=== PATIENT | female | born 1940 | race Caucasian/White ===

== ENCOUNTER 2018-02-14 14:26 | Inpatient (IN) | payer MEDICARE, SELFPAY ==
[2018-02-14] VITALS (26 sets, daily range): BP systolic 89–193; BP diastolic 41–96; PULSE 67–129; RESP 12–48; TEMP 35.4–36.8; O2SAT 40–100; BMI 37.0; BMI 35.7
[2018-02-14] MEDS: Etomidate 20 MG/10 ML Vial IV (14:36)
[2018-02-14] MEDS: Succinylcholine Chloride 200 MG/10 ML Vial 100 MG IV (14:37)
--- NOTE | 2018-02-14 14:41 | RAD_ITS ---
STUDY: X-RAY CHEST REASON FOR EXAM: Female, 77 years old. Endotracheal tube placement. Orogastric tube placement. Respiratory distress. TECHNIQUE: Single AP portable view of the chest. COMPARISON: Comparison is made with prior study dated July 06, 2014. FINDINGS: An endotracheal tube is in situ. The tip is at 2.5 cm proximal to the shawn. The tip of the orogastric tube is seen below the left hemidiaphragm. EKG electrodes are seen. Increased interstitial markings in the right lung with areas of confluence. This may represent asymmetrical CHF versus pneumonic infiltration. There is blunting of the left costophrenic angle and increased markings at the left lung base. There is mild cardiac enlargement. There is calcification of the mitral valve annulus. Normal mediastinum and debby. Normal visualized pulmonary arteries. There is atherosclerotic calcification of the aortic arch with tortuosity. There are diffuse degenerative changes of the visualized thoracic spine. Normal visualized ribs, clavicles, and shoulders. There is no demonstrated abnormality of the visualized soft tissue structures of the upper abdomen. RAD/Chest 1 View (Portable) IMPRESSION: The tip of the endotracheal tube is at 2.5 cm proximal to the shawn. Increased initial markings in the right lung as described. This may represent either mild CHF versus pneumonic infiltrate. Blunting of the left costophrenic angle with increased markings in the left lower lobe. Electronically Signed: Sage Jaramillo MD at 15:13 EDT Tel [phone], Service support ,
--- NOTE | 2018-02-14 14:41 | EKG12_ITS ---
Test Reason : FR Blood Pressure : / mmHG Vent. Rate : 120 BPM Atrial Rate : 120 BPM P-R Int : 146 ms QRS Dur : 132 ms QT Int : 332 ms P-R-T Axes : 046 -34 -07 degrees QTc Int : 469 ms Sinus tachycardia Left axis deviation Right bundle branch block Abnormal ECG Confirmed by YUE YAÑEZ, JANICE ([id number]), photo editor BIRGIT EUBANKS ([id number]) on 02/16/2018 11:44:16 AM Referred By: STEPHANIE Confirmed By:JANICE TURNER MD
[2018-02-14 15:03] LABS: Absolute Lymphocyte Count 3.12 X10^3/ul (0.83-4.51); Absolute Neutrophil Count 7.4 X10^3/uL (2.0-7.7); Basophil# 0.04 X10^3/uL; Basophil% 0.3 % (0-1); Eosinophil# 0.21 X10^3/uL; Eosinophils% 1.8 % (0-5); Hematocrit 28.7 % (37-47); Hemoglobin 8.7 g/dl (12.0-15.0); Lymphocyte # 3.12 X10^3/ul (4.0); Lymphocyte % 27.1 % (19-41); Mean Corp Hgb Conc 30.3 g/gl (32-36); Mean Corpuscular Hgb 27.7 pg (27.0-32.0); Mean Corpuscular Volume 91.4 fL (81-99); Mean Platelet Vol. 9.3 fl (6.2-12.0); Monocyte# 0.72 X10^3/uL; Monocyte% 6.3 % (0-10); Neutrophil % 64.2 % (47-70); Platelet Count 353 K/mm3 (150-450); RBC Distribution Width CV 15.1 % (11.6-14.6); RBC Distribution Width SD 50.5 fl (35.1-43.9); Red Blood Count 3.14 M/mm3 (4.2-5.4); White Blood Count 11.5 K/mm3 (4.4-11.0)
[2018-02-14 15:04] LABS: POSITIVE COUNT NO; POSITIVE DIFFERENTIAL NO; POSITIVE MORPHOLOGY NO
[2018-02-14] MEDS: Albuterol 2.5 MG/3 ML VIAL.NEB. INHALATION (15:04)
[2018-02-14] MEDS: Ipratropium/Albuterol Sulfate 3 ML AMPUL.NEB INHALATION ×2 (15:04→19:03)
[2018-02-14] MEDS: Propofol 10MG/Ml 1,000 MG/100 ML Bottle 2.934 MG CONT INF ×2 (15:05→19:44)
[2018-02-14 15:10] LABS: Bedside Glucose 276 mg/dL (70-110)
[2018-02-14 15:15] LABS: Anion Gap 4 (5-15); BUN 23 mg/dL (7-18); BUN/Creat Ratio 20.9 RATIO (10-20); Calcium,Total 8.6 mg/dL (8.5-10.1); Chloride 99 mmol/L (98-107); EST Glomerular Filtration Rate 51 mL/min (>60); Est Glom Filt Rate - Afr Amer 62 mL/min (>60); Estimated Creatinine Clearance 36.98 ml/min; Glucose 246 mg/dL (74-106); Potassium 4.9 mmol/L (3.5-5.1); Sodium Level 132 mmol/L (136-145)
[2018-02-14 15:30] LABS: Allen Test POS; Base Excess -1 mmol/L (-2 to +2); Bicarbonate 26.3 mmol/L (22-26); Blood Gas Specimen Type ART; FI02 50; Mode A-C; O2 Delivery Device Vent; PEEP 5; PO2 147 mmHG (75-100); RR 12; SITE R Radial; SO2 99 % (95-99); Time Given 1520; Total Carbon Dioxide 28 mmol/L; Vt 450; pCO2 60.3 mmHg (35-45); pH 7.25 (7.35-7.45)
--- NOTE | 2018-02-14 15:32 | ED.VISSUMM ---
- ER Visit Summary Date of Service: 02/14/18 Chief Complaint: Shortness of breath History of Present Illness: The patient is a 77 F who is short of breath today. Patient usually sits on her front porch in waves of the cars ago by. Today she flagged down a passerby to have them call 911. She was very short of breath. Upon EMS arrival the patient was 50% on room air. They placed her on a nonrebreather oxygen. She has a history of asthma and chronic leg edema per documentation. Unknown if she is a smoker. She was confused and would not answer questions upon arrival. Physical Examination: Signs reviewed. Patient 100% on nonrebreather. Respiratory rate of 24. HEENT exam unremarkable. Heart is tachycardic and regular rhythm. Lungs have rhonchorous breath sounds bilaterally. Abdomen soft nontender. Extremities reveal 2+ symmetric edema bilaterally in the legs. The patient is confused in trying to take off medical equipment. She does not answer any questions. Test Results: EKG was normal sinus rhythm with rate of [address] and T-wave changes. Chest x-ray reveals a right-sided infiltrate which could also be evidence of CHF. White blood cell count 11.5 hemoglobin 8.7 sodium 132 creatinine 1.1 troponin normal. BNP 278. Lactate 1.6. ABG is 7.248/60/147/26 Emergency Department Course and Treatment: Upon arrival, the patient was combative and would not keep medical equipment on. At this point I elected to intubate her because she was desaturating when she did not keep the oxygen on. I used etomidate and succinylcholine. She was intubated with a 7-5 endotracheal tube using a MAC 4 blade. Patient was started on a propofol drip within a Versed drip was added because she was still combative on the ventilator even on high propofol drip. The patient's chest x-ray reveals infiltrate with maybe a little bit of CHF. I gave her Lasix to help with this. Her lactate is normal. I will start the patient on azithromycin and Rocephin for community-acquired pneumonia. Patient was discussed with hospitalist and Dr. Ruby for admission Treatment Plan: [] Disposition: Admit to ICU Impression: Acute respiratory failure, community acquired pneumonia, sepsis This note was generated with Xspandation software. It may contain incorrect words, spelling, and punctuation that were not noted in review of the chart prior to signing ED Disposition - Plan for ED Patient: Chief Complaint: Shortness of Breath Referrals: Yumi Diana MD [Primary Care Provider] -
[2018-02-14 16:02] LABS: BNP,B-Type NATRIURETIC PEPTIDE 278.8 pg/mL (0-100)
[2018-02-14 16:03] LABS: Lactic Acid 1.6 mmol/L (0.4-2.0)
[2018-02-14] MEDS: Furosemide 40 MG/4 ML Vial IV (16:10)
--- NOTE | 2018-02-14 16:14 | ECHOD_ITS ---
Reason For Study: CHF Procedure This was a 2D Doppler, Color Flow transthoracic echocardiogram. Technically difficult study, patient on a vent. Exam performed portable in ICU/CCU. Left Ventricle Moderate concentric left ventricular hypertrophy. The estimated ejection fraction is 65 %. Stage 2 diastolic dysfunction. Septal motion consistent with IVCD. No regional wall motion abnormalities noted. Right Ventricle Normal size and thickness. Normal systolic function. Atria Normal left atrium. Normal right atrium. Normal atrial septum. Mitral Valve Mild diffuse mitral valve thickening. Severe mitral annular calcification extending into the posterior leaflet. Tricuspid Valve Normal tricuspid valve. Trivial tricuspid valve insufficiency. Right ventricular systolic pressure estimated to be 43 mmHg. Aortic Valve Trisinus/trileaflet aortic valve. Moderate focal aortic valve thickening. Moderate diffuse aortic valve calcification. Severe restriction of the aortic valve. Severe aortic stenosis. Peak aortic valve gradient 97 mmHg. Mean aortic valve gradient 49 mmHg. Calculated aortic valve area (continuity equation) is 0.65 cm2. Pulmonic Valve The pulmonic valve is not well visualized. Great Vessels Normal aortic root. Mild atherosclerosis of the aortic arch. Normal inferior vena cava. Inferior vena cava collapse with sniff. Pericardium/Pleural No pericardial effusion. MMode/2D Measurements & Calculations LVIDd: 3.8 cm IVSd: 1.6 cm LVOT diam: 2.0 cm LVIDs: 2.6 cm LVPWd: 0.97 cm LVOT area: 3.3 cm2 FS: 31.5 % Ao root diam: 3.3 cm LAV(MOD-bp): 56.8 ml LA A4 area: 17.8 cm2 ACS: 0.77 cm LAV(MOD-bp) Indexed: 28.7 ml/m2 LA dimension: 4.1 cm LAV(MOD-sp2): 64.6 ml LAV(MOD-sp4): 48.9 ml RA A4 area: 17.1 cm2 Time Measurements MV dec time: 0.24 sec Doppler Measurements & Calculations MV E max everett: 154.6 cm/sec Lat Peak E' Everett: 9.9 cm/sec Med Peak E' Everett: 7.0 cm/sec MV A max everett: 120.8 cm/sec E/E' lat: 15.6 E/E' med: 22.2 MV E/A: 1.3 MV V2 max: 152.2 cm/sec MV P1/2t max everett: 151.2 cm/sec Ao V2 max: 483.8 cm/sec MV max P.3 mmHg MV P1/2t: 90.1 msec Ao max P.7 mmHg MV V2 mean: 80.5 cm/sec MV dec slope: 491.7 cm/sec2 Ao V2 mean: 330.1 cm/sec MV mean P.1 mmHg MVA(P1/2t): 2.4 cm2 Ao mean P.5 mmHg MV V2 VTI: 39.1 cm Ao V2 VTI: 106.0 cm MVA(VTI): 1.9 cm2 RAGINI(I,D): 0.71 cm2 RAGINI(V,D): 0.65 cm2 LV V1 max: 96.6 cm/sec SV(LVOT): 75.4 ml PA V2 max: 109.8 cm/sec LV V1 max P.7 mmHg LV V1 mean P.0 mmHg LV V1 mean: 66.6 cm/sec LV V1 VTI: 23.1 cm TR max everett: 307.0 cm/sec TR max P.7 mmHg Interpretation Summary The estimated ejection fraction is 65 %. Stage 2 diastolic dysfunction. Right ventricular systolic pressure estimated to be 43 mmHg. Severe restriction of the aortic valve. Severe aortic stenosis. Peak aortic valve gradient 97 mmHg. Mean aortic valve gradient 49 mmHg. Calculated aortic valve area (continuity equation) is 0.65 cm2. Compared to ech report dated 04/27/2016, LV function has remained the same, but aortic stenosis has gone from moderate to severe. Ordering Physician: Ninfa Mcnamara Performed By: Pedro Luis Kang RCS
--- NOTE | 2018-02-14 16:16 | NURSING ---
ICU 1 RESP FAILURE LUCÍA
--- NOTE | 2018-02-14 16:40 | PCM.HP.STD ---
Problem List (1) Respiratory failure Status: Acute (2) Respiratory failure requiring intubation Status: Acute History of Present Illness Date of Admission: 02/14/18 Chief Complaint: shortness of breath The patient is a 77 year old F was admitted via the ED on 02/14/2018 after she complained of shortness of breath. History was taken from patient's nephew who lives with her. According to nephew, patient went outside to sit on her porch was usually with that because that go by. Started feeling short of breath. The next thing he knew a gentleman wanting to tell him that patient had flushed them down as they were passing and told them she was very short of breath and to call 911. Upon arrival of EMS, per ED notes patient was 50% saturating on room air and she was placed on nonrebreather mask. She has a history of asthma and chronic lower extremity edema and his smoking status is unknown. Patient was confused and would not answer questions upon arrival. She is saturating at 100% on nonrebreather mask but was not tolerating it and was confused and kept trying to take off the mask. She kept and desaturating I would not give the oxygen mask on and so decision was made to intubate her in the ED. She was started on propofol drip and a Versed drip because she was still very combative whilst on the ventilator. Patient says she says she had not had any complaint of any shortness of breath, chest pain, palpitations, fever or chills, abdominal pain, diarrhea or vomiting. He only knows of having regular podiatry evaluations and says she has chronic lower extremity swelling and redness which she is followed up by podiatry. In the ED, temperature was 98 Fahrenheit, blood pressure was 108/70 with the time of arrival, respiratory rate was 24 pulse rate is 88. CBC showed leukocytosis of 11.5 and hemoglobin of 8.7 and chemistry showed sodium of 132, creatinine of 1.1 and lactic acid of 1.6 as well as glucose of 246. BNP was 278. Chest x-ray which was done after intubation showed tip of the endotracheal tube at 2.5 cm proximal to the shawn. There is also increased interstitial markings in the right lung versus areas of confluence which may represent asymmetrical seizure versus pneumonic infiltration and blunting of left costophrenic angle and increased markings of the left lung base. There is also mild cardiac enlargement. ABG on arrival showed pH of 7.25 with PCO2 of 60.3 and PO2 of 147. This was done after patient was intubated. CT angiogram was not done. Patient has been admitted to be managed for hypercapnic and hypoxic respiratory failure. [] Past Medical History Past Medical History (Chronic Problems): Chronic Problems History of ischemic stroke without residual deficits (Chronic) Obesity (Chronic) Asthma (Chronic) Dyslipidemia (Chronic) Peripheral arterial occlusive disease (Chronic) Arterial atherosclerosis (Chronic) Diabetes mellitus (Chronic) Left carotid bruit (Chronic) Erythema of lower extremity (Chronic) Edema of left lower extremity (Chronic) Swelling of left lower extremity (Chronic) Scalp laceration (Chronic) Multiple falls (Chronic) HTN (hypertension) (Chronic) Allergies banana [Banana] Allergy (Verified 02/14/18 14:41) Swelling metformin [From Glucophage] Adverse Reaction (Verified 02/14/18 14:41) Swelling of legs Home Medications: Ambulatory Orders Medication Instructions Recorded Acetaminophen [Tylenol] 1,000 mg PO Q6H PRN PRN 07/06/14 Aspirin [Aspirin, Baby] 81 mg PO DAILY@0800 07/06/14 Atorvastatin Calcium [Lipitor] 80 mg PO QHS 07/06/14 Ferrous Gluconate 325 mg PO DAILY@0800 07/06/14 Lisinopril [Zestril] 40 mg PO DAILY 07/06/14 Loperamide [Imodium] 2 mg PO Q4H PRN PRN 07/06/14 Metoprolol(XL)Succ [Toprol Xl 25 mg PO DAILY #30 tablet 07/08/14 (Beta Ryder)] Acetaminophen [Tylenol Tablet] 650 mg PO Q6H PRN PRN #30 tablet 04/29/16 Amlodipine [Norvasc] 2.5 mg PO DAILY #30 tablet 04/29/16 Insulin Glargine [Lantus SoloStar 24 units SC ACHS #4 cartridge 04/29/16 Pen] Insulin Glulisine [Apidra Solostar] 8 unit SQ ACHS #4 cartridge 04/29/16 levoFLOXacin tablet [Levaquin 500 mg PO DAILY #5 tablet 04/29/16 tablet] Surgical History: - - The patient has undergone left total knee replacement in 2005. Left carpal tunnel release was performed in 2005. The patient has had a distal left toe amputation. Lives: With Family - lives with nephew Smoking Status: Unknown if ever smoked Alcohol: None - *Family History Maternal History Items: No pertinent history Paternal History Items: No pertinent history - The patient's father at age of 85 with a history of heart disease. The patient's mother at age of 90 with a history of FIRE ENGINE PUMP OPERATOR cancer. Review of Systems Constitutional: Reports: Anorexia, Chills. Denies: Fever, Weight Change HEENT: Denies: Head Aches, Sinus Congestion, Sinus Drainage Cardiovascular: Denies: Chest Pressure, Chest Tightness, Heaviness, Orthopnea, Palpitations, Paroxysmal Noc. Dyspnea Respiratory: Reports: Shortness of Breath, Shortness of breath at rest. Denies: Cough Gastrointestinal: Denies: Abdominal Pain, Diarrhea, Nausea, Vomiting Unable to obtain accurate/complete ROS d/t: brief ROS taken from nephew. Unable to do comprehensive ROS as pt intubated VTE Information - Inpt Only VTE Present on Admission: No - having CTPE to determine VTE Mechan Device Prophylaxis: SCD's VTE Pharm Prophylaxis ordered?: Yes VTE Suspected: Suspected PE - having CT angiogram to rule it out Patient Problems: Active and Suspected Problems Respiratory failure (Acute) Respiratory failure requiring intubation (Acute) Objective: patient intubated, sedated with propofol and versed. - Physical Exam HEENT: Atraumatic, PERRLA, EOMI, Normocephalic Oral: Moist Mucosa Neck: Supple, No JVD, Negative Carotid Bruits Lungs: - - decreased breath sounds with coarse crackles in mid and lower lung messer. Cardiovascular: Regular rate, Regular Rhythm, Normal S1, Normal S2, - - harsh, grade 3-4 systolic murmur in pulmonic valvular area; grade 2-3 systolic murmur in aortic region Abdomen: Bowel Sounds Present, Soft, Non Tender, Non-Distended Extremities: - - bilateral LE redness and mild edema. not warm to touch; minimal differential warmth Skin: - - erythema and mild scaling of LEs. Left second toe amputation. No evidence of infection in webbed spaces Lymphatic: No Cervical, Supraclavicular, or Inguinal Adenopathy Neurological: - - patient intubated, sedated. On propofol and Versed. RASS score ~ -3 Psych/Mental Status: - - intubated and sedated Vital Signs Temp Pulse Resp BP Pulse Ox 98.0 F 88 24 H 108/76 100 02/14/18 14:28 02/14/18 16:23 02/14/18 16:23 02/14/18 16:23 02/14/18 16:23 Oxygen Delivery Method Mechanical Ventilator Diagnostic Data Chest X-Ray 02/14/18 14:41 IMPRESSION: The tip of the endotracheal tube is at 2.5 cm proximal to the shawn. Increased initial markings in the right lung as described. This may represent either mild CHF versus pneumonic infiltrate. Blunting of the left costophrenic angle with increased markings in the left lower lobe. Electronically Signed: Sage Jaramillo MD at 15:13 EDT Tel [phone], Service support , Laboratory Tests 02/14/18 02/14/18 02/14/18 14:45 14:45 14:45 WBC 11.5 H RBC 3.14 L Hgb 8.7 L Hct 28.7 L MCV 91.4 MCH 27.7 MCHC 30.3 L RDW 15.1 H RDW Differential 50.5 H Plt Count 353 MPV 9.3 Immature Gran % (Auto) 0.300 Neut % (Auto) 64.2 Lymph % (Auto) 27.1 [place] % (Auto) 6.3 Eos % (Auto) 1.8 Baso % (Auto) 0.3 Absolute Neuts (auto) 7.4 Absolute Lymphs (auto) 3.12 Total Counted Not Reportable Specimen Type Sample Site pH Bicarbonate Actual POC Total CO2 Base Excess O2 Saturation O2 % ABG pCO2 ABG pO2 John Test Respiration Rate O2 Delivery Device Vent Mode Tidal Volume POC PEEP Blood Gas Notified Whom Blood Gas Notified Time Sodium 132 L Potassium 4.9 Chloride 99 Carbon Dioxide 29.0 Anion Gap 4 L BUN 23 H Creatinine 1.10 H Estim Creat Clear Calc 36.98 Est GFR (MDRD) Af Amer 62 Est GFR (MDRD) Non-Af 51 L BUN/Creatinine Ratio 20.9 H Glucose 246 H Lactic Acid Calcium 8.6 Troponin I < 0.015 B-Natriuretic Peptide 278.8 H POC Glucose 02/14/18 02/14/18 02/14/18 14:45 15:04 15:28 WBC RBC Hgb Hct MCV MCH MCHC RDW RDW Differential Plt Count MPV Immature Gran % (Auto) Neut % (Auto) Lymph % (Auto) [place] % (Auto) Eos % (Auto) Baso % (Auto) Absolute Neuts (auto) Absolute Lymphs (auto) Total Counted Specimen Type ART Sample Site R Radial pH 7.25 L Bicarbonate Actual 26.3 H POC Total CO2 28 Base Excess -1 O2 Saturation 99 O2 % 50 ABG pCO2 60.3 H ABG pO2 147 H John Test POS Respiration Rate 12 O2 Delivery Device Vent Vent Mode A-C Tidal Volume 450 POC PEEP 5 Blood Gas Notified Whom ED Blood Gas Notified Time 1520 Sodium Potassium Chloride Carbon Dioxide Anion Gap BUN Creatinine Estim Creat Clear Calc Est GFR (MDRD) Af Amer Est GFR (MDRD) Non-Af BUN/Creatinine Ratio Glucose Lactic Acid 1.6 Calcium Troponin I B-Natriuretic Peptide POC Glucose 276 H Assessment/Plan All Active Problems Respiratory failure (Acute) Respiratory failure requiring intubation (Acute) Ulcer of left lower leg (Resolved) Cellulitis of left leg without foot (Resolved) Acute electrocardiogram changes (Acute) 77 y/o female admitted with a after she was found short of breath and passersby called the EMS 1. Hypoxic, hypercapnic respiratory failure due to CHF exacerbation and pneumonia Was found to be saturating at 50% with complaint of acute onset shortness of breath. Was not tolerating oxygen by nonrebreather mask and had to be intubated in the ED. Blood gases after intubation the ED showed pH of 7.25, PCO2 of 60.3 and PO2 of 147. Ventilator in the ED showed assist-control mode with tidal volume of 450, PEEP of 5 respiratory rate of 12. CXR: This interstitial markings in right lung with areas of confluence representing possible asymmetrical CHF versus pneumonic infiltration as well as blunting of the left costophrenic angle and increased markings of left lung base. Also mild cardiac enlargement. 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 Chronic lower extremity edema has mild LE edema with redness; this is chronic according to her nephew, and she follows Dr Jose Antonio ALLISON wraps bilaterally I dont think she has cellulitis, considering her chronic basis. 3. Hyponatremia Has a history of hyponatremia with sodium being as low as 131 in 2016. May be due to had been fully make hypotonic hyponatremia in light of elevated BNP. Will hold off on diuresis now though as blood pressure iranging in the 90s systolic at time of review will monitor 4. Probable CHF exacerbation doesnt have a history of CHF; BNP ~ 278; however, BP running low. will get urgent 2D echo 5. Diabetes mellitus on lantus 24IU and lispro 8IU 3 times daily. Will hold these and start insulin sliding scale. Accu-Cheks q6. 6. Pulmonary and aortic stenosis has grade 3-4 and 2-3 systolic murmurs respectively in the aforementioned areas will get 2D echo to assess fully 7. Hypertension on metoprolol and amlodipine. Also lisinopril. Will hold these due to hypotension. 8. DVT prophylaxis: lovenox 9. GI prophylaxis: pantoprazole Code status: full code This note was generated with [employer] dictation software. It may contain incorrect words, spelling, and punctuation that were not noted in checking the note before signing. Code Visit Inpatient E&M: 37259 Init Hosp L3 Procedures: 04171 Critial Care 1st Hr
--- NOTE | 2018-02-14 16:48 | HP.PCM_ITS ---
Problem List (1) Respiratory failure Status: Acute (2) Respiratory failure requiring intubation Status: Acute History of Present Illness Date of Admission: 02/14/18 Chief Complaint: shortness of breath The patient is a 77 year old F was admitted via the ED on 02/14/2018 after she complained of shortness of breath. History was taken from patient's nephew who lives with her. According to nephew, patient went outside to sit on her porch was usually with that because that go by. Started feeling short of breath. The next thing he knew a gentleman wanting to tell him that patient had flushed them down as they were passing and told them she was very short of breath and to call 911. Upon arrival of EMS, per ED notes patient was 50% saturating on room air and she was placed on nonrebreather mask. She has a history of asthma and chronic lower extremity edema and his smoking status is unknown. Patient was confused and would not answer questions upon arrival. She is saturating at 100% on nonrebreather mask but was not tolerating it and was confused and kept trying to take off the mask. She kept and desaturating I would not give the oxygen mask on and so decision was made to intubate her in the ED. She was started on propofol drip and a Versed drip because she was still very combative whilst on the ventilator. Patient says she says she had not had any complaint of any shortness of breath, chest pain, palpitations, fever or chills, abdominal pain, diarrhea or vomiting. He only knows of having regular podiatry evaluations and says she has chronic lower extremity swelling and redness which she is followed up by podiatry. In the ED, temperature was 98 Fahrenheit, blood pressure was 108/70 with the time of arrival, respiratory rate was 24 pulse rate is 88. CBC showed leukocytosis of 11.5 and hemoglobin of 8.7 and chemistry showed sodium of 132, creatinine of 1.1 and lactic acid of 1.6 as well as glucose of 246. BNP was 278. Chest x-ray which was done after intubation showed tip of the endotracheal tube at 2.5 cm proximal to the shawn. There is also increased interstitial markings in the right lung versus areas of confluence which may represent asymmetrical seizure versus pneumonic infiltration and blunting of left costophrenic angle and increased markings of the left lung base. There is also mild cardiac enlargement. ABG on arrival showed pH of 7.25 with PCO2 of 60.3 and PO2 of 147. This was done after patient was intubated. CT angiogram was not done. Patient has been admitted to be managed for hypercapnic and hypoxic respiratory failure. [] Past Medical History Past Medical History (Chronic Problems): Chronic Problems History of ischemic stroke without residual deficits (Chronic) Obesity (Chronic) Asthma (Chronic) Dyslipidemia (Chronic) Peripheral arterial occlusive disease (Chronic) Arterial atherosclerosis (Chronic) Diabetes mellitus (Chronic) Left carotid bruit (Chronic) Erythema of lower extremity (Chronic) Edema of left lower extremity (Chronic) Swelling of left lower extremity (Chronic) Scalp laceration (Chronic) Multiple falls (Chronic) HTN (hypertension) (Chronic) Allergies banana [Banana] Allergy (Verified 02/14/18 14:41) Swelling metformin [From Glucophage] Adverse Reaction (Verified 02/14/18 14:41) Swelling of legs Home Medications: Ambulatory Orders Medication Instructions Recorded Acetaminophen [Tylenol] 1,000 mg PO Q6H PRN PRN 07/06/14 Aspirin [Aspirin, Baby] 81 mg PO DAILY@0800 07/06/14 Atorvastatin Calcium [Lipitor] 80 mg PO QHS 07/06/14 Ferrous Gluconate 325 mg PO DAILY@0800 07/06/14 Lisinopril [Zestril] 40 mg PO DAILY 07/06/14 Loperamide [Imodium] 2 mg PO Q4H PRN PRN 07/06/14 Metoprolol(XL)Succ [Toprol Xl 25 mg PO DAILY #30 tablet 07/08/14 (Beta Ryder)] Acetaminophen [Tylenol Tablet] 650 mg PO Q6H PRN PRN #30 tablet 04/29/16 Amlodipine [Norvasc] 2.5 mg PO DAILY #30 tablet 04/29/16 Insulin Glargine [Lantus SoloStar 24 units SC ACHS #4 cartridge 04/29/16 Pen] Insulin Glulisine [Apidra Solostar] 8 unit SQ ACHS #4 cartridge 04/29/16 levoFLOXacin tablet [Levaquin 500 mg PO DAILY #5 tablet 04/29/16 tablet] Surgical History: - - The patient has undergone left total knee replacement in 2005. Left carpal tunnel release was performed in 2005. The patient has had a distal left toe amputation. Lives: With Family - lives with nephew Smoking Status: Unknown if ever smoked Alcohol: None - *Family History Maternal History Items: No pertinent history Paternal History Items: No pertinent history - The patient's father at age of 85 with a history of heart disease. The patient's mother at age of 90 with a history of [employer] cancer. Review of Systems Constitutional: Reports: Anorexia, Chills. Denies: Fever, Weight Change HEENT: Denies: Head Aches, Sinus Congestion, Sinus Drainage Cardiovascular: Denies: Chest Pressure, Chest Tightness, Heaviness, Orthopnea, Palpitations, Paroxysmal Noc. Dyspnea Respiratory: Reports: Shortness of Breath, Shortness of breath at rest. Denies : Cough Gastrointestinal: Denies: Abdominal Pain, Diarrhea, Nausea, Vomiting Unable to obtain accurate/complete ROS d/t: brief ROS taken from nephew. Unable to do comprehensive ROS as pt intubated VTE Information - Inpt Only VTE Present on Admission: No - having CTPE to determine VTE Mechan Device Prophylaxis: SCD's VTE Pharm Prophylaxis ordered?: Yes VTE Suspected: Suspected PE - having CT angiogram to rule it out Patient Problems: Active and Suspected Problems Respiratory failure (Acute) Respiratory failure requiring intubation (Acute) Objective: patient intubated, sedated with propofol and versed. - Physical Exam HEENT: Atraumatic, PERRLA, EOMI, Normocephalic Oral: Moist Mucosa Neck: Supple, No JVD, Negative Carotid Bruits Lungs: - - decreased breath sounds with coarse crackles in mid and lower lung messer. Cardiovascular: Regular rate, Regular Rhythm, Normal S1, Normal S2, - - harsh, grade 3-4 systolic murmur in pulmonic valvular area; grade 2-3 systolic murmur in aortic region Abdomen: Bowel Sounds Present, Soft, Non Tender, Non-Distended Extremities: - - bilateral LE redness and mild edema. not warm to touch; minimal differential warmth Skin: - - erythema and mild scaling of LEs. Left second toe amputation. No evidence of infection in webbed spaces Lymphatic: No Cervical, Supraclavicular, or Inguinal Adenopathy Neurological: - - patient intubated, sedated. On propofol and Versed. RASS score ~ -3 Psych/Mental Status: - - intubated and sedated Vital Signs Temp Pulse Resp BP Pulse Ox 98.0 F 88 24 H 108/76 100 02/14/18 14:28 02/14/18 16:23 02/14/18 16:23 02/14/18 16:23 02/14/18 16:23 Oxygen Delivery Method Mechanical Ventilator Diagnostic Data Chest X-Ray 02/14/18 14:41 IMPRESSION: The tip of the endotracheal tube is at 2.5 cm proximal to the shawn. Increased initial markings in the right lung as described. This may represent either mild CHF versus pneumonic infiltrate. Blunting of the left costophrenic angle with increased markings in the left lower lobe. Electronically Signed: Sage Jaramillo MD at 15:13 EDT Tel [phone], Service support , Laboratory Tests 02/14/18 02/14/18 02/14/18 14:45 14:45 14:45 WBC 11.5 H RBC 3.14 L Hgb 8.7 L Hct 28.7 L MCV 91.4 MCH 27.7 MCHC 30.3 L RDW 15.1 H RDW Differential 50.5 H Plt Count 353 MPV 9.3 Immature Gran % (Auto) 0.300 Neut % (Auto) 64.2 Lymph % (Auto) 27.1 [place] % (Auto) 6.3 Eos % (Auto) 1.8 Baso % (Auto) 0.3 Absolute Neuts (auto) 7.4 Absolute Lymphs (auto) 3.12 Total Counted Not Reportable Specimen Type Sample Site pH Bicarbonate Actual POC Total CO2 Base Excess O2 Saturation O2 % ABG pCO2 ABG pO2 John Test Respiration Rate O2 Delivery Device Vent Mode Tidal Volume POC PEEP Blood Gas Notified Whom Blood Gas Notified Time Sodium 132 L Potassium 4.9 Chloride 99 Carbon Dioxide 29.0 Anion Gap 4 L BUN 23 H Creatinine 1.10 H Estim Creat Clear Calc 36.98 Est GFR (MDRD) Af Amer 62 Est GFR (MDRD) Non-Af 51 L BUN/Creatinine Ratio 20.9 H Glucose 246 H Lactic Acid Calcium 8.6 Troponin I < 0.015 B-Natriuretic Peptide 278.8 H POC Glucose 02/14/18 02/14/18 02/14/18 14:45 15:04 15:28 WBC RBC Hgb Hct MCV MCH MCHC RDW RDW Differential Plt Count MPV Immature Gran % (Auto) Neut % (Auto) Lymph % (Auto) [place] % (Auto) Eos % (Auto) Baso % (Auto) Absolute Neuts (auto) Absolute Lymphs (auto) Total Counted Specimen Type ART Sample Site R Radial pH 7.25 L Bicarbonate Actual 26.3 H POC Total CO2 28 Base Excess -1 O2 Saturation 99 O2 % 50 ABG pCO2 60.3 H ABG pO2 147 H John Test POS Respiration Rate 12 O2 Delivery Device Vent Vent Mode A-C Tidal Volume 450 POC PEEP 5 Blood Gas Notified Whom ED MD Blood Gas Notified Time 1520 Sodium Potassium Chloride Carbon Dioxide Anion Gap BUN Creatinine Estim Creat Clear Calc Est GFR (MDRD) Af Amer Est GFR (MDRD) Non-Af BUN/Creatinine Ratio Glucose Lactic Acid 1.6 Calcium Troponin I B-Natriuretic Peptide POC Glucose 276 H Assessment/Plan All Active Problems Respiratory failure (Acute) Respiratory failure requiring intubation (Acute) Ulcer of left lower leg (Resolved) Cellulitis of left leg without foot (Resolved) Acute electrocardiogram changes (Acute) 77 y/o female admitted with a after she was found short of breath and passersby called the EMS 1. Hypoxic, hypercapnic respiratory failure due to CHF exacerbation and pneumonia * Was found to be saturating at 50% with complaint of acute onset shortness of breath. * Was not tolerating oxygen by nonrebreather mask and had to be intubated in the ED. * Blood gases after intubation the ED showed pH of 7.25, PCO2 of 60.3 and PO2 of 147. * Ventilator in the ED showed assist-control mode with tidal volume of 450, PEEP of 5 respiratory rate of 12. * CXR: This interstitial markings in right lung with areas of confluence representing possible asymmetrical CHF versus pneumonic infiltration as well as blunting of the left costophrenic angle and increased markings of left lung base. Also mild cardiac enlargement. * received a dose of IV ceftriaxone and IV azithromycin in the ED * CBC showed leucocytosis of 11.5; BNP was ~280 * will continue iV ceftriaxone and azithromycin * will get urgent 2D echocardiogram * blood cultures x 2 * admit to ICU * dye house hand consult * will get CT angiogram to rule out PE * will start pressors to maintain MAP>92% * 2. Chronic lower extremity edema * has mild LE edema with redness; this is chronic according to her nephew, and she follows Dr Brady * KEEGAN wraps bilaterally * I dont think she has cellulitis, considering her chronic basis. * 3. Hyponatremia * Has a history of hyponatremia with sodium being as low as 131 in 2016. * May be due to had been fully make hypotonic hyponatremia in light of elevated BNP. * Will hold off on diuresis now though as blood pressure iranging in the 90s systolic at time of review * will monitor * 4. Probable CHF exacerbation * doesnt have a history of CHF; * BNP ~ 278; however, BP running low. * will get urgent 2D echo * 5. Diabetes mellitus * on lantus 24IU and lispro 8IU 3 times daily. Will hold these and start insulin sliding scale. Accu-Cheks q6. * 6. Pulmonary and aortic stenosis * has grade 3-4 and 2-3 systolic murmurs respectively in the aforementioned areas * will get 2D echo to assess fully * 7. Hypertension * on metoprolol and amlodipine. Also lisinopril. Will hold these due to hypotension. * 8. DVT prophylaxis: lovenox 9. GI prophylaxis: pantoprazole Code status: full code This note was generated with [employer] dictation software. It may contain incorrect words, spelling, and punctuation that were not noted in checking the note before signing. Code Visit Inpatient E&M: 00409 Init Hosp L3 Procedures: 70300 Critial Care 1st Hr
[2018-02-14] MEDS: Ceftriaxone 1 GM/50 ML BAG IV ×2 (16:59→23:46)
--- NOTE | 2018-02-14 17:05 | RAD_ITS ---
STUDY: X-RAY CHEST REASON FOR EXAM: Female, 77 years old. Central line placement TECHNIQUE: Single AP portable view of the chest. COMPARISON: Prior study of earlier this date 2:52 PM FINDINGS: cafeteria monitor leads are present. An endotracheal tube is present with the tip 2.3 cm proximal to the shawn. There is a right-sided central venous line with tip in the region of the distal SVC. A nasogastric tube is present with the tip overlying the mid abdomen. The lungs are clear and expanded. There is no demonstrated pleural abnormality. Normal size heart. Normal mediastinum and debby. Normal visualized pulmonary arteries. There are calcified plaques of the aortic arch. Normal visualized thoracic spine. Normal visualized ribs, clavicles, and shoulders. There is no demonstrated abnormality of the visualized soft tissue structures of the upper abdomen. RAD/CXR for Line Placement IMPRESSION: Right-sided central venous line present with tip in the region of the distal SVC. Endotracheal and nasogastric tubes present appearing in adequate position. Calcified plaques of the aortic arch. No acute cardiopulmonary disease process is seen. Electronically Signed: Onel Lester MD at 17:38 EDT , Service support ,
--- NOTE | 2018-02-14 17:11 | CT_ITS ---
STUDY: CTA CHEST REASON FOR EXAM: Female, 77 years old. Hypoxia, respiratory distress RADIATION DOSAGE (If Supplied By Facility): CTDIvol = ( 37.42 ) mGy, DLP = ( 871.26 ) mGycm TECHNIQUE: The examination was performed with the intravenous administration of 100 ml of Isovue 370 contrast material. Post-processing of the angiographic images was performed, with multiplanar reformation and 3D reconstruction. Individualized dose optimization techniques were used for this CT. COMPARISON: None. FINDINGS: The study is technically limited. Normal enhancement of the main pulmonary artery and right and left pulmonary arteries. Normal enhancement of the bilateral peripheral pulmonary arteries. There is no demonstrated pulmonary embolism. There are calcified plaques of the thoracic aorta. There is no evidence of thoracic aortic aneurysm or dissection. The heart size is within normal limits. There is no pericardial effusion. Coronary arterial calcifications are present. Normal mediastinum. Normal hilar regions. An endotracheal tube is present with the tip 7 mm proximal to the shawn. A nasogastric tube is seen with the tip in the stomach. There is a mosaic attenuation pattern of the lungs predominantly involving the upper lobes and right lower lobe. There is atelectasis with air bronchograms of the left and right upper and lower lobes. There are bronchiectatic changes of the lower lobes. There are small bilateral pleural effusions right side larger than left. Normal chest wall structures. There are diffuse degenerative changes of the visualized thoracolumbar spine. Normal visualized upper abdomen. CT/CTA Chest W/WO Contrast IMPRESSION: 1. There is no evidence of pulmonary embolism. 2. There is a mosaic attenuation pattern of the lungs predominantly involving the upper lobes and right lower lobe. 3. There is atelectasis with air bronchograms of the left and right upper and lower lobes. 4. There are bronchiectatic changes of the lower lobes also. 5. There are small bilateral pleural effusions right side larger than left. 6. An endotracheal tube is present with the tip 7 mm proximal to the shawn. Retraction of several centimeters of such is recommended for optimal placement. 7. There are diffuse degenerative changes of the visualized thoracolumbar spine. Electronically Signed: Onel Lester MD at 18:09 EDT , Service support ,
[2018-02-14] MEDS: Insulin Lispro 100 UNIT/ML INSULN.PEN SQ (18:40)
[2018-02-14 18:46] LABS: Bedside Glucose 154 mg/dL (70-110)
[2018-02-14 20:55] LABS: M R Staph aureus DNA By PCR Negative (Negative); Probe Check PASS; Specimen Processing Control PASS
[2018-02-14] MEDS: Chlorhexidine 15 ML PO (22:00)
[2018-02-15] VITALS (45 sets, daily range): BP systolic 63–153; BP diastolic 30–107; PULSE 62–111; RESP 12–28; TEMP 36.9–37.7; O2SAT 90–100
[2018-02-15 00:46] LABS: Bedside Glucose 114 mg/dL (70-110)
[2018-02-15] MEDS: Ipratropium/Albuterol Sulfate 3 ML AMPUL.NEB INHALATION ×4 (01:04→18:53)
[2018-02-15] MEDS: Propofol 10MG/Ml 1,000 MG/100 ML Bottle 2.934 MG CONT INF (02:50)
[2018-02-15 05:20] LABS: Hematocrit 21.9 % (37-47); Hemoglobin 6.9 g/dl (12.0-15.0); Mean Corp Hgb Conc 31.5 g/gl (32-36); Mean Corpuscular Hgb 28.3 pg (27.0-32.0); Mean Corpuscular Volume 89.8 fL (81-99); Mean Platelet Vol. 8.6 fl (6.2-12.0); Platelet Count 257 K/mm3 (150-450); RBC Distribution Width CV 14.4 % (11.6-14.6); RBC Distribution Width SD 45.5 fl (35.1-43.9); Red Blood Count 2.44 M/mm3 (4.2-5.4); White Blood Count 8.4 K/mm3 (4.4-11.0)
[2018-02-15] MEDS: 0.9% NaCl Peripheral Flush Adult/Peds IV ×2 (05:23→07:12)
[2018-02-15 05:24] LABS: Scan Indicated on CBC? Y/N NO
[2018-02-15 05:43] LABS: Anion Gap 8 (5-15); BUN 24 mg/dL (7-18); Chloride 100 mmol/L (98-107); Creatinine, Serum 1.09 mg/dL (0.55-1.02); EST Glomerular Filtration Rate 52 mL/min (>60); Est Glom Filt Rate - Afr Amer 63 mL/min (>60); Estimated Creatinine Clearance 37.32 ml/min; Glucose 97 mg/dL (74-106); Potassium 4.2 mmol/L (3.5-5.1); Sodium Level 138 mmol/L (136-145)
--- NOTE | 2018-02-15 06:48 | RAD_ITS ---
STUDY: X-RAY CHEST REASON FOR EXAM: Female, 77 years old. Shortness of breath. TECHNIQUE: Single AP portable view of the chest. COMPARISON: Comparison is made with prior examination dated February 14, 2018. FINDINGS: An endotracheal tube is in situ. The tip is at 2 cm Roxanol to the shawn. An oral gastric tube is seen with the tip in the body of the stomach. EKG electrodes are seen. Mild degree of increased markings at the lung bases as well as in both upper lobes slightly worse on the right side. This is suggestive of vascular congestion and mild CHF with bibasilar atelectasis. This has progressed as compared to prior study. Blunting of the left costophrenic angle. There is mild cardiac enlargement. Normal mediastinum and debby. Normal visualized pulmonary arteries. There is atherosclerotic calcification of the aortic arch with tortuosity. There are diffuse degenerative changes of the visualized thoracic spine. Normal visualized ribs, clavicles, and shoulders. There is no demonstrated abnormality of the visualized soft tissue structures of the upper abdomen. RAD/Chest 1 View (Portable) IMPRESSION: Findings suggestive of a mild degree of CHF with bibasilar atelectasis. There has been progression as compared to prior study. Electronically Signed: Sage Jaramillo MD at 11:26 EDT Tel [phone], Service support ,
--- NOTE | 2018-02-15 07:07 | CON.PCM_ITS ---
Reason for Consult Date of Consultation: 02/15/18 Reason for Consultation: Acute respiratory failure History of Present Illness: The patient is a 77-year-old female, with a history as outlined below, who presented to the emergency department on February 14 with acute onset shortness of breath. History pertinent to the patient's hospitalization was obtained primarily via chart review, as the patient is currently intubated and there are no family members available at the bedside. Per report, the patient was sitting on her front porch when she developed rather acute onset shortness of breath. She flagged down a passing motorist, who called 911. The patient's nephew resides with her. The patient was reportedly confused and hypoxic upon EMS arrival. On presentation to the emergency department, the patient was noted to be afebrile, tachycardic, tachypneic and in fulminant respiratory distress. Laboratory evaluation revealed a mildly elevated white blood cell count to 12, 000. The patient was anemic with a hemoglobin of 8.7. Arterial blood gas revealed a pH of 7.25 with a corresponding PCO2 of 60 and PO2 of 147. Chemistry profile revealed a sodium of 132 with a creatinine of 1.10, which is increased from her baseline from April 2016. Serum lactate was within normal limits. BNP was elevated to 278. On arrival to the ED, the patient was combative and was therefore subsequently intubated. A CTA chest was then obtained which revealed no evidence for pulmonary embolism. There was evidence of small bilateral pleural effusions along with mosaic attenuation with potential airspace disease in the right upper lobe with associated air bronchograms and evidence of bronchiectasis in the lower lobes. The patient was started on antibiotics and subsequently transferred to the medical intensive care unit for ongoing management. Past Medical History Past Medical History (Chronic Problems): Chronic Problems History of ischemic stroke without residual deficits (Chronic) Obesity (Chronic) Asthma (Chronic) Dyslipidemia (Chronic) Peripheral arterial occlusive disease (Chronic) Arterial atherosclerosis (Chronic) Diabetes mellitus (Chronic) Left carotid bruit (Chronic) Erythema of lower extremity (Chronic) Edema of left lower extremity (Chronic) Swelling of left lower extremity (Chronic) Scalp laceration (Chronic) Multiple falls (Chronic) HTN (hypertension) (Chronic) Allergies banana [Banana] Allergy (Verified 02/14/18 14:41) Swelling metformin [From Glucophage] Adverse Reaction (Verified 02/14/18 14:41) Swelling of legs Home Medications: Ambulatory Orders Medication Instructions Recorded Aspirin [Aspirin, Baby] 81 mg PO DAILY@0800 07/06/14 Atorvastatin Calcium [Lipitor] 40 mg PO QHS 07/06/14 Ferrous Gluconate 325 mg PO BID 07/06/14 Lisinopril [Zestril] 10 mg PO DAILY 07/06/14 Acetaminophen [Tylenol Tablet] 650 mg PO Q6H PRN PRN #30 tablet 04/29/16 Amlodipine [Norvasc] 2.5 mg PO DAILY 02/15/18 Cholecalciferol (Vitamin D3) 5,000 unit PO DAILY 02/15/18 [Vitamin D3] Insulin Aspart [Novolog Flexpen 5 units SC TIDCM 02/15/18 ([facility])] Insulin Degludec [Tresiba 22 unit SQ DAILY 02/15/18 Flextouch U-100] Metoprolol(XL)Succ [Toprol Xl 25 mg PO DAILY 02/15/18 (Beta Ryder)] Oxybutynin [Ditropan] 5 mg PO DAILY 02/15/18 Triamcinolone 0.1% Cream [Kenalog] 1 applic TOPICAL BID 02/15/18 Surgical History: - - The patient has undergone left total knee replacement in 2005. Left carpal tunnel release was performed in 2005. The patient has had a distal left toe amputation. Lives: With Family - lives with nephew Smoking Status: Unknown if ever smoked Alcohol: None - *Family History Maternal History Items: No pertinent history Paternal History Items: No pertinent history - The patient's father at age of 85 with a history of heart disease. The patient's mother at age of 90 with a history of [employer] MACHINE OPERATOR cancer. Review of Systems Unable to obtain accurate/complete ROS d/t: As the patient is currently intubated and mechanically ventilated. Patient Problems: Active and Suspected Problems Respiratory failure (Acute) Respiratory failure requiring intubation (Acute) Objective: The patient's most recent lab work, culture data and imaging studies have all been personally reviewed. Strep and urine Legionella antigens were both negative. Blood cultures are pending. Sputum culture was collected and is currently pending. - Physical Exam General: - - Intubated and mechanically ventilated. Appears anxious and agitated on CPAP currently. HEENT: Atraumatic, PERRLA, Normocephalic Oral: No Gingival or Mucosal Lesions/ Ulcerations, - - Endotracheal and OG tubes remain in place. Neck: Supple, No Nodes, Trachea Midline Lungs: - - Clear across anterior lung messer with diminished air movement in the posterior lung bases. No appreciable wheezes, rales or rhonchi. Cardiovascular: Normal S1, Normal S2, Murmur, No rub noted, No Gallop, Tachycardic Abdomen: Bowel Sounds Present, Soft, Non Tender, Non-Distended Extremities: No clubbing, No cyanosis, No edema Skin: No breakdown Musculoskeletal: No Tenderness to Palpation of Joints or Extremities Lymphatic: No Cervical, Supraclavicular, or Inguinal Adenopathy Neurological: - - No focal deficits. Moves all extremities spontaneously. Currently agitated and restless in bed. Psych/Mental Status: Agitated, Restless Vital Signs Temp Pulse Resp BP Pulse Ox 98.9 F 83 14 119/68 100 02/15/18 06:00 02/15/18 06:00 02/15/18 06:00 02/15/18 06:00 02/15/18 06:00 Oxygen Delivery Method Room Air Weight: 205 lb 14.588 oz Body Mass Index (BMI) 35.7 Intake and Output for Last 24 Hours 02/13/18 02/14/18 02/15/18 23:59 23:59 23:59 Intake Total 556 / 556 206 / 206 Output Total 5 / 2075 350 / 350 Balance -1519 / -1519 -144 / -144 Microbiology Past 72 Hours 02/14/18 18:15 Streptococcus pneumoniae Antigen (M - Final Urine Catheter - [facility] 02/14/18 18:15 Legionella Antigen - Final Urine Catheter - [facility] Laboratory Tests Past 24 Hrs 02/14/18 02/15/18 02/15/18 17:50 05:15 05:15 WBC 8.4 RBC 2.44 L Hgb 6.9 L Hct 21.9 L MCV 89.8 MCH 28.3 MCHC 31.5 L RDW 14.4 RDW Differential 45.5 H Plt Count 257 MPV 8.6 Sodium 138 Potassium 4.2 Chloride 100 Carbon Dioxide 30.0 Anion Gap 8 BUN 24 H Creatinine 1.09 H Estim Creat Clear Calc 37.32 Est GFR (MDRD) Af Amer 63 Est GFR (MDRD) Non-Af 52 L BUN/Creatinine Ratio 22.0 H Glucose 97 Calcium 8.0 L MRSA (PCR) Negative POC Glucose 02/14/18 02/14/18 23:40 18:39 POC Glucose 114 H 154 H Clinical Impression(s) from Imaging Studies Chest X-Ray 02/14/18 14:41 IMPRESSION: The tip of the endotracheal tube is at 2.5 cm proximal to the shawn. Increased initial markings in the right lung as described. This may represent either mild CHF versus pneumonic infiltrate. Blunting of the left costophrenic angle with increased markings in the left lower lobe. Electronically Signed: Sage Jaramillo MD at 15:13 EDT Tel [phone], Service support , Chest X-Ray 02/14/18 17:05 IMPRESSION: Right-sided central venous line present with tip in the region of the distal SVC. Endotracheal and nasogastric tubes present appearing in adequate position. Calcified plaques of the aortic arch. No acute cardiopulmonary disease process is seen. Electronically Signed: Onel Lester MD at 17:38 EDT , Service support , Chest CTA 02/14/18 17:11 IMPRESSION: 1. There is no evidence of pulmonary embolism. 2. There is a mosaic attenuation pattern of the lungs predominantly involving the upper lobes and right lower lobe. 3. There is atelectasis with air bronchograms of the left and right upper and lower lobes. 4. There are bronchiectatic changes of the lower lobes also. 5. There are small bilateral pleural effusions right side larger than left. 6. An endotracheal tube is present with the tip 7 mm proximal to the shawn. Retraction of several centimeters of such is recommended for optimal placement. 7. There are diffuse degenerative changes of the visualized thoracolumbar spine. Electronically Signed: Onel Lester MD at 18:09 EDT , Service support , Assessment/Plan Active and Suspected Problems Respiratory failure (Acute) Respiratory failure requiring intubation (Acute) RECOMMENDATIONS: 1. Place patient back on assist control and restart sedation. Will reattempt weaning later this morning. 2. Obtain repeat arterial blood gas and plain film chest x-ray. 3. Obtain sputum for culture, prior to consideration for extubation. 4. Wean sedation to maintain a RASS of -1 to 1. 5. Await echocardiogram. 6. Continue bronchodilators and antibiotics, pending infectious workup. 7. Continue Lovenox for DVT prophylaxis. Start Pepcid for GI prophylaxis. 8. If the patient remains intubated, plan to start tube feeds. IMPRESSIONS: 1. Acute hypoxemic and hypercarbic respiratory failure Unclear etiology for the patient's rather acute decompensation. While an infectious process is certainly a possibility, it seems unlikely that this would have led to her acutely decompensating in the manner in which that she did. Regardless, the patient will be continued on antibiotics, pending infectious workup. Plan to obtain sputum and sent for culture. We will also continue scheduled bronchodilators, given that the patient's medical history is questionable. The CTA revealed no evidence for pulmonary embolism. The patient 's troponin was within normal limits. Agree with obtaining an echocardiogram at this time. Given that the patient is currently agitated she will be placed back on assist control mode of mechanical ventilation. Later this morning, if stable, she will be trialed once again on CPAP. Continue Lovenox for DVT prophylaxis. Start Pepcid for GI prophylaxis. If the patient remains intubated , tube feeds can be started. 2. Sepsis secondary to community acquired pneumonia As noted above, will continue current supportive measures with mechanical ventilatory support and antibiotics, pending infectious workup. The patient remains hemodynamically stable. There is no indication for additional volume expansion at this time. 3. Acute versus chronic kidney disease The patient appears to have acute kidney injury when compared to her last creatinine in our system from April 2016. However, this may also represent progressive renal insufficiency. At the current time, however, her urine output remains appropriate. We will continue to monitor accordingly. No indication for renal replacement therapy at this time. 4. Anemia The patient appears to have borderline microcytic blood indices. Her last hemoglobin in our system in April 2016 was 9.4 g/dL. On arrival to the hospital, she was noted to be 8.7 and has trended down to 7.8 g/dL this morning. We will plan to check iron studies along with stool for occult blood. A type and screen will also be sent. Continue to monitor blood counts daily. Transfusion will be indicated if the hemoglobin drops below 7 g/dL. 5. Hypertension/hyperlipidemia/diabetes mellitus Complicates care, management, recovery and prognosis. Holding home antihypertensives at this time. Continue sliding scale insulin coverage. The patient will require physical therapy evaluation. UPDATE: During later morning hours, the patient was able to be placed back on CPAP and a repeat spontaneous breathing trial was completed. Sedation was completely interrupted. The patient remained calm and was appropriately interactive throughout her entire breathing trial. Only scant secretions were noted. Therefore, the decision was made to proceed with extubation. Once extubated, supplemental oxygen can be weaned to maintain saturations at or above 90%. A bedside swallow evaluation can also be completed. TIME: 48 minutes of critical care time, independent of procedures, was spent addressing the patient's acute hypoxemic and hypercarbic respiratory failure, sepsis secondary to community-acquired pneumonia, acute versus chronic kidney disease, anemia, review of all data and collaboration with the care team. (0700- 0800) Code Visit 9xxxx: 59922 Critical care first hour
[2018-02-15] MEDS: CHLORHEXIDINE GLUC 2% CLOTH 1 EACH TOWELETTE TOPICAL (07:11)
[2018-02-15 07:17] LABS: Hematocrit 24.8 % (37-47); Hemoglobin 7.8 g/dl (12.0-15.0)
[2018-02-15 08:21] LABS: Ferritin 45 ng/mL (8-252); Iron 21 ug/dL (50-170); Iron Binding Capacity,Total 217 ug/dL (250-450); PERCENT IRON SATURATION 9.7 % (15.0-55.0)
[2018-02-15 09:01] LABS: Allen Test POS; Base Excess 3 mmol/L (-2 to +2); Bicarbonate 26.8 mmol/L (22-26); Blood Gas Specimen Type ART; FI02 30; Mode CPAP PS; O2 Delivery Device Vent; PEEP 5; PO2 81 mmHG (75-100); PS 5; SITE R Radial; SO2 96 % (95-99); Time Given 855; Total Carbon Dioxide 28 mmol/L; pCO2 39.2 mmHg (35-45); pH 7.44 (7.35-7.45)
[2018-02-15] MEDS: Chlorhexidine 15 ML PO (09:20)
[2018-02-15] MEDS: Enoxaparin 40 MG/0.4 ML Syringe SC (09:21)
[2018-02-15] MEDS: Nystatin Powder 15gm Bottle 1 APPLIC TOPICAL (09:22)
[2018-02-15] MEDS: Ceftriaxone 1 GM/50 ML BAG IV ×2 (09:23→21:04)
--- NOTE | 2018-02-15 09:31 | PCM.PN.HOSP ---
Patient Problems: Active and Suspected Problems Respiratory failure (Acute) Respiratory failure requiring intubation (Acute) Subjective: Patient seen and examined. She was admitted with a complaint of acute onset shortness of breath. She had to be intubated in the ED because she was not tolerating oxygen by nonrebreather mask. She is being managed for acute heart hypoxic and hypercapnic respiratory failure due to community acquired pneumonia and possible heart failure. Patient seen and examined. She remains intubated though she is more conscious now, and appears restless. No active issues per her nurse overnight. Review of systems otherwise negative. Labs and vitals from overnight reviewed. Patient is able to nod and say she does not feel like she has any chest pain or abdominal pain and has had any diarrhea vomiting. However she does motion to her throat indicating that she has sore throat likely because of the endotracheal tube. Vitals/I&O's: Vital Signs Temp Pulse Resp BP Pulse Ox 99.4 F H 98 20 H 99/69 100 02/15/18 07:00 02/15/18 07:14 02/15/18 07:00 02/15/18 07:00 02/15/18 07:00 Oxygen Delivery Method Mechanical Ventilator Weight: 205 lb 14.588 oz Body Mass Index (BMI) 35.7 Intake and Output for Last 24 Hours 02/13/18 02/14/18 02/15/18 23:59 23:59 23:59 Intake Total 556 / 556 236 / 236 Output Total 5 / 207 350 / 350 Balance -1519 / -1519 -114 / -114 General: Alert, Oriented x3, Cooperative, No apparent distress HEENT: Atraumatic, PERRLA, EOMI, Normocephalic Oral: Moist Mucosa Neck: Supple, No JVD, Negative Carotid Bruits Lungs: - - has coarse crackles in mid and lower lung messer bilaterally. Has some wheezing in lungs bilaterally. Cardiovascular: Regular rate, Regular Rhythm, Normal S1, Normal S2, No murmurs Abdomen: Bowel Sounds Present, Soft, Non Tender, Non-Distended, No Hepato-splenomegaly, Passing Flatus, Gravid Extremities: No clubbing, No cyanosis, No edema, Capillary Refill Less than 3 Seconds Skin: No rashes, No breakdown Musculoskeletal: No Tenderness to Palpation of Joints or Extremities Lymphatic: No Cervical, Supraclavicular, or Inguinal Adenopathy Neurological: Cranial nerves II-XII grossly intact, Motor Exam 5/5 strength throughout, - - RASS score is 1-2 Psych/Mental Status: Anxious Microbiology Past 72 Hours 02/14/18 18:15 Urine Catheter - [facility] Streptococcus pneumoniae Antigen (M - Final 02/14/18 18:15 Urine Catheter - [facility] Legionella Antigen - Final Laboratory Results 02/14/18 17:50: MRSA (PCR) Negative 02/14/18 18:39: POC Glucose 154 H 02/14/18 23:40: POC Glucose 114 H 02/15/18 05:15: WBC 8.4, RBC 2.44 L, Hgb 6.9 L, Hct 21.9 L, MCV 89.8, MCH 28.3, MCHC 31.5 L, RDW 14.4, RDW Differential 45.5 H, Plt Count 257, MPV 8.6 02/15/18 05:15: Sodium 138, Potassium 4.2, Chloride 100, Carbon Dioxide 30.0, Anion Gap 8, BUN 24 H, Creatinine 1.09 H, Estim Creat Clear Calc 37.32, Est GFR (MDRD) Af Amer 63, Est GFR (MDRD) Non-Af 52 L, BUN/Creatinine Ratio 22.0 H, Glucose 97, Calcium 8.0 L 02/15/18 05:15: Iron 21 L, TIBC 217 L, Iron Saturation 9.7 L, Ferritin 45 02/15/18 07:05: Hgb 7.8 L, Hct 24.8 L 02/15/18 07:05: Blood Type O POSITIVE, Antibody Screen NEGATIVE 02/15/18 08:56: Specimen Type ART, Sample Site R Radial, pH 7.44, Bicarbonate Actual 26.8 H, POC Total CO2 28, Base Excess 3 H, O2 Saturation 96, O2 % 30, ABG pCO2 39.2, ABG pO2 81, John Test POS, O2 Delivery Device Vent, Vent Mode CPAP PS, POC PEEP 5, POC Pressure Suppt 5, Blood Gas Notified Whom ICU MD, Blood Gas Notified Time 855 Current Medications Albuterol/Ipratropium (Duoneb) 3 ml INHALATION Q6HWA.RT KORY Last Admin: 02/15/18 06:28 Dose: 3 ml Chlorhexidine Gluconate () 15 ml PO BID [facility] Last Admin: 02/15/18 09:20 Dose: 15 ml Chlorhexidine Gluconate () 1 each TOPICAL DAILY [facility] Last Admin: 02/15/18 07:11 Dose: 1 each Dextrose (D50w Syringe) 0 gm IV X1 PRN; Protocol PRN Reason: Hypoglycemia Enoxaparin Sodium (Lovenox) 40 mg SC DAILY@1000 [facility] Last Admin: 02/15/18 09:21 Dose: 40 mg Glucagon () 1 mg IM .X1 PRN PRN Reason: Hypoglycemia Propofol (Diprivan) 1,000 mg in 100 mls @ 2.934 mls/hr CONT INF .Q12H KORY; 5 MCG/KG/MIN PRN Reason: Protocol Last Admin: 02/15/18 02:50 Dose: 2.934 mls/hr Azithromycin 500 mg/ Dextrose 255 mls @ 250 mls/hr IV Q24 [facility] Ceftriaxone Sodium (Rocephin) 1 gm in 50 mls @ 100 mls/hr IV Q12 [facility] Last Admin: 02/15/18 09:23 Dose: 100 mls/hr Fentanyl () 100 mls @ 5 mls/hr IV .Q20H [facility] Last Admin: 02/14/18 23:45 Dose: 5 mls/hr Insulin Human Lispro (Humalog Kwikpen ([facility])) 0 unit SQ Q6 [facility] PRN Reason: Protocol Last Admin: 02/15/18 05:49 Dose: Not Given Magnesium Hydroxide (Milk Of Magnesia) 30 ml PO DAILY PRN PRN PRN Reason: Constipation Nystatin (Mycostatin Powder) 1 applic TOPICAL BID [facility] PRN Reason: Protocol Last Admin: 02/15/18 09:22 Dose: 1 applicatio Sodium Chloride () 5 - 30 ml IV UD PRN PRN Reason: SALINE FLUSH Last Admin: 02/15/18 07:12 Dose: 10 ml Medical Necessity - Tobacco Use Smoking Status: Unknown if ever smoked Assessment/Plan All Active Problems Respiratory failure (Acute) Respiratory failure requiring intubation (Acute) Ulcer of left lower leg (Resolved) Cellulitis of left leg without foot (Resolved) Acute electrocardiogram changes (Acute) 77 y/o female admitted with a after she was found short of breath and passersby called the EMS 1. Hypoxic, hypercapnic respiratory failure due to CHF exacerbation and pneumonia Remains intubated. Patient is much more alert and RASS score is around 1-2. has a mild fever this morning, with temp of 99.4F vent settings: A/C FiO2-30%, PEEP-5, TV [address] angiogram was negative for PE on IV ceftriaxone and azithromycin blood cultures pending; echo pending didnt require pressors overnight. has maintained a good BP consulting nurse on board per consulting nurse, to try spontaneous weaning trial and attempt extubation later today. 2. Community acquired Pneumonia White cell count is resolved. Blood cultures pending. on Ceftriaxone and azithromycin. 3. Chronic lower extremity edema resolving. LE resolving. KEEGAN wraps bilaterally. Will monitor 3. Hyponatremia resolving. Na is up to 138 today will monitor 4. Probable CHF exacerbation doesnt have a history of CHF; echo pending. Patient not diuresed o.a of being hypotensive on admission. will monitor 5. Anemia: Hb was 8.7 on admission, baseline is ~ 9-10. Hb was 6.9 this morning, on repeat was 7.8. Will continue monitoring. will get iron panel 6. Diabetes mellitus on lantus 24IU and lispro 8IU 3 times daily. these are on hold. on ISS. Accu-Cheks q6. 7. Probable Pulmonary and aortic stenosis has grade 3-4 and 2-3 systolic murmurs respectively in the aforementioned areas will get 2D echo to assess fully 8. Hypertension on metoprolol and amlodipine. Also lisinopril. These were held due to hypotension. BP 99/69 this morning. Will continue holding, and monitoring. 9. DVT prophylaxis: lovenox 10. GI prophylaxis: pantoprazole Code status: full code This note was generated with [employer] dictation software. It may contain incorrect words, spelling, and punctuation that were not noted in checking the note before signing. Code Visit Inpatient E&M: 32029 Subs Hosp L3
--- NOTE | 2018-02-15 09:40 | PN_ITS ---
Patient Problems: Active and Suspected Problems Respiratory failure (Acute) Respiratory failure requiring intubation (Acute) Subjective: Patient seen and examined. She was admitted with a complaint of acute onset shortness of breath. She had to be intubated in the ED because she was not tolerating oxygen by nonrebreather mask. She is being managed for acute heart hypoxic and hypercapnic respiratory failure due to community acquired pneumonia and possible heart failure. Patient seen and examined. She remains intubated though she is more conscious now, and appears restless. No active issues per her nurse overnight. Review of systems otherwise negative. Labs and vitals from overnight reviewed. Patient is able to nod and say she does not feel like she has any chest pain or abdominal pain and has had any diarrhea vomiting. However she does motion to her throat indicating that she has sore throat likely because of the endotracheal tube. Vitals/I&O's: Vital Signs Temp Pulse Resp BP Pulse Ox 99.4 F H 98 20 H 99/69 100 02/15/18 07:00 02/15/18 07:14 02/15/18 07:00 02/15/18 07:00 02/15/18 07:00 Oxygen Delivery Method Mechanical Ventilator Weight: 205 lb 14.588 oz Body Mass Index (BMI) 35.7 Intake and Output for Last 24 Hours 02/13/18 02/14/18 02/15/18 23:59 23:59 23:59 Intake Total 556 / 556 236 / 236 Output Total 5 / 207 350 / 350 Balance -1519 / -1519 -114 / -114 General: Alert, Oriented x3, Cooperative, No apparent distress HEENT: Atraumatic, PERRLA, EOMI, Normocephalic Oral: Moist Mucosa Neck: Supple, No JVD, Negative Carotid Bruits Lungs: - - has coarse crackles in mid and lower lung messer bilaterally. Has some wheezing in lungs bilaterally. Cardiovascular: Regular rate, Regular Rhythm, Normal S1, Normal S2, No murmurs Abdomen: Bowel Sounds Present, Soft, Non Tender, Non-Distended, No Hepato- splenomegaly, Passing Flatus, Gravid Extremities: No clubbing, No cyanosis, No edema, Capillary Refill Less than 3 Seconds Skin: No rashes, No breakdown Musculoskeletal: No Tenderness to Palpation of Joints or Extremities Lymphatic: No Cervical, Supraclavicular, or Inguinal Adenopathy Neurological: Cranial nerves II-XII grossly intact, Motor Exam 5/5 strength throughout, - - RASS score is 1-2 Psych/Mental Status: Anxious Microbiology Past 72 Hours 02/14/18 18:15 Urine Catheter - Campbell Streptococcus pneumoniae Antigen (M - Final 02/14/18 18:15 Urine Catheter - Campbell Legionella Antigen - Final Laboratory Results 02/14/18 17:50: MRSA (PCR) Negative 02/14/18 18:39: POC Glucose 154 H 02/14/18 23:40: POC Glucose 114 H 02/15/18 05:15: WBC 8.4, RBC 2.44 L, Hgb 6.9 L, Hct 21.9 L, MCV 89.8, MCH 28.3, MCHC 31.5 L, RDW 14.4, RDW Differential 45.5 H, Plt Count 257, MPV 8.6 02/15/18 05:15: Sodium 138, Potassium 4.2, Chloride 100, Carbon Dioxide 30.0, Anion Gap 8, BUN 24 H, Creatinine 1.09 H, Estim Creat Clear Calc 37.32, Est GFR (MDRD) Af Amer 63, Est GFR (MDRD) Non-Af 52 L, BUN/Creatinine Ratio 22.0 H, Glucose 97, Calcium 8.0 L 02/15/18 05:15: Iron 21 L, TIBC 217 L, Iron Saturation 9.7 L, Ferritin 45 02/15/18 07:05: Hgb 7.8 L, Hct 24.8 L 02/15/18 07:05: Blood Type O POSITIVE, Antibody Screen NEGATIVE 02/15/18 08:56: Specimen Type ART, Sample Site R Radial, pH 7.44, Bicarbonate Actual 26.8 H, POC Total CO2 28, Base Excess 3 H, O2 Saturation 96, O2 % 30, ABG pCO2 39.2, ABG pO2 81, John Test POS, O2 Delivery Device Vent, Vent Mode CPAP PS, POC PEEP 5, POC Pressure Suppt 5, Blood Gas Notified Whom ICU MD, Blood Gas Notified Time 855 Current Medications Albuterol/Ipratropium (Duoneb) 3 ml INHALATION Q6HWA.RT KORY Last Admin: 02/15/18 06:28 Dose: 3 ml Chlorhexidine Gluconate () 15 ml PO BID KORY Last Admin: 02/15/18 09:20 Dose: 15 ml Chlorhexidine Gluconate () 1 each TOPICAL DAILY KORY Last Admin: 02/15/18 07:11 Dose: 1 each Dextrose (D50w Syringe) 0 gm IV X1 PRN; Protocol PRN Reason: Hypoglycemia Enoxaparin Sodium (Lovenox) 40 mg SC DAILY@1000 KORY Last Admin: 02/15/18 09:21 Dose: 40 mg Glucagon () 1 mg IM .X1 PRN PRN Reason: Hypoglycemia Propofol (Diprivan) 1,000 mg in 100 mls @ 2.934 mls/hr CONT INF .Q12H KORY; 5 MCG/KG/MIN PRN Reason: Protocol Last Admin: 02/15/18 02:50 Dose: 2.934 mls/hr Azithromycin 500 mg/ Dextrose 255 mls @ 250 mls/hr IV Q24 KORY Ceftriaxone Sodium (Rocephin) 1 gm in 50 mls @ 100 mls/hr IV Q12 KORY Last Admin: 02/15/18 09:23 Dose: 100 mls/hr Fentanyl () 100 mls @ 5 mls/hr IV .Q20H [facility] Last Admin: 02/14/18 23:45 Dose: 5 mls/hr Insulin Human Lispro (Humalog Kwikpen (Bkc)) 0 unit SQ Q6 KORY PRN Reason: Protocol Last Admin: 02/15/18 05:49 Dose: Not Given Magnesium Hydroxide (Milk Of Magnesia) 30 ml PO DAILY PRN PRN PRN Reason: Constipation Nystatin (Mycostatin Powder) 1 applic TOPICAL BID KORY PRN Reason: Protocol Last Admin: 02/15/18 09:22 Dose: 1 applicatio Sodium Chloride () 5 - 30 ml IV UD PRN PRN Reason: SALINE FLUSH Last Admin: 02/15/18 07:12 Dose: 10 ml Medical Necessity - Tobacco Use Smoking Status: Unknown if ever smoked Assessment/Plan All Active Problems Respiratory failure (Acute) Respiratory failure requiring intubation (Acute) Ulcer of left lower leg (Resolved) Cellulitis of left leg without foot (Resolved) Acute electrocardiogram changes (Acute) 77 y/o female admitted with a after she was found short of breath and passersby called the EMS 1. Hypoxic, hypercapnic respiratory failure due to CHF exacerbation and pneumonia * Remains intubated. Patient is much more alert and RASS score is around 1-2. * has a mild fever this morning, with temp of 99.4F * vent settings: A/C FiO2-30%, PEEP-5, TV 450 * leucocytosis has resolved. * CT angiogram was negative for PE * on IV ceftriaxone and azithromycin * blood cultures pending; echo pending * didnt require pressors overnight. has maintained a good BP * director electronics on board * per director electronics, to try spontaneous weaning trial and attempt extubation later today. * 2. Community acquired Pneumonia * White cell count is resolved. Blood cultures pending. * on Ceftriaxone and azithromycin. * 3. Chronic lower extremity edema * resolving. LE resolving. * KEEGAN wraps bilaterally. Will monitor * * 3. Hyponatremia * resolving. Na is up to 138 today * will monitor * * 4. Probable CHF exacerbation * doesnt have a history of CHF; * echo pending. Patient not diuresed o.a of being hypotensive on admission. * will monitor * 5. Anemia: * Hb was 8.7 on admission, baseline is ~ 9-10. * Hb was 6.9 this morning, on repeat was 7.8. Will continue monitoring. * will get iron panel * 6. Diabetes mellitus * on lantus 24IU and lispro 8IU 3 times daily. these are on hold. on ISS. Accu -Cheks q6. * 7. Probable Pulmonary and aortic stenosis * has grade 3-4 and 2-3 systolic murmurs respectively in the aforementioned areas * will get 2D echo to assess fully * 8. Hypertension * on metoprolol and amlodipine. Also lisinopril. These were held due to hypotension. BP 99/69 this morning. Will continue holding, and monitoring. * 9. DVT prophylaxis: lovenox 10. GI prophylaxis: pantoprazole Code status: full code This note was generated with [employer] software. It may contain incorrect words, spelling, and punctuation that were not noted in checking the note before signing. Code Visit Inpatient E&M: 88925 [facility] Hosp L3
[2018-02-15] MEDS: Insulin Lispro 100 UNIT/ML INSULN.PEN SQ ×2 (11:14→16:38)
[2018-02-15 12:11] LABS: Bedside Glucose 157 mg/dL (70-110)
--- NOTE | 2018-02-15 14:32 | CASEMGMT ---
Face to Face with patient for initial transition planning/care coordination assessment. AMILCAR CAGE introduced self and role at [facility], pt voices understanding and consents to assessment at this time. Pt is lying in bed in no distress at this time. Pt is A/O x4 at this time and answers all questions appropriately at this time. Care providers, pharmacy, and demographics verified. PCP: Adalgisa Specialists: Jose Antonio-podiatry, Kenny surgeon Preferred Pharmacy: [facility] Insurance: AeR Prescription Benefit: AeMCR Living Will/HPOA: Yes, but not on file. LNOK: Ed Conley, nephew Living Arrangements: [place] with her nephew who farms it and states no concerns home at this time. Pt states lives on main level of home with 1 step into home. Transportation: Pt states nephew drives her where she needs to go and states no transportation concerns at this time. DME/HHC: Pt states currently has a walker, cane, grab bars in shower and raised toilet seat and states no need for any further DME at this time. PT states is retired. Pt states does not smoke or drink etoh. Pt states that her sister recently about 3 weeks ago from Parkinsons. Consult to Kalin f/u with pt regarding recent loss, voices understanding. Pt voices no concerns with going home at time of discharge. CM to follow for any further discharge planning/needs. Pt voices no further concerns/needs at this time. Advised pt to ask for CM if any further discharge planning/needs arise, voices understanding. Plan: [place] AML[place] C[place]
[2018-02-15 16:46] LABS: Bedside Glucose 178 mg/dL (70-110)
[2018-02-15] MEDS: Acetaminophen 325 MG Tablet 650 MG PO (19:40)
[2018-02-15] MEDS: Atorvastatin Calcium 40 MG Tablet PO (21:01)
[2018-02-15 21:10] LABS: Bedside Glucose 148 mg/dL (70-110)
[2018-02-16] VITALS (23 sets, daily range): BP systolic 99–146; BP diastolic 42–62; PULSE 70–106; RESP 16–25; TEMP 36.6–37.6; O2SAT 92–100
[2018-02-16] MEDS: Acetaminophen 325 MG Tablet 650 MG PO (05:17)
[2018-02-16] MEDS: 0.9% NaCl Peripheral Flush Adult/Peds IV ×4 (05:17→21:01)
[2018-02-16 05:26] LABS: Absolute Lymphocyte Count 2.24 X10^3/ul (0.83-4.51); Absolute Neutrophil Count 3.5 X10^3/uL (2.0-7.7); Basophil# 0.05 X10^3/uL; Basophil% 0.8 % (0-1); Eosinophil# 0.32 X10^3/uL; Eosinophils% 4.8 % (0-5); Hematocrit 22.8 % (37-47); Hemoglobin 7.1 g/dl (12.0-15.0); Lymphocyte # 2.24 X10^3/ul (4.0); Lymphocyte % 33.6 % (19-41); Mean Corp Hgb Conc 31.1 g/gl (32-36); Mean Corpuscular Hgb 28.1 pg (27.0-32.0); Mean Corpuscular Volume 90.1 fL (81-99); Monocyte# 0.59 X10^3/uL; Monocyte% 8.9 % (0-10); Neutrophil # 3.45 X10^3/uL (2.7-7.7); Neutrophil % 51.7 % (47-70); Platelet Count 262 K/mm3 (150-450); RBC Distribution Width CV 14.9 % (11.6-14.6); RBC Distribution Width SD 47.9 fl (35.1-43.9); Red Blood Count 2.53 M/mm3 (4.2-5.4); White Blood Count 6.7 K/mm3 (4.4-11.0)
[2018-02-16 05:30] LABS: POSITIVE COUNT NO; POSITIVE DIFFERENTIAL NO; POSITIVE MORPHOLOGY NO
[2018-02-16] MEDS: Ipratropium/Albuterol Sulfate 3 ML AMPUL.NEB INHALATION ×3 (06:47→18:40)
--- NOTE | 2018-02-16 07:07 | PCM.PN.INT ---
Subjective: The patient was seen and examined at the bedside this morning. Events from the last 24 hours have been reviewed. The patient is currently afebrile, hemodynamically stable and maintaining appropriate oxygen saturations on room air. The patient has done quite well from a respiratory perspective following extubation yesterday. The patient's hemoglobin is down to 7.1 g/dL this morning. She has yet to have a bowel movement. She reports feeling well from a breathing perspective. Objective: The patient's most recent lab work, culture data and imaging studies have all been personally reviewed. Strep and urine Legionella antigens were both negative. Blood cultures have shown no growth to date. Sputum cultures currently pending. Surface echocardiogram revealed moderate concentric LVH with an ejection fraction of 65% and evidence of stage II diastolic dysfunction. Right ventricular systolic pressure was estimated to be 43 mmHg. There was also evidence of severe aortic stenosis, which appears to have progressed since April 2016. General: Alert, Oriented x3, Cooperative, No apparent distress HEENT: Atraumatic, PERRLA, Normocephalic Oral: No Gingival or Mucosal Lesions/ Ulcerations Neck: Supple, No Nodes, Trachea Midline Lungs: - - Grossly clear anteriorly without wheezes, rales or rhonchi. Cardiovascular: Regular rate, Regular Rhythm, Normal S1, Normal S2, No rub noted, No Gallop, - - Harsh systolic murmur present Abdomen: Bowel Sounds Present, Soft, Non Tender, Non-Distended Extremities: No clubbing, No cyanosis, - - Trace nonpitting lower extremity edema with erythematous distal lower extremities Skin: No breakdown Musculoskeletal: No Tenderness to Palpation of Joints or Extremities, No Muscle Wasting Lymphatic: No Cervical, Supraclavicular, or Inguinal Adenopathy Neurological: Neuro grossly intact Psych/Mental Status: Alert and oriented to time, place, person, mood and affect Vital Signs Temp Pulse Resp BP Pulse Ox 98.3 F 88 20 H 139/46 H 94 02/16/18 06:00 02/16/18 06:45 02/16/18 06:45 02/16/18 06:00 02/16/18 06:45 Oxygen Flow Rate (L/min) 1 Oxygen Delivery Method Room Air Weight: 207 lb 10.807 oz Body Mass Index (BMI) 35.7 Intake and Output for Last 24 Hours 02/14/18 02/15/18 02/16/18 23:59 23:59 23:59 Intake Total 556 / 556 1097.3 / 1097.3 Output Total 2074 / 2074 1050 / 1050 225 / 225 Balance -1519 / -1519 47.3 / 47.3 -23 / -23 Labs (Last 48 Hours) 02/14/18 02/14/18 02/14/18 17:50 18:39 23:40 WBC RBC Hgb Hct MCV MCH MCHC RDW RDW Differential Plt Count MPV Immature Gran % (Auto) Neut % (Auto) Lymph % (Auto) [place] % (Auto) Eos % (Auto) Baso % (Auto) Absolute Neuts (auto) Absolute Lymphs (auto) Total Counted Specimen Type Sample Site pH Bicarbonate Actual POC Total CO2 Base Excess O2 Saturation O2 % ABG pCO2 ABG pO2 John Test O2 Delivery Device Vent Mode POC PEEP POC Pressure Suppt Blood Gas Notified Whom Blood Gas Notified Time Sodium Potassium Chloride Carbon Dioxide Anion Gap BUN Creatinine Estim Creat Clear Calc Est GFR (MDRD) Af Amer Est GFR (MDRD) Non-Af BUN/Creatinine Ratio Glucose Calcium Iron TIBC Iron Saturation Ferritin MRSA (PCR) Negative POC Glucose 154 H 114 H Blood Type Antibody Screen 02/15/18 02/15/18 02/15/18 05:15 05:15 05:15 WBC 8.4 RBC 2.44 L Hgb 6.9 L Hct 21.9 L MCV 89.8 MCH 28.3 MCHC 31.5 L RDW 14.4 RDW Differential 45.5 H Plt Count 257 MPV 8.6 Immature Gran % (Auto) Neut % (Auto) Lymph % (Auto) [place] % (Auto) Eos % (Auto) Baso % (Auto) Absolute Neuts (auto) Absolute Lymphs (auto) Total Counted Specimen Type Sample Site pH Bicarbonate Actual POC Total CO2 Base Excess O2 Saturation O2 % ABG pCO2 ABG pO2 John Test O2 Delivery Device Vent Mode POC PEEP POC Pressure Suppt Blood Gas Notified Whom Blood Gas Notified Time Sodium 138 Potassium 4.2 Chloride 100 Carbon Dioxide 30.0 Anion Gap 8 BUN 24 H Creatinine 1.09 H Estim Creat Clear Calc 37.32 Est GFR (MDRD) Af Amer 63 Est GFR (MDRD) Non-Af 52 L BUN/Creatinine Ratio 22.0 H Glucose 97 Calcium 8.0 L Iron 21 L TIBC 217 L Iron Saturation 9.7 L Ferritin 45 MRSA (PCR) POC Glucose Blood Type Antibody Screen 02/15/18 02/15/18 02/15/18 07:05 07:05 08:56 WBC RBC Hgb 7.8 L Hct 24.8 L MCV MCH MCHC RDW RDW Differential Plt Count MPV Immature Gran % (Auto) Neut % (Auto) Lymph % (Auto) [place] % (Auto) Eos % (Auto) Baso % (Auto) Absolute Neuts (auto) Absolute Lymphs (auto) Total Counted Specimen Type ART Sample Site R Radial pH 7.44 Bicarbonate Actual 26.8 H POC Total CO2 28 Base Excess 3 H O2 Saturation 96 O2 % 30 ABG pCO2 39.2 ABG pO2 81 John Test POS O2 Delivery Device Vent Vent Mode CPAP PS POC PEEP 5 POC Pressure Suppt 5 Blood Gas Notified Whom ICU MD Blood Gas Notified Time 855 Sodium Potassium Chloride Carbon Dioxide Anion Gap BUN Creatinine Estim Creat Clear Calc Est GFR (MDRD) Af Amer Est GFR (MDRD) Non-Af BUN/Creatinine Ratio Glucose Calcium Iron TIBC Iron Saturation Ferritin MRSA (PCR) POC Glucose Blood Type O POSITIVE Antibody Screen NEGATIVE 02/15/18 02/15/18 02/15/18 11:13 16:36 20:51 WBC RBC Hgb Hct MCV MCH MCHC RDW RDW Differential Plt Count MPV Immature Gran % (Auto) Neut % (Auto) Lymph % (Auto) [place] % (Auto) Eos % (Auto) Baso % (Auto) Absolute Neuts (auto) Absolute Lymphs (auto) Total Counted Specimen Type Sample Site pH Bicarbonate Actual POC Total CO2 Base Excess O2 Saturation O2 % ABG pCO2 ABG pO2 John Test O2 Delivery Device Vent Mode POC PEEP POC Pressure Suppt Blood Gas Notified Whom Blood Gas Notified Time Sodium Potassium Chloride Carbon Dioxide Anion Gap BUN Creatinine Estim Creat Clear Calc Est GFR (MDRD) Af Amer Est GFR (MDRD) Non-Af BUN/Creatinine Ratio Glucose Calcium Iron TIBC Iron Saturation Ferritin MRSA (PCR) POC Glucose 157 H 178 H 148 H Blood Type Antibody Screen 02/16/18 05:15 WBC 6.7 RBC 2.53 L Hgb 7.1 L Hct 22.8 L MCV 90.1 MCH 28.1 MCHC 31.1 L RDW 14.9 H RDW Differential 47.9 H Plt Count 262 MPV 9.0 Immature Gran % (Auto) 0.200 Neut % (Auto) 51.7 Lymph % (Auto) 33.6 [place] % (Auto) 8.9 Eos % (Auto) 4.8 Baso % (Auto) 0.8 Absolute Neuts (auto) 3.5 Absolute Lymphs (auto) 2.24 Total Counted Not Reportable Specimen Type Sample Site pH Bicarbonate Actual POC Total CO2 Base Excess O2 Saturation O2 % ABG pCO2 ABG pO2 John Test O2 Delivery Device Vent Mode POC PEEP POC Pressure Suppt Blood Gas Notified Whom Blood Gas Notified Time Sodium Potassium Chloride Carbon Dioxide Anion Gap BUN Creatinine Estim Creat Clear Calc Est GFR (MDRD) Af Amer Est GFR (MDRD) Non-Af BUN/Creatinine Ratio Glucose Calcium Iron TIBC Iron Saturation Ferritin MRSA (PCR) POC Glucose Blood Type Antibody Screen Microbiology 02/15/18 07:30 Sputum, Tracheal Aspirate Gram Stain - Final 02/14/18 18:15 Urine Catheter - Campbell Streptococcus pneumoniae Antigen (M - Final 02/14/18 18:15 Urine Catheter - Campbell Legionella Antigen - Final Clinical Impression(s) from Imaging Studies Chest X-Ray 02/14/18 14:41 IMPRESSION: The tip of the endotracheal tube is at 2.5 cm proximal to the shawn. Increased initial markings in the right lung as described. This may represent either mild CHF versus pneumonic infiltrate. Blunting of the left costophrenic angle with increased markings in the left lower lobe. Electronically Signed: Sage Jaramillo MD at 15:13 EDT Tel [phone], Service support , Chest X-Ray 02/14/18 17:05 IMPRESSION: Right-sided central venous line present with tip in the region of the distal SVC. Endotracheal and nasogastric tubes present appearing in adequate position. Calcified plaques of the aortic arch. No acute cardiopulmonary disease process is seen. Electronically Signed: Onel Lester MD at 17:38 EDT , Service support , Chest CTA 02/14/18 17:11 IMPRESSION: 1. There is no evidence of pulmonary embolism. 2. There is a mosaic attenuation pattern of the lungs predominantly involving the upper lobes and right lower lobe. 3. There is atelectasis with air bronchograms of the left and right upper and lower lobes. 4. There are bronchiectatic changes of the lower lobes also. 5. There are small bilateral pleural effusions right side larger than left. 6. An endotracheal tube is present with the tip 7 mm proximal to the shawn. Retraction of several centimeters of such is recommended for optimal placement. 7. There are diffuse degenerative changes of the visualized thoracolumbar spine. Electronically Signed: Onel Lester MD at 18:09 EDT , Service support , Chest X-Ray 02/15/18 06:48 IMPRESSION: Findings suggestive of a mild degree of CHF with bibasilar atelectasis. There has been progression as compared to prior study. Electronically Signed: Sage Jaramillo MD at 11:26 EDT Tel [phone], Service support , Medical Necessity - Tobacco Use Smoking Status: Unknown if ever smoked Assessment/Plan All Active Problems Respiratory failure (Acute) Respiratory failure requiring intubation (Acute) Ulcer of left lower leg (Resolved) Cellulitis of left leg without foot (Resolved) Acute electrocardiogram changes (Acute) RECOMMENDATIONS: 1. Transfuse 1 unit of packed red blood cells and check H&H posttransfusion. 2. Transition from IV antibiotics to p.o. Levaquin to complete a 7 day treatment course. 3. The patient will likely require GI/surgery follow-up given progressive anemia. 4. Recommend repeating echocardiogram once the patient is no longer anemic to reassess degree of valvular stenosis. 5. Continue to encourage incentive spirometer use and mobilize patient as tolerated. IMPRESSIONS: 1. Acute hypoxemic and hypercarbic respiratory failure Unclear etiology for the patient's rather acute decompensation. While an infectious process is certainly a possibility, it seems unlikely that this would have led to her acutely decompensating in the manner in which that she did. Regardless, the patient will be continued on antibiotics to complete a 7 day treatment course. The patient denies a history of asthma or COPD. The CTA revealed no evidence for pulmonary embolism. The patient's troponin was within normal limits. The echocardiogram did reveal evidence of heart failure with preserved ejection fraction along with severe aortic stenosis, the latter of which had progressed since 2016. However, the patient has anemia, which can cause the valvular gradient to be falsely increased. It is possible that her anemia may have precipitated increased demand on her heart, which she may not have tolerated due to underlying aortic valve stenosis. Regardless, the patient's anemia will first need to be addressed, after which time, a repeat surface echocardiogram can be completed. Continue Lovenox for DVT prophylaxis. Encourage incentive spirometer use and mobilize patient as tolerated. 2. Sepsis 2/2 Community acquired pneumonia As noted above, antibiotics will be continued to complete a 7 day treatment course, even in the absence of positive culture data. 3. Heart failure with preserved ejection fraction/severe aortic stenosis The patient's echocardiogram did reveal evidence of stage II diastolic dysfunction and severe aortic stenosis, which had progressed since 2016. Recommend careful attention to volume status given underlying diastolic dysfunction and valvular heart disease. It is possible that the patient's current degree of stenosis noted on echocardiogram may be falsely elevated due to the degree of her anemia. Therefore, recommend addressing the patient's underlying anemia and and repeating an echocardiogram at some point in the future. 4. Acute versus chronic kidney disease The patient appears to have acute kidney injury when compared to her last creatinine in our system from April 2016. However, this may also represent progressive renal insufficiency. At the current time, however, her urine output remains appropriate. We will continue to monitor accordingly. No indication for renal replacement therapy at this time. 5. Anemia The patient appears to have borderline microcytic blood indices. Her last hemoglobin in our system in April 2016 was 9.4 g/dL. On arrival to the hospital, she was noted to be 8.7 and has trended down to 7.1 g/dL this morning. Therefore, we will plan to transfuse her 1 unit of packed red blood cells. Check H&H posttransfusion. The patient's iron level was low. She may require evaluation by GI/general surgery, given history of progressive anemia. Will check stool for occult blood, once the patient has a bowel movement. 6. Hypertension/hyperlipidemia/diabetes mellitus Complicates care, management, recovery and prognosis. Holding home antihypertensives at this time. Continue sliding scale insulin coverage. Continue work with physical therapy. This note was generated with [employer] software. It may contain incorrect words, spelling, and punctuation that were not noted in checking the note before signing. Code Visit Inpatient E&M: 60387 [facility] Hosp L3
--- NOTE | 2018-02-16 07:11 | PN_ITS ---
Subjective: The patient was seen and examined at the bedside this morning. Events from the last 24 hours have been reviewed. The patient is currently afebrile, hemodynamically stable and maintaining appropriate oxygen saturations on room air. The patient has done quite well from a respiratory perspective following extubation yesterday. The patient's hemoglobin is down to 7.1 g/dL this morning. She has yet to have a bowel movement. She reports feeling well from a breathing perspective. Objective: The patient's most recent lab work, culture data and imaging studies have all been personally reviewed. Strep and urine Legionella antigens were both negative. Blood cultures have shown no growth to date. Sputum cultures currently pending. Surface echocardiogram revealed moderate concentric LVH with an ejection fraction of 65% and evidence of stage II diastolic dysfunction. Right ventricular systolic pressure was estimated to be 43 mmHg. There was also evidence of severe aortic stenosis, which appears to have progressed since April 2016. General: Alert, Oriented x3, Cooperative, No apparent distress HEENT: Atraumatic, PERRLA, Normocephalic Oral: No Gingival or Mucosal Lesions/ Ulcerations Neck: Supple, No Nodes, Trachea Midline Lungs: - - Grossly clear anteriorly without wheezes, rales or rhonchi. Cardiovascular: Regular rate, Regular Rhythm, Normal S1, Normal S2, No rub noted , No Gallop, - - Harsh systolic murmur present Abdomen: Bowel Sounds Present, Soft, Non Tender, Non-Distended Extremities: No clubbing, No cyanosis, - - Trace nonpitting lower extremity edema with erythematous distal lower extremities Skin: No breakdown Musculoskeletal: No Tenderness to Palpation of Joints or Extremities, No Muscle Wasting Lymphatic: No Cervical, Supraclavicular, or Inguinal Adenopathy Neurological: Neuro grossly intact Psych/Mental Status: Alert and oriented to time, place, person, mood and affect Vital Signs Temp Pulse Resp BP Pulse Ox 98.3 F 88 20 H 139/46 H 94 02/16/18 06:00 02/16/18 06:45 02/16/18 06:45 02/16/18 06:00 02/16/18 06:45 Oxygen Flow Rate (L/min) 1 Oxygen Delivery Method Room Air Weight: 207 lb 10.807 oz Body Mass Index (BMI) 35.7 Intake and Output for Last 24 Hours 02/14/18 02/15/18 02/16/18 23:59 23:59 23:59 Intake Total 556 / 556 1097.3 / 1097.3 Output Total 2074 / 2074 1050 / 1050 225 / 225 Balance -1519 / -1519 47.3 / 47.3 -23 / -23 Labs (Last 48 Hours) 02/14/18 02/14/18 02/14/18 17:50 18:39 23:40 WBC RBC Hgb Hct MCV MCH MCHC RDW RDW Differential Plt Count MPV Immature Gran % (Auto) Neut % (Auto) Lymph % (Auto) [place] % (Auto) Eos % (Auto) Baso % (Auto) Absolute Neuts (auto) Absolute Lymphs (auto) Total Counted Specimen Type Sample Site pH Bicarbonate Actual POC Total CO2 Base Excess O2 Saturation O2 % ABG pCO2 ABG pO2 John Test O2 Delivery Device Vent Mode POC PEEP POC Pressure Suppt Blood Gas Notified Whom Blood Gas Notified Time Sodium Potassium Chloride Carbon Dioxide Anion Gap BUN Creatinine Estim Creat Clear Calc Est GFR (MDRD) Af Amer Est GFR (MDRD) Non-Af BUN/Creatinine Ratio Glucose Calcium Iron TIBC Iron Saturation Ferritin MRSA (PCR) Negative POC Glucose 154 H 114 H Blood Type Antibody Screen 02/15/18 02/15/18 02/15/18 05:15 05:15 05:15 WBC 8.4 RBC 2.44 L Hgb 6.9 L Hct 21.9 L MCV 89.8 MCH 28.3 MCHC 31.5 L RDW 14.4 RDW Differential 45.5 H Plt Count 257 MPV 8.6 Immature Gran % (Auto) Neut % (Auto) Lymph % (Auto) [place] % (Auto) Eos % (Auto) Baso % (Auto) Absolute Neuts (auto) Absolute Lymphs (auto) Total Counted Specimen Type Sample Site pH Bicarbonate Actual POC Total CO2 Base Excess O2 Saturation O2 % ABG pCO2 ABG pO2 John Test O2 Delivery Device Vent Mode POC PEEP POC Pressure Suppt Blood Gas Notified Whom Blood Gas Notified Time Sodium 138 Potassium 4.2 Chloride 100 Carbon Dioxide 30.0 Anion Gap 8 BUN 24 H Creatinine 1.09 H Estim Creat Clear Calc 37.32 Est GFR (MDRD) Af Amer 63 Est GFR (MDRD) Non-Af 52 L BUN/Creatinine Ratio 22.0 H Glucose 97 Calcium 8.0 L Iron 21 L TIBC 217 L Iron Saturation 9.7 L Ferritin 45 MRSA (PCR) POC Glucose Blood Type Antibody Screen 02/15/18 02/15/18 02/15/18 07:05 07:05 08:56 WBC RBC Hgb 7.8 L Hct 24.8 L MCV MCH MCHC RDW RDW Differential Plt Count MPV Immature Gran % (Auto) Neut % (Auto) Lymph % (Auto) [place] % (Auto) Eos % (Auto) Baso % (Auto) Absolute Neuts (auto) Absolute Lymphs (auto) Total Counted Specimen Type ART Sample Site R Radial pH 7.44 Bicarbonate Actual 26.8 H POC Total CO2 28 Base Excess 3 H O2 Saturation 96 O2 % 30 ABG pCO2 39.2 ABG pO2 81 John Test POS O2 Delivery Device Vent Vent Mode CPAP PS POC PEEP 5 POC Pressure Suppt 5 Blood Gas Notified Whom ICU MD Blood Gas Notified Time 855 Sodium Potassium Chloride Carbon Dioxide Anion Gap BUN Creatinine Estim Creat Clear Calc Est GFR (MDRD) Af Amer Est GFR (MDRD) Non-Af BUN/Creatinine Ratio Glucose Calcium Iron TIBC Iron Saturation Ferritin MRSA (PCR) POC Glucose Blood Type O POSITIVE Antibody Screen NEGATIVE 02/15/18 02/15/18 02/15/18 11:13 16:36 20:51 WBC RBC Hgb Hct MCV MCH MCHC RDW RDW Differential Plt Count MPV Immature Gran % (Auto) Neut % (Auto) Lymph % (Auto) [place] % (Auto) Eos % (Auto) Baso % (Auto) Absolute Neuts (auto) Absolute Lymphs (auto) Total Counted Specimen Type Sample Site pH Bicarbonate Actual POC Total CO2 Base Excess O2 Saturation O2 % ABG pCO2 ABG pO2 John Test O2 Delivery Device Vent Mode POC PEEP POC Pressure Suppt Blood Gas Notified Whom Blood Gas Notified Time Sodium Potassium Chloride Carbon Dioxide Anion Gap BUN Creatinine Estim Creat Clear Calc Est GFR (MDRD) Af Amer Est GFR (MDRD) Non-Af BUN/Creatinine Ratio Glucose Calcium Iron TIBC Iron Saturation Ferritin MRSA (PCR) POC Glucose 157 H 178 H 148 H Blood Type Antibody Screen 02/16/18 05:15 WBC 6.7 RBC 2.53 L Hgb 7.1 L Hct 22.8 L MCV 90.1 MCH 28.1 MCHC 31.1 L RDW 14.9 H RDW Differential 47.9 H Plt Count 262 MPV 9.0 Immature Gran % (Auto) 0.200 Neut % (Auto) 51.7 Lymph % (Auto) 33.6 [place] % (Auto) 8.9 Eos % (Auto) 4.8 Baso % (Auto) 0.8 Absolute Neuts (auto) 3.5 Absolute Lymphs (auto) 2.24 Total Counted Not Reportable Specimen Type Sample Site pH Bicarbonate Actual POC Total CO2 Base Excess O2 Saturation O2 % ABG pCO2 ABG pO2 John Test O2 Delivery Device Vent Mode POC PEEP POC Pressure Suppt Blood Gas Notified Whom Blood Gas Notified Time Sodium Potassium Chloride Carbon Dioxide Anion Gap BUN Creatinine Estim Creat Clear Calc Est GFR (MDRD) Af Amer Est GFR (MDRD) Non-Af BUN/Creatinine Ratio Glucose Calcium Iron TIBC Iron Saturation Ferritin MRSA (PCR) POC Glucose Blood Type Antibody Screen Microbiology 02/15/18 07:30 Sputum, Tracheal Aspirate Gram Stain - Final 02/14/18 18:15 Urine Catheter - Campbell Streptococcus pneumoniae Antigen (M - Final 02/14/18 18:15 Urine Catheter - Campbell Legionella Antigen - Final Clinical Impression(s) from Imaging Studies Chest X-Ray 02/14/18 14:41 IMPRESSION: The tip of the endotracheal tube is at 2.5 cm proximal to the shawn. Increased initial markings in the right lung as described. This may represent either mild CHF versus pneumonic infiltrate. Blunting of the left costophrenic angle with increased markings in the left lower lobe. Electronically Signed: Sage Jaramillo MD at 15:13 EDT Tel [phone], Service support , Chest X-Ray 02/14/18 17:05 IMPRESSION: Right-sided central venous line present with tip in the region of the distal SVC. Endotracheal and nasogastric tubes present appearing in adequate position. Calcified plaques of the aortic arch. No acute cardiopulmonary disease process is seen. Electronically Signed: Onel Lester MD at 17:38 EDT , Service support , Chest CTA 02/14/18 17:11 IMPRESSION: 1. There is no evidence of pulmonary embolism. 2. There is a mosaic attenuation pattern of the lungs predominantly involving the upper lobes and right lower lobe. 3. There is atelectasis with air bronchograms of the left and right upper and lower lobes. 4. There are bronchiectatic changes of the lower lobes also. 5. There are small bilateral pleural effusions right side larger than left. 6. An endotracheal tube is present with the tip 7 mm proximal to the shawn. Retraction of several centimeters of such is recommended for optimal placement. 7. There are diffuse degenerative changes of the visualized thoracolumbar spine. Electronically Signed: Onel Lester MD at 18:09 EDT , Service support , Chest X-Ray 02/15/18 06:48 IMPRESSION: Findings suggestive of a mild degree of CHF with bibasilar atelectasis. There has been progression as compared to prior study. Electronically Signed: Sage Jaramillo MD at 11:26 EDT Tel [phone], Service support , Medical Necessity - Tobacco Use Smoking Status: Unknown if ever smoked Assessment/Plan All Active Problems Respiratory failure (Acute) Respiratory failure requiring intubation (Acute) Ulcer of left lower leg (Resolved) Cellulitis of left leg without foot (Resolved) Acute electrocardiogram changes (Acute) RECOMMENDATIONS: 1. Transfuse 1 unit of packed red blood cells and check H&H posttransfusion. 2. Transition from IV antibiotics to p.o. Levaquin to complete a 7 day treatment course. 3. The patient will likely require GI/surgery follow-up given progressive anemia. 4. Recommend repeating echocardiogram once the patient is no longer anemic to reassess degree of valvular stenosis. 5. Continue to encourage incentive spirometer use and mobilize patient as tolerated. IMPRESSIONS: 1. Acute hypoxemic and hypercarbic respiratory failure Unclear etiology for the patient's rather acute decompensation. While an infectious process is certainly a possibility, it seems unlikely that this would have led to her acutely decompensating in the manner in which that she did. Regardless, the patient will be continued on antibiotics to complete a 7 day treatment course. The patient denies a history of asthma or COPD. The CTA revealed no evidence for pulmonary embolism. The patient's troponin was within normal limits. The echocardiogram did reveal evidence of heart failure with preserved ejection fraction along with severe aortic stenosis, the latter of which had progressed since 2016. However, the patient has anemia, which can cause the valvular gradient to be falsely increased. It is possible that her anemia may have precipitated increased demand on her heart, which she may not have tolerated due to underlying aortic valve stenosis. Regardless, the patient 's anemia will first need to be addressed, after which time, a repeat surface echocardiogram can be completed. Continue Lovenox for DVT prophylaxis. Encourage incentive spirometer use and mobilize patient as tolerated. 2. Sepsis 2/2 Community acquired pneumonia As noted above, antibiotics will be continued to complete a 7 day treatment course, even in the absence of positive culture data. 3. Heart failure with preserved ejection fraction/severe aortic stenosis The patient's echocardiogram did reveal evidence of stage II diastolic dysfunction and severe aortic stenosis, which had progressed since 2016. Recommend careful attention to volume status given underlying diastolic dysfunction and valvular heart disease. It is possible that the patient's current degree of stenosis noted on echocardiogram may be falsely elevated due to the degree of her anemia. Therefore, recommend addressing the patient's underlying anemia and and repeating an echocardiogram at some point in the future. 4. Acute versus chronic kidney disease The patient appears to have acute kidney injury when compared to her last creatinine in our system from April 2016. However, this may also represent progressive renal insufficiency. At the current time, however, her urine output remains appropriate. We will continue to monitor accordingly. No indication for renal replacement therapy at this time. 5. Anemia The patient appears to have borderline microcytic blood indices. Her last hemoglobin in our system in April 2016 was 9.4 g/dL. On arrival to the hospital, she was noted to be 8.7 and has trended down to 7.1 g/dL this morning. Therefore, we will plan to transfuse her 1 unit of packed red blood cells. Check H&H posttransfusion. The patient's iron level was low. She may require evaluation by GI/general surgery, given history of progressive anemia. Will check stool for occult blood, once the patient has a bowel movement. 6. Hypertension/hyperlipidemia/diabetes mellitus Complicates care, management, recovery and prognosis. Holding home antihypertensives at this time. Continue sliding scale insulin coverage. Continue work with physical therapy. This note was generated with Jammitation software. It may contain incorrect words, spelling, and punctuation that were not noted in checking the note before signing. Code Visit Inpatient E&M: 20731 Subs Hosp L3
[2018-02-16 08:46] LABS: Bedside Glucose 120 mg/dL (70-110)
--- NOTE | 2018-02-16 09:20 | PCM.PN.HOSP ---
Patient Problems: Active and Suspected Problems Respiratory failure (Acute) Respiratory failure requiring intubation (Acute) Subjective: Patient seen and examined. She was admitted with a complaint of acute onset shortness of breath and was managed for acute hypoxic and hypercapnic respiratory failure. She was intubated and admitted in the ICU. Patient was successfully extubated on 03/06/2018. Patient seen and examined. She was sitting up in bed and had no complaints. She could only recollect that she started feeling short of breath with a healthy with this at outside shortness of breath became more acute. She never had such shortness of breath before in the past and denied any assisted chest pain or lower extremity swelling. Shortness of breath is much better and she is saturating well on room air. She denies any fever chills, any cough or chest pain, any abdominal pain, any diarrhea vomiting. Hemoglobin has dropped today to 7.1 and she is being transfused 1 unit of blood. Labs and vitals reviewed. Iron panel done on 03/06/2018 shows severe iron deficiency anemia. Vitals/I&O's: Vital Signs Temp Pulse Resp BP Pulse Ox 98.8 F 97 23 H 118/51 L 96 02/16/18 08:49 02/16/18 08:49 02/16/18 08:49 02/16/18 08:49 02/16/18 08:49 Oxygen Flow Rate (L/min) 1 Oxygen Delivery Method Room Air Weight: 207 lb 10.807 oz Body Mass Index (BMI) 35.7 Intake and Output for Last 24 Hours 02/14/18 02/15/18 02/16/18 23:59 23:59 23:59 Intake Total 556 / 556 1097.3 / 1097.3 / Output Total 2074 / 2074 1050 / 1050 225 / 225 Balance -1519 / -1519 47.3 / 47.3 -23 / -23 General: Alert, Oriented x3, Cooperative, No apparent distress HEENT: Atraumatic, PERRLA, EOMI, Normocephalic Oral: Moist Mucosa Neck: Supple, No JVD, Negative Carotid Bruits Lungs: Clear to auscultation, Normal air movement, No rhonchi, No wheeze Cardiovascular: Regular rate, Regular Rhythm, Normal S1, Normal S2, - - harsh grade 3 systolic ejection murmur in aortic and pulmonary areas Abdomen: Bowel Sounds Present, Soft, Non Tender, Non-Distended, No Hepato-splenomegaly Extremities: No clubbing, No cyanosis, No edema, Capillary Refill Less than 3 Seconds Skin: No rashes, No breakdown Musculoskeletal: No Tenderness to Palpation of Joints or Extremities Lymphatic: No Cervical, Supraclavicular, or Inguinal Adenopathy Neurological: Cranial nerves II-XII grossly intact Psych/Mental Status: Normal Affect, Appropriate, Alert and oriented to time, place, person, mood and affect Microbiology Past 72 Hours 02/15/18 07:30 Sputum, Tracheal Aspirate Gram Stain - Final 02/14/18 18:15 Urine Catheter - Campbell Streptococcus pneumoniae Antigen (M - Final 02/14/18 18:15 Urine Catheter - Campbell Legionella Antigen - Final Laboratory Results 02/15/18 07:05: Crossmatch See Detail 02/15/18 11:13: POC Glucose 157 H 02/15/18 16:36: POC Glucose 178 H 02/15/18 20:51: POC Glucose 148 H 02/16/18 05:15: WBC 6.7, RBC 2.53 L, Hgb 7.1 L, Hct 22.8 L, MCV 90.1, MCH 28.1, MCHC 31.1 L, RDW 14.9 H, RDW Differential 47.9 H, Plt Count 262, MPV 9.0, Immature Gran % (Auto) 0.200, Neut % (Auto) 51.7, Lymph % (Auto) 33.6, [place] % (Auto) 8.9, Eos % (Auto) 4.8, Baso % (Auto) 0.8, Absolute Neuts (auto) 3.5, Absolute Lymphs (auto) 2.24, Total Counted Not Reportable 02/16/18 08:38: POC Glucose 120 H Diagnostic Data Chest CTA 02/14/18 17:11 IMPRESSION: 1. There is no evidence of pulmonary embolism. 2. There is a mosaic attenuation pattern of the lungs predominantly involving the upper lobes and right lower lobe. 3. There is atelectasis with air bronchograms of the left and right upper and lower lobes. 4. There are bronchiectatic changes of the lower lobes also. 5. There are small bilateral pleural effusions right side larger than left. 6. An endotracheal tube is present with the tip 7 mm proximal to the shawn. Retraction of several centimeters of such is recommended for optimal placement. 7. There are diffuse degenerative changes of the visualized thoracolumbar spine. Electronically Signed: Onel Lester MD at 18:09 EDT , Service support , Chest X-Ray 02/15/18 06:48 IMPRESSION: Findings suggestive of a mild degree of CHF with bibasilar atelectasis. There has been progression as compared to prior study. Electronically Signed: Sage Jaramillo MD at 11:26 EDT Tel [phone], Service support , Current Medications Acetaminophen (Tylenol) 650 mg PO Q6H PRN PRN PRN Reason: PAIN Last Admin: 02/16/18 05:17 Dose: 650 mg Albuterol/Ipratropium (Duoneb) 3 ml INHALATION Q6HWA.RT [facility] Last Admin: 02/16/18 06:47 Dose: 3 ml Atorvastatin Calcium (Lipitor) 40 mg PO QHS [facility] Last Admin: 02/15/18 21:01 Dose: 40 mg Betamethasone Valerate (Valisone 0.1% Cream) 1 applic TOPICAL BID KORY PRN Reason: Protocol Last Admin: 02/15/18 21:02 Dose: Not Given Chlorhexidine Gluconate () 1 each TOPICAL DAILY [facility] Last Admin: 02/15/18 07:11 Dose: 1 each Dextrose (D50w Syringe) 0 gm IV X1 PRN; Protocol PRN Reason: Hypoglycemia Enoxaparin Sodium (Lovenox) 40 mg SC DAILY@1000 [facility] Last Admin: 02/15/18 09:21 Dose: 40 mg Glucagon () 1 mg IM .X1 PRN PRN Reason: Hypoglycemia Insulin Human Lispro (Humalog Kwikpen (Bkc)) 0 unit SQ ACHS [facility] PRN Reason: Protocol Last Admin: 02/16/18 08:39 Dose: Not Given Levofloxacin (Levaquin Tablet) 750 mg PO Q48 [facility] Magnesium Hydroxide (Milk Of Magnesia) 30 ml PO DAILY PRN PRN PRN Reason: Constipation Nystatin (Mycostatin Powder) 1 applic TOPICAL BID KORY PRN Reason: Protocol Last Admin: 02/15/18 21:03 Dose: Not Given Sodium Chloride () 5 - 30 ml IV UD PRN PRN Reason: SALINE FLUSH Last Admin: 02/16/18 08:31 Dose: 30 ml Medical Necessity - Tobacco Use Smoking Status: Unknown if ever smoked Assessment/Plan All Active Problems Respiratory failure (Acute) Respiratory failure requiring intubation (Acute) Ulcer of left lower leg (Resolved) Cellulitis of left leg without foot (Resolved) Acute electrocardiogram changes (Acute) 77 y/o female admitted with a after she was found short of breath and passersby called the EMS 1. Hypoxic, hypercapnic respiratory failure due to CHF exacerbation and aortic stenosis. Successfully extubated on 02/15/2018. Saturating well on room air. Had no complaints this morning. 2D echo done showed moderate concentric left ventricular hypertrophy with estimated EF of 65% in stage II diastolic dysfunction. No regional wall abnormalities noted. Severe aortic stenosis with peak aortic valve gradient of 97 mmHg and mean aortic valve gradient of 49 mmHg calculated aortic valve area 0.65 cm?. RVSP is 43mmHg. Aortic stenosis has progressed from moderate to severe will consult cardiology in light of symptomatic aortic stenosis 2. Severe aortic stenosis echo as documented above will consult cardiology 3. Community acquired pneumonia wbc is 6.7 on IV ceftriaxone and azithromycin blood cultures still pending. urine for strep and Legionella antigens were negative 4. Iron deficiency anemia Hemoglobin is 7.1 today; normocytic, hypochromic anemia. Will transfuse 1 unit of blood. And panel showed iron of 21, TIBC of 217 and iron saturation of 9.7 with low ferritin of 45. Low TIBC does not really fit in with iron deficiency anemia but the rest of the parameters point more towards iron deficiency anemia. says she had a colonoscopy some years ago, and it was normal She has lost about 20 pounds over the past few months and says is intentional she was trying to lose weight based on healthy diet. She has no family history of present no history of any type of cold 30 x 30 dark stools. stool occult blood ordered; will follow. 'General surgery consulted. 5. Chronic lower extremity edema resolving. LE resolving. KEEGAN wraps bilaterally. Will monitor 6. Hyponatremia resolved resolving. Na is up to 138 today will monitor 7. Diabetes mellitus on lantus 24IU and lispro 8IU 3 times daily. Will resume. Accuchecks achs; ISS. will get 2D echo to assess fully 8. Hypertension on metoprolol, amlodipine and Lisinopril. Blood pressure has been running in the 110s systolic. will continue monitoring blood pressure. 9. DVT prophylaxis: will hold lovenox o/a of anemia; will give SCDs 10. GI prophylaxis: pantoprazole Code status: full code This note was generated with DataSiftation software. It may contain incorrect words, spelling, and punctuation that were not noted in checking the note before signing. Code Visit Inpatient E&M: 16548 Subs Hosp L3
--- NOTE | 2018-02-16 09:25 | CASEMGMT ---
SW met w/pt in room in regard to discharge plan. Pt lives with her nephew, and states her nephew can assist her. Pt reports is normally independent at home, walks with a cane, had railings installed outside to go up the steps. Pt explains they live in an old farmhouse, pt states she has lived there 74 years. Pt states will be able to get around fine at home, pt also declined home health referral. Pt also lost her sister recently, SW spoke w/pt about this. Pt explained her sister was 18 months older than her, and they were very close. She states her sister had Parkinson's. Pt also explained she lost her brother in April. SW offered supportive listening to pt. SW asked pt about bereavement counseling, pt declined any referrals in regard to this. At this time, no further needs anticipated. Should something change and pt is not able to go home, SW will speak w/pt again regarding shelter placement. Otherwise, plan is for pt to return home w/her nephew at discharge. TITA Bashir, DIRECTOR OF [employer]OL[employer]
--- NOTE | 2018-02-16 09:26 | PN_ITS ---
Patient Problems: Active and Suspected Problems Respiratory failure (Acute) Respiratory failure requiring intubation (Acute) Subjective: Patient seen and examined. She was admitted with a complaint of acute onset shortness of breath and was managed for acute hypoxic and hypercapnic respiratory failure. She was intubated and admitted in the ICU. Patient was successfully extubated on 03/06/2018. Patient seen and examined. She was sitting up in bed and had no complaints. She could only recollect that she started feeling short of breath with a healthy with this at outside shortness of breath became more acute. She never had such shortness of breath before in the past and denied any assisted chest pain or lower extremity swelling. Shortness of breath is much better and she is saturating well on room air. She denies any fever chills, any cough or chest pain, any abdominal pain, any diarrhea vomiting. Hemoglobin has dropped today to 7.1 and she is being transfused 1 unit of blood. Labs and vitals reviewed. Iron panel done on 03/06/2018 shows severe iron deficiency anemia. Vitals/I&O's: Vital Signs Temp Pulse Resp BP Pulse Ox 98.8 F 97 23 H 118/51 L 96 02/16/18 08:49 02/16/18 08:49 02/16/18 08:49 02/16/18 08:49 02/16/18 08:49 Oxygen Flow Rate (L/min) 1 Oxygen Delivery Method Room Air Weight: 207 lb 10.807 oz Body Mass Index (BMI) 35.7 Intake and Output for Last 24 Hours 02/14/18 02/15/18 02/16/18 23:59 23:59 23:59 Intake Total 556 / 556 1097.3 / 1097.3 / Output Total 2074 / 2074 1050 / 1050 225 / 225 Balance -1519 / -1519 47.3 / 47.3 -23 / -23 General: Alert, Oriented x3, Cooperative, No apparent distress HEENT: Atraumatic, PERRLA, EOMI, Normocephalic Oral: Moist Mucosa Neck: Supple, No JVD, Negative Carotid Bruits Lungs: Clear to auscultation, Normal air movement, No rhonchi, No wheeze Cardiovascular: Regular rate, Regular Rhythm, Normal S1, Normal S2, - - harsh grade 3 systolic ejection murmur in aortic and pulmonary areas Abdomen: Bowel Sounds Present, Soft, Non Tender, Non-Distended, No Hepato- splenomegaly Extremities: No clubbing, No cyanosis, No edema, Capillary Refill Less than 3 Seconds Skin: No rashes, No breakdown Musculoskeletal: No Tenderness to Palpation of Joints or Extremities Lymphatic: No Cervical, Supraclavicular, or Inguinal Adenopathy Neurological: Cranial nerves II-XII grossly intact Psych/Mental Status: Normal Affect, Appropriate, Alert and oriented to time, place, person, mood and affect Microbiology Past 72 Hours 02/15/18 07:30 Sputum, Tracheal Aspirate Gram Stain - Final 02/14/18 18:15 Urine Catheter - [facility] Streptococcus pneumoniae Antigen (M - Final 02/14/18 18:15 Urine Catheter - [facility] Legionella Antigen - Final Laboratory Results 02/15/18 07:05: Crossmatch See Detail 02/15/18 11:13: POC Glucose 157 H 02/15/18 16:36: POC Glucose 178 H 02/15/18 20:51: POC Glucose 148 H 02/16/18 05:15: WBC 6.7, RBC 2.53 L, Hgb 7.1 L, Hct 22.8 L, MCV 90.1, MCH 28.1, MCHC 31.1 L, RDW 14.9 H, RDW Differential 47.9 H, Plt Count 262, MPV 9.0, Immature Gran % (Auto) 0.200, Neut % (Auto) 51.7, Lymph % (Auto) 33.6, [place] % ( Auto) 8.9, Eos % (Auto) 4.8, Baso % (Auto) 0.8, Absolute Neuts (auto) 3.5, Absolute Lymphs (auto) 2.24, Total Counted Not Reportable 02/16/18 08:38: POC Glucose 120 H Diagnostic Data Chest CTA 02/14/18 17:11 IMPRESSION: 1. There is no evidence of pulmonary embolism. 2. There is a mosaic attenuation pattern of the lungs predominantly involving the upper lobes and right lower lobe. 3. There is atelectasis with air bronchograms of the left and right upper and lower lobes. 4. There are bronchiectatic changes of the lower lobes also. 5. There are small bilateral pleural effusions right side larger than left. 6. An endotracheal tube is present with the tip 7 mm proximal to the shawn. Retraction of several centimeters of such is recommended for optimal placement. 7. There are diffuse degenerative changes of the visualized thoracolumbar spine. Electronically Signed: Onel Lester MD at 18:09 EDT , Service support , Chest X-Ray 02/15/18 06:48 IMPRESSION: Findings suggestive of a mild degree of CHF with bibasilar atelectasis. There has been progression as compared to prior study. Electronically Signed: Sage Jaramillo MD at 11:26 EDT Tel [phone], Service support , Current Medications Acetaminophen (Tylenol) 650 mg PO Q6H PRN PRN PRN Reason: PAIN Last Admin: 02/16/18 05:17 Dose: 650 mg Albuterol/Ipratropium (Duoneb) 3 ml INHALATION Q6HWA.RT [facility] Last Admin: 02/16/18 06:47 Dose: 3 ml Atorvastatin Calcium (Lipitor) 40 mg PO QHS [facility] Last Admin: 02/15/18 21:01 Dose: 40 mg Betamethasone Valerate (Valisone 0.1% Cream) 1 applic TOPICAL BID KORY PRN Reason: Protocol Last Admin: 02/15/18 21:02 Dose: Not Given Chlorhexidine Gluconate () 1 each TOPICAL DAILY [facility] Last Admin: 02/15/18 07:11 Dose: 1 each Dextrose (D50w Syringe) 0 gm IV X1 PRN; Protocol PRN Reason: Hypoglycemia Enoxaparin Sodium (Lovenox) 40 mg SC DAILY@1000 [facility] Last Admin: 02/15/18 09:21 Dose: 40 mg Glucagon () 1 mg IM .X1 PRN PRN Reason: Hypoglycemia Insulin Human Lispro (Humalog Kwikpen (Bkc)) 0 unit SQ ACHS [facility] PRN Reason: Protocol Last Admin: 02/16/18 08:39 Dose: Not Given Levofloxacin (Levaquin Tablet) 750 mg PO Q48 [facility] Magnesium Hydroxide (Milk Of Magnesia) 30 ml PO DAILY PRN PRN PRN Reason: Constipation Nystatin (Mycostatin Powder) 1 applic TOPICAL BID KORY PRN Reason: Protocol Last Admin: 02/15/18 21:03 Dose: Not Given Sodium Chloride () 5 - 30 ml IV UD PRN PRN Reason: SALINE FLUSH Last Admin: 02/16/18 08:31 Dose: 30 ml Medical Necessity - Tobacco Use Smoking Status: Unknown if ever smoked Assessment/Plan All Active Problems Respiratory failure (Acute) Respiratory failure requiring intubation (Acute) Ulcer of left lower leg (Resolved) Cellulitis of left leg without foot (Resolved) Acute electrocardiogram changes (Acute) 77 y/o female admitted with a after she was found short of breath and passersby called the EMS 1. Hypoxic, hypercapnic respiratory failure due to CHF exacerbation and aortic stenosis. * Successfully extubated on 02/15/2018. * Saturating well on room air. Had no complaints this morning. * 2D echo done showed moderate concentric left ventricular hypertrophy with estimated EF of 65% in stage II diastolic dysfunction. No regional wall abnormalities noted. Severe aortic stenosis with peak aortic valve gradient of 97 mmHg and mean aortic valve gradient of 49 mmHg calculated aortic valve area 0.65 cm?. RVSP is 43mmHg. Aortic stenosis has progressed from moderate to severe * will consult cardiology in light of symptomatic aortic stenosis * 2. Severe aortic stenosis * echo as documented above * will consult cardiology * 3. Community acquired pneumonia * wbc is 6.7 * on IV ceftriaxone and azithromycin * blood cultures still pending. * urine for strep and Legionella antigens were negative * 4. Iron deficiency anemia * Hemoglobin is 7.1 today; normocytic, hypochromic anemia. Will transfuse 1 unit of blood. * And panel showed iron of 21, TIBC of 217 and iron saturation of 9.7 with low ferritin of 45. Low TIBC does not really fit in with iron deficiency anemia but the rest of the parameters point more towards iron deficiency anemia. * says she had a colonoscopy some years ago, and it was normal * She has lost about 20 pounds over the past few months and says is intentional she was trying to lose weight based on healthy diet. She has no family history of present no history of any type of cold 30 x 30 dark stools. * stool occult blood ordered; will follow. * 'General surgery consulted. * 5. Chronic lower extremity edema * resolving. LE resolving. * KEEGAN wraps bilaterally. Will monitor * * 6. Hyponatremia * resolved * resolving. Na is up to 138 today * will monitor * * 7. Diabetes mellitus * on lantus 24IU and lispro 8IU 3 times daily. Will resume. Accuchecks achs; ISS. * * will get 2D echo to assess fully * 8. Hypertension * on metoprolol, amlodipine and Lisinopril. Blood pressure has been running in the 110s systolic. * will continue monitoring blood pressure. * 9. DVT prophylaxis: will hold lovenox o/a of anemia; will give SCDs 10. GI prophylaxis: pantoprazole Code status: full code This note was generated with [employer] dictation software. It may contain incorrect words, spelling, and punctuation that were not noted in checking the note before signing. Code Visit Inpatient E&M: 01357 Subs Hosp L3
[2018-02-16] MEDS: levoFLOXacin 750 MG Tablet PO (10:09)
[2018-02-16] MEDS: CHLORHEXIDINE GLUC 2% CLOTH 1 EACH TOWELETTE TOPICAL (10:09)
[2018-02-16] MEDS: Nystatin Powder 15gm Bottle 1 APPLIC TOPICAL ×2 (10:09→21:01)
--- NOTE | 2018-02-16 11:28 | CON.PCM_ITS ---
Reason for Consult Date of Consultation: 02/16/18 Reason for Consultation: anemia History of Present Illness: The patient is a 77 year old F presented to the ER due to shortness of breath. Patient was intubated yesterday and extubated today. Patient had a CTA of the chest done which showed no pulmonary embolism. Patient also had an echo done which showed severe aortic stenosis from her previous diagnosis of moderate stenosis. Patient's hemoglobin was 8.3 when she came in and this morning was 7.1. She is currently getting 1 unit of packed red blood cells. Patient denies any history of blood per rectum or dark tarry stools. She states her stools have been dark brown but no black or red. She also denies any hematemesis, or history of reflux abdominal pain or gastritis. Patient states she has had a colonoscopy about 5 years ago which was normal per the patient. Currently patient denies any shortness of breath or chest pain or abdominal pain. Past Medical History Past Medical History (Chronic Problems): Chronic Problems History of ischemic stroke without residual deficits (Chronic) Obesity (Chronic) Asthma (Chronic) Dyslipidemia (Chronic) Peripheral arterial occlusive disease (Chronic) Arterial atherosclerosis (Chronic) Diabetes mellitus (Chronic) Left carotid bruit (Chronic) Erythema of lower extremity (Chronic) Edema of left lower extremity (Chronic) Swelling of left lower extremity (Chronic) Scalp laceration (Chronic) Multiple falls (Chronic) HTN (hypertension) (Chronic) Allergies banana [Banana] Allergy (Verified 02/14/18 14:41) Swelling metformin [From Glucophage] Adverse Reaction (Verified 02/14/18 14:41) Swelling of legs Home Medications: Ambulatory Orders Medication Instructions Recorded Aspirin [Aspirin, Baby] 81 mg PO DAILY@0800 07/06/14 Atorvastatin Calcium [Lipitor] 40 mg PO QHS 07/06/14 Ferrous Gluconate 325 mg PO BID 07/06/14 Lisinopril [Zestril] 10 mg PO DAILY 07/06/14 Acetaminophen [Tylenol Tablet] 650 mg PO Q6H PRN PRN #30 tablet 04/29/16 Amlodipine [Norvasc] 2.5 mg PO DAILY 02/15/18 Cholecalciferol (Vitamin D3) 5,000 unit PO DAILY 02/15/18 [Vitamin D3] Insulin Aspart [Novolog Flexpen 5 units SC TIDCM 02/15/18 ([facility])] Insulin Degludec [Tresiba 22 unit SQ DAILY 02/15/18 Flextouch U-100] Metoprolol(XL)Succ [Toprol Xl 25 mg PO DAILY 02/15/18 (Beta Ryder)] Oxybutynin [Ditropan] 5 mg PO DAILY 02/15/18 Triamcinolone 0.1% Cream [Kenalog] 1 applic TOPICAL BID 02/15/18 Surgical History: - - The patient has undergone left total knee replacement in 2005. Left carpal tunnel release was performed in 2005. The patient has had a distal left toe amputation. Lives: With Family - lives with nephew Smoking Status: Unknown if ever smoked Alcohol: None - *Family History Maternal History Items: No pertinent history Paternal History Items: No pertinent history - The patient's father at age of 85 with a history of heart disease. The patient's mother at age of 90 with a history of INSULATION INSPECTOR cancer. Review of Systems Constitutional: Denies: Chills Eyes: Denies: Blurred vision HEENT: Denies: Difficulty Swallowing Cardiovascular: Denies: Chest Pain Respiratory: Reports: Cough. Denies: Shortness of Breath Gastrointestinal: Denies: Abdominal Pain, Nausea Genitourinary: Denies: Dysuria Musculoskeletal: Reports: Joint Pain - Left knee occasionally Skin: Denies: Rash Neurological: Denies: Confusion Psychiatric: Reports: Depression - Due to her sister's about a month ago. Denies: Anxiety Hematologic/ Lymphatic: Reports: Easy Bruising. Denies: Easy Bleeding Patient Problems: Active and Suspected Problems Respiratory failure (Acute) Respiratory failure requiring intubation (Acute) - Physical Exam General: Alert, Oriented x3, Cooperative, No apparent distress HEENT: Atraumatic Lungs: Normal air movement Cardiovascular: Regular rate Abdomen: Soft, Non Tender, Non-Distended, Passing Flatus Extremities: No clubbing, No cyanosis, No edema Musculoskeletal: No Tenderness to Palpation of Joints or Extremities Neurological: Cranial nerves II-XII grossly intact Psych/Mental Status: Normal Affect Vital Signs Temp Pulse Resp BP Pulse Ox 99.2 F H 88 19 H 137/59 H 94 02/16/18 10:49 02/16/18 11:01 02/16/18 10:49 02/16/18 10:49 02/16/18 10:49 Oxygen Flow Rate (L/min) 1 Oxygen Delivery Method Room Air Weight: 207 lb 10.807 oz Body Mass Index (BMI) 35.7 Intake and Output for Last 24 Hours 02/14/18 02/15/18 02/16/18 23:59 23:59 23:59 Intake Total 556 / 556 1097.3 / 1097.3 / Output Total 5 / 207 1050 / 1050 225 / 225 Balance -1519 / -1519 47.3 / 47.3 -23 / -23 Microbiology Past 72 Hours 02/15/18 07:30 Gram Stain - Final Sputum, Tracheal Aspirate Respiratory Culture - Preliminary Culture exhibits no growth. 02/14/18 18:15 Streptococcus pneumoniae Antigen (M - Final Urine Catheter - [facility] 02/14/18 18:15 Legionella Antigen - Final Urine Catheter - [facility] Laboratory Tests Past 24 Hrs 02/15/18 02/16/18 07:05 05:15 WBC 6.7 RBC 2.53 L Hgb 7.1 L Hct 22.8 L MCV 90.1 MCH 28.1 MCHC 31.1 L RDW 14.9 H RDW Differential 47.9 H Plt Count 262 MPV 9.0 Immature Gran % (Auto) 0.200 Neut % (Auto) 51.7 Lymph % (Auto) 33.6 [place] % (Auto) 8.9 Eos % (Auto) 4.8 Baso % (Auto) 0.8 Absolute Neuts (auto) 3.5 Absolute Lymphs (auto) 2.24 Total Counted Not Reportable Crossmatch See Detail POC Glucose 02/16/18 02/15/18 02/15/18 08:38 20:51 16:36 POC Glucose 120 H 148 H 178 H 02/15/18 11:13 POC Glucose 157 H Assessment/Plan All Active Problems Respiratory failure (Acute) Respiratory failure requiring intubation (Acute) Ulcer of left lower leg (Resolved) Cellulitis of left leg without foot (Resolved) Acute electrocardiogram changes (Acute) 77 y/o F with anemia (8.3->7.1), possible pneumonia-acute resp failure, severe aortic stenosis 1. Patient denies any acute history of gross blood loss per rectum. She also states she has had a colonoscopy about 5 years ago which was negative. Will try to obtain the report. Patient is currently being transfused 1 unit of packed red blood cells. Would not plan to do a bowel prep until patient's medically optimized per a cardiac standpoint due to her severe aortic stenosis. Will await fecal occult blood test. Will discuss with ICU and cardiology. Vicky Hendricks M.D. Pager: [phone] [facility] [address] [place] [address], [facility], [address] [place] [address] Office: [phone] Code Visit Inpatient E&M: 65052 Init Hosp L1
[2018-02-16] MEDS: Insulin Lispro 100 UNIT/ML INSULN.PEN SC ×2 (11:42→17:16)
[2018-02-16] MEDS: Insulin Lispro 100 UNIT/ML INSULN.PEN SQ (11:43)
[2018-02-16] MEDS: Tolterodine Tartrate 2 MG CAP.SA PO (11:44)
[2018-02-16 12:36] LABS: Bedside Glucose 191 mg/dL (70-110)
--- NOTE | 2018-02-16 13:31 | CON.PCM_ITS ---
Problem List (1) Aortic stenosis Status: Acute (2) Severe anemia Status: Acute (3) History of ischemic stroke without residual deficits Status: Chronic (4) Dyslipidemia Status: Chronic (5) Arterial atherosclerosis Status: Chronic (6) HTN (hypertension) Status: Chronic Qualifiers: Hypertension type: essential hypertension Reason for Consult Date of Consultation: 02/16/18 Reason for Consultation: Aortic stenosis, severe anemia, hypertension, CVA, peripheral vascular disease, diabetes History of Present Illness: The patient is a 77 year old F with diabetes, hypertension, hypercholesterolemia , previous CVA approximately 4 years ago, peripheral vascular disease with left- sided bruit, no known cardiac or coronary disease. Patient had an echocardiogram in 2016 which demonstrated moderate aortic stenosis in the face of normal LV function however the patient was unaware of this. She has never been told she had any valvular issues. While the patient was at home sitting in a chair she suddenly became significantly short of breath, which worsened. She summoned help outside her home and the squad was called. Patient apparently was somewhat combative and was emergently intubated and placed on a ventilator. A CT scan of her chest was performed which was negative for pulmonary embolism. Patient was found to have severe anemia, and received at least 1 unit of PRBCs. She was subsequently extubated. A repeat echocardiogram was performed yesterday which demonstrated normal LV function with what appeared to be severe aortic stenosis with respect to 2016. This is most likely a change in her peak and mean gradients due to her severe anemia with a hemoglobin of 7.1. On further history the patient denies any exertional chest pain, angina, but has noted decreasing exercise capacity over the last several months to year. She complained of mild lower extremity edema as well. She has had no presyncope , syncope, chest pain or angina. She denies any GI bleeding, hematochezia. [] Past Medical History Allergies/Adverse Reactions: Allergies banana [Banana] Allergy (Verified 02/14/18 14:41) Swelling metformin [From Glucophage] Adverse Reaction (Verified 02/14/18 14:41) Swelling of legs Home Medications: Ambulatory Orders Medication Instructions Recorded Aspirin [Aspirin, Baby] 81 mg PO DAILY@0800 07/06/14 Atorvastatin Calcium [Lipitor] 40 mg PO QHS 07/06/14 Ferrous Gluconate 325 mg PO BID 07/06/14 Lisinopril [Zestril] 10 mg PO DAILY 07/06/14 Acetaminophen [Tylenol Tablet] 650 mg PO Q6H PRN PRN #30 tablet 04/29/16 Amlodipine [Norvasc] 2.5 mg PO DAILY 02/15/18 Cholecalciferol (Vitamin D3) 5,000 unit PO DAILY 02/15/18 [Vitamin D3] Insulin Aspart [Novolog Flexpen 5 units SC TIDCM 02/15/18 ([facility])] Insulin Degludec [Tresiba 22 unit SQ DAILY 02/15/18 Flextouch U-100] Metoprolol(XL)Succ [Toprol Xl 25 mg PO DAILY 02/15/18 (Beta Ryder)] Oxybutynin [Ditropan] 5 mg PO DAILY 02/15/18 Triamcinolone 0.1% Cream [Kenalog] 1 applic TOPICAL BID 02/15/18 Past Medical History (Chronic Problems): Chronic Problems History of ischemic stroke without residual deficits (Chronic) Obesity (Chronic) Asthma (Chronic) Dyslipidemia (Chronic) Peripheral arterial occlusive disease (Chronic) Arterial atherosclerosis (Chronic) Diabetes mellitus (Chronic) Left carotid bruit (Chronic) Erythema of lower extremity (Chronic) Edema of left lower extremity (Chronic) Swelling of left lower extremity (Chronic) Scalp laceration (Chronic) Multiple falls (Chronic) HTN (hypertension) (Chronic) Surgical History: - - The patient has undergone left total knee replacement in 2005. Left carpal tunnel release was performed in 2005. The patient has had a distal left toe amputation. - *Family History Maternal History Items: No pertinent history Paternal History Items: No pertinent history - The patient's father at age of 85 with a history of heart disease. The patient's mother at age of 90 with a history of JAVASCRIPT DEVELOPER cancer. Lives: With Family - lives with nephew Smoking Status: Unknown if ever smoked Alcohol: None Subjectve: Patient laying in bed, no acute distress. Objective: Vital Signs Temp Pulse Resp BP Pulse Ox 99.6 F H 90 20 H 146/54 H 100 02/16/18 11:50 02/16/18 13:10 02/16/18 13:10 02/16/18 11:50 02/16/18 13:10 Oxygen Flow Rate (L/min) 1 Oxygen Delivery Method Nasal Cannula Weight: 207 lb 10.807 oz Body Mass Index (BMI) 35.7 Intake and Output for Last 24 Hours 02/14/18 02/15/18 02/16/18 23:59 23:59 23:59 Intake Total 556 / 556 1097.3 / 1097.3 952 / 952 Output Total 5 / 207 1050 / 1050 550 / 550 Balance -1519 / -1519 47.3 / 47.3 402 / 402 General: Awake, Alert, Oriented x 3 HEENT: PERRL, EOMI, Sclera Non Icteric Neck: Supple, Good ROM, No Lymph Node Enlargement Lungs: Clear to auscultation Cardiovascular: Regular Rhythm, Normal S1, Normal S2, No Rubs, No Gallops Murmur Murmur: Grade 3/6, Crescendo-Decrescendo Vascular: R Carotid Artery Bruits, Radiation of Murmur to Carotid Arteries Abdomen: Bowel Sounds Present, Soft, Non Tender, No HSM, No Organomegaly Extremities: No Cyanosis, No Clubbing, No edema Neurological: No Focal Motor or Sensory Deficit 02/16/18 05:15: WBC 6.7, RBC 2.53 L, Hgb 7.1 L, Hct 22.8 L, MCV 90.1, MCH 28.1, MCHC 31.1 L, RDW 14.9 H, RDW Differential 47.9 H, Plt Count 262, MPV 9.0, Immature Gran % (Auto) 0.200, Neut % (Auto) 51.7, Lymph % (Auto) 33.6, [place] % ( Auto) 8.9, Eos % (Auto) 4.8, Baso % (Auto) 0.8, Absolute Neuts (auto) 3.5, Total Counted Not Reportable Rhythm: EKG: Normal sinus rhythm with right bundle branch block, no acute changes. ECHO: Normal LV function with severe aortic stenosis with peak/mean gradient of 97 and 49 mmHg, RVSP of 43 mmHg. Stress Test: Cardiac Cath: PCI: CT Surgery: Holter monitor: EPS: PPM: CXR: Chest CT Scan: Assessment/Plan 1. Aortic stenosis: Patient has at least moderate aortic stenosis diagnosed in 2016, at which time her hemoglobin may have been higher. Now that her hemoglobin is quite low, this has an effect on the aortic valve gradient making it artificially higher. The only way to know for sure would be to do a transesophageal echocardiogram and assess from a planimetry standpoint her aortic valve area. Patient has had signs and symptoms of gradually deteriorating exercise capacity over the last several months to year. It is doubtful that her aortic valve deteriorated so much in the past 2 years but it is possible. I would recommend repeating her echocardiogram once her hemoglobin increases to around 10, and would recommend keeping her hemoglobin at least above 8.0. She may require additional PRBCs. The patient is at mild to moderate risk for EGD, and would recommend that this take place in the hospital in case she has any respiratory deterioration as a result of her aortic stenosis. If the patient wishes to pursue aortic valve replacement, she will require a left and right heart catheterization once her hemoglobin has stabilized. Would recommend avoiding aspirin, Plavix, or anticoagulation therapy until her anemia has been evaluated. In addition would recommend aggressive use of afterload reducing agents such as KEEGAN inhibitors, nitrates, and heavy diuretics that may predispose her to poor cerebral perfusion and syncopal events. 2. Thank you very much for the opportunity to precipitate the cardiac care of your patient. Consultation time between 1 and 1:30 PM. Code Visit Inpatient E&M: 22103 Init Hosp L2
[2018-02-16 13:58] LABS: Hematocrit 27.9 % (37-47); Hemoglobin 8.8 g/dl (12.0-15.0)
[2018-02-16] MEDS: Ferrous Gluconate 325 MG Tablet 324 MG PO (17:15)
[2018-02-16 19:01] LABS: Bedside Glucose 109 mg/dL (70-110)
[2018-02-16] MEDS: Atorvastatin Calcium 40 MG Tablet PO (21:01)
[2018-02-16 21:16] LABS: Bedside Glucose 114 mg/dL (70-110)
[2018-02-17] VITALS (12 sets, daily range): BP systolic 137–153; BP diastolic 54–66; PULSE 78–106; RESP 16–22; TEMP 36.4–37.3; O2SAT 96–98
[2018-02-17] MEDS: Acetaminophen 325 MG Tablet 650 MG PO (02:21)
[2018-02-17 04:10] LABS: Absolute Lymphocyte Count 1.63 X10^3/ul (0.83-4.51); Absolute Neutrophil Count 6.4 X10^3/uL (2.0-7.7); Basophil# 0.04 X10^3/uL; Basophil% 0.4 % (0-1); Eosinophil# 0.23 X10^3/uL; Eosinophils% 2.5 % (0-5); Hematocrit 25.2 % (37-47); Hemoglobin 8.1 g/dl (12.0-15.0); Lymphocyte # 1.63 X10^3/ul (4.0); Mean Corp Hgb Conc 32.1 g/gl (32-36); Mean Corpuscular Hgb 28.7 pg (27.0-32.0); Mean Corpuscular Volume 89.4 fL (81-99); Mean Platelet Vol. 8.7 fl (6.2-12.0); Monocyte% 7.7 % (0-10); Neutrophil # 6.44 X10^3/uL (2.7-7.7); Neutrophil % 71.1 % (47-70); POSITIVE COUNT NO; POSITIVE DIFFERENTIAL NO; POSITIVE MORPHOLOGY NO; Platelet Count 265 K/mm3 (150-450); RBC Distribution Width CV 14.6 % (11.6-14.6); RBC Distribution Width SD 46.5 fl (35.1-43.9); Red Blood Count 2.82 M/mm3 (4.2-5.4); White Blood Count 9.1 K/mm3 (4.4-11.0)
[2018-02-17 04:21] LABS: Anion Gap 8 (5-15); BUN 26 mg/dL (7-18); BUN/Creat Ratio 24.8 RATIO (10-20); Calcium,Total 8.4 mg/dL (8.5-10.1); Chloride 99 mmol/L (98-107); Creatinine, Serum 1.05 mg/dL (0.55-1.02); EST Glomerular Filtration Rate 54 mL/min (>60); Est Glom Filt Rate - Afr Amer 65 mL/min (>60); Estimated Creatinine Clearance 38.75 ml/min; Glucose 107 mg/dL (74-106); Potassium 4.5 mmol/L (3.5-5.1); Sodium Level 135 mmol/L (136-145)
[2018-02-17] MEDS: Ipratropium/Albuterol Sulfate 3 ML AMPUL.NEB INHALATION ×2 (06:40→17:43)
[2018-02-17 06:51] LABS: Bedside Glucose 106 mg/dL (70-110)
--- NOTE | 2018-02-17 06:52 | PN_ITS ---
Subjective: The patient was seen and examined at the bedside this morning. Events from the last 24 hours have been reviewed. The patient is currently afebrile, hemodynamically stable and maintaining appropriate oxygen saturations on room air. The patient reports no breathing related difficulties or cough. The patient received 1 unit of packed red blood cells yesterday for hemoglobin of 7.1 g/dL. Posttransfusion hemoglobin was 8.8 g/dL. This morning, the patient' s hemoglobin has trended down to 8.1 g/dL. Objective: The patient's most recent lab work, culture data and imaging studies have all been personally reviewed. Strep and urine Legionella antigens were both negative. Blood cultures have shown no growth to date. Sputum cultures currently pending. Surface echocardiogram revealed moderate concentric LVH with an ejection fraction of 65% and evidence of stage II diastolic dysfunction. Right ventricular systolic pressure was estimated to be 43 mmHg. There was also evidence of severe aortic stenosis, which appears to have progressed since April 2016. General: Alert, Oriented x3, Cooperative, No apparent distress HEENT: Atraumatic, PERRLA, Normocephalic Oral: No Gingival or Mucosal Lesions/ Ulcerations Neck: Supple, No Nodes, Trachea Midline Lungs: Normal air movement, No rhonchi, No wheeze, No rales Cardiovascular: Regular rate, Regular Rhythm, Normal S1, Normal S2, Murmur - Systolic, No rub noted, No Gallop Abdomen: Bowel Sounds Present, Soft, Non Tender, Non-Distended Extremities: No clubbing, No cyanosis, Edema - Trace Skin: No breakdown Musculoskeletal: No Tenderness to Palpation of Joints or Extremities Lymphatic: No Cervical, Supraclavicular, or Inguinal Adenopathy Neurological: Neuro grossly intact Psych/Mental Status: Alert and oriented to time, place, person, mood and affect Vital Signs Temp Pulse Resp BP Pulse Ox 99.1 F 83 22 H 138/58 H 97 02/17/18 02:00 02/17/18 03:18 02/17/18 02:00 02/17/18 02:00 02/17/18 02:00 Oxygen Flow Rate (L/min) 1 Oxygen Delivery Method Room Air Weight: 201 lb 11.567 oz Body Mass Index (BMI) 35.7 Intake and Output for Last 24 Hours 02/15/18 02/16/18 02/17/18 23:59 23:59 23:59 Intake Total 1097.3 / 1097.3 952 / 952 280 / 280 Output Total 1050 / 1050 950 / 950 700 / 700 Balance 47.3 / 47.3 2 / 2 -420 / -420 Labs (Last 48 Hours) 02/15/18 02/15/18 02/15/18 05:15 07:05 07:05 WBC RBC Hgb 7.8 L Hct 24.8 L MCV MCH MCHC RDW RDW Differential Plt Count MPV Immature Gran % (Auto) Neut % (Auto) Lymph % (Auto) [place] % (Auto) Eos % (Auto) Baso % (Auto) Absolute Neuts (auto) Absolute Lymphs (auto) Total Counted Specimen Type Sample Site pH Bicarbonate Actual POC Total CO2 Base Excess O2 Saturation O2 % ABG pCO2 ABG pO2 John Test O2 Delivery Device Vent Mode POC PEEP POC Pressure Suppt Blood Gas Notified Whom Blood Gas Notified Time Sodium Potassium Chloride Carbon Dioxide Anion Gap BUN Creatinine Estim Creat Clear Calc Est GFR (MDRD) Af Amer Est GFR (MDRD) Non-Af BUN/Creatinine Ratio Glucose Calcium Iron 21 L TIBC 217 L Iron Saturation 9.7 L Ferritin 45 POC Glucose Blood Type O POSITIVE Antibody Screen NEGATIVE Crossmatch 02/15/18 02/15/18 02/15/18 07:05 08:56 11:13 WBC RBC Hgb Hct MCV MCH MCHC RDW RDW Differential Plt Count MPV Immature Gran % (Auto) Neut % (Auto) Lymph % (Auto) [place] % (Auto) Eos % (Auto) Baso % (Auto) Absolute Neuts (auto) Absolute Lymphs (auto) Total Counted Specimen Type ART Sample Site R Radial pH 7.44 Bicarbonate Actual 26.8 H POC Total CO2 28 Base Excess 3 H O2 Saturation 96 O2 % 30 ABG pCO2 39.2 ABG pO2 81 John Test POS O2 Delivery Device Vent Vent Mode CPAP PS POC PEEP 5 POC Pressure Suppt 5 Blood Gas Notified Whom ICU MD Blood Gas Notified Time 855 Sodium Potassium Chloride Carbon Dioxide Anion Gap BUN Creatinine Estim Creat Clear Calc Est GFR (MDRD) Af Amer Est GFR (MDRD) Non-Af BUN/Creatinine Ratio Glucose Calcium Iron TIBC Iron Saturation Ferritin POC Glucose 157 H Blood Type Antibody Screen Crossmatch See Detail 08/01/18 08/01/18 08/02/18 16:36 20:51 05:15 WBC 6.7 RBC 2.53 L Hgb 7.1 L Hct 22.8 L MCV 90.1 MCH 28.1 MCHC 31.1 L RDW 14.9 H RDW Differential 47.9 H Plt Count 262 MPV 9.0 Immature Gran % (Auto) 0.200 Neut % (Auto) 51.7 Lymph % (Auto) 33.6 [place] % (Auto) 8.9 Eos % (Auto) 4.8 Baso % (Auto) 0.8 Absolute Neuts (auto) 3.5 Absolute Lymphs (auto) 2.24 Total Counted Not Reportable Specimen Type Sample Site pH Bicarbonate Actual POC Total CO2 Base Excess O2 Saturation O2 % ABG pCO2 ABG pO2 John Test O2 Delivery Device Vent Mode POC PEEP POC Pressure Suppt Blood Gas Notified Whom Blood Gas Notified Time Sodium Potassium Chloride Carbon Dioxide Anion Gap BUN Creatinine Estim Creat Clear Calc Est GFR (MDRD) Af Amer Est GFR (MDRD) Non-Af BUN/Creatinine Ratio Glucose Calcium Iron TIBC Iron Saturation Ferritin POC Glucose 178 H 148 H Blood Type Antibody Screen Crossmatch 02/16/18 02/16/18 02/16/18 08:38 11:40 13:50 WBC RBC Hgb 8.8 L Hct 27.9 L MCV MCH MCHC RDW RDW Differential Plt Count MPV Immature Gran % (Auto) Neut % (Auto) Lymph % (Auto) [place] % (Auto) Eos % (Auto) Baso % (Auto) Absolute Neuts (auto) Absolute Lymphs (auto) Total Counted Specimen Type Sample Site pH Bicarbonate Actual POC Total CO2 Base Excess O2 Saturation O2 % ABG pCO2 ABG pO2 John Test O2 Delivery Device Vent Mode POC PEEP POC Pressure Suppt Blood Gas Notified Whom Blood Gas Notified Time Sodium Potassium Chloride Carbon Dioxide Anion Gap BUN Creatinine Estim Creat Clear Calc Est GFR (MDRD) Af Amer Est GFR (MDRD) Non-Af BUN/Creatinine Ratio Glucose Calcium Iron TIBC Iron Saturation Ferritin POC Glucose 120 H 191 H Blood Type Antibody Screen Crossmatch 02/16/18 02/16/18 02/17/18 17:11 20:58 04:00 WBC 9.1 RBC 2.82 L Hgb 8.1 L Hct 25.2 L MCV 89.4 MCH 28.7 MCHC 32.1 RDW 14.6 RDW Differential 46.5 H Plt Count 265 MPV 8.7 Immature Gran % (Auto) 0.300 Neut % (Auto) 71.1 H Lymph % (Auto) 18.0 L [place] % (Auto) 7.7 Eos % (Auto) 2.5 Baso % (Auto) 0.4 Absolute Neuts (auto) 6.4 Absolute Lymphs (auto) 1.63 Total Counted Not Reportable Specimen Type Sample Site pH Bicarbonate Actual POC Total CO2 Base Excess O2 Saturation O2 % ABG pCO2 ABG pO2 John Test O2 Delivery Device Vent Mode POC PEEP POC Pressure Suppt Blood Gas Notified Whom Blood Gas Notified Time Sodium Potassium Chloride Carbon Dioxide Anion Gap BUN Creatinine Estim Creat Clear Calc Est GFR (MDRD) Af Amer Est GFR (MDRD) Non-Af BUN/Creatinine Ratio Glucose Calcium Iron TIBC Iron Saturation Ferritin POC Glucose 109 114 H Blood Type Antibody Screen Crossmatch 02/17/18 02/17/18 04:00 06:45 WBC RBC Hgb Hct MCV MCH MCHC RDW RDW Differential Plt Count MPV Immature Gran % (Auto) Neut % (Auto) Lymph % (Auto) [place] % (Auto) Eos % (Auto) Baso % (Auto) Absolute Neuts (auto) Absolute Lymphs (auto) Total Counted Specimen Type Sample Site pH Bicarbonate Actual POC Total CO2 Base Excess O2 Saturation O2 % ABG pCO2 ABG pO2 John Test O2 Delivery Device Vent Mode POC PEEP POC Pressure Suppt Blood Gas Notified Whom Blood Gas Notified Time Sodium 135 L Potassium 4.5 Chloride 99 Carbon Dioxide 28.0 Anion Gap 8 BUN 26 H Creatinine 1.05 H Estim Creat Clear Calc 38.75 Est GFR (MDRD) Af Amer 65 Est GFR (MDRD) Non-Af 54 L BUN/Creatinine Ratio 24.8 H Glucose 107 H Calcium 8.4 L Iron TIBC Iron Saturation Ferritin POC Glucose 106 Blood Type Antibody Screen Crossmatch Microbiology 02/15/18 07:30 Sputum, Tracheal Aspirate Gram Stain - Final 02/15/18 07:30 Sputum, Tracheal Aspirate Respiratory Culture - Preliminary Culture exhibits no growth. Clinical Impression(s) from Imaging Studies Chest X-Ray 02/14/18 14:41 IMPRESSION: The tip of the endotracheal tube is at 2.5 cm proximal to the shawn. Increased initial markings in the right lung as described. This may represent either mild CHF versus pneumonic infiltrate. Blunting of the left costophrenic angle with increased markings in the left lower lobe. Electronically Signed: Sage Jaramillo MD at 15:13 EDT Tel [phone], Service support , Chest X-Ray 02/14/18 17:05 IMPRESSION: Right-sided central venous line present with tip in the region of the distal SVC. Endotracheal and nasogastric tubes present appearing in adequate position. Calcified plaques of the aortic arch. No acute cardiopulmonary disease process is seen. Electronically Signed: Onel Lester MD at 17:38 EDT , Service support , Chest CTA 02/14/18 17:11 IMPRESSION: 1. There is no evidence of pulmonary embolism. 2. There is a mosaic attenuation pattern of the lungs predominantly involving the upper lobes and right lower lobe. 3. There is atelectasis with air bronchograms of the left and right upper and lower lobes. 4. There are bronchiectatic changes of the lower lobes also. 5. There are small bilateral pleural effusions right side larger than left. 6. An endotracheal tube is present with the tip 7 mm proximal to the shawn. Retraction of several centimeters of such is recommended for optimal placement. 7. There are diffuse degenerative changes of the visualized thoracolumbar spine. Electronically Signed: Onel Lester MD at 18:09 EDT , Service support , Chest X-Ray 02/15/18 06:48 IMPRESSION: Findings suggestive of a mild degree of CHF with bibasilar atelectasis. There has been progression as compared to prior study. Electronically Signed: Sage Jaramillo MD at 11:26 EDT Tel [phone], Service support , Medical Necessity - Tobacco Use Smoking Status: Unknown if ever smoked Assessment/Plan All Active Problems Respiratory failure (Acute) Respiratory failure requiring intubation (Acute) Aortic stenosis (Acute) Severe anemia (Acute) Ulcer of left lower leg (Resolved) Cellulitis of left leg without foot (Resolved) Acute electrocardiogram changes (Acute) RECOMMENDATIONS: 1. Continue Levaquin to complete a 7 day treatment course. 2. Start IV Protonix once daily. 3. Patient to remain n.p.o. until decision is made regarding endoscopy. 4. Recheck H&H at noon today. Goal to maintain a hemoglobin at or above 8 g/ dL. 5. Discontinue basal insulin and start Accu-Cheks every 6 hours and sliding scale coverage, given n.p.o. status. 6. Continue to encourage incentive spirometer use and mobilize patient as tolerated. IMPRESSIONS: 1. Acute hypoxemic and hypercarbic respiratory failure Resolved. Unclear etiology for the patient's rather acute decompensation. While an infectious process is certainly a possibility, it seems unlikely that this would have led to her acutely decompensating in the manner in which that she did. Regardless, the patient will be continued on antibiotics to complete a 7 day treatment course. The patient denies a history of asthma or COPD. The CTA revealed no evidence for pulmonary embolism. The patient's troponin was within normal limits. The echocardiogram did reveal evidence of heart failure with preserved ejection fraction along with severe aortic stenosis, the latter of which had progressed since 2016. However, the patient has anemia, which can cause the valvular gradient to be falsely increased. It is possible that her anemia may have precipitated increased demand on her heart, which she may not have tolerated due to underlying aortic valve stenosis. Regardless, the patient 's anemia will first need to be addressed, after which time, a repeat surface echocardiogram can be completed. Continue Lovenox for DVT prophylaxis. Encourage incentive spirometer use and mobilize patient as tolerated. 2. Sepsis 2/2 Community acquired pneumonia As noted above, antibiotics will be continued to complete a 7 day treatment course, even in the absence of positive culture data. 3. Heart failure with preserved ejection fraction/severe aortic stenosis The patient's echocardiogram did reveal evidence of stage II diastolic dysfunction and severe aortic stenosis, which had progressed since 2016. Recommend careful attention to volume status given underlying diastolic dysfunction and valvular heart disease. It is possible that the patient's current degree of stenosis noted on echocardiogram may be falsely elevated due to the degree of her anemia. Therefore, recommend addressing the patient's underlying anemia and and repeating an echocardiogram at some point in the future. 4. Acute versus chronic kidney disease The patient appears to have acute kidney injury when compared to her last creatinine in our system from April 2016. However, this may also represent progressive renal insufficiency. At the current time, however, her urine output remains appropriate. We will continue to monitor accordingly. No indication for renal replacement therapy at this time. 5. Anemia The patient appears to have borderline microcytic blood indices. Her last hemoglobin in our system in April 2016 was 9.4 g/dL. On arrival to the hospital, she was noted to be 8.7 g/dL. The patient did require eventual transfusion of packed red blood cells. We will continue to monitor blood counts accordingly and transfuse to maintain a hemoglobin level at or above 8 g/ dL. Surgery is following for potential separation to completing endoscopy while inpatient. Patient will also be started on a PPI once daily. 6. Hypertension/hyperlipidemia/diabetes mellitus Complicates care, management, recovery and prognosis. Given that the patient is currently n.p.o., will continue Accu-Cheks every 6 hours along with sliding scale insulin coverage. This note was generated with [employer] dictation software. It may contain incorrect words, spelling, and punctuation that were not noted in checking the note before signing. Code Visit Inpatient E&M: 10895 Subs Hosp L3
[2018-02-17] MEDS: Tolterodine Tartrate 2 MG CAP.SA PO (08:02)
[2018-02-17] MEDS: Ferrous Gluconate 325 MG Tablet 324 MG PO ×2 (08:03→16:25)
[2018-02-17] MEDS: Aspirin 81 MG TAB.CHEW PO (08:03)
[2018-02-17] MEDS: Nystatin Powder 15gm Bottle 1 APPLIC TOPICAL (08:04)
--- NOTE | 2018-02-17 08:34 | PCM.PN.SRG ---
Patient Problems: Active and Suspected Problems Respiratory failure (Acute) Respiratory failure requiring intubation (Acute) Aortic stenosis (Acute) Severe anemia (Acute) Subjective: pt denies SOB, CP, got 1 unit PRBC and Hb is 8.1 from 7.1 - Physical Exam General: Alert, Cooperative, No apparent distress Lungs: Normal air movement Cardiovascular: Regular rate Abdomen: Soft, Non Tender - no PS, Non-Distended Vital Signs Temp Pulse Resp BP Pulse Ox 98.6 F 88 22 H 153/66 H 98 02/17/18 08:00 02/17/18 08:00 02/17/18 08:00 02/17/18 08:00 02/17/18 08:00 Oxygen Flow Rate (L/min) 1 Oxygen Delivery Method Room Air Weight: 201 lb 11.567 oz Body Mass Index (BMI) 35.7 Intake and Output for Last 24 Hours 02/15/18 02/16/18 02/17/18 23:59 23:59 23:59 Intake Total 1097.3 / 1097.3 952 / 952 280 / 280 Output Total 1050 / 1050 950 / 950 700 / 700 Balance 47.3 / 47.3 2 / 2 -420 / -420 Microbiology Past 72 Hours 02/14/18 16:27 Blood Culture - Preliminary Blood Culture (Wb) - Right Hand No growth in 48 hours. 02/14/18 16:20 Blood Culture - Preliminary Blood Culture (Wb) - Left Hand No growth in 48 hours. 02/15/18 07:30 Gram Stain - Final Sputum, Tracheal Aspirate Respiratory Culture - Preliminary Culture exhibits no growth. 02/14/18 18:15 Streptococcus pneumoniae Antigen (M - Final Urine Catheter - [facility] 02/14/18 18:15 Legionella Antigen - Final Urine Catheter - [facility] Laboratory Tests Past 24 Hrs 02/15/18 02/16/18 02/17/18 07:05 13:50 04:00 WBC 9.1 RBC 2.82 L Hgb 8.8 L 8.1 L Hct 27.9 L 25.2 L MCV 89.4 MCH 28.7 MCHC 32.1 RDW 14.6 RDW Differential 46.5 H Plt Count 265 MPV 8.7 Immature Gran % (Auto) 0.300 Neut % (Auto) 71.1 H Lymph % (Auto) 18.0 L [place] % (Auto) 7.7 Eos % (Auto) 2.5 Baso % (Auto) 0.4 Absolute Neuts (auto) 6.4 Absolute Lymphs (auto) 1.63 Total Counted Not Reportable Sodium Potassium Chloride Carbon Dioxide Anion Gap BUN Creatinine Estim Creat Clear Calc Est GFR (MDRD) Af Amer Est GFR (MDRD) Non-Af BUN/Creatinine Ratio Glucose Calcium Crossmatch See Detail 02/17/18 04:00 WBC RBC Hgb Hct MCV MCH MCHC RDW RDW Differential Plt Count MPV Immature Gran % (Auto) Neut % (Auto) Lymph % (Auto) [place] % (Auto) Eos % (Auto) Baso % (Auto) Absolute Neuts (auto) Absolute Lymphs (auto) Total Counted Sodium 135 L Potassium 4.5 Chloride 99 Carbon Dioxide 28.0 Anion Gap 8 BUN 26 H Creatinine 1.05 H Estim Creat Clear Calc 38.75 Est GFR (MDRD) Af Amer 65 Est GFR (MDRD) Non-Af 54 L BUN/Creatinine Ratio 24.8 H Glucose 107 H Calcium 8.4 L Crossmatch POC Glucose 02/17/18 02/16/18 02/16/18 06:45 20:58 17:11 POC Glucose 106 114 H 109 02/16/18 02/16/18 11:40 08:38 POC Glucose 191 H 120 H Medical Necessity - Tobacco Use Smoking Status: Unknown if ever smoked Assessment/Plan All Active Problems Respiratory failure (Acute) Respiratory failure requiring intubation (Acute) Aortic stenosis (Acute) Severe anemia (Acute) Ulcer of left lower leg (Resolved) Cellulitis of left leg without foot (Resolved) Acute electrocardiogram changes (Acute) 77 y/o F with anemia (8.3->7.1), possible pneumonia-acute resp failure, mod-severe aortic stenosis (may be more severe on echo b/c of anemia) 1. Discussed with cardiology they would prefer 2 units packed red blood cells given her hemoglobin was 7.1 currently is 8.1 after 1 unit of packed red blood cells. We will plan to do the prep on Tuesday and plan for a EGD and colonoscopy on Tuesday about 11:30. I have discussed the above with the patient. Okay for low fiber diet today and tomorrow with only clears on Tuesday. I have offered the patient EGD and colonoscopy for evaluation of anemia as patient has never had a colonoscopy in the past only a fecal occult blood test. I have explained the risks/benefits of the procedure and described the procedure. I have discussed the risks with the patient, including but not limited to: infection, bleeding, perforation of the GI tract requiring emergency surgery, inability to complete the procedure, injury to any internal organs, complications of anesthesia, etc. - the patient understands and agrees to proceed. I have answered all the patient's questions to the patient's satisfaction and the patient has no further questions. [facility] 2. Dr. Louise will be covering for me over the weekend call with any questions. Vicky Hendricks M.D. Pager: [phone] [facility] [address] [place] [address], [address] [place] [address] Office: [phone]
--- NOTE | 2018-02-17 08:37 | PN.SURG_ITS ---
Patient Problems: Active and Suspected Problems Respiratory failure (Acute) Respiratory failure requiring intubation (Acute) Aortic stenosis (Acute) Severe anemia (Acute) Subjective: pt denies SOB, CP, got 1 unit PRBC and Hb is 8.1 from 7.1 - Physical Exam General: Alert, Cooperative, No apparent distress Lungs: Normal air movement Cardiovascular: Regular rate Abdomen: Soft, Non Tender - no PS, Non-Distended Vital Signs Temp Pulse Resp BP Pulse Ox 98.6 F 88 22 H 153/66 H 98 02/17/18 08:00 02/17/18 08:00 02/17/18 08:00 02/17/18 08:00 02/17/18 08:00 Oxygen Flow Rate (L/min) 1 Oxygen Delivery Method Room Air Weight: 201 lb 11.567 oz Body Mass Index (BMI) 35.7 Intake and Output for Last 24 Hours 02/15/18 02/16/18 02/17/18 23:59 23:59 23:59 Intake Total 1097.3 / 1097.3 952 / 952 280 / 280 Output Total 1050 / 1050 950 / 950 700 / 700 Balance 47.3 / 47.3 2 / 2 -420 / -420 Microbiology Past 72 Hours 02/14/18 16:27 Blood Culture - Preliminary Blood Culture (Wb) - Right Hand No growth in 48 hours. 02/14/18 16:20 Blood Culture - Preliminary Blood Culture (Wb) - Left Hand No growth in 48 hours. 02/15/18 07:30 Gram Stain - Final Sputum, Tracheal Aspirate Respiratory Culture - Preliminary Culture exhibits no growth. 02/14/18 18:15 Streptococcus pneumoniae Antigen (M - Final Urine Catheter - [facility] 02/14/18 18:15 Legionella Antigen - Final Urine Catheter - [facility] Laboratory Tests Past 24 Hrs 02/15/18 02/16/18 02/17/18 07:05 13:50 04:00 WBC 9.1 RBC 2.82 L Hgb 8.8 L 8.1 L Hct 27.9 L 25.2 L MCV 89.4 MCH 28.7 MCHC 32.1 RDW 14.6 RDW Differential 46.5 H Plt Count 265 MPV 8.7 Immature Gran % (Auto) 0.300 Neut % (Auto) 71.1 H Lymph % (Auto) 18.0 L [place] % (Auto) 7.7 Eos % (Auto) 2.5 Baso % (Auto) 0.4 Absolute Neuts (auto) 6.4 Absolute Lymphs (auto) 1.63 Total Counted Not Reportable Sodium Potassium Chloride Carbon Dioxide Anion Gap BUN Creatinine Estim Creat Clear Calc Est GFR (MDRD) Af Amer Est GFR (MDRD) Non-Af BUN/Creatinine Ratio Glucose Calcium Crossmatch See Detail 02/17/18 04:00 WBC RBC Hgb Hct MCV MCH MCHC RDW RDW Differential Plt Count MPV Immature Gran % (Auto) Neut % (Auto) Lymph % (Auto) [place] % (Auto) Eos % (Auto) Baso % (Auto) Absolute Neuts (auto) Absolute Lymphs (auto) Total Counted Sodium 135 L Potassium 4.5 Chloride 99 Carbon Dioxide 28.0 Anion Gap 8 BUN 26 H Creatinine 1.05 H Estim Creat Clear Calc 38.75 Est GFR (MDRD) Af Amer 65 Est GFR (MDRD) Non-Af 54 L BUN/Creatinine Ratio 24.8 H Glucose 107 H Calcium 8.4 L Crossmatch POC Glucose 02/17/18 02/16/18 02/16/18 06:45 20:58 17:11 POC Glucose 106 114 H 109 02/16/18 02/16/18 11:40 08:38 POC Glucose 191 H 120 H Medical Necessity - Tobacco Use Smoking Status: Unknown if ever smoked Assessment/Plan All Active Problems Respiratory failure (Acute) Respiratory failure requiring intubation (Acute) Aortic stenosis (Acute) Severe anemia (Acute) Ulcer of left lower leg (Resolved) Cellulitis of left leg without foot (Resolved) Acute electrocardiogram changes (Acute) 77 y/o F with anemia (8.3->7.1), possible pneumonia-acute resp failure, mod- severe aortic stenosis (may be more severe on echo b/c of anemia) 1. Discussed with cardiology they would prefer 2 units packed red blood cells given her hemoglobin was 7.1 currently is 8.1 after 1 unit of packed red blood cells. We will plan to do the prep on Tuesday and plan for a EGD and colonoscopy on Tuesday about 11:30. I have discussed the above with the patient. Okay for low fiber diet today and tomorrow with only clears on Tuesday. I have offered the patient EGD and colonoscopy for evaluation of anemia as patient has never had a colonoscopy in the past only a fecal occult blood test. I have explained the risks/benefits of the procedure and described the procedure. I have discussed the risks with the patient, including but not limited to: infection, bleeding, perforation of the GI tract requiring emergency surgery, inability to complete the procedure, injury to any internal organs, complications of anesthesia, etc. - the patient understands and agrees to proceed. I have answered all the patient's questions to the patient's satisfaction and the patient has no further questions. [facility]. 2. Dr. Louise will be covering for me over the weekend call with any questions. Vicky Hendricks M.D. Pager: [phone] [facility] [address] [place] [address], [address] [place] [address] Office: [phone]
--- NOTE | 2018-02-17 09:14 | CASEMGMT ---
SW spoke w/pt in room in regard to discharge plan. Pt states she is having surgery on Tuesday, SW confirmed w/physician pt is having an EGD and colonoscopy. SW asked pt again about going home vs going to a facility for rehab. Pt states she still thinks she can manage at home, states her nephew can assist her to the restroom if needed. Pt states it is a short walk to the bathroom and she has a walker at home. SARITA explained we will continue to follow in the event the discharge plan changes. TITA Bashir, [employer]MAN
[2018-02-17] MEDS: Insulin Lispro 100 UNIT/ML INSULN.PEN SC ×2 (11:07)
[2018-02-17 11:15] LABS: Bedside Glucose 170 mg/dL (70-110)
[2018-02-17 13:08] LABS: Hematocrit 28.6 % (37-47); Hemoglobin 9.1 g/dl (12.0-15.0)
--- NOTE | 2018-02-17 14:42 | PCM.PN.HOSP ---
Patient Problems: Active and Suspected Problems Respiratory failure (Acute) Respiratory failure requiring intubation (Acute) Aortic stenosis (Acute) Severe anemia (Acute) Subjective: Patient seen and examined this morning. She had no complaints and felt well. She denied any fever chills, any cough or chest pain, shortness of breath, any abdominal pain, any diarrhea vomiting. Patient remains anemic and status post transfusion of 1 unit of blood. General surgery consulted. Discussed with Dr. thompson on this morning. Patient mentioned that she had a colonoscopy a few years ago and was normal. However review of the thumb did not show any records of colonoscopy or EGD. It turns out that patient had had a fecal occult blood test a few years ago which was negative and she confused this with colonoscopy. Plan is for EGD and colonoscopy on Tuesday. Vitals/I&O's: Vital Signs Temp Pulse Resp BP Pulse Ox 97.6 F L 98 18 146/54 H 97 02/17/18 09:53 02/17/18 11:17 02/17/18 09:53 02/17/18 09:53 02/17/18 09:53 Oxygen Flow Rate (L/min) 1 Oxygen Delivery Method Room Air Weight: 201 lb 11.567 oz Body Mass Index (BMI) 35.7 Intake and Output for Last 24 Hours 02/15/18 02/16/18 02/17/18 23:59 23:59 23:59 Intake Total 1097.3 / 1097.3 952 / 952 480 / 480 Output Total 1050 / 1050 950 / 950 700 / 700 Balance 47.3 / 47.3 2 / 2 -220 / -220 General: Alert, Oriented x3, Cooperative, No apparent distress HEENT: Atraumatic, PERRLA, EOMI, Normocephalic Oral: Moist Mucosa Neck: Supple, No JVD, Negative Carotid Bruits Lungs: Clear to auscultation, Normal air movement, No rhonchi, No wheeze Cardiovascular: Regular rate, Regular Rhythm, Normal S1, Normal S2, No murmurs Abdomen: Bowel Sounds Present, Soft, Non Tender, Non-Distended, No Hepato-splenomegaly Extremities: No clubbing, No cyanosis, No edema, Capillary Refill Less than 3 Seconds Skin: No rashes, No breakdown Musculoskeletal: No Tenderness to Palpation of Joints or Extremities Lymphatic: No Cervical, Supraclavicular, or Inguinal Adenopathy Neurological: Cranial nerves II-XII grossly intact, Motor Exam 5/5 strength throughout Psych/Mental Status: Normal Affect, Appropriate, Alert and oriented to time, place, person, mood and affect Microbiology Past 72 Hours 02/15/18 07:30 Sputum, Tracheal Aspirate Gram Stain - Final 02/15/18 07:30 Sputum, Tracheal Aspirate Respiratory Culture - Final Culture exhibits no growth. 02/14/18 16:27 Blood Culture (Wb) - Right Hand Blood Culture - Preliminary No growth in 48 hours. 02/14/18 16:20 Blood Culture (Wb) - Left Hand Blood Culture - Preliminary No growth in 48 hours. 02/14/18 18:15 Urine Catheter - Campbell Streptococcus pneumoniae Antigen (M - Final 02/14/18 18:15 Urine Catheter - Campbell Legionella Antigen - Final Laboratory Results 02/16/18 17:11: POC Glucose 109 02/16/18 20:58: POC Glucose 114 H 02/17/18 04:00: WBC 9.1, RBC 2.82 L, Hgb 8.1 L, Hct 25.2 L, MCV 89.4, MCH 28.7, MCHC 32.1, RDW 14.6, RDW Differential 46.5 H, Plt Count 265, MPV 8.7, Immature Gran % (Auto) 0.300, Neut % (Auto) 71.1 H, Lymph % (Auto) 18.0 L, [place] % (Auto) 7.7, Eos % (Auto) 2.5, Baso % (Auto) 0.4, Absolute Neuts (auto) 6.4, Absolute Lymphs (auto) 1.63, Total Counted Not Reportable 02/17/18 04:00: Sodium 135 L, Potassium 4.5, Chloride 99, Carbon Dioxide 28.0, Anion Gap 8, BUN 26 H, Creatinine 1.05 H, Estim Creat Clear Calc 38.75, Est GFR (MDRD) Af Amer 65, Est GFR (MDRD) Non-Af 54 L, BUN/Creatinine Ratio 24.8 H, Glucose 107 H, Calcium 8.4 L 02/17/18 06:45: POC Glucose 106 02/17/18 11:03: POC Glucose 170 H 02/17/18 12:50: Hgb 9.1 L, Hct 28.6 L Diagnostic Data Chest CTA 02/14/18 17:11 IMPRESSION: 1. There is no evidence of pulmonary embolism. 2. There is a mosaic attenuation pattern of the lungs predominantly involving the upper lobes and right lower lobe. 3. There is atelectasis with air bronchograms of the left and right upper and lower lobes. 4. There are bronchiectatic changes of the lower lobes also. 5. There are small bilateral pleural effusions right side larger than left. 6. An endotracheal tube is present with the tip 7 mm proximal to the shawn. Retraction of several centimeters of such is recommended for optimal placement. 7. There are diffuse degenerative changes of the visualized thoracolumbar spine. Electronically Signed: Onel Lester MD at 18:09 EDT , Service support , Chest X-Ray 02/15/18 06:48 IMPRESSION: Findings suggestive of a mild degree of CHF with bibasilar atelectasis. There has been progression as compared to prior study. Electronically Signed: Sage Jaramillo MD at 11:26 EDT Tel [phone], Service support , Current Medications Acetaminophen (Tylenol) 650 mg PO Q6H PRN PRN PRN Reason: PAIN Last Admin: 02/17/18 02:21 Dose: 650 mg Albuterol/Ipratropium (Duoneb) 3 ml INHALATION Q6HWA.RT [facility] Last Admin: 02/17/18 13:08 Dose: Not Given Aspirin (Aspirin, Baby) 81 mg PO DAILY@0800 [facility] Last Admin: 02/17/18 08:03 Dose: 81 mg Atorvastatin Calcium (Lipitor) 40 mg PO QHS [facility] Last Admin: 02/16/18 21:01 Dose: 40 mg Betamethasone Valerate (Valisone 0.1% Cream) 1 applic TOPICAL BID [facility] PRN Reason: Protocol Last Admin: 02/17/18 08:04 Dose: 1 applicatio Chlorhexidine Gluconate () 1 each TOPICAL DAILY [facility] Last Admin: 02/17/18 09:56 Dose: Not Given Cholecalciferol (Vitamin D) 5,000 unit PO DAILY [facility] Last Admin: 02/17/18 08:13 Dose: 5,000 unit Dextrose (D50w Syringe) 0 gm IV X1 PRN; Protocol PRN Reason: Hypoglycemia Ferrous Gluconate (Ferrous Gluconate) 324 mg PO BIDCM [facility] Last Admin: 02/17/18 08:03 Dose: 324 mg Glucagon () 1 mg IM .X1 PRN PRN Reason: Hypoglycemia Pantoprazole Sodium 40 mg/ (Sodium Chloride) 110 mls @ 330 mls/hr IV DAILY [facility] Last Admin: 02/17/18 08:02 Dose: 330 mls/hr Insulin Glargine (Lantus (Bkc)) 22 units SC DAILY [facility] Last Admin: 02/17/18 11:06 Dose: 22 units Insulin Human Lispro (Humalog Kwikpen (Bk)) 0 unit SC ACHS [facility] PRN Reason: Protocol Last Admin: 02/17/18 11:07 Dose: 1 unit Insulin Human Lispro (Humalog Kwikpen (Bkc)) 5 unit SC TIDAC [facility] Last Admin: 02/17/18 11:07 Dose: 5 units Levofloxacin (Levaquin Tablet) 750 mg PO Q48 [facility] Magnesium Hydroxide (Milk Of Magnesia) 30 ml PO DAILY PRN PRN PRN Reason: Constipation Nystatin (Mycostatin Powder) 1 applic TOPICAL BID [facility] PRN Reason: Protocol Last Admin: 02/17/18 08:04 Dose: 1 applicatio Sodium Chloride () 5 - 30 ml IV UD PRN PRN Reason: SALINE FLUSH Last Admin: 02/16/18 21:01 Dose: 20 ml Sodium Chloride/Electrolytes (Nulytely) 4,000 ml PO X1 ONE Stop: 02/19/18 11:01 Tolterodine Tartrate (Detrol La) 2 mg PO DAILY [facility] Last Admin: 02/17/18 08:02 Dose: 2 mg Medical Necessity - Tobacco Use Smoking Status: Unknown if ever smoked Assessment/Plan All Active Problems Respiratory failure (Acute) Respiratory failure requiring intubation (Acute) Aortic stenosis (Acute) Severe anemia (Acute) Ulcer of left lower leg (Resolved) Cellulitis of left leg without foot (Resolved) Acute electrocardiogram changes (Acute) 77 y/o female admitted with a after she was found short of breath and passersby called the EMS 1. Hypoxic, hypercapnic respiratory failure due to CHF exacerbation and aortic stenosis. Successfully extubated on 02/15/2018. Saturating well on room air. Had no complaints this morning. 2D echo done showed moderate concentric left ventricular hypertrophy with estimated EF of 65% in stage II diastolic dysfunction. No regional wall abnormalities noted. Severe aortic stenosis with peak aortic valve gradient of 97 mmHg and mean aortic valve gradient of 49 mmHg calculated aortic valve area 0.65 cm?. RVSP is 43mmHg. Aortic stenosis has progressed from moderate to severe 2. Severe aortic stenosis echo as documented above Cardiology on board. Recommend against aggressive use of afterload reducing agent such as KEEGAN inhibitors, nitrates and diuretics. Per cardiology, severe anemia may have an effect on the aortic valve gradient making it artificially high. Therefore recommend to repeat echocardiogram once hemoglobin is increased to around 10 and to keep hemoglobin above 8. 3. Community acquired pneumonia wbc is 6.7 was on IV ceftriaxone and azithromycin; transition to p.o. levofloxacin every 48. blood cultures- no growth after 48 hours urine for strep and Legionella antigens were negative 4. Iron deficiency anemia Hemoglobin is 8.1; s/p transfusion of one unit of PRBC. WIll give another unit of blood today general surgery on board; for for EGD and colonoscopy next Tuesday 'General surgery consulted. 5. Chronic lower extremity edema resolving. LE resolving. KEEGAN wraps bilaterally. Will monitor 6. Hyponatremia Na down to 135. Will monitor 7. Diabetes mellitus on lantus 24IU and lispro 8IU 3 times daily. Accuchecks achs; ISS. 8. Hypertension on metoprolol, amlodipine and Lisinopril. Blood pressure has been running in the 110s systolic. will continue monitoring blood pressure. 9. DVT prophylaxis: will hold lovenox o/a of anemia; will give SCDs 10. GI prophylaxis: pantoprazole Code status: full code This note was generated with Vanks[employer]ation software. It may contain incorrect words, spelling, and punctuation that were not noted in checking the note before signing. Code Visit Inpatient E&M: 83879 Subs Hosp L3
--- NOTE | 2018-02-17 14:50 | PN_ITS ---
Patient Problems: Active and Suspected Problems Respiratory failure (Acute) Respiratory failure requiring intubation (Acute) Aortic stenosis (Acute) Severe anemia (Acute) Subjective: Patient seen and examined this morning. She had no complaints and felt well. She denied any fever chills, any cough or chest pain, shortness of breath, any abdominal pain, any diarrhea vomiting. Patient remains anemic and status post transfusion of 1 unit of blood. General surgery consulted. Discussed with Dr. thompson on this morning. Patient mentioned that she had a colonoscopy a few years ago and was normal. However review of the thumb did not show any records of colonoscopy or EGD. It turns out that patient had had a fecal occult blood test a few years ago which was negative and she confused this with colonoscopy. Plan is for EGD and colonoscopy on Tuesday. Vitals/I&O's: Vital Signs Temp Pulse Resp BP Pulse Ox 97.6 F L 98 18 146/54 H 97 02/17/18 09:53 02/17/18 11:17 02/17/18 09:53 02/17/18 09:53 02/17/18 09:53 Oxygen Flow Rate (L/min) 1 Oxygen Delivery Method Room Air Weight: 201 lb 11.567 oz Body Mass Index (BMI) 35.7 Intake and Output for Last 24 Hours 02/15/18 02/16/18 02/17/18 23:59 23:59 23:59 Intake Total 1097.3 / 1097.3 952 / 952 480 / 480 Output Total 1050 / 1050 950 / 950 700 / 700 Balance 47.3 / 47.3 2 / 2 -220 / -220 General: Alert, Oriented x3, Cooperative, No apparent distress HEENT: Atraumatic, PERRLA, EOMI, Normocephalic Oral: Moist Mucosa Neck: Supple, No JVD, Negative Carotid Bruits Lungs: Clear to auscultation, Normal air movement, No rhonchi, No wheeze Cardiovascular: Regular rate, Regular Rhythm, Normal S1, Normal S2, No murmurs Abdomen: Bowel Sounds Present, Soft, Non Tender, Non-Distended, No Hepato- splenomegaly Extremities: No clubbing, No cyanosis, No edema, Capillary Refill Less than 3 Seconds Skin: No rashes, No breakdown Musculoskeletal: No Tenderness to Palpation of Joints or Extremities Lymphatic: No Cervical, Supraclavicular, or Inguinal Adenopathy Neurological: Cranial nerves II-XII grossly intact, Motor Exam 5/5 strength throughout Psych/Mental Status: Normal Affect, Appropriate, Alert and oriented to time, place, person, mood and affect Microbiology Past 72 Hours 02/15/18 07:30 Sputum, Tracheal Aspirate Gram Stain - Final 02/15/18 07:30 Sputum, Tracheal Aspirate Respiratory Culture - Final Culture exhibits no growth. 02/14/18 16:27 Blood Culture (Wb) - Right Hand Blood Culture - Preliminary No growth in 48 hours. 02/14/18 16:20 Blood Culture (Wb) - Left Hand Blood Culture - Preliminary No growth in 48 hours. 02/14/18 18:15 Urine Catheter - Campbell Streptococcus pneumoniae Antigen (M - Final 02/14/18 18:15 Urine Catheter - Campbell Legionella Antigen - Final Laboratory Results 02/16/18 17:11: POC Glucose 109 02/16/18 20:58: POC Glucose 114 H 02/17/18 04:00: WBC 9.1, RBC 2.82 L, Hgb 8.1 L, Hct 25.2 L, MCV 89.4, MCH 28.7, MCHC 32.1, RDW 14.6, RDW Differential 46.5 H, Plt Count 265, MPV 8.7, Immature Gran % (Auto) 0.300, Neut % (Auto) 71.1 H, Lymph % (Auto) 18.0 L, [place] % (Auto) 7.7, Eos % (Auto) 2.5, Baso % (Auto) 0.4, Absolute Neuts (auto) 6.4, Absolute Lymphs (auto) 1.63, Total Counted Not Reportable 02/17/18 04:00: Sodium 135 L, Potassium 4.5, Chloride 99, Carbon Dioxide 28.0, Anion Gap 8, BUN 26 H, Creatinine 1.05 H, Estim Creat Clear Calc 38.75, Est GFR (MDRD) Af Amer 65, Est GFR (MDRD) Non-Af 54 L, BUN/Creatinine Ratio 24.8 H, Glucose 107 H, Calcium 8.4 L 02/17/18 06:45: POC Glucose 106 02/17/18 11:03: POC Glucose 170 H 02/17/18 12:50: Hgb 9.1 L, Hct 28.6 L Diagnostic Data Chest CTA 02/14/18 17:11 IMPRESSION: 1. There is no evidence of pulmonary embolism. 2. There is a mosaic attenuation pattern of the lungs predominantly involving the upper lobes and right lower lobe. 3. There is atelectasis with air bronchograms of the left and right upper and lower lobes. 4. There are bronchiectatic changes of the lower lobes also. 5. There are small bilateral pleural effusions right side larger than left. 6. An endotracheal tube is present with the tip 7 mm proximal to the shawn. Retraction of several centimeters of such is recommended for optimal placement. 7. There are diffuse degenerative changes of the visualized thoracolumbar spine. Electronically Signed: Onel Lester MD at 18:09 EDT , Service support , Chest X-Ray 02/15/18 06:48 IMPRESSION: Findings suggestive of a mild degree of CHF with bibasilar atelectasis. There has been progression as compared to prior study. Electronically Signed: Sage Jaramillo MD at 11:26 EDT Tel [phone], Service support , Current Medications Acetaminophen (Tylenol) 650 mg PO Q6H PRN PRN PRN Reason: PAIN Last Admin: 02/17/18 02:21 Dose: 650 mg Albuterol/Ipratropium (Duoneb) 3 ml INHALATION Q6HWA.RT [facility] Last Admin: 02/17/18 13:08 Dose: Not Given Aspirin (Aspirin, Baby) 81 mg PO DAILY@0800 [facility] Last Admin: 02/17/18 08:03 Dose: 81 mg Atorvastatin Calcium (Lipitor) 40 mg PO QHS [facility] Last Admin: 02/16/18 21:01 Dose: 40 mg Betamethasone Valerate (Valisone 0.1% Cream) 1 applic TOPICAL BID [facility] PRN Reason: Protocol Last Admin: 02/17/18 08:04 Dose: 1 applicatio Chlorhexidine Gluconate () 1 each TOPICAL DAILY [facility] Last Admin: 02/17/18 09:56 Dose: Not Given Cholecalciferol (Vitamin D) 5,000 unit PO DAILY [facility] Last Admin: 02/17/18 08:13 Dose: 5,000 unit Dextrose (D50w Syringe) 0 gm IV X1 PRN; Protocol PRN Reason: Hypoglycemia Ferrous Gluconate (Ferrous Gluconate) 324 mg PO BIDCM [facility] Last Admin: 02/17/18 08:03 Dose: 324 mg Glucagon () 1 mg IM .X1 PRN PRN Reason: Hypoglycemia Pantoprazole Sodium 40 mg/ (Sodium Chloride) 110 mls @ 330 mls/hr IV DAILY [facility] Last Admin: 02/17/18 08:02 Dose: 330 mls/hr Insulin Glargine (Lantus (Bkc)) 22 units SC DAILY [facility] Last Admin: 02/17/18 11:06 Dose: 22 units Insulin Human Lispro (Humalog Kwikpen (Bk)) 0 unit SC ACHS [facility] PRN Reason: Protocol Last Admin: 02/17/18 11:07 Dose: 1 unit Insulin Human Lispro (Humalog Kwikpen (Bkc)) 5 unit SC TIDAC [facility] Last Admin: 02/17/18 11:07 Dose: 5 units Levofloxacin (Levaquin Tablet) 750 mg PO Q48 [facility] Magnesium Hydroxide (Milk Of Magnesia) 30 ml PO DAILY PRN PRN PRN Reason: Constipation Nystatin (Mycostatin Powder) 1 applic TOPICAL BID [facility] PRN Reason: Protocol Last Admin: 02/17/18 08:04 Dose: 1 applicatio Sodium Chloride () 5 - 30 ml IV UD PRN PRN Reason: SALINE FLUSH Last Admin: 02/16/18 21:01 Dose: 20 ml Sodium Chloride/Electrolytes (Nulytely) 4,000 ml PO X1 ONE Stop: 02/19/18 11:01 Tolterodine Tartrate (Detrol La) 2 mg PO DAILY [facility] Last Admin: 02/17/18 08:02 Dose: 2 mg Medical Necessity - Tobacco Use Smoking Status: Unknown if ever smoked Assessment/Plan All Active Problems Respiratory failure (Acute) Respiratory failure requiring intubation (Acute) Aortic stenosis (Acute) Severe anemia (Acute) Ulcer of left lower leg (Resolved) Cellulitis of left leg without foot (Resolved) Acute electrocardiogram changes (Acute) 77 y/o female admitted with a after she was found short of breath and passersby called the EMS 1. Hypoxic, hypercapnic respiratory failure due to CHF exacerbation and aortic stenosis. * Successfully extubated on 02/15/2018. * Saturating well on room air. Had no complaints this morning. * 2D echo done showed moderate concentric left ventricular hypertrophy with estimated EF of 65% in stage II diastolic dysfunction. No regional wall abnormalities noted. Severe aortic stenosis with peak aortic valve gradient of 97 mmHg and mean aortic valve gradient of 49 mmHg calculated aortic valve area 0.65 cm?. RVSP is 43mmHg. Aortic stenosis has progressed from moderate to severe * * 2. Severe aortic stenosis * echo as documented above * Cardiology on board. Recommend against aggressive use of afterload reducing agent such as KEEGAN inhibitors, nitrates and diuretics. Per cardiology, severe anemia may have an effect on the aortic valve gradient making it artificially high. Therefore recommend to repeat echocardiogram once hemoglobin is increased to around 10 and to keep hemoglobin above 8. * 3. Community acquired pneumonia * wbc is 6.7 * was on IV ceftriaxone and azithromycin; transition to p.o. levofloxacin every 48. * blood cultures- no growth after 48 hours * urine for strep and Legionella antigens were negative * 4. Iron deficiency anemia * Hemoglobin is 8.1; s/p transfusion of one unit of PRBC. WIll give another unit of blood today * general surgery on board; for for EGD and colonoscopy next Tuesday * 'General surgery consulted. * 5. Chronic lower extremity edema * resolving. LE resolving. * KEEGAN wraps bilaterally. Will monitor * * 6. Hyponatremia * Na down to 135. Will monitor * * 7. Diabetes mellitus * on lantus 24IU and lispro 8IU 3 times daily. Accuchecks achs; ISS. * * 8. Hypertension * on metoprolol, amlodipine and Lisinopril. Blood pressure has been running in the 110s systolic. * will continue monitoring blood pressure. * 9. DVT prophylaxis: will hold lovenox o/a of anemia; will give SCDs 10. GI prophylaxis: pantoprazole Code status: full code This note was generated with Bar Passation software. It may contain incorrect words, spelling, and punctuation that were not noted in checking the note before signing. Code Visit Inpatient E&M: 11972 Subs Hosp L3
[2018-02-17 16:16] LABS: Bedside Glucose 72 mg/dL (70-110)
[2018-02-17 20:36] LABS: Bedside Glucose 106 mg/dL (70-110)
[2018-02-17] MEDS: Atorvastatin Calcium 40 MG Tablet PO (21:55)
[2018-02-17 22:01] LABS: Bedside Glucose 122 mg/dL (70-110)
[2018-02-18] VITALS (13 sets, daily range): BP systolic 119–169; BP diastolic 42–76; PULSE 76–108; RESP 16–20; TEMP 36.9–37.1; O2SAT 95–99
[2018-02-18] MEDS: Ipratropium/Albuterol Sulfate 3 ML AMPUL.NEB INHALATION ×3 (06:40→18:49)
[2018-02-18 07:06] LABS: Bedside Glucose 87 mg/dL (70-110)
--- NOTE | 2018-02-18 07:06 | PCM.PROGNOTE ---
Patient Problems: Active and Suspected Problems Respiratory failure (Acute) Respiratory failure requiring intubation (Acute) Aortic stenosis (Acute) Severe anemia (Acute) Subjective: The patient was seen and examined at the bedside this morning. Events from the last 24 hours have been reviewed. The patient is currently afebrile, hemodynamically stable and maintaining appropriate oxygen saturations on room air. Blood counts have remained stable. Fecal occult blood test completed yesterday was negative. The patient feels well otherwise. Objective: The patient's most recent lab work, culture data and imaging studies have all been personally reviewed. Strep and urine Legionella antigens were both negative. Blood cultures have shown no growth to date. Sputum cultures currently pending. Surface echocardiogram revealed moderate concentric LVH with an ejection fraction of 65% and evidence of stage II diastolic dysfunction. Right ventricular systolic pressure was estimated to be 43 mmHg. There was also evidence of severe aortic stenosis, which appears to have progressed since April 2016. - Physical Exam General: Alert, Oriented x3, Cooperative, No apparent distress HEENT: Atraumatic, PERRLA, Normocephalic Oral: No Gingival or Mucosal Lesions/ Ulcerations Neck: Supple, No Nodes, Trachea Midline Lungs: Normal air movement, No rhonchi, No wheeze, No rales Cardiovascular: Regular rate, Regular Rhythm, Normal S1, Normal S2, Murmur, No rub noted, No Gallop Abdomen: Bowel Sounds Present, Soft, Non Tender, Non-Distended Extremities: No clubbing, No cyanosis, No edema Skin: - - No significant change from previous. Musculoskeletal: No Tenderness to Palpation of Joints or Extremities, No Muscle Wasting Lymphatic: No Cervical, Supraclavicular, or Inguinal Adenopathy Neurological: Cranial nerves II-XII grossly intact, Neuro grossly intact Psych/Mental Status: Alert and oriented to time, place, person, mood and affect Vital Signs Temp Pulse Resp BP Pulse Ox 98.4 F 82 18 169/76 H 98 02/18/18 03:40 02/18/18 06:42 02/18/18 06:42 02/18/18 03:40 02/18/18 06:42 Oxygen Flow Rate (L/min) 1 Oxygen Delivery Method Room Air Weight: 204 lb 5.896 oz Body Mass Index (BMI) 35.7 Intake and Output for Last 24 Hours 02/16/18 02/17/18 02/18/18 23:59 23:59 23:59 Intake Total 952 / 952 1280 / 1280 Output Total 950 / 950 700 / 700 Balance 2 / 2 580 / 580 Microbiology Past 72 Hours 02/17/18 17:59 Stool Occult Blood (JOSE) - Final Stool 02/15/18 07:30 Gram Stain - Final Sputum, Tracheal Aspirate Respiratory Culture - Final Culture exhibits no growth. 02/14/18 16:27 Blood Culture - Preliminary Blood Culture (Wb) - Right Hand No growth in 48 hours. 02/14/18 16:20 Blood Culture - Preliminary Blood Culture (Wb) - Left Hand No growth in 48 hours. Laboratory Tests Past 24 Hrs 02/17/18 12:50 Hgb 9.1 L Hct 28.6 L POC Glucose 02/18/18 02/17/18 02/17/18 06:49 21:54 16:07 POC Glucose 87 122 H 72 02/17/18 02/17/18 11:03 07:50 POC Glucose 170 H 106 Clinical Impression(s) from Imaging Studies Chest X-Ray 02/14/18 14:41 IMPRESSION: The tip of the endotracheal tube is at 2.5 cm proximal to the shawn. Increased initial markings in the right lung as described. This may represent either mild CHF versus pneumonic infiltrate. Blunting of the left costophrenic angle with increased markings in the left lower lobe. Electronically Signed: Sage Jaramillo MD at 15:13 EDT Tel [phone], Service support , Chest X-Ray 02/14/18 17:05 IMPRESSION: Right-sided central venous line present with tip in the region of the distal SVC. Endotracheal and nasogastric tubes present appearing in adequate position. Calcified plaques of the aortic arch. No acute cardiopulmonary disease process is seen. Electronically Signed: Onel Lester MD at 17:38 EDT , Service support , Chest CTA 02/14/18 17:11 IMPRESSION: 1. There is no evidence of pulmonary embolism. 2. There is a mosaic attenuation pattern of the lungs predominantly involving the upper lobes and right lower lobe. 3. There is atelectasis with air bronchograms of the left and right upper and lower lobes. 4. There are bronchiectatic changes of the lower lobes also. 5. There are small bilateral pleural effusions right side larger than left. 6. An endotracheal tube is present with the tip 7 mm proximal to the shawn. Retraction of several centimeters of such is recommended for optimal placement. 7. There are diffuse degenerative changes of the visualized thoracolumbar spine. Electronically Signed: Onel Lester MD at 18:09 EDT , Service support , Chest X-Ray 02/15/18 06:48 IMPRESSION: Findings suggestive of a mild degree of CHF with bibasilar atelectasis. There has been progression as compared to prior study. Electronically Signed: Sage Jaramillo MD at 11:26 EDT Tel [phone], Service support , Medical Necessity - Tobacco Use Smoking Status: Unknown if ever smoked Assessment/Plan All Active Problems Respiratory failure (Acute) Respiratory failure requiring intubation (Acute) Aortic stenosis (Acute) Severe anemia (Acute) Ulcer of left lower leg (Resolved) Cellulitis of left leg without foot (Resolved) Acute electrocardiogram changes (Acute) RECOMMENDATIONS: 1. Continue Levaquin to complete a 7 day treatment course. 2. Continue daily Protonix. 3. Surgery is following with plans for GoLYTELY administration on Tuesday followed by endoscopy on Tuesday. 4. Check H&H daily. 5. Continue Lantus and sliding scale insulin coverage. 6. Continue to encourage incentive spirometer use and mobilize patient as tolerated. IMPRESSIONS: 1. Acute hypoxemic and hypercarbic respiratory failure Resolved. Unclear etiology for the patient's rather acute decompensation. While an infectious process is certainly a possibility, it seems unlikely that this would have led to her acutely decompensating in the manner in which that she did. Regardless, the patient will be continued on antibiotics to complete a 7 day treatment course. The patient denies a history of asthma or COPD. The CTA revealed no evidence for pulmonary embolism. The patient's troponin was within normal limits. The echocardiogram did reveal evidence of heart failure with preserved ejection fraction along with severe aortic stenosis, the latter of which had progressed since 2016. However, the patient has anemia, which can cause the valvular gradient to be falsely increased. It is possible that her anemia may have precipitated increased demand on her heart, which she may not have tolerated due to underlying aortic valve stenosis. Regardless, the patient's anemia will first need to be addressed, after which time, a repeat surface echocardiogram can be completed. Continue Lovenox for DVT prophylaxis. Encourage incentive spirometer use and mobilize patient as tolerated. 2. Sepsis 2/2 Community acquired pneumonia As noted above, antibiotics will be continued to complete a 7 day treatment course, even in the absence of positive culture data. 3. Heart failure with preserved ejection fraction/severe aortic stenosis The patient's echocardiogram did reveal evidence of stage II diastolic dysfunction and severe aortic stenosis, which had progressed since 2016. Recommend careful attention to volume status given underlying diastolic dysfunction and valvular heart disease. It is possible that the patient's current degree of stenosis noted on echocardiogram may be falsely elevated due to the degree of her anemia. Therefore, recommend addressing the patient's underlying anemia and and repeating an echocardiogram at some point in the future. 4. Acute versus chronic kidney disease The patient appears to have acute kidney injury when compared to her last creatinine in our system from April 2016. However, this may also represent progressive renal insufficiency. At the current time, however, her urine output remains appropriate. We will continue to monitor accordingly. No indication for renal replacement therapy at this time. 5. Anemia The patient appears to have borderline microcytic blood indices. Her last hemoglobin in our system in April 2016 was 9.4 g/dL. On arrival to the hospital, she was noted to be 8.7 g/dL. The patient did require eventual transfusion of packed red blood cells. We will continue to monitor blood counts accordingly and transfuse to maintain a hemoglobin level at or above 8 g/dL. Surgery is following with plans for GI prep on Tuesday followed by endoscopy on Tuesday. Recommend continuing to check H&H daily. 6. Hypertension/hyperlipidemia/diabetes mellitus Complicates care, management, recovery and prognosis. Continue Lantus along with sliding scale insulin coverage. This note was generated with [employer] software. It may contain incorrect words, spelling, and punctuation that were not noted in checking the note before signing. DISPOSITION: Given the lack of ongoing ICU/pulmonary needs, will sign off. Please call with any additional questions. Code Visit Inpatient E&M: 60617 Subs Hosp L2
--- NOTE | 2018-02-18 07:11 | PN_ITS ---
Patient Problems: Active and Suspected Problems Respiratory failure (Acute) Respiratory failure requiring intubation (Acute) Aortic stenosis (Acute) Severe anemia (Acute) Subjective: The patient was seen and examined at the bedside this morning. Events from the last 24 hours have been reviewed. The patient is currently afebrile, hemodynamically stable and maintaining appropriate oxygen saturations on room air. Blood counts have remained stable. Fecal occult blood test completed yesterday was negative. The patient feels well otherwise. Objective: The patient's most recent lab work, culture data and imaging studies have all been personally reviewed. Strep and urine Legionella antigens were both negative. Blood cultures have shown no growth to date. Sputum cultures currently pending. Surface echocardiogram revealed moderate concentric LVH with an ejection fraction of 65% and evidence of stage II diastolic dysfunction. Right ventricular systolic pressure was estimated to be 43 mmHg. There was also evidence of severe aortic stenosis, which appears to have progressed since April 2016. - Physical Exam General: Alert, Oriented x3, Cooperative, No apparent distress HEENT: Atraumatic, PERRLA, Normocephalic Oral: No Gingival or Mucosal Lesions/ Ulcerations Neck: Supple, No Nodes, Trachea Midline Lungs: Normal air movement, No rhonchi, No wheeze, No rales Cardiovascular: Regular rate, Regular Rhythm, Normal S1, Normal S2, Murmur, No rub noted, No Gallop Abdomen: Bowel Sounds Present, Soft, Non Tender, Non-Distended Extremities: No clubbing, No cyanosis, No edema Skin: - - No significant change from previous. Musculoskeletal: No Tenderness to Palpation of Joints or Extremities, No Muscle Wasting Lymphatic: No Cervical, Supraclavicular, or Inguinal Adenopathy Neurological: Cranial nerves II-XII grossly intact, Neuro grossly intact Psych/Mental Status: Alert and oriented to time, place, person, mood and affect Vital Signs Temp Pulse Resp BP Pulse Ox 98.4 F 82 18 169/76 H 98 02/18/18 03:40 02/18/18 06:42 02/18/18 06:42 02/18/18 03:40 02/18/18 06:42 Oxygen Flow Rate (L/min) 1 Oxygen Delivery Method Room Air Weight: 204 lb 5.896 oz Body Mass Index (BMI) 35.7 Intake and Output for Last 24 Hours 02/16/18 02/17/18 02/18/18 23:59 23:59 23:59 Intake Total 952 / 952 1280 / 1280 Output Total 950 / 950 700 / 700 Balance 2 / 2 580 / 580 Microbiology Past 72 Hours 02/17/18 17:59 Stool Occult Blood (JOSE) - Final Stool 02/15/18 07:30 Gram Stain - Final Sputum, Tracheal Aspirate Respiratory Culture - Final Culture exhibits no growth. 02/14/18 16:27 Blood Culture - Preliminary Blood Culture (Wb) - Right Hand No growth in 48 hours. 02/14/18 16:20 Blood Culture - Preliminary Blood Culture (Wb) - Left Hand No growth in 48 hours. Laboratory Tests Past 24 Hrs 02/17/18 12:50 Hgb 9.1 L Hct 28.6 L POC Glucose 02/18/18 02/17/18 02/17/18 06:49 21:54 16:07 POC Glucose 87 122 H 72 02/17/18 02/17/18 11:03 07:50 POC Glucose 170 H 106 Clinical Impression(s) from Imaging Studies Chest X-Ray 02/14/18 14:41 IMPRESSION: The tip of the endotracheal tube is at 2.5 cm proximal to the shawn. Increased initial markings in the right lung as described. This may represent either mild CHF versus pneumonic infiltrate. Blunting of the left costophrenic angle with increased markings in the left lower lobe. Electronically Signed: Sage Jaramillo MD at 15:13 EDT Tel [phone], Service support , Chest X-Ray 02/14/18 17:05 IMPRESSION: Right-sided central venous line present with tip in the region of the distal SVC. Endotracheal and nasogastric tubes present appearing in adequate position. Calcified plaques of the aortic arch. No acute cardiopulmonary disease process is seen. Electronically Signed: Onel Lester MD at 17:38 EDT , Service support , Chest CTA 02/14/18 17:11 IMPRESSION: 1. There is no evidence of pulmonary embolism. 2. There is a mosaic attenuation pattern of the lungs predominantly involving the upper lobes and right lower lobe. 3. There is atelectasis with air bronchograms of the left and right upper and lower lobes. 4. There are bronchiectatic changes of the lower lobes also. 5. There are small bilateral pleural effusions right side larger than left. 6. An endotracheal tube is present with the tip 7 mm proximal to the shawn. Retraction of several centimeters of such is recommended for optimal placement. 7. There are diffuse degenerative changes of the visualized thoracolumbar spine. Electronically Signed: Onel Lester MD at 18:09 EDT , Service support , Chest X-Ray 02/15/18 06:48 IMPRESSION: Findings suggestive of a mild degree of CHF with bibasilar atelectasis. There has been progression as compared to prior study. Electronically Signed: Sage Jaramillo MD at 11:26 EDT Tel [phone], Service support , Medical Necessity - Tobacco Use Smoking Status: Unknown if ever smoked Assessment/Plan All Active Problems Respiratory failure (Acute) Respiratory failure requiring intubation (Acute) Aortic stenosis (Acute) Severe anemia (Acute) Ulcer of left lower leg (Resolved) Cellulitis of left leg without foot (Resolved) Acute electrocardiogram changes (Acute) RECOMMENDATIONS: 1. Continue Levaquin to complete a 7 day treatment course. 2. Continue daily Protonix. 3. Surgery is following with plans for GoLYTELY administration on Tuesday followed by endoscopy on Tuesday. 4. Check H&H daily. 5. Continue Lantus and sliding scale insulin coverage. 6. Continue to encourage incentive spirometer use and mobilize patient as tolerated. IMPRESSIONS: 1. Acute hypoxemic and hypercarbic respiratory failure Resolved. Unclear etiology for the patient's rather acute decompensation. While an infectious process is certainly a possibility, it seems unlikely that this would have led to her acutely decompensating in the manner in which that she did. Regardless, the patient will be continued on antibiotics to complete a 7 day treatment course. The patient denies a history of asthma or COPD. The CTA revealed no evidence for pulmonary embolism. The patient's troponin was within normal limits. The echocardiogram did reveal evidence of heart failure with preserved ejection fraction along with severe aortic stenosis, the latter of which had progressed since 2016. However, the patient has anemia, which can cause the valvular gradient to be falsely increased. It is possible that her anemia may have precipitated increased demand on her heart, which she may not have tolerated due to underlying aortic valve stenosis. Regardless, the patient 's anemia will first need to be addressed, after which time, a repeat surface echocardiogram can be completed. Continue Lovenox for DVT prophylaxis. Encourage incentive spirometer use and mobilize patient as tolerated. 2. Sepsis 2/2 Community acquired pneumonia As noted above, antibiotics will be continued to complete a 7 day treatment course, even in the absence of positive culture data. 3. Heart failure with preserved ejection fraction/severe aortic stenosis The patient's echocardiogram did reveal evidence of stage II diastolic dysfunction and severe aortic stenosis, which had progressed since 2016. Recommend careful attention to volume status given underlying diastolic dysfunction and valvular heart disease. It is possible that the patient's current degree of stenosis noted on echocardiogram may be falsely elevated due to the degree of her anemia. Therefore, recommend addressing the patient's underlying anemia and and repeating an echocardiogram at some point in the future. 4. Acute versus chronic kidney disease The patient appears to have acute kidney injury when compared to her last creatinine in our system from April 2016. However, this may also represent progressive renal insufficiency. At the current time, however, her urine output remains appropriate. We will continue to monitor accordingly. No indication for renal replacement therapy at this time. 5. Anemia The patient appears to have borderline microcytic blood indices. Her last hemoglobin in our system in April 2016 was 9.4 g/dL. On arrival to the hospital, she was noted to be 8.7 g/dL. The patient did require eventual transfusion of packed red blood cells. We will continue to monitor blood counts accordingly and transfuse to maintain a hemoglobin level at or above 8 g/ dL. Surgery is following with plans for GI prep on Tuesday followed by endoscopy on Tuesday. Recommend continuing to check H&H daily. 6. Hypertension/hyperlipidemia/diabetes mellitus Complicates care, management, recovery and prognosis. Continue Lantus along with sliding scale insulin coverage. This note was generated with [employer] software. It may contain incorrect words, spelling, and punctuation that were not noted in checking the note before signing. DISPOSITION: Given the lack of ongoing ICU/pulmonary needs, will sign off. Please call with any additional questions. Code Visit Inpatient E&M: 53563 Subs Hosp L2
[2018-02-18] MEDS: Ferrous Gluconate 325 MG Tablet 324 MG PO ×2 (08:13→17:19)
[2018-02-18 08:17] LABS: Hematocrit 28.9 % (37-47); Hemoglobin 9.1 g/dl (12.0-15.0); Mean Corp Hgb Conc 31.5 g/gl (32-36); Mean Corpuscular Hgb 28.4 pg (27.0-32.0); Mean Corpuscular Volume 90.3 fL (81-99); Mean Platelet Vol. 9.2 fl (6.2-12.0); Platelet Count 311 K/mm3 (150-450); RBC Distribution Width CV 14.9 % (11.6-14.6); RBC Distribution Width SD 47.7 fl (35.1-43.9); Scan Indicated on CBC? Y/N NO; White Blood Count 8.8 K/mm3 (4.4-11.0)
[2018-02-18] MEDS: Tolterodine Tartrate 2 MG CAP.SA PO (08:59)
[2018-02-18] MEDS: levoFLOXacin 750 MG Tablet PO (09:00)
[2018-02-18] MEDS: Nystatin Powder 15gm Bottle 1 APPLIC TOPICAL ×2 (09:00→22:00)
--- NOTE | 2018-02-18 09:52 | PCM.PN.HOSP ---
Patient Problems: Active and Suspected Problems Respiratory failure (Acute) Respiratory failure requiring intubation (Acute) Aortic stenosis (Acute) Severe anemia (Acute) Subjective: Patient seen and examined. She was sitting up comfortably in her chair had no active complaints. She denied any fever or chills, and cough or chest pain with shortness of breath, any abdominal pain, any diarrhea vomiting. Patient is very anxious about the EGD or colonoscopy she is due to have an one day and had to be reassured about safety of procedure. She wanted know she could go home afterwards. Patient counseled that depending on findings of EGD and colonoscopy. If she needed further workup because there was something revealed in the EGD and colonoscopy, then she might need to stay. Review of systems otherwise negative. Vitals/I&O's: Vital Signs Temp Pulse Resp BP Pulse Ox 98.7 F 93 20 H 128/50 H 99 02/18/18 09:06 02/18/18 09:06 02/18/18 09:06 02/18/18 09:06 02/18/18 09:06 Oxygen Flow Rate (L/min) 1 Oxygen Delivery Method Room Air Weight: 204 lb 5.896 oz Body Mass Index (BMI) 35.7 Intake and Output for Last 24 Hours 02/16/18 02/17/18 02/18/18 23:59 23:59 23:59 Intake Total 952 / 952 1280 / 1280 Output Total 950 / 950 700 / 700 Balance 2 / 580 / 580 General: Alert, Oriented x3, Cooperative, No apparent distress HEENT: Atraumatic, PERRLA, EOMI, Normocephalic Oral: Moist Mucosa Neck: Supple, No JVD, Negative Carotid Bruits Lungs: Clear to auscultation, Normal air movement, No rhonchi, No wheeze, No rales Cardiovascular: Regular rate, Regular Rhythm, Normal S1, Normal S2, - - grade 3-4 ejection systolic aortic and pulmonary valve murmurs Abdomen: Bowel Sounds Present, Soft, Non Tender, Non-Distended, No Hepato-splenomegaly Extremities: No clubbing, No cyanosis, No edema, Capillary Refill Less than 3 Seconds Skin: No rashes, No breakdown Musculoskeletal: No Tenderness to Palpation of Joints or Extremities Lymphatic: No Cervical, Supraclavicular, or Inguinal Adenopathy Neurological: Cranial nerves II-XII grossly intact, Motor Exam 5/5 strength throughout Psych/Mental Status: Anxious, Alert and oriented to time, place, person, mood and affect Microbiology Past 72 Hours 02/17/18 17:59 Stool Stool Occult Blood (JOSE) - Final 02/15/18 07:30 Sputum, Tracheal Aspirate Gram Stain - Final 02/15/18 07:30 Sputum, Tracheal Aspirate Respiratory Culture - Final Culture exhibits no growth. 02/14/18 16:27 Blood Culture (Wb) - Right Hand Blood Culture - Preliminary No growth in 48 hours. 02/14/18 16:20 Blood Culture (Wb) - Left Hand Blood Culture - Preliminary No growth in 48 hours. Laboratory Results 02/17/18 07:50: POC Glucose 106 02/17/18 11:03: POC Glucose 170 H 02/17/18 12:50: Hgb 9.1 L, Hct 28.6 L 02/17/18 16:07: POC Glucose 72 02/17/18 21:54: POC Glucose 122 H 02/18/18 06:49: POC Glucose 87 02/18/18 07:44: WBC 8.8, RBC 3.20 L, Hgb 9.1 L, Hct 28.9 L, MCV 90.3, MCH 28.4, MCHC 31.5 L, RDW 14.9 H, RDW Differential 47.7 H, Plt Count 311, MPV 9.2 Microbiology 02/17/18 17:59 Stool Occult Blood (JOSE) - Final Stool 02/15/18 07:30 Gram Stain - Final Sputum, Tracheal Aspirate Respiratory Culture - Final Culture exhibits no growth. 02/14/18 16:27 Blood Culture - Preliminary Blood Culture (Wb) - Right Hand No growth in 48 hours. 02/14/18 16:20 Blood Culture - Preliminary Blood Culture (Wb) - Left Hand No growth in 48 hours. Laboratory Tests 02/18/18 02/18/18 02/17/18 Range/Units 07:44 06:49 21:54 WBC 8.8 (4.4-11.0) K/mm3 RBC 3.20 L (4.2-5.4) M/mm3 Hgb 9.1 L (12.0-15.0) g/dl Hct 28.9 L (37-47) % MCV 90.3 (81-99) fL MCH 28.4 (27.0-32.0) pg MCHC 31.5 L (32-36) g/gl RDW 14.9 H (11.6-14.6) % RDW Differential 47.7 H (35.1-43.9) fl Plt Count 311 (150-450) K/mm3 MPV 9.2 (6.2-12.0) fl POC Glucose 87 122 H (70-110) mg/dL 02/17/18 02/17/18 02/17/18 Range/Units 16:07 12:50 11:03 WBC (4.4-11.0) K/mm3 RBC (4.2-5.4) M/mm3 Hgb 9.1 L (12.0-15.0) g/dl Hct 28.6 L (37-47) % MCV (81-99) fL MCH (27.0-32.0) pg MCHC (32-36) g/gl RDW (11.6-14.6) % RDW Differential (35.1-43.9) fl Plt Count (150-450) K/mm3 MPV (6.2-12.0) fl POC Glucose 72 170 H (70-110) mg/dL 02/17/18 Range/Units 07:50 WBC (4.4-11.0) K/mm3 RBC (4.2-5.4) M/mm3 Hgb (12.0-15.0) g/dl Hct (37-47) % MCV (81-99) fL MCH (27.0-32.0) pg MCHC (32-36) g/gl RDW (11.6-14.6) % RDW Differential (35.1-43.9) fl Plt Count (150-450) K/mm3 MPV (6.2-12.0) fl POC Glucose 106 (70-110) mg/dL Current Medications Acetaminophen (Tylenol) 650 mg PO Q6H PRN PRN PRN Reason: PAIN Last Admin: 02/17/18 02:21 Dose: 650 mg Albuterol/Ipratropium (Duoneb) 3 ml INHALATION Q6HWA.RT KORY Last Admin: 02/18/18 06:40 Dose: 3 ml Aspirin (Aspirin, Baby) 81 mg PO DAILY@0800 [facility] Last Admin: 02/17/18 08:03 Dose: 81 mg Atorvastatin Calcium (Lipitor) 40 mg PO QHS [facility] Last Admin: 02/17/18 21:55 Dose: 40 mg Betamethasone Valerate (Valisone 0.1% Cream) 1 applic TOPICAL BID [facility] PRN Reason: Protocol Last Admin: 02/18/18 09:01 Dose: 1 applicatio Cholecalciferol (Vitamin D) 5,000 unit PO DAILY [facility] Last Admin: 02/18/18 09:01 Dose: 5,000 unit Dextrose (D50w Syringe) 0 gm IV X1 PRN; Protocol PRN Reason: Hypoglycemia Ferrous Gluconate (Ferrous Gluconate) 324 mg PO BIDCM [facility] Last Admin: 02/18/18 08:13 Dose: 324 mg Glucagon () 1 mg IM .X1 PRN PRN Reason: Hypoglycemia Insulin Glargine (Lantus (Bkc)) 22 units SC DAILY [facility] Last Admin: 02/18/18 09:02 Dose: 22 units Insulin Human Lispro (Humalog Kwikpen (Bkc)) 0 unit SC ACHS [facility] PRN Reason: Protocol Last Admin: 02/18/18 08:12 Dose: Not Given Insulin Human Lispro (Humalog Kwikpen (Bkc)) 5 unit SC TIDAC [facility] Last Admin: 02/18/18 08:12 Dose: Not Given Levofloxacin (Levaquin Tablet) 750 mg PO Q48 [facility] Last Admin: 02/18/18 09:00 Dose: 750 mg Magnesium Hydroxide (Milk Of Magnesia) 30 ml PO DAILY PRN PRN PRN Reason: Constipation Nystatin (Mycostatin Powder) 1 applic TOPICAL BID [facility] PRN Reason: Protocol Last Admin: 02/18/18 09:00 Dose: 1 applicatio Pantoprazole Sodium (Protonix) 40 mg PO BID [facility] Sodium Chloride () 5 - 30 ml IV UD PRN PRN Reason: SALINE FLUSH Last Admin: 02/16/18 21:01 Dose: 20 ml Sodium Chloride/Electrolytes (Nulytely) 4,000 ml PO X1 ONE Stop: 02/19/18 11:01 Tolterodine Tartrate (Detrol La) 2 mg PO DAILY [facility] Last Admin: 02/18/18 08:59 Dose: 2 mg Medical Necessity - Tobacco Use Smoking Status: Unknown if ever smoked Assessment/Plan All Active Problems Respiratory failure (Acute) Respiratory failure requiring intubation (Acute) Aortic stenosis (Acute) Severe anemia (Acute) Ulcer of left lower leg (Resolved) Cellulitis of left leg without foot (Resolved) Acute electrocardiogram changes (Acute) 77 y/o female admitted with a after she was found short of breath and passersby called the EMS 1. Hypoxic, hypercapnic respiratory failure due to CHF exacerbation and aortic stenosis. Successfully extubated on 02/15/2018. Saturating well on room air. Had no complaints this morning. 2D echo done showed moderate concentric left ventricular hypertrophy with estimated EF of 65% in stage II diastolic dysfunction. No regional wall abnormalities noted. Severe aortic stenosis with peak aortic valve gradient of 97 mmHg and mean aortic valve gradient of 49 mmHg calculated aortic valve area 0.65 cm?. RVSP is 43mmHg. Aortic stenosis has progressed from moderate to severe cardiology on board. Saturating well on room air. 2. Severe aortic stenosis echo as documented above Cardiology on board. Recommend against aggressive use of afterload reducing agent such as KEEGAN inhibitors, nitrates and diuretics. Per cardiology, severe anemia may have an effect on the aortic valve gradient making it artificially high. Therefore recommend to repeat echocardiogram once hemoglobin is increased to around 10 and to keep hemoglobin above 8. 3. Community acquired pneumonia wbc has remained down. Now on PO levofloxacin q48 hrs. blood cultures- no growth after 48 hours urine for strep and Legionella antigens were negative 4. Iron deficiency anemia Hb today is 9.1, s/p 2 units of blood. for EGD and colonoscopy by Dr Hendricks on Tuesday. FOBT was negative. on oral iron supplementation 5. Chronic lower extremity edema resolving. LE resolving. KEEGAN wraps bilaterally. Will monitor 6. Hyponatremia Na down to 135. Will monitor 7. Diabetes mellitus on lantus 22IU and lispro 5IU 3 times daily. Accuchecks achs; ISS. 8. Hypertension on metoprolol, amlodipine and Lisinopril. Blood pressure has been running in the 110s systolic. will continue monitoring blood pressure. 9. DVT prophylaxis: will hold lovenox o/a of anemia; will give SCDs 10. GI prophylaxis: pantoprazole Code status: full code This note was generated with Taglocityation software. It may contain incorrect words, spelling, and punctuation that were not noted in checking the note before signing. Code Visit Inpatient E&M: 33742 Subs Hosp L3
--- NOTE | 2018-02-18 10:00 | PN_ITS ---
Patient Problems: Active and Suspected Problems Respiratory failure (Acute) Respiratory failure requiring intubation (Acute) Aortic stenosis (Acute) Severe anemia (Acute) Subjective: Patient seen and examined. She was sitting up comfortably in her chair had no active complaints. She denied any fever or chills, and cough or chest pain with shortness of breath, any abdominal pain, any diarrhea vomiting. Patient is very anxious about the EGD or colonoscopy she is due to have an one day and had to be reassured about safety of procedure. She wanted know she could go home afterwards. Patient counseled that depending on findings of EGD and colonoscopy. If she needed further workup because there was something revealed in the EGD and colonoscopy, then she might need to stay. Review of systems otherwise negative. Vitals/I&O's: Vital Signs Temp Pulse Resp BP Pulse Ox 98.7 F 93 20 H 128/50 H 99 02/18/18 09:06 02/18/18 09:06 02/18/18 09:06 02/18/18 09:06 02/18/18 09:06 Oxygen Flow Rate (L/min) 1 Oxygen Delivery Method Room Air Weight: 204 lb 5.896 oz Body Mass Index (BMI) 35.7 Intake and Output for Last 24 Hours 02/16/18 02/17/18 02/18/18 23:59 23:59 23:59 Intake Total 952 / 952 1280 / 1280 Output Total 950 / 950 700 / 700 Balance 2 / 580 / 580 General: Alert, Oriented x3, Cooperative, No apparent distress HEENT: Atraumatic, PERRLA, EOMI, Normocephalic Oral: Moist Mucosa Neck: Supple, No JVD, Negative Carotid Bruits Lungs: Clear to auscultation, Normal air movement, No rhonchi, No wheeze, No rales Cardiovascular: Regular rate, Regular Rhythm, Normal S1, Normal S2, - - grade 3- 4 ejection systolic aortic and pulmonary valve murmurs Abdomen: Bowel Sounds Present, Soft, Non Tender, Non-Distended, No Hepato- splenomegaly Extremities: No clubbing, No cyanosis, No edema, Capillary Refill Less than 3 Seconds Skin: No rashes, No breakdown Musculoskeletal: No Tenderness to Palpation of Joints or Extremities Lymphatic: No Cervical, Supraclavicular, or Inguinal Adenopathy Neurological: Cranial nerves II-XII grossly intact, Motor Exam 5/5 strength throughout Psych/Mental Status: Anxious, Alert and oriented to time, place, person, mood and affect Microbiology Past 72 Hours 02/17/18 17:59 Stool Stool Occult Blood (JOSE) - Final 02/15/18 07:30 Sputum, Tracheal Aspirate Gram Stain - Final 02/15/18 07:30 Sputum, Tracheal Aspirate Respiratory Culture - Final Culture exhibits no growth. 02/14/18 16:27 Blood Culture (Wb) - Right Hand Blood Culture - Preliminary No growth in 48 hours. 02/14/18 16:20 Blood Culture (Wb) - Left Hand Blood Culture - Preliminary No growth in 48 hours. Laboratory Results 02/17/18 07:50: POC Glucose 106 02/17/18 11:03: POC Glucose 170 H 02/17/18 12:50: Hgb 9.1 L, Hct 28.6 L 02/17/18 16:07: POC Glucose 72 02/17/18 21:54: POC Glucose 122 H 02/18/18 06:49: POC Glucose 87 02/18/18 07:44: WBC 8.8, RBC 3.20 L, Hgb 9.1 L, Hct 28.9 L, MCV 90.3, MCH 28.4, MCHC 31.5 L, RDW 14.9 H, RDW Differential 47.7 H, Plt Count 311, MPV 9.2 Microbiology 02/17/18 17:59 Stool Occult Blood (JOSE) - Final Stool 02/15/18 07:30 Gram Stain - Final Sputum, Tracheal Aspirate Respiratory Culture - Final Culture exhibits no growth. 02/14/18 16:27 Blood Culture - Preliminary Blood Culture (Wb) - Right Hand No growth in 48 hours. 02/14/18 16:20 Blood Culture - Preliminary Blood Culture (Wb) - Left Hand No growth in 48 hours. Laboratory Tests 3 02/18/18 02/18/18 02/17/18 Range/Units 07:44 06:49 21:54 WBC 8.8 (4.4-11.0) K/mm3 RBC 3.20 L (4.2-5.4) M/mm3 Hgb 9.1 L (12.0-15.0) g/dl Hct 28.9 L (37-47) % MCV 90.3 (81-99) fL MCH 28.4 (27.0-32.0) pg MCHC 31.5 L (32-36) g/gl RDW 14.9 H (11.6-14.6) % RDW Differential 47.7 H (35.1-43.9) fl Plt Count 311 (150-450) K/mm3 MPV 9.2 (6.2-12.0) fl POC Glucose 87 122 H (70-110) mg/dL 3 02/17/18 02/17/18 02/17/18 Range/Units 16:07 12:50 11:03 WBC (4.4-11.0) K/mm3 RBC (4.2-5.4) M/mm3 Hgb 9.1 L (12.0-15.0) g/dl Hct 28.6 L (37-47) % MCV (81-99) fL MCH (27.0-32.0) pg MCHC (32-36) g/gl RDW (11.6-14.6) % RDW Differential (35.1-43.9) fl Plt Count (150-450) K/mm3 MPV (6.2-12.0) fl POC Glucose 72 170 H (70-110) mg/dL 3 02/17/18 Range/Units 07:50 WBC (4.4-11.0) K/mm3 RBC (4.2-5.4) M/mm3 Hgb (12.0-15.0) g/dl Hct (37-47) % MCV (81-99) fL MCH (27.0-32.0) pg MCHC (32-36) g/gl RDW (11.6-14.6) % RDW Differential (35.1-43.9) fl Plt Count (150-450) K/mm3 MPV (6.2-12.0) fl POC Glucose 106 (70-110) mg/dL Current Medications Acetaminophen (Tylenol) 650 mg PO Q6H PRN PRN PRN Reason: PAIN Last Admin: 02/17/18 02:21 Dose: 650 mg Albuterol/Ipratropium (Duoneb) 3 ml INHALATION Q6HWA.RT [facility] Last Admin: 02/18/18 06:40 Dose: 3 ml Aspirin (Aspirin, Baby) 81 mg PO DAILY@0800 [facility] Last Admin: 02/17/18 08:03 Dose: 81 mg Atorvastatin Calcium (Lipitor) 40 mg PO QHS [facility] Last Admin: 02/17/18 21:55 Dose: 40 mg Betamethasone Valerate (Valisone 0.1% Cream) 1 applic TOPICAL BID [facility] PRN Reason: Protocol Last Admin: 02/18/18 09:01 Dose: 1 applicatio Cholecalciferol (Vitamin D) 5,000 unit PO DAILY [facility] Last Admin: 02/18/18 09:01 Dose: 5,000 unit Dextrose (D50w Syringe) 0 gm IV X1 PRN; Protocol PRN Reason: Hypoglycemia Ferrous Gluconate (Ferrous Gluconate) 324 mg PO BIDCM [facility] Last Admin: 02/18/18 08:13 Dose: 324 mg Glucagon () 1 mg IM .X1 PRN PRN Reason: Hypoglycemia Insulin Glargine (Lantus (Bkc)) 22 units SC DAILY [facility] Last Admin: 02/18/18 09:02 Dose: 22 units Insulin Human Lispro (Humalog Kwikpen (Bkc)) 0 unit SC ACHS [facility] PRN Reason: Protocol Last Admin: 02/18/18 08:12 Dose: Not Given Insulin Human Lispro (Humalog Kwikpen (Bkc)) 5 unit SC TIDAC [facility] Last Admin: 02/18/18 08:12 Dose: Not Given Levofloxacin (Levaquin Tablet) 750 mg PO Q48 [facility] Last Admin: 02/18/18 09:00 Dose: 750 mg Magnesium Hydroxide (Milk Of Magnesia) 30 ml PO DAILY PRN PRN PRN Reason: Constipation Nystatin (Mycostatin Powder) 1 applic TOPICAL BID [facility] PRN Reason: Protocol Last Admin: 02/18/18 09:00 Dose: 1 applicatio Pantoprazole Sodium (Protonix) 40 mg PO BID [facility] Sodium Chloride () 5 - 30 ml IV UD PRN PRN Reason: SALINE FLUSH Last Admin: 02/16/18 21:01 Dose: 20 ml Sodium Chloride/Electrolytes (Nulytely) 4,000 ml PO X1 ONE Stop: 02/19/18 11:01 Tolterodine Tartrate (Detrol La) 2 mg PO DAILY [facility] Last Admin: 02/18/18 08:59 Dose: 2 mg Medical Necessity - Tobacco Use Smoking Status: Unknown if ever smoked Assessment/Plan All Active Problems Respiratory failure (Acute) Respiratory failure requiring intubation (Acute) Aortic stenosis (Acute) Severe anemia (Acute) Ulcer of left lower leg (Resolved) Cellulitis of left leg without foot (Resolved) Acute electrocardiogram changes (Acute) 77 y/o female admitted with a after she was found short of breath and passersby called the EMS 1. Hypoxic, hypercapnic respiratory failure due to CHF exacerbation and aortic stenosis. * Successfully extubated on 02/15/2018. * Saturating well on room air. Had no complaints this morning. * 2D echo done showed moderate concentric left ventricular hypertrophy with estimated EF of 65% in stage II diastolic dysfunction. No regional wall abnormalities noted. Severe aortic stenosis with peak aortic valve gradient of 97 mmHg and mean aortic valve gradient of 49 mmHg calculated aortic valve area 0.65 cm?. RVSP is 43mmHg. Aortic stenosis has progressed from moderate to severe * cardiology on board. Saturating well on room air. * 2. Severe aortic stenosis * echo as documented above * Cardiology on board. Recommend against aggressive use of afterload reducing agent such as KEEGAN inhibitors, nitrates and diuretics. Per cardiology, severe anemia may have an effect on the aortic valve gradient making it artificially high. Therefore recommend to repeat echocardiogram once hemoglobin is increased to around 10 and to keep hemoglobin above 8. * 3. Community acquired pneumonia * wbc has remained down. Now on PO levofloxacin q48 hrs. * blood cultures- no growth after 48 hours * urine for strep and Legionella antigens were negative * 4. Iron deficiency anemia * Hb today is 9.1, s/p 2 units of blood. * for EGD and colonoscopy by Dr Hendricks on Tuesday. * FOBT was negative. * on oral iron supplementation * 5. Chronic lower extremity edema * resolving. LE resolving. * KEEGAN wraps bilaterally. Will monitor * * 6. Hyponatremia * Na down to 135. Will monitor * * 7. Diabetes mellitus * on lantus 22IU and lispro 5IU 3 times daily. Accuchecks achs; ISS. * * 8. Hypertension * on metoprolol, amlodipine and Lisinopril. Blood pressure has been running in the 110s systolic. * will continue monitoring blood pressure. * 9. DVT prophylaxis: will hold lovenox o/a of anemia; will give SCDs 10. GI prophylaxis: pantoprazole Code status: full code This note was generated with [email or web address] software. It may contain incorrect words, spelling, and punctuation that were not noted in checking the note before signing. Code Visit Inpatient E&M: 45557 Subs Hosp L3
[2018-02-18] MEDS: Pantoprazole Sodium 40 MG Tablet PO ×2 (11:05→21:59)
[2018-02-18] MEDS: Insulin Lispro 100 UNIT/ML INSULN.PEN SC ×2 (11:06→22:00)
[2018-02-18 11:16] LABS: Bedside Glucose 135 mg/dL (70-110)
[2018-02-18 16:16] LABS: Bedside Glucose 97 mg/dL (70-110)
[2018-02-18] MEDS: Atorvastatin Calcium 40 MG Tablet PO (21:59)
[2018-02-19] VITALS (14 sets, daily range): BP systolic 142–165; BP diastolic 48–65; PULSE 75–96; RESP 16–18; TEMP 36.6–37.1; O2SAT 97–99
[2018-02-19 00:21] LABS: Bedside Glucose 155 mg/dL (70-110)
[2018-02-19] MEDS: Ipratropium/Albuterol Sulfate 3 ML AMPUL.NEB INHALATION ×3 (07:05→19:37)
[2018-02-19] MEDS: Acetaminophen 325 MG Tablet 650 MG PO ×2 (07:09→22:07)
[2018-02-19 07:11] LABS: Bedside Glucose 70 mg/dL (70-110)
--- NOTE | 2018-02-19 07:28 | NURSING ---
This RN took pt blood sugar this AM for primary RN. Result was 70. Satinder Monaco RN notified of result.
[2018-02-19] MEDS: Tolterodine Tartrate 2 MG CAP.SA PO (08:06)
[2018-02-19] MEDS: Ferrous Gluconate 325 MG Tablet 324 MG PO ×2 (08:06→16:57)
[2018-02-19] MEDS: Pantoprazole Sodium 40 MG Tablet PO ×2 (08:07→21:44)
--- NOTE | 2018-02-19 09:54 | PCM.PN.HOSP ---
Patient Problems: Active and Suspected Problems Respiratory failure (Acute) Respiratory failure requiring intubation (Acute) Aortic stenosis (Acute) Severe anemia (Acute) Subjective: Patient seen and examined. She was sitting in bed eating breakfast and had no complaints. She denies any fever, any cough or chest pain, shortness of breath, any abdominal pain, any diarrhea vomiting. 12 point review of systems otherwise negative. She is still anxious about the procedure tomorrow and I reassured her that she will be given the best possible care during the procedure. Labs and vitals reviewed. Vitals/I&O's: Vital Signs Temp Pulse Resp BP Pulse Ox 98.2 F 89 18 142/65 H 98 02/19/18 07:45 02/19/18 07:45 02/19/18 07:45 02/19/18 07:45 02/19/18 07:45 Oxygen Flow Rate (L/min) 1 Oxygen Delivery Method Room Air Weight: 201 lb 11.567 oz Body Mass Index (BMI) 35.7 Intake and Output for Last 24 Hours 02/17/18 02/18/18 02/19/18 23:59 23:59 23:59 Intake Total 1280 / 1280 1280 / 1280 120 / 120 Output Total 700 / 700 475 / 475 Balance 580 / 580 805 / 805 120 / 120 General: Alert, Oriented x3, Cooperative, No apparent distress HEENT: Atraumatic, PERRLA, EOMI, Normocephalic Oral: Moist Mucosa Neck: Supple, No JVD, Negative Carotid Bruits, No Nodes Lungs: Clear to auscultation, Normal air movement, No rhonchi, No wheeze, No rales Cardiovascular: Regular rate, Regular Rhythm, Normal S1, Normal S2, No murmurs Abdomen: Bowel Sounds Present, Soft, Non Tender, Non-Distended, No Hepato-splenomegaly Extremities: No clubbing, No cyanosis, No edema, Capillary Refill Less than 3 Seconds Skin: No rashes, No breakdown Musculoskeletal: No Tenderness to Palpation of Joints or Extremities Lymphatic: No Cervical, Supraclavicular, or Inguinal Adenopathy Neurological: Cranial nerves II-XII grossly intact, Motor Exam 5/5 strength throughout Psych/Mental Status: Normal Affect, Appropriate, Alert and oriented to time, place, person, mood and affect Microbiology Past 72 Hours 02/17/18 17:59 Stool Stool Occult Blood (JOSE) - Final 02/15/18 07:30 Sputum, Tracheal Aspirate Gram Stain - Final 02/15/18 07:30 Sputum, Tracheal Aspirate Respiratory Culture - Final Culture exhibits no growth. 02/14/18 16:27 Blood Culture (Wb) - Right Hand Blood Culture - Preliminary No growth in 48 hours. 02/14/18 16:20 Blood Culture (Wb) - Left Hand Blood Culture - Preliminary No growth in 48 hours. Laboratory Results 02/18/18 11:03: POC Glucose 135 H 02/18/18 16:10: POC Glucose 97 02/18/18 21:58: POC Glucose 155 H 02/19/18 07:05: POC Glucose 70 Current Medications Acetaminophen (Tylenol) 650 mg PO Q6H PRN PRN PRN Reason: PAIN Last Admin: 02/19/18 07:09 Dose: 650 mg Albuterol/Ipratropium (Duoneb) 3 ml INHALATION Q6HWA.RT [facility] Last Admin: 02/19/18 07:05 Dose: 3 ml Aspirin (Aspirin, Baby) 81 mg PO DAILY@0800 [facility] Last Admin: 02/17/18 08:03 Dose: 81 mg Atorvastatin Calcium (Lipitor) 40 mg PO QHS [facility] Last Admin: 02/18/18 21:59 Dose: 40 mg Betamethasone Valerate (Valisone 0.1% Cream) 1 applic TOPICAL BID [facility] PRN Reason: Protocol Last Admin: 02/18/18 22:00 Dose: 1 applicatio Cholecalciferol (Vitamin D) 5,000 unit PO DAILY [facility] Last Admin: 02/19/18 08:07 Dose: 5,000 unit Dextrose (D50w Syringe) 0 gm IV X1 PRN; Protocol PRN Reason: Hypoglycemia Ferrous Gluconate (Ferrous Gluconate) 324 mg PO BIDCM [facility] Last Admin: 02/19/18 08:06 Dose: 324 mg Glucagon () 1 mg IM .X1 PRN PRN Reason: Hypoglycemia Insulin Glargine (Lantus (Bkc)) 22 units SC DAILY [facility] Last Admin: 02/18/18 09:02 Dose: 22 units Insulin Human Lispro (Humalog Kwikpen (Bkc)) 0 unit SC ACHS [facility] PRN Reason: Protocol Last Admin: 02/19/18 07:45 Dose: Not Given Insulin Human Lispro (Humalog Kwikpen (Bkc)) 5 unit SC TIDAC [facility] Last Admin: 02/19/18 07:45 Dose: Not Given Levofloxacin (Levaquin Tablet) 750 mg PO Q48 [facility] Last Admin: 02/18/18 09:00 Dose: 750 mg Magnesium Hydroxide (Milk Of Magnesia) 30 ml PO DAILY PRN PRN PRN Reason: Constipation Nystatin (Mycostatin Powder) 1 applic TOPICAL BID [facility] PRN Reason: Protocol Last Admin: 02/18/18 22:00 Dose: 1 applicatio Pantoprazole Sodium (Protonix) 40 mg PO BID [facility] Last Admin: 02/19/18 08:07 Dose: 40 mg Sodium Chloride () 5 - 30 ml IV UD PRN PRN Reason: SALINE FLUSH Last Admin: 02/16/18 21:01 Dose: 20 ml Sodium Chloride/Electrolytes (Nulytely) 4,000 ml PO X1 ONE Stop: 02/19/18 11:01 Tolterodine Tartrate (Detrol La) 2 mg PO DAILY [facility] Last Admin: 02/19/18 08:06 Dose: 2 mg Medical Necessity - Tobacco Use Smoking Status: Unknown if ever smoked Assessment/Plan All Active Problems Respiratory failure (Acute) Respiratory failure requiring intubation (Acute) Aortic stenosis (Acute) Severe anemia (Acute) Ulcer of left lower leg (Resolved) Cellulitis of left leg without foot (Resolved) Acute electrocardiogram changes (Acute) 77 y/o female admitted with a after she was found short of breath and passersby called the EMS 1. Iron deficiency anemia Hb today is 9.1, s/p 2 units of blood. for EGD and colonoscopy by Dr Hendricks on Tuesday. FOBT was negative. on oral iron supplementation For EGD and colonoscopy tomorrow morning. Keep n.p.o. past midnight. Bowel prep as per surgery. 2. Hypoxic, hypercapnic respiratory failure due to CHF exacerbation and aortic stenosis. resolved. Was intubated on admission and successfully extubated. Saturating well on room air. 2D echo done showed moderate concentric left ventricular hypertrophy with estimated EF of 65% in stage II diastolic dysfunction. No regional wall abnormalities noted. Severe aortic stenosis with peak aortic valve gradient of 97 mmHg and mean aortic valve gradient of 49 mmHg calculated aortic valve area 0.65 cm?. RVSP is 43mmHg. Aortic stenosis has progressed from moderate to severe cardiology on board. 3. Severe aortic stenosis echo as documented above Cardiology on board. Recommend against aggressive use of afterload reducing agent such as KEEGAN inhibitors, nitrates and diuretics. Per cardiology, severe anemia may have an effect on the aortic valve gradient making it artificially high. Therefore recommend to repeat echocardiogram once hemoglobin is increased to around 10 and to keep hemoglobin above 8. 4. Community acquired pneumonia Now on PO levofloxacin q48 hrs. blood cultures- no growth after 48 hours urine for strep and Legionella antigens were negative 5. Chronic lower extremity edema Resolved. 6. Hyponatremia resolving. Sodium level today is pending Will monitor. 7. Diabetes mellitus on lantus 22IU and lispro 5IU 3 times daily. Accuchecks achs; ISS. will hold lantus this evening o/a of NPO status for EGD and colonoscopy tomorrow. 8. Hypertension on metoprolol, amlodipine and Lisinopril. BP meds have been on hold due to hypotension on admission. BP now running in 130s-150s systolic. will resume metoprolol 25mg daily. Will continue holding amlodipine and lisinopril for now and resume as per BP control. will continue monitoring 9. DVT prophylaxis: will hold lovenox o/a of anemia; will give SCDs 10. GI prophylaxis: pantoprazole Code status: full code This note was generated with [employer] software. It may contain incorrect words, spelling, and punctuation that were not noted in checking the note before signing. Code Visit Inpatient E&M: 81841 Subs Hosp L2
--- NOTE | 2018-02-19 10:02 | PN_ITS ---
Patient Problems: Active and Suspected Problems Respiratory failure (Acute) Respiratory failure requiring intubation (Acute) Aortic stenosis (Acute) Severe anemia (Acute) Subjective: Patient seen and examined. She was sitting in bed eating breakfast and had no complaints. She denies any fever, any cough or chest pain, shortness of breath , any abdominal pain, any diarrhea vomiting. 12 point review of systems otherwise negative. She is still anxious about the procedure tomorrow and I reassured her that she will be given the best possible care during the procedure. Labs and vitals reviewed. Vitals/I&O's: Vital Signs Temp Pulse Resp BP Pulse Ox 98.2 F 89 18 142/65 H 98 02/19/18 07:45 02/19/18 07:45 02/19/18 07:45 02/19/18 07:45 02/19/18 07:45 Oxygen Flow Rate (L/min) 1 Oxygen Delivery Method Room Air Weight: 201 lb 11.567 oz Body Mass Index (BMI) 35.7 Intake and Output for Last 24 Hours 02/17/18 02/18/18 02/19/18 23:59 23:59 23:59 Intake Total 1280 / 1280 1280 / 1280 120 / 120 Output Total 700 / 700 475 / 475 Balance 580 / 580 805 / 805 120 / 120 General: Alert, Oriented x3, Cooperative, No apparent distress HEENT: Atraumatic, PERRLA, EOMI, Normocephalic Oral: Moist Mucosa Neck: Supple, No JVD, Negative Carotid Bruits, No Nodes Lungs: Clear to auscultation, Normal air movement, No rhonchi, No wheeze, No rales Cardiovascular: Regular rate, Regular Rhythm, Normal S1, Normal S2, No murmurs Abdomen: Bowel Sounds Present, Soft, Non Tender, Non-Distended, No Hepato- splenomegaly Extremities: No clubbing, No cyanosis, No edema, Capillary Refill Less than 3 Seconds Skin: No rashes, No breakdown Musculoskeletal: No Tenderness to Palpation of Joints or Extremities Lymphatic: No Cervical, Supraclavicular, or Inguinal Adenopathy Neurological: Cranial nerves II-XII grossly intact, Motor Exam 5/5 strength throughout Psych/Mental Status: Normal Affect, Appropriate, Alert and oriented to time, place, person, mood and affect Microbiology Past 72 Hours 02/17/18 17:59 Stool Stool Occult Blood (JOSE) - Final 02/15/18 07:30 Sputum, Tracheal Aspirate Gram Stain - Final 02/15/18 07:30 Sputum, Tracheal Aspirate Respiratory Culture - Final Culture exhibits no growth. 02/14/18 16:27 Blood Culture (Wb) - Right Hand Blood Culture - Preliminary No growth in 48 hours. 02/14/18 16:20 Blood Culture (Wb) - Left Hand Blood Culture - Preliminary No growth in 48 hours. Laboratory Results 02/18/18 11:03: POC Glucose 135 H 02/18/18 16:10: POC Glucose 97 02/18/18 21:58: POC Glucose 155 H 02/19/18 07:05: POC Glucose 70 Current Medications Acetaminophen (Tylenol) 650 mg PO Q6H PRN PRN PRN Reason: PAIN Last Admin: 02/19/18 07:09 Dose: 650 mg Albuterol/Ipratropium (Duoneb) 3 ml INHALATION Q6HWA.RT [facility] Last Admin: 02/19/18 07:05 Dose: 3 ml Aspirin (Aspirin, Baby) 81 mg PO DAILY@0800 [facility] Last Admin: 02/17/18 08:03 Dose: 81 mg Atorvastatin Calcium (Lipitor) 40 mg PO QHS [facility] Last Admin: 02/18/18 21:59 Dose: 40 mg Betamethasone Valerate (Valisone 0.1% Cream) 1 applic TOPICAL BID [facility] PRN Reason: Protocol Last Admin: 02/18/18 22:00 Dose: 1 applicatio Cholecalciferol (Vitamin D) 5,000 unit PO DAILY [facility] Last Admin: 02/19/18 08:07 Dose: 5,000 unit Dextrose (D50w Syringe) 0 gm IV X1 PRN; Protocol PRN Reason: Hypoglycemia Ferrous Gluconate (Ferrous Gluconate) 324 mg PO BIDCM [facility] Last Admin: 02/19/18 08:06 Dose: 324 mg Glucagon () 1 mg IM .X1 PRN PRN Reason: Hypoglycemia Insulin Glargine (Lantus (Bkc)) 22 units SC DAILY [facility] Last Admin: 02/18/18 09:02 Dose: 22 units Insulin Human Lispro (Humalog Kwikpen (Bkc)) 0 unit SC ACHS [facility] PRN Reason: Protocol Last Admin: 02/19/18 07:45 Dose: Not Given Insulin Human Lispro (Humalog Kwikpen (Bkc)) 5 unit SC TIDAC [facility] Last Admin: 02/19/18 07:45 Dose: Not Given Levofloxacin (Levaquin Tablet) 750 mg PO Q48 [facility] Last Admin: 02/18/18 09:00 Dose: 750 mg Magnesium Hydroxide (Milk Of Magnesia) 30 ml PO DAILY PRN PRN PRN Reason: Constipation Nystatin (Mycostatin Powder) 1 applic TOPICAL BID [facility] PRN Reason: Protocol Last Admin: 02/18/18 22:00 Dose: 1 applicatio Pantoprazole Sodium (Protonix) 40 mg PO BID [facility] Last Admin: 02/19/18 08:07 Dose: 40 mg Sodium Chloride () 5 - 30 ml IV UD PRN PRN Reason: SALINE FLUSH Last Admin: 02/16/18 21:01 Dose: 20 ml Sodium Chloride/Electrolytes (Nulytely) 4,000 ml PO X1 ONE Stop: 02/19/18 11:01 Tolterodine Tartrate (Detrol La) 2 mg PO DAILY [facility] Last Admin: 02/19/18 08:06 Dose: 2 mg Medical Necessity - Tobacco Use Smoking Status: Unknown if ever smoked Assessment/Plan All Active Problems Respiratory failure (Acute) Respiratory failure requiring intubation (Acute) Aortic stenosis (Acute) Severe anemia (Acute) Ulcer of left lower leg (Resolved) Cellulitis of left leg without foot (Resolved) Acute electrocardiogram changes (Acute) 77 y/o female admitted with a after she was found short of breath and passersby called the EMS 1. Iron deficiency anemia * Hb today is 9.1, s/p 2 units of blood. * for EGD and colonoscopy by Dr Hendricks on Tuesday. * FOBT was negative. * on oral iron supplementation * For EGD and colonoscopy tomorrow morning. Keep n.p.o. past midnight. Bowel prep as per surgery. * 2. Hypoxic, hypercapnic respiratory failure due to CHF exacerbation and aortic stenosis. * resolved. Was intubated on admission and successfully extubated. * Saturating well on room air. * 2D echo done showed moderate concentric left ventricular hypertrophy with estimated EF of 65% in stage II diastolic dysfunction. No regional wall abnormalities noted. Severe aortic stenosis with peak aortic valve gradient of 97 mmHg and mean aortic valve gradient of 49 mmHg calculated aortic valve area 0.65 cm?. RVSP is 43mmHg. Aortic stenosis has progressed from moderate to severe * cardiology on board. * 3. Severe aortic stenosis * echo as documented above * Cardiology on board. Recommend against aggressive use of afterload reducing agent such as KEEGAN inhibitors, nitrates and diuretics. Per cardiology, severe anemia may have an effect on the aortic valve gradient making it artificially high. Therefore recommend to repeat echocardiogram once hemoglobin is increased to around 10 and to keep hemoglobin above 8. * 4. Community acquired pneumonia * Now on PO levofloxacin q48 hrs. * blood cultures- no growth after 48 hours * urine for strep and Legionella antigens were negative * 5. Chronic lower extremity edema * Resolved. * 6. Hyponatremia * resolving. Sodium level today is pending * Will monitor. * 7. Diabetes mellitus * on lantus 22IU and lispro 5IU 3 times daily. Accuchecks achs; ISS. * will hold lantus this evening o/a of NPO status for EGD and colonoscopy tomorrow. * 8. Hypertension * on metoprolol, amlodipine and Lisinopril. BP meds have been on hold due to hypotension on admission. * BP now running in 130s-150s systolic. * will resume metoprolol 25mg daily. Will continue holding amlodipine and lisinopril for now and resume as per BP control. * will continue monitoring * 9. DVT prophylaxis: will hold lovenox o/a of anemia; will give SCDs 10. GI prophylaxis: pantoprazole Code status: full code This note was generated with [employer] software. It may contain incorrect words, spelling, and punctuation that were not noted in checking the note before signing. Code Visit Inpatient E&M: 11917 Subs Hosp L2
[2018-02-19 10:27] LABS: Absolute Lymphocyte Count 1.31 X10^3/ul (0.83-4.51); Absolute Neutrophil Count 4.9 X10^3/uL (2.0-7.7); Basophil# 0.03 X10^3/uL; Basophil% 0.4 % (0-1); Eosinophil# 0.21 X10^3/uL; Hematocrit 25.9 % (37-47); Hemoglobin 8.1 g/dl (12.0-15.0); Lymphocyte # 1.31 X10^3/ul (4.0); Lymphocyte % 18.8 % (19-41); Mean Corp Hgb Conc 31.3 g/gl (32-36); Mean Corpuscular Hgb 27.9 pg (27.0-32.0); Mean Corpuscular Volume 89.3 fL (81-99); Mean Platelet Vol. 8.1 fl (6.2-12.0); Monocyte# 0.48 X10^3/uL; Monocyte% 6.9 % (0-10); Neutrophil # 4.92 X10^3/uL (2.7-7.7); Neutrophil % 70.9 % (47-70); POSITIVE COUNT NO; POSITIVE DIFFERENTIAL NO; POSITIVE MORPHOLOGY NO; Platelet Count 275 K/mm3 (150-450); RBC Distribution Width CV 15.2 % (11.6-14.6); RBC Distribution Width SD 49.5 fl (35.1-43.9)
[2018-02-19 10:37] LABS: Anion Gap 9 (5-15); BUN 21 mg/dL (7-18); Calcium,Total 8.6 mg/dL (8.5-10.1); Chloride 99 mmol/L (98-107); Creatinine, Serum 0.91 mg/dL (0.55-1.02); EST Glomerular Filtration Rate 63 mL/min (>60); Est Glom Filt Rate - Afr Amer 77 mL/min (>60); Estimated Creatinine Clearance 44.71 ml/min; Glucose 96 mg/dL (74-106); Potassium 4.3 mmol/L (3.5-5.1); Sodium Level 136 mmol/L (136-145)
[2018-02-19] MEDS: Nystatin Powder 15gm Bottle 1 APPLIC TOPICAL ×2 (10:41→21:45)
[2018-02-19] MEDS: Electrolyte Solution/Peg's 4000 ML PO (10:42)
[2018-02-19] MEDS: Metoprolol(XL)Succ 25 MG Tablet PO (10:45)
[2018-02-19 11:00] LABS: Bedside Glucose 93 mg/dL (70-110)
[2018-02-19 17:16] LABS: Bedside Glucose 61 mg/dL (70-110)
[2018-02-19] MEDS: Dextrose 50%-Water 25 GM/50 ML DISP.SYRIN IV (18:00)
--- NOTE | 2018-02-19 18:00 | NURSING ---
Previous blood sugar 60. Asymptomatic. Patient is on clear liquid diet. Given jello and can of soda. Rechecked blood sugar with result of 58. Patient remains asymptomatic. 1/2 amp of [id number] per protocol. Will recheck blood sugar at 1830.
[2018-02-19] MEDS: 0.9% NaCl Peripheral Flush Adult/Peds IV ×2 (18:01→18:02)
[2018-02-19 18:40] LABS: Bedside Glucose 58 mg/dL (70-110)
[2018-02-19 18:40] LABS: Bedside Glucose 126 mg/dL (70-110)
[2018-02-19] MEDS: Atorvastatin Calcium 40 MG Tablet PO (21:44)
[2018-02-19 22:31] LABS: Bedside Glucose 71 mg/dL (70-110)
[2018-02-20] VITALS (19 sets, daily range): BP systolic 115–153; BP diastolic 56–93; PULSE 67–94; RESP 14–18; TEMP 36.4–37; O2SAT 94–100; BMI 34.6; BMI 34.7
--- NOTE | 2018-02-20 | IMM_PTH ---
PATIENT: JULITA KYLE LOC: [facility] U#:[id number] AGE/SX: 77/F ROOM: [facility] RE02/14/[address]: Dr. Ninfa Mcnamara MD : [id number] BED: 1 DIS: 02/20/2018 SPEC #: [id number] RECD: 02/20/18 15:38 STATUS: SOUT REQ #: [id number] MIGUEL: 02/20/18 00:[address]: Vicky Hendricks DEPT: IMMUNOHISTOCHEMISTRY RECD BY: Rachael Ocasio ENTERED: 02/20/18 15:39 SP TYPE: IMMUNO OTHR DR: MD Dr. Warren Martines MD Dr. Liza D Talampas, MD Dr. Nana Yaa Koram, MD Dr. Tamera Robotham, MD Tissues: A - Stomach, NOS C - Hepatic lobule Procedures: H Pylori (initial) MSH2 (add) MLH-1 (add) MSH6 (add) Anti-PMS2 (add) GAVIRIA-2 (initial) HER2 LINH (add) KI-67 (add) P53 (add) Comments: @ Ordering doctor for H.PYLORI edited from to @ by JB at 02/20/18 1547 @ Submitting doctor edited from to @ by JB at 02/20/18 1540 PHYSICIAN & INSTIT[facility] [address] [address] SPECIMEN INFORMATION: Tissue Source: A ? Antral biopsy, C ? Colonic mass at hepatic flexure biopsy Clinical Info: Anemia Specimen Number: [id number] A & C CPT code: 89837 x2, 24478 x7 METHODOLOGY: Deparaffinized sections of prefer/formalin-fixed tissue or PAP/DQ stained slides are incubated with monoclonal/polyclonal antibodies/oligonucleotide probes. Localization is made via biotin free immunoperoxidase method. Appropriate controls are performed and reacted as expected. Results on target cell population are indicated in the following table: RESULTS: ANTIBODY / CLONE RESULT Block A H Pylori (polyclonal) negative Block C COLON CANCER PROFILE (Prognostic Markers) Ki-67 (30-9) positive, moderate to high P53 (DO-7) negative MSH2 (25D12) positive MSH6 (44) positive MLH-1 (M1) positive PMS2 (DTU2545) positive GAVIRIA-2 (SP21) positive Her-2neu (CB11) negative, 1+ These tests were developed and their performance characteristics determined by [facility]. They may not have been cleared or approved by the U.S. Food and Drug Administration. The FDA has determined that such clearance or approval is not necessary. INTERPRETATION: A. Antral biopsy: Negative for Helicobacter pylori organisms. C. Colon at hepatic flexure, biopsy: Invasive adenocarcinoma. Result of Microsatellite Instability Study: Negative (no loss of mismatch protein; no microsatellite instability detected). AM:eryn 02/27/18
[2018-02-20] MEDS: 0.9% NaCl Peripheral Flush Adult/Peds IV (05:03)
[2018-02-20 05:19] LABS: Absolute Lymphocyte Count 1.62 X10^3/ul (0.83-4.51); Basophil# 0.03 X10^3/uL; Basophil% 0.5 % (0-1); Eosinophil# 0.36 X10^3/uL; Eosinophils% 5.6 % (0-5); Hematocrit 24.1 % (37-47); Hemoglobin 7.6 g/dl (12.0-15.0); Lymphocyte # 1.62 X10^3/ul (4.0); Lymphocyte % 25.4 % (19-41); Mean Corp Hgb Conc 31.5 g/gl (32-36); Mean Corpuscular Volume 88.9 fL (81-99); Mean Platelet Vol. 8.2 fl (6.2-12.0); Monocyte# 0.41 X10^3/uL; Monocyte% 6.4 % (0-10); Neutrophil # 3.96 X10^3/uL (2.7-7.7); Neutrophil % 61.9 % (47-70); Platelet Count 259 K/mm3 (150-450); RBC Distribution Width CV 15.1 % (11.6-14.6); Red Blood Count 2.71 M/mm3 (4.2-5.4); White Blood Count 6.4 K/mm3 (4.4-11.0)
[2018-02-20 05:25] LABS: International Normalized Ratio 1.2; Partial Thromboplast Time 30.9 Seconds (24.1-36.2); Prothrombin Time (Protime)PT. 14.8 SECONDS (11.7-14.9)
[2018-02-20 05:36] LABS: Anion Gap 7 (5-15); BUN 17 mg/dL (7-18); BUN/Creat Ratio 21.3 RATIO (10-20); Calcium,Total 8.5 mg/dL (8.5-10.1); Chloride 100 mmol/L (98-107); EST Glomerular Filtration Rate 74 mL/min (>60); Est Glom Filt Rate - Afr Amer 90 mL/min (>60); Estimated Creatinine Clearance 50.85 ml/min; Glucose 58 mg/dL (74-106); Potassium 4.2 mmol/L (3.5-5.1); Sodium Level 136 mmol/L (136-145)
[2018-02-20 05:37] LABS: POSITIVE COUNT NO; POSITIVE DIFFERENTIAL NO; POSITIVE MORPHOLOGY NO
[2018-02-20] MEDS: Dextrose 50%-Water 25 GM/50 ML DISP.SYRIN IV ×2 (05:50→13:51)
--- NOTE | 2018-02-20 05:55 | EKG12_ITS ---
Test Reason : AM EKG Blood Pressure : / mmHG Vent. Rate : 074 BPM Atrial Rate : 074 BPM P-R Int : 148 ms QRS Dur : 134 ms QT Int : 416 ms P-R-T Axes : 054 -20 -01 degrees QTc Int : 461 ms Normal sinus rhythm Right bundle branch block Abnormal ECG Confirmed by YUE YAÑEZ, JANICE ([id number]), news videotape editor BIRGIT EUBANKS ([id number]) on 02/22/2018 11:28:39 AM Referred By: DR CASTREJON Confirmed By:JANICE TURNER MD
[2018-02-20 05:56] LABS: Bedside Glucose 61 mg/dL (70-110)
[2018-02-20 07:06] LABS: Bedside Glucose 94 mg/dL (70-110)
[2018-02-20] MEDS: Ipratropium/Albuterol Sulfate 3 ML AMPUL.NEB INHALATION ×2 (07:11→17:07)
--- NOTE | 2018-02-20 08:12 | PCM.PN.SRG ---
Patient Problems: Active and Suspected Problems Respiratory failure (Acute) Respiratory failure requiring intubation (Acute) Aortic stenosis (Acute) Severe anemia (Acute) Subjective: Pt castro prep, mostly clear BM per nursing, hb 7.6 - Physical Exam General: Alert, Cooperative, No apparent distress Lungs: Normal air movement Abdomen: Soft, Non Tender - no PS, Non-Distended Vital Signs Temp Pulse Resp BP Pulse Ox 97.9 F 78 16 139/58 H 98 02/20/18 03:38 02/20/18 07:11 02/20/18 07:11 02/20/18 03:38 02/20/18 07:11 Oxygen Flow Rate (L/min) 1 Oxygen Delivery Method Room Air Weight: 201 lb 11.567 oz Body Mass Index (BMI) 34.6 Intake and Output for Last 24 Hours 02/18/18 02/19/18 02/20/18 23:59 23:59 23:59 Intake Total 1280 / 1280 3780 / 3780 0 / 0 Output Total 475 / 475 2100 / 2100 Balance 805 / 805 1680 / 1680 0 / 0 Microbiology Past 72 Hours 02/17/18 17:59 Stool Occult Blood (JOSE) - Final Stool 02/15/18 07:30 Gram Stain - Final Sputum, Tracheal Aspirate Respiratory Culture - Final Culture exhibits no growth. 02/14/18 16:27 Blood Culture - Preliminary Blood Culture (Wb) - Right Hand No growth in 48 hours. 02/14/18 16:20 Blood Culture - Preliminary Blood Culture (Wb) - Left Hand No growth in 48 hours. Laboratory Tests Past 24 Hrs 02/19/18 02/19/18 02/20/18 10:15 10:15 05:05 WBC 7.0 6.4 RBC 2.90 L 2.71 L Hgb 8.1 L 7.6 L Hct 25.9 L 24.1 L MCV 89.3 88.9 MCH 27.9 28.0 MCHC 31.3 L 31.5 L RDW 15.2 H 15.1 H RDW Differential 49.5 H 49.0 H Plt Count 275 259 MPV 8.1 8.2 Immature Gran % (Auto) 0.000 0.200 Neut % (Auto) 70.9 H 61.9 Lymph % (Auto) 18.8 L 25.4 Arthur % (Auto) 6.9 6.4 Eos % (Auto) 3.0 5.6 H Baso % (Auto) 0.4 0.5 Absolute Neuts (auto) 4.9 4.0 Absolute Lymphs (auto) 1.31 1.62 Total Counted Not Reportable Not Reportable PT INR APTT Sodium 136 Potassium 4.3 Chloride 99 Carbon Dioxide 28.0 Anion Gap 9 BUN 21 H Creatinine 0.91 Estim Creat Clear Calc 44.71 Est GFR (MDRD) Af Amer 77 Est GFR (MDRD) Non-Af 63 BUN/Creatinine Ratio 23.0 H Glucose 96 Hemoglobin A1c Calcium 8.6 02/20/18 02/20/18 02/20/18 05:05 05:05 05:05 WBC RBC Hgb Hct MCV MCH MCHC RDW RDW Differential Plt Count MPV Immature Gran % (Auto) Neut % (Auto) Lymph % (Auto) Arthur % (Auto) Eos % (Auto) Baso % (Auto) Absolute Neuts (auto) Absolute Lymphs (auto) Total Counted PT 14.8 INR 1.2 APTT 30.9 Sodium 136 Potassium 4.2 Chloride 100 Carbon Dioxide 29.0 Anion Gap 7 BUN 17 Creatinine 0.80 Estim Creat Clear Calc 50.85 Est GFR (MDRD) Af Amer 90 Est GFR (MDRD) Non-Af 74 BUN/Creatinine Ratio 21.3 H Glucose 58 L Hemoglobin A1c Pending Calcium 8.5 POC Glucose 02/20/18 02/20/18 02/19/18 06:27 05:47 21:47 POC Glucose 94 61 L 71 02/19/18 02/19/18 02/19/18 18:35 17:37 16:51 POC Glucose 126 H 58 L 61 L 02/19/18 10:49 POC Glucose 93 Medical Necessity - Tobacco Use Smoking Status: Unknown if ever smoked Assessment/Plan All Active Problems Respiratory failure (Acute) Respiratory failure requiring intubation (Acute) Aortic stenosis (Acute) Severe anemia (Acute) Ulcer of left lower leg (Resolved) Cellulitis of left leg without foot (Resolved) Acute electrocardiogram changes (Acute) 77 y/o F with anemia (hb 7.6 current- s/p 2 PRBC on 02/16 & 02/17-one each), FOBT negative, possible pneumonia-acute resp failure-resolved, severe aortic stenosis (may be more severe on echo b/c of anemia) 1. Discussed with cardiology with Hb at 7.6 recommend 1 PRBC before EGD/colonoscopy this AM, also d/w Dr. Mcnamara Also answered any questions the patient had about the procedure EGD and colonoscopy-Pt was mainly concerned with how long she would be in bed after and I explain she will be woke up right after procedure and would be allowed out of bed once she was more awake. will plan to give tap water enema as well this AM. Vicky Hendricks M.D. Pager: [phone] [facility] [address] [place] [address], Outpatient [place], [address] [place] [id number] Office: [phone] Code Visit Inpatient E&M: 45637 Subs Hosp L1
--- NOTE | 2018-02-20 08:17 | PN.SURG_ITS ---
Patient Problems: Active and Suspected Problems Respiratory failure (Acute) Respiratory failure requiring intubation (Acute) Aortic stenosis (Acute) Severe anemia (Acute) Subjective: Pt castro prep, mostly clear BM per nursing, hb 7.6 - Physical Exam General: Alert, Cooperative, No apparent distress Lungs: Normal air movement Abdomen: Soft, Non Tender - no PS, Non-Distended Vital Signs Temp Pulse Resp BP Pulse Ox 97.9 F 78 16 139/58 H 98 02/20/18 03:38 02/20/18 07:11 02/20/18 07:11 02/20/18 03:38 02/20/18 07:11 Oxygen Flow Rate (L/min) 1 Oxygen Delivery Method Room Air Weight: 201 lb 11.567 oz Body Mass Index (BMI) 34.6 Intake and Output for Last 24 Hours 02/18/18 02/19/18 02/20/18 23:59 23:59 23:59 Intake Total 1280 / 1280 3780 / 3780 0 / 0 Output Total 475 / 475 2100 / 2100 Balance 805 / 805 1680 / 1680 0 / 0 Microbiology Past 72 Hours 02/17/18 17:59 Stool Occult Blood (JOSE) - Final Stool 02/15/18 07:30 Gram Stain - Final Sputum, Tracheal Aspirate Respiratory Culture - Final Culture exhibits no growth. 02/14/18 16:27 Blood Culture - Preliminary Blood Culture (Wb) - Right Hand No growth in 48 hours. 02/14/18 16:20 Blood Culture - Preliminary Blood Culture (Wb) - Left Hand No growth in 48 hours. Laboratory Tests Past 24 Hrs 02/19/18 02/19/18 02/20/18 10:15 10:15 05:05 WBC 7.0 6.4 RBC 2.90 L 2.71 L Hgb 8.1 L 7.6 L Hct 25.9 L 24.1 L MCV 89.3 88.9 MCH 27.9 28.0 MCHC 31.3 L 31.5 L RDW 15.2 H 15.1 H RDW Differential 49.5 H 49.0 H Plt Count 275 259 MPV 8.1 8.2 Immature Gran % (Auto) 0.000 0.200 Neut % (Auto) 70.9 H 61.9 Lymph % (Auto) 18.8 L 25.4 [place] % (Auto) 6.9 6.4 Eos % (Auto) 3.0 5.6 H Baso % (Auto) 0.4 0.5 Absolute Neuts (auto) 4.9 4.0 Absolute Lymphs (auto) 1.31 1.62 Total Counted Not Reportable Not Reportable PT INR APTT Sodium 136 Potassium 4.3 Chloride 99 Carbon Dioxide 28.0 Anion Gap 9 BUN 21 H Creatinine 0.91 Estim Creat Clear Calc 44.71 Est GFR (MDRD) Af Amer 77 Est GFR (MDRD) Non-Af 63 BUN/Creatinine Ratio 23.0 H Glucose 96 Hemoglobin A1c Calcium 8.6 02/20/18 02/20/18 02/20/18 05:05 05:05 05:05 WBC RBC Hgb Hct MCV MCH MCHC RDW RDW Differential Plt Count MPV Immature Gran % (Auto) Neut % (Auto) Lymph % (Auto) [place] % (Auto) Eos % (Auto) Baso % (Auto) Absolute Neuts (auto) Absolute Lymphs (auto) Total Counted PT 14.8 INR 1.2 APTT 30.9 Sodium 136 Potassium 4.2 Chloride 100 Carbon Dioxide 29.0 Anion Gap 7 BUN 17 Creatinine 0.80 Estim Creat Clear Calc 50.85 Est GFR (MDRD) Af Amer 90 Est GFR (MDRD) Non-Af 74 BUN/Creatinine Ratio 21.3 H Glucose 58 L Hemoglobin A1c Pending Calcium 8.5 POC Glucose 02/20/18 02/20/18 02/19/18 06:27 05:47 21:47 POC Glucose 94 61 L 71 02/19/18 02/19/18 02/19/18 18:35 17:37 16:51 POC Glucose 126 H 58 L 61 L 02/19/18 10:49 POC Glucose 93 Medical Necessity - Tobacco Use Smoking Status: Unknown if ever smoked Assessment/Plan All Active Problems Respiratory failure (Acute) Respiratory failure requiring intubation (Acute) Aortic stenosis (Acute) Severe anemia (Acute) Ulcer of left lower leg (Resolved) Cellulitis of left leg without foot (Resolved) Acute electrocardiogram changes (Acute) 77 y/o F with anemia (hb 7.6 current- s/p 2 PRBC on 02/16 & 02/17-one each), FOBT negative, possible pneumonia-acute resp failure-resolved, severe aortic stenosis (may be more severe on echo b/c of anemia) 1. Discussed with cardiology with Hb at 7.6 recommend 1 PRBC before EGD/ colonoscopy this AM, also d/w Dr. Mcnamara Also answered any questions the patient had about the procedure EGD and colonoscopy-Pt was mainly concerned with how long she would be in bed after and I explain she will be woke up right after procedure and would be allowed out of bed once she was more awake. will plan to give tap water enema as well this AM. Vicky Hendricks M.D. Pager: [phone] [facility] [address] [place] [address], Outpatient [place], [address] [place] [id number] Office: [phone] Code Visit Inpatient E&M: 23220 Subs Hosp L1
--- NOTE | 2018-02-20 09:00 | NURSING ---
Patient given soap suds enema approximately 0800 today, had results of clear liquid with greenish brown flecks.
[2018-02-20 10:45] LABS: Hemoglobin A1c 6.6 % (4.2-6.3)
--- NOTE | 2018-02-20 11:01 | PCM.PN.HOSP ---
Patient Problems: Active and Suspected Problems Respiratory failure (Acute) Respiratory failure requiring intubation (Acute) Aortic stenosis (Acute) Severe anemia (Acute) Subjective: Patient seen and examined. She had no complaints and felt well. She denied any fever chills, cough or chest pain, shortness of breath, abdominal pain, any diarrhea vomiting. Review of systems otherwise negative. Hemoglobin dropped 7.6 today, per discussion with general surgery were discussed with cardiology, will give another unit of packed red blood cell prior to colonoscopy and EGD. Vitals/I&O's: Vital Signs Temp Pulse Resp BP Pulse Ox 98.6 F 79 16 140/56 H 100 02/20/18 10:19 02/20/18 10:19 02/20/18 10:19 02/20/18 10:19 02/20/18 10:19 Oxygen Flow Rate (L/min) 1 Oxygen Delivery Method Room Air Weight: 202 lb 6.15 oz Body Mass Index (BMI) 34.6 Intake and Output for Last 24 Hours 02/18/18 02/19/18 02/20/18 23:59 23:59 23:59 Intake Total 1280 / 1280 3780 / 3780 0 / 0 Output Total 475 / 475 2100 / 2100 Balance 805 / 805 1680 / 1680 0 / 0 General: Alert, Oriented x3, Cooperative, No apparent distress HEENT: Atraumatic, PERRLA, EOMI, Normocephalic Oral: Moist Mucosa Neck: Supple, No JVD, Negative Carotid Bruits Lungs: Clear to auscultation, Normal air movement, No rhonchi, No wheeze, No rales Cardiovascular: Regular rate, Regular Rhythm, Normal S1, Normal S2, No murmurs Abdomen: Bowel Sounds Present, Soft, Non Tender, Non-Distended, No Hepato-splenomegaly Extremities: No clubbing, No cyanosis, No edema, Capillary Refill Less than 3 Seconds Microbiology Past 72 Hours 02/14/18 16:27 Blood Culture (Wb) - Right Hand Blood Culture - Final No growth in 5 days. 02/14/18 16:20 Blood Culture (Wb) - Left Hand Blood Culture - Final No growth in 5 days. 02/17/18 17:59 Stool Stool Occult Blood (JOSE) - Final 02/15/18 07:30 Sputum, Tracheal Aspirate Gram Stain - Final 02/15/18 07:30 Sputum, Tracheal Aspirate Respiratory Culture - Final Culture exhibits no growth. Laboratory Results 02/15/18 07:05: Crossmatch See Detail 02/19/18 16:51: POC Glucose 61 L 02/19/18 17:37: POC Glucose 58 L 02/19/18 18:35: POC Glucose 126 H 02/19/18 21:47: POC Glucose 71 02/20/18 05:05: WBC 6.4, RBC 2.71 L, Hgb 7.6 L, Hct 24.1 L, MCV 88.9, MCH 28.0, MCHC 31.5 L, RDW 15.1 H, RDW Differential 49.0 H, Plt Count 259, MPV 8.2, Immature Gran % (Auto) 0.200, Neut % (Auto) 61.9, Lymph % (Auto) 25.4, [place] % (Auto) 6.4, Eos % (Auto) 5.6 H, Baso % (Auto) 0.5, Absolute Neuts (auto) 4.0, Absolute Lymphs (auto) 1.62, Total Counted Not Reportable 02/20/18 05:05: Sodium 136, Potassium 4.2, Chloride 100, Carbon Dioxide 29.0, Anion Gap 7, BUN 17, Creatinine 0.80, Estim Creat Clear Calc 50.85, Est GFR (MDRD) Af Amer 90, Est GFR (MDRD) Non-Af 74, BUN/Creatinine Ratio 21.3 H, Glucose 58 L, Calcium 8.5 02/20/18 05:05: PT 14.8, INR 1.2, APTT 30.9 02/20/18 05:05: Hemoglobin A1c 6.6 H 02/20/18 05:47: POC Glucose 61 L 02/20/18 06:27: POC Glucose 94 02/20/18 08:16: Blood Type O POSITIVE, Antibody Screen NEGATIVE, Crossmatch See Detail Current Medications Acetaminophen (Tylenol) 650 mg PO Q6H PRN PRN PRN Reason: PAIN Last Admin: 02/19/18 22:07 Dose: 650 mg Albuterol/Ipratropium (Duoneb) 3 ml INHALATION Q6HWA.RT KORY Last Admin: 02/20/18 07:11 Dose: 3 ml Aspirin (Aspirin, Baby) 81 mg PO DAILY@0800 [facility] Last Admin: 08/03/18 08:03 Dose: 81 mg Atorvastatin Calcium (Lipitor) 40 mg PO QHS [facility] Last Admin: 02/19/18 21:44 Dose: 40 mg Betamethasone Valerate (Valisone 0.1% Cream) 1 applic TOPICAL BID [facility] PRN Reason: Protocol Last Admin: 02/19/18 21:44 Dose: 1 applicatio Cholecalciferol (Vitamin D) 5,000 unit PO DAILY [facility] Last Admin: 02/19/18 08:07 Dose: 5,000 unit Dextrose (D50w Syringe) 0 gm IV X1 PRN; Protocol PRN Reason: Hypoglycemia Last Admin: 02/20/18 05:50 Dose: 12.5 gm Ferrous [facility] ([facility]) [facility] Last Admin: 02/19/18 16:57 Dose: 324 mg Glucagon () 1 mg IM .X1 PRN PRN Reason: Hypoglycemia Insulin Glargine (Lantus (Bkc)) 22 units SC DAILY [facility] Last Admin: 02/19/18 10:50 Dose: Not Given Insulin Human Lispro (Humalog Kwikpen (Bkc)) 0 unit SC ACHS [facility] PRN Reason: Protocol Last Admin: 02/20/18 07:26 Dose: Not Given Insulin Human Lispro (Humalog Kwikpen (Bkc)) 5 unit SC TIDAC [facility] Last Admin: 02/20/18 07:26 Dose: Not Given Levofloxacin (Levaquin Tablet) 750 mg PO Q48 [facility] Last Admin: 02/18/18 09:00 Dose: 750 mg Magnesium Hydroxide (Milk Of Magnesia) 30 ml PO DAILY PRN PRN PRN Reason: Constipation Metoprolol Succinate (Toprol Xl (Beta Ryder)) 25 mg PO DAILY [facility] Last Admin: 02/19/18 10:45 Dose: 25 mg Nystatin (Mycostatin Powder) 1 applic TOPICAL BID [facility] PRN Reason: Protocol Last Admin: 02/19/18 21:45 Dose: 1 applicatio Pantoprazole Sodium (Protonix) 40 mg PO BID [facility] Last Admin: 02/19/18 21:44 Dose: 40 mg Sodium Chloride () 5 - 30 ml IV UD PRN PRN Reason: SALINE FLUSH Last Admin: 02/20/18 05:03 Dose: 20 ml Tolterodine Tartrate (Detrol La) 2 mg PO DAILY [facility] Last Admin: 02/19/18 08:06 Dose: 2 mg Medical Necessity - Tobacco Use Smoking Status: Unknown if ever smoked Assessment/Plan All Active Problems Respiratory failure (Acute) Respiratory failure requiring intubation (Acute) Aortic stenosis (Acute) Severe anemia (Acute) Ulcer of left lower leg (Resolved) Cellulitis of left leg without foot (Resolved) Acute electrocardiogram changes (Acute) 77 y/o female admitted with a after she was found short of breath and passersby called the EMS 1. Iron deficiency anemia s/p 2 units of blood Hb is 7.6 today per discussion with general surgery who had discussed with cardiology, will give another unit of packed red blood cell prior to EGD and colonoscopy today. Iron supplementation. 2. Hypoxic, hypercapnic respiratory failure due to CHF exacerbation and aortic stenosis. resolved. Was intubated on admission and successfully extubated. Saturating well on room air. 2D echo done showed moderate concentric left ventricular hypertrophy with estimated EF of 65% in stage II diastolic dysfunction. No regional wall abnormalities noted. Severe aortic stenosis with peak aortic valve gradient of 97 mmHg and mean aortic valve gradient of 49 mmHg calculated aortic valve area 0.65 cm?. RVSP is 43mmHg. Aortic stenosis has progressed from moderate to severe cardiology on board. 3. Severe aortic stenosis echo as documented above Cardiology on board. Recommend against aggressive use of afterload reducing agent such as KEEGAN inhibitors, nitrates and diuretics. Per cardiology, severe anemia may have an effect on the aortic valve gradient making it artificially high. Therefore recommend to repeat echocardiogram once hemoglobin is increased to around 10 and to keep hemoglobin above 8. 4. Community acquired pneumonia Now on PO levofloxacin q48 hrs. blood cultures- no growth after 48 hours urine for strep and Legionella antigens were negative will dc levfloxacin after a total of 5 doses. 5. Hyponatremia resolved. Will monitor. 6. Diabetes mellitus on lantus 22IU and lispro 5IU 3 times daily. Accuchecks achs; ISS. had episodes of asymptomatic hypoglycemia yesterday lantus and lispro on hold o/a of being NPO for EGd and colonoscopy today ISS 7. Hypertension on metoprolol, amlodipine and Lisinopril. BP now running in 130s-150s systolic. metoprolol 25mg daily. Will continue holding amlodipine and lisinopril for now and resume as per BP control. will continue monitoring 8. DVT prophylaxis: will hold lovenox o/a of anemia; will give SCDs 9. GI prophylaxis: pantoprazole 3:53pm: EGD showed mild gastritis in antrum, which was biopsied; colonoscopy showed hard mass 1-2cm in hepatic flexure; multiple biopsies taken as mass was very hard. She is to have a CT abdomen and pelvis before discharge To be discharged after CT abdomen and pelvis; to follow up with PCP and general surgeon for results. To follow up with Dr Harmon-cardiology for follow up of Aortic stenosis Code status: full code This note was generated with [employer] dictation software. It may contain incorrect words, spelling, and punctuation that were not noted in checking the note before signing. Code Visit Inpatient E&M: 49765 Subs Hosp L2
--- NOTE | 2018-02-20 11:06 | PN_ITS ---
Patient Problems: Active and Suspected Problems Respiratory failure (Acute) Respiratory failure requiring intubation (Acute) Aortic stenosis (Acute) Severe anemia (Acute) Subjective: Patient seen and examined. She had no complaints and felt well. She denied any fever chills, cough or chest pain, shortness of breath, abdominal pain, any diarrhea vomiting. Review of systems otherwise negative. Hemoglobin dropped 7.6 today, per discussion with general surgery were discussed with cardiology, will give another unit of packed red blood cell prior to colonoscopy and EGD. Vitals/I&O's: Vital Signs Temp Pulse Resp BP Pulse Ox 98.6 F 79 16 140/56 H 100 02/20/18 10:19 02/20/18 10:19 02/20/18 10:19 02/20/18 10:19 02/20/18 10:19 Oxygen Flow Rate (L/min) 1 Oxygen Delivery Method Room Air Weight: 202 lb 6.15 oz Body Mass Index (BMI) 34.6 Intake and Output for Last 24 Hours 02/18/18 02/19/18 02/20/18 23:59 23:59 23:59 Intake Total 1280 / 1280 3780 / 3780 0 / 0 Output Total 475 / 475 2100 / 2100 Balance 805 / 805 1680 / 1680 0 / 0 General: Alert, Oriented x3, Cooperative, No apparent distress HEENT: Atraumatic, PERRLA, EOMI, Normocephalic Oral: Moist Mucosa Neck: Supple, No JVD, Negative Carotid Bruits Lungs: Clear to auscultation, Normal air movement, No rhonchi, No wheeze, No rales Cardiovascular: Regular rate, Regular Rhythm, Normal S1, Normal S2, No murmurs Abdomen: Bowel Sounds Present, Soft, Non Tender, Non-Distended, No Hepato- splenomegaly Extremities: No clubbing, No cyanosis, No edema, Capillary Refill Less than 3 Seconds Microbiology Past 72 Hours 02/14/18 16:27 Blood Culture (Wb) - Right Hand Blood Culture - Final No growth in 5 days. 02/14/18 16:20 Blood Culture (Wb) - Left Hand Blood Culture - Final No growth in 5 days. 02/17/18 17:59 Stool Stool Occult Blood (JOSE) - Final 02/15/18 07:30 Sputum, Tracheal Aspirate Gram Stain - Final 02/15/18 07:30 Sputum, Tracheal Aspirate Respiratory Culture - Final Culture exhibits no growth. Laboratory Results 02/15/18 07:05: Crossmatch See Detail 02/19/18 16:51: POC Glucose 61 L 02/19/18 17:37: POC Glucose 58 L 02/19/18 18:35: POC Glucose 126 H 02/19/18 21:47: POC Glucose 71 02/20/18 05:05: WBC 6.4, RBC 2.71 L, Hgb 7.6 L, Hct 24.1 L, MCV 88.9, MCH 28.0, MCHC 31.5 L, RDW 15.1 H, RDW Differential 49.0 H, Plt Count 259, MPV 8.2, Immature Gran % (Auto) 0.200, Neut % (Auto) 61.9, Lymph % (Auto) 25.4, [place] % ( Auto) 6.4, Eos % (Auto) 5.6 H, Baso % (Auto) 0.5, Absolute Neuts (auto) 4.0, Absolute Lymphs (auto) 1.62, Total Counted Not Reportable 02/20/18 05:05: Sodium 136, Potassium 4.2, Chloride 100, Carbon Dioxide 29.0, Anion Gap 7, BUN 17, Creatinine 0.80, Estim Creat Clear Calc 50.85, Est GFR ( MDRD) Af Amer 90, Est GFR (MDRD) Non-Af 74, BUN/Creatinine Ratio 21.3 H, Glucose 58 L, Calcium 8.5 02/20/18 05:05: PT 14.8, INR 1.2, APTT 30.9 02/20/18 05:05: Hemoglobin A1c 6.6 H 02/20/18 05:47: POC Glucose 61 L 02/20/18 06:27: POC Glucose 94 02/20/18 08:16: Blood Type O POSITIVE, Antibody Screen NEGATIVE, Crossmatch See Detail Current Medications Acetaminophen (Tylenol) 650 mg PO Q6H PRN PRN PRN Reason: PAIN Last Admin: 02/19/18 22:07 Dose: 650 mg Albuterol/Ipratropium (Duoneb) 3 ml INHALATION Q6HWA.RT KORY Last Admin: 02/20/18 07:11 Dose: 3 ml Aspirin (Aspirin, Baby) 81 mg PO DAILY@0800 [facility] Last Admin: 08/03/18 08:03 Dose: 81 mg Atorvastatin Calcium (Lipitor) 40 mg PO QHS [facility] Last Admin: 02/19/18 21:44 Dose: 40 mg Betamethasone Valerate (Valisone 0.1% Cream) 1 applic TOPICAL BID [facility] PRN Reason: Protocol Last Admin: 02/19/18 21:44 Dose: 1 applicatio Cholecalciferol (Vitamin D) 5,000 unit PO DAILY [facility] Last Admin: 02/19/18 08:07 Dose: 5,000 unit Dextrose (D50w Syringe) 0 gm IV X1 PRN; Protocol PRN Reason: Hypoglycemia Last Admin: 02/20/18 05:50 Dose: 12.5 gm Ferrous [facility]con[facility]) [facility] Last Admin: 02/19/18 16:57 Dose: 324 mg Glucagon () 1 mg IM .X1 PRN PRN Reason: Hypoglycemia Insulin Glargine (Lantus (Bkc)) 22 units SC DAILY [facility] Last Admin: 02/19/18 10:50 Dose: Not Given Insulin Human Lispro (Humalog Kwikpen (Bkc)) 0 unit SC ACHS [facility] PRN Reason: Protocol Last Admin: 02/20/18 07:26 Dose: Not Given Insulin Human Lispro (Humalog Kwikpen (Bkc)) 5 unit SC TIDAC [facility] Last Admin: 02/20/18 07:26 Dose: Not Given Levofloxacin (Levaquin Tablet) 750 mg PO Q48 [facility] Last Admin: 02/18/18 09:00 Dose: 750 mg Magnesium Hydroxide (Milk Of Magnesia) 30 ml PO DAILY PRN PRN PRN Reason: Constipation Metoprolol Succinate (Toprol Xl (Beta Ryder)) 25 mg PO DAILY [facility] Last Admin: 02/19/18 10:45 Dose: 25 mg Nystatin (Mycostatin Powder) 1 applic TOPICAL BID [facility] PRN Reason: Protocol Last Admin: 02/19/18 21:45 Dose: 1 applicatio Pantoprazole Sodium (Protonix) 40 mg PO BID [facility] Last Admin: 02/19/18 21:44 Dose: 40 mg Sodium Chloride () 5 - 30 ml IV UD PRN PRN Reason: SALINE FLUSH Last Admin: 02/20/18 05:03 Dose: 20 ml Tolterodine Tartrate (Detrol La) 2 mg PO DAILY [facility] Last Admin: 02/19/18 08:06 Dose: 2 mg Medical Necessity - Tobacco Use Smoking Status: Unknown if ever smoked Assessment/Plan All Active Problems Respiratory failure (Acute) Respiratory failure requiring intubation (Acute) Aortic stenosis (Acute) Severe anemia (Acute) Ulcer of left lower leg (Resolved) Cellulitis of left leg without foot (Resolved) Acute electrocardiogram changes (Acute) 77 y/o female admitted with a after she was found short of breath and passersby called the EMS 1. Iron deficiency anemia s/p 2 units of blood * Hb is 7.6 today * per discussion with general surgery who had discussed with cardiology, will give another unit of packed red blood cell prior to EGD and colonoscopy today. * Iron supplementation. * * 2. Hypoxic, hypercapnic respiratory failure due to CHF exacerbation and aortic stenosis. * resolved. Was intubated on admission and successfully extubated. * Saturating well on room air. * 2D echo done showed moderate concentric left ventricular hypertrophy with estimated EF of 65% in stage II diastolic dysfunction. No regional wall abnormalities noted. Severe aortic stenosis with peak aortic valve gradient of 97 mmHg and mean aortic valve gradient of 49 mmHg calculated aortic valve area 0.65 cm?. RVSP is 43mmHg. Aortic stenosis has progressed from moderate to severe * cardiology on board. * 3. Severe aortic stenosis * echo as documented above * Cardiology on board. Recommend against aggressive use of afterload reducing agent such as KEEGAN inhibitors, nitrates and diuretics. Per cardiology, severe anemia may have an effect on the aortic valve gradient making it artificially high. Therefore recommend to repeat echocardiogram once hemoglobin is increased to around 10 and to keep hemoglobin above 8. * 4. Community acquired pneumonia * Now on PO levofloxacin q48 hrs. * blood cultures- no growth after 48 hours * urine for strep and Legionella antigens were negative * will dc levfloxacin after a total of 5 doses. 5. Hyponatremia * resolved. * Will monitor. * 6. Diabetes mellitus * on lantus 22IU and lispro 5IU 3 times daily. Accuchecks achs; ISS. * had episodes of asymptomatic hypoglycemia yesterday * lantus and lispro on hold o/a of being NPO for EGd and colonoscopy today * ISS * * 7. Hypertension * on metoprolol, amlodipine and Lisinopril. * BP now running in 130s-150s systolic. * metoprolol 25mg daily. * Will continue holding amlodipine and lisinopril for now and resume as per BP control. * will continue monitoring * 8. DVT prophylaxis: will hold lovenox o/a of anemia; will give SCDs 9. GI prophylaxis: pantoprazole 3:53pm: EGD showed mild gastritis in antrum, which was biopsied; colonoscopy showed hard mass 1-2cm in hepatic flexure; multiple biopsies taken as mass was very hard. She is to have a CT abdomen and pelvis before discharge To be discharged after CT abdomen and pelvis; to follow up with PCP and general surgeon for results. To follow up with Dr Harmon-cardiology for follow up of Aortic stenosis Code status: full code This note was generated with [employer] dictation software. It may contain incorrect words, spelling, and punctuation that were not noted in checking the note before signing. Code Visit Inpatient E&M: 27160 Subs Hosp L2
--- NOTE | 2018-02-20 11:30 | EGD_PTH ---
PATIENT: JULITA KYLE LOC: [facility] U#:[id number] AGE/SX: 77/F ROOM: [facility] RE02/14/[address]: Dr. Nnifa Mcnamara MD : [id number] BED: 1 DIS: 02/20/2018 SPEC #: [id number] RECD: 02/20/18 14:20 STATUS: TONI RESonia #: [id number] MIGUEL: 02/20/18 11:[address]: Vicky Hendricks DEPT: SURGICAL PATHOLOGY RECD BY: Anita Rosas ENTERED: 02/20/18 14:43 SP TYPE: EGD BIOPSY OTHR DR: MD Dr. Warren Martines MD Dr. Liza D Talampas, MD Dr. Nana Yaa Koram, MD Dr. Tamera Robotham, MD Tissues: A - Gastric mucous membrane B - Cecum, NOS C - MISC TISSUE Procedures: Surgery Specimen Level IV Comments: @ Ordering doctor for SUIV edited from to @ by JONH at 02/20/18 1321 @ Submitting doctor edited from to @ by JONH at 02/20/18 1806 HEADER OPERATION: Colonoscopy, EGD ([facility]) PRE-OP DIAGNOSIS: Anemia TISSUE SUBMITTED: A. Antral biopsy for histo and H. Pylori, B. Cecal polyp biopsy, C. Colonic mass at hepatic flexure biopsy MICROSCOPIC DIAGNOSIS A. Gastric antrum, biopsy: Mild chronic gastritis. B. Cecal polyp, biopsy: Polypoid fragment of colonic mucosa with mild acute colitis. C. 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 AM:eryn 02/21/18 AM:eryn 03/10/18 COMMENT A. The results of immunohistochemistry for Helicobacter pylori will be reported separately ([id number]). B. Clinical correlation is suggested. C. The results from microsatellite instability will be reported separately ([id number]). Case has been reviewed in consultation with Dr. James who concurs with the above diagnosis. IDC:[id number] MICROSCOPIC DESCRIPTION Slides are reviewed. B. Microscopic sections show scattered cryptitis without crypt abscesses, ulcers or significant glandular distortion. GROSS DESCRIPTION A - Received in fixative is one container labeled with the patient's name and designated antral biopsy. The specimen consists of one irregular fragment of light martin soft tissue that measures 0.5 x 0.3 x 0.1 cm. The specimen is totally submitted in one cassette. B - Received in fixative is one container labeled with the patient's name and designated cecal polyp. The specimen consists of one irregular fragment of light martin soft tissue that measures 0.6 x 0.2 x 0.1 cm. The specimen is totally submitted in one cassette. C - Received in fixative is one container labeled with the patient's name and designated colonic mass at hepatic flexure biopsy. The specimen consists of multiple irregular fragments of light martin soft tissue that in aggregate measure 1 x 0.5 x 0.1 cm. The specimen is totally submitted in one cassette. / AM:eryn 02/20/18 TC:0 [facility]: [id number] [id number]
--- NOTE | 2018-02-20 11:30 | EGD_PTH ---
PATIENT: JULITA KYLE LOC: [facility] U#:[id number] AGE/SX: 77/F ROOM: [facility] RE02/14/[address]: Dr. Ninfa Mcnamara MD : 1940 BED: 1 DIS: 02/20/2018 SPEC #: [id number] RECD: 02/20/18 14:20 STATUS: TONI RESonia #: [id number] MIGUEL: 02/20/18 11:[address]: Vicky Hendricks DEPT: SURGICAL PATHOLOGY RECD BY: Anita Rosas ENTERED: 02/20/18 14:43 SP TYPE: EGD BIOPSY OTHR DR: MD Dr. Warren Martines MD Dr. Liza D Talampas, MD Dr. Nana Yaa Koram, MD Dr. Tamera Robotham, MD Tissues: A - Gastric mucous membrane B - Cecum, NOS C - MISC TISSUE Procedures: Surgery Specimen Level IV Comments: @ Ordering doctor for SUIV edited from to @ by JONH at 02/20/18 2505 @ Submitting doctor edited from to @ by JONH at 02/20/18 1731 HEADER OPERATION: Colonoscopy, EGD ([facility]) PRE-OP DIAGNOSIS: Anemia TISSUE SUBMITTED: A. Antral biopsy for histo and H. Pylori, B. Cecal polyp biopsy, C. Hepatic mass biopsy MICROSCOPIC DIAGNOSIS A. Gastric antrum, biopsy: Mild chronic gastritis. B. Cecal polyp, biopsy: Polypoid fragment of colonic mucosa with mild acute colitis. C. Hepatic mass, biopsy: Invasive adenocarcinoma. AM:eryn 02/21/18 COMMENT A. The results of immunohistochemistry for Helicobacter pylori will be reported separately ([id number]). B. Clinical correlation is suggested. C. The results from microsatellite instability will be reported separately ([id number]). Case has been reviewed in consultation with Dr. James who concurs with the above diagnosis. IDC:SJ MICROSCOPIC DESCRIPTION Slides are reviewed. B. Microscopic sections show scattered cryptitis without crypt abscesses, ulcers or significant glandular distortion. GROSS DESCRIPTION A - Received in fixative is one container labeled with the patient's name and designated antral biopsy. The specimen consists of one irregular fragment of light martin soft tissue that measures 0.5 x 0.3 x 0.1 cm. The specimen is totally submitted in one cassette. B - Received in fixative is one container labeled with the patient's name and designated cecal polyp. The specimen consists of one irregular fragment of light martin soft tissue that measures 0.6 x 0.2 x 0.1 cm. The specimen is totally submitted in one cassette. C - Received in fixative is one container labeled with the patient's name and designated hepatic mass biopsy. The specimen consists of multiple irregular fragments of light martin soft tissue that in aggregate measure 1 x 0.5 x 0.1 cm. The specimen is totally submitted in one cassette. / AM:eryn 02/20/18 TC:0 CPT: 19330 x3
--- NOTE | 2018-02-20 12:31 | PCM.OPRPT ---
Report of Operation Date of Procedure: 02/20/18 Pre-Operative Diagnosis: Anemia and severe aortic stenosis Post-Operative Diagnosis: Gastritis, hepatic flexure mass, cecal polyp Surgery/Procedure Performed:: EGD with biopsy, colonoscopy with biopsy, injection of Jillian ink at the hepatic flexure mass Type of Anesthesia:: MAC Anesthesiologist: Dago Moreno Specimen's removed: 1. Antral biopsy, 2. Cecal polyp, 3. Hepatic flexure mass Estimated Blood Loss (mL): Normal Description of Procedure: Procedure: EGD with biopsy After obtaining informed consent, the endoscope was passed under direct visualization. Throughout the procedure, patient's blood pressure, pulse, oxygen saturations were monitored continuously by anesthesia. The endoscope was introduced through the mouth and advanced to the 2nd part of the duodenum. The upper GI endoscopy was accomplished without difficulty. Patient tolerated procedure well. Findings: Small hiatal hernia was present. Erythematous mucosa found gastric antrum as well as a few brighter streaks of erythema in the body of the stomach no active bleeding or ulcers noted. Biopsies were taken with cold biopsy for histology of the antrum. Estimated blood loss was minimal. The duodenum was normal. Impression: 1. Small hiatal hernia 2. Gastritis. Biopsied. 3. Normal examined duodenum Recommendations: Await biopsy Start PPI and Carafate ?2 weeks Procedure: Colonoscopy with biopsy After reviewing the risks benefits, the patient was deemed in satisfactory condition to undergo procedure. After obtaining informed consent, the scope was passed under direct visualization. Throughout the procedure, the patient's blood pressure pulse and position saturations were monitored continuously anesthesia. The colonoscope was introduced through the anus and advanced to the cecum, identified by the appendiceal orifice, IC valve and transillumination. The colonoscopy was performed without difficulty. The patient tolerated procedure well. Quality of bowel prep was adequate. Findings: The perianal and digital rectal exam were normal. There is noted to be a small cecal polyp near the orifice of the appendix which was completely removed with cold forceps biopsies. At the hepatic flexure there was a 1-2 cm hard mass. There is no sign of any active bleeding from this mass. Multiple biopsies were attempted to be taken of this area; however the forceps did slide off due to the hard consistency which is why multiple biopsies were taken. This area was marked with Jillian ink in 2 locations with 0.2 at each. Otherwise the rest colon (entire examined portion) appeared normal. Retroflexed view of the distal rectum and anal verge was normal and showed no anal or rectal abnormalities Impression: 1. Hepatic flexure mass marked with Jillian ink multiple biopsies taken. 2. Cecal polyp. Removed completely 3. The distal rectal and anal verge were normal on retroflexed view. Recommendations: Await biopsies Check CT abdomen pelvis with p.o. and IV contrast prior to discharge. Unsure if this mass could possibly cancer or carcinoid due to the hard consistency, no active bleeding was seen during exam unsure why her hemoglobin keeps dropping. Discussed with Dr. Mcnamara. - Complications none
--- NOTE | 2018-02-20 13:11 | CT_ITS ---
STUDY: CT ABDOMEN AND PELVIS WITH CONTRAST REASON FOR EXAM: Female, 77 years old. Hepatic mass. Colon mass. Hypoxia. RADIATION DOSAGE (If Supplied By Facility): CTDIvol = ( 17.07 ) mGy, DLP = ( 1061.95 ) mGycm TECHNIQUE: Transaxial images were obtained from the dome of the diaphragm to the symphysis pubis with oral contrast. 100 ml of Isovue 300 contrast was administered. Sagittal and coronal images were reconstructed. Individualized dose optimization techniques were used for this CT. COMPARISON: CTA of the chest, February 14, 2018. FINDINGS: There are small residual pleural effusions with subsegmental atelectasis. The visualized portions of the heart are within normal limits. Normal liver. Normal gallbladder and extrahepatic biliary system. Normal spleen. Normal pancreas. Normal bilateral adrenal glands. Normal right kidney. Normal left kidney. Normal visualized stomach. 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 The duodenum is otherwise unremarkable. Normal small intestine. Normal colon. The appendix is visualized and appears normal. Minimal atherosclerotic changes of the abdominal aorta without aneurysm or dissection. Normal inferior vena cava. Normal retroperitoneum. Normal urinary bladder. Normal uterus. There is no adnexal mass. No pelvic lymphadenopathy. No free air or free fluid is seen within the peritoneal cavity. Normal abdominal wall. There are diffuse degenerative changes of the visualized lumbar spine. CT/Abdomen/Pelvis WITH Contrast IMPRESSION: 1. Small bilateral pleural effusions with atelectasis. 2. No evidence of intrahepatic or colonic mass. There is no evidence for acute intra-abdominal or pelvic abnormality. 3. Duodenal diverticulum. 4. Atherosclerotic changes of the abdominal aorta without aneurysm. 5. Degenerative changes of lumbar spine Electronically Signed: Sky Hodge DO at 16:29 EDT Tel [phone], Service support ,
[2018-02-20] MEDS: Nystatin Powder 15gm Bottle 1 APPLIC TOPICAL (13:31)
[2018-02-20] MEDS: Tolterodine Tartrate 2 MG CAP.SA PO (13:31)
[2018-02-20] MEDS: levoFLOXacin 750 MG Tablet PO (13:31)
[2018-02-20] MEDS: Pantoprazole Sodium 40 MG Tablet PO (13:31)
[2018-02-20] MEDS: Metoprolol(XL)Succ 25 MG Tablet PO (13:31)
--- NOTE | 2018-02-20 13:45 | NURSING ---
PO contrast for CT scan began at 1340.
[2018-02-20 14:00] LABS: Bedside Glucose 55 mg/dL (70-110)
[2018-02-20 14:00] LABS: Bedside Glucose 63 mg/dL (70-110)
[2018-02-20 14:16] LABS: Bedside Glucose 119 mg/dL (70-110)
--- NOTE | 2018-02-20 14:52 | CHAPLAIN ---
Type of Pastoral Visit _x__ Initial Visit ___ Follow-up Visit ___ On-call Visit ___ General Patient Visit ___ Spiritual Assessment ___ Family Conference ___ Bereavement ___ Rapid Response ___ Code Blue ___ Other (describe below) Pastoral Care Referral From _x__ Patient ___ Family ___ Nurse ___ Physician ___ Cloth Pattern Maker ___ Cobol Engineer _x__ Other (describe below) Sacrament/Intervention ___ Active listening ___ Anointing ___ Orthodoxy ___ Bereavement ___ Communion ___ Rose exploration ___ ___ Life review ___ Prayer ___ Reconciliation ___ Sacrament of Sick _x__ Supportive presence ___ Wedding ___ Other (describe below) Pastoral Comments patient welcomed this larry operator; hospital volunteer suggested visit to this pt; pt said that she was waiting to find out about her tests and that more were to be conducted; pt said that she was not able to talk long as she had been given meds
--- NOTE | 2018-02-20 15:14 | PCM.DC ---
- Discharge Diagnoses Current Active Problems: Current Active and Chronic Problems Respiratory failure (Acute) Respiratory failure requiring intubation (Acute) Aortic stenosis (Acute) Severe anemia (Acute) You will use the following diet at home:: Cardiac Your food should be the consistency of: Regular Your liquids should be the consistency of: Regular/Thin Discharge Activity: Return to Normal Activity Weight Bearing Status: Weight bearing as tolerated Call your doctor if you observe: Shortness of breath, Increased palpitations (irregular heartbeat) Allergies/Adverse Reactions: Allergies banana [Banana] Allergy (Verified 02/14/18 14:41) Swelling metformin [From Glucophage] Adverse Reaction (Verified 02/14/18 14:41) Swelling of legs Medications to take at Discharge Atorvastatin Calcium [Lipitor] 40 mg PO QHS 07/06/14 Ferrous Gluconate 325 mg PO BID 07/06/14 Lisinopril [Zestril] 10 mg PO DAILY 07/06/14 Acetaminophen [Tylenol Tablet] 650 mg PO Q6H PRN PRN #30 tablet 04/29/16 Amlodipine [Norvasc] 2.5 mg PO DAILY 02/15/18 Cholecalciferol (Vitamin D3) [Vitamin D3] 5,000 unit PO DAILY 02/15/18 Insulin Aspart [Novolog Flexpen] 5 units SC TIDCM 02/15/18 Metoprolol(XL)Succ [Toprol Xl (Beta Ryder)] 25 mg PO DAILY 02/15/18 Triamcinolone 0.1% Cream [Kenalog] 1 applic TOPICAL BID 02/15/18 Oxybutynin Chloride [Ditropan Xl] 5 mg PO DAILY 02/17/18 Insulin Degludec [Tresiba Flextouch U-100] 15 unit SQ DAILY #7 insuln.pen 02/20/18 The following prescriptions were given: Insulin Degludec [Tresiba Flextouch U-100] 15 unit SQ DAILY #7 insuln.pen Primary Care Physician: Yumi Diana MD [Primary Care Provider] - Please follow up with your Primary Care Physician in: one week Test Results: Test results from this visit will be discussed in further detail at your follow-up appointment, if applicable. Please Follow Up With: Warren Harmon MD When: 2-3 weeks Please Follow Up With: Vicky Hendricks MD When: 1-2 weeks Proposed Discharge Date: 02/20/18
--- NOTE | 2018-02-20 15:17 | CASEMGMT ---
Social Work Note SW met with pt to confirm discharge plans. SW introduced self and role at [facility]. Pt is alert and orientated x4. Pt confirms that she lives with her nephew and her nephew is able to assist when needed. Pt states that her nephew works at the [employer] but is able to help pt with ADLS when needed. Pt states that she has a short walk to the bathroom and 1 step out of backdoor which has been no problem for her. Pt states that she was previously independent with ADLS. DME include 2 canes, walker, and wheelchair. Pt states that previously she would complete the housework and hang up clothes to dry and then sit outside with her cats and then her nephew would carry the clothes into the home. Pt denied HHC at this time and denied Private Duty aides. Pt denied additional needs or concerns at this time. Per PT and OT they were unable to see pt today as pt has colonoscopy done today. Per PT notes yesterday pt was able to walk 160ft and OT states that pt was able to walk 75ft with stand by. Pt denied additional needs or concerns at this time. Plan: Pt wishes to discharge home with support from her nephew Alaina Cortes RINK RAT, EDUCATION COUNSELOR
--- NOTE | 2018-02-20 15:23 | DS.PCM_ITS ---
Discharge Date and Diagnosis - Problem List Patient Problems: Active and Suspected Problems Respiratory failure (Acute) Respiratory failure requiring intubation (Acute) Aortic stenosis (Acute) Severe anemia (Acute) Date of Admission: 02/14/18 Date of Discharge: 02/20/18 - Primary Discharge Diagnosis Active and Suspected Problems Respiratory failure (Acute) Respiratory failure requiring intubation (Acute) Aortic stenosis (Acute) Severe anemia (Acute) - Secondary Discharge Diagnosis Chronic Problems History of ischemic stroke without residual deficits (Chronic) Obesity (Chronic) Asthma (Chronic) Dyslipidemia (Chronic) Peripheral arterial occlusive disease (Chronic) Arterial atherosclerosis (Chronic) Diabetes mellitus (Chronic) Left carotid bruit (Chronic) Erythema of lower extremity (Chronic) Edema of left lower extremity (Chronic) Swelling of left lower extremity (Chronic) Scalp laceration (Chronic) Multiple falls (Chronic) HTN (hypertension) (Chronic) Hospital Course and Treatment Imaging Results: 02/20/18 13:11 CT Abd [Abdomen/Pelvis WITH Contrast] [CT] Urgent Diagnostic Data Chest CTA 02/14/18 17:11 IMPRESSION: 1. There is no evidence of pulmonary embolism. 2. There is a mosaic attenuation pattern of the lungs predominantly involving the upper lobes and right lower lobe. 3. There is atelectasis with air bronchograms of the left and right upper and lower lobes. 4. There are bronchiectatic changes of the lower lobes also. 5. There are small bilateral pleural effusions right side larger than left. 6. An endotracheal tube is present with the tip 7 mm proximal to the shawn. Retraction of several centimeters of such is recommended for optimal placement. 7. There are diffuse degenerative changes of the visualized thoracolumbar spine. Electronically Signed: Onle Lester MD at 18:09 EDT , Service support , Chest X-Ray 02/15/18 06:48 IMPRESSION: Findings suggestive of a mild degree of CHF with bibasilar atelectasis. There has been progression as compared to prior study. Electronically Signed: Sage Jaramillo MD at 11:26 EDT Tel [phone], Service support , Laboratory Tests 02/14/18 02/14/18 02/14/18 14:45 14:45 14:45 WBC 11.5 H RBC 3.14 L Hgb 8.7 L Hct 28.7 L MCV 91.4 MCH 27.7 MCHC 30.3 L RDW 15.1 H RDW Differential 50.5 H Plt Count 353 MPV 9.3 Immature Gran % (Auto) 0.300 Neut % (Auto) 64.2 Lymph % (Auto) 27.1 Stewart % (Auto) 6.3 Eos % (Auto) 1.8 Baso % (Auto) 0.3 Absolute Neuts (auto) 7.4 Absolute Lymphs (auto) 3.12 Total Counted Not Reportable PT INR APTT Specimen Type Sample Site pH Bicarbonate Actual POC Total CO2 Base Excess O2 Saturation O2 % ABG pCO2 ABG pO2 John Test Respiration Rate O2 Delivery Device Vent Mode Tidal Volume POC PEEP POC Pressure Suppt Blood Gas Notified Whom Blood Gas Notified Time Sodium 132 L Potassium 4.9 Chloride 99 Carbon Dioxide 29.0 Anion Gap 4 L BUN 23 H Creatinine 1.10 H Estim Creat Clear Calc 36.98 Est GFR (MDRD) Af Amer 62 Est GFR (MDRD) Non-Af 51 L BUN/Creatinine Ratio 20.9 H Glucose 246 H Hemoglobin A1c Lactic Acid Calcium 8.6 Iron TIBC Iron Saturation Ferritin Troponin I < 0.015 B-Natriuretic Peptide 278.8 H MRSA (PCR) POC Glucose Blood Type Antibody Screen Crossmatch 02/14/18 02/14/18 02/14/18 14:45 15:04 15:28 WBC RBC Hgb Hct MCV MCH MCHC RDW RDW Differential Plt Count MPV Immature Gran % (Auto) Neut % (Auto) Lymph % (Auto) Stewart % (Auto) Eos % (Auto) Baso % (Auto) Absolute Neuts (auto) Absolute Lymphs (auto) Total Counted PT INR APTT Specimen Type ART Sample Site R Radial pH 7.25 L Bicarbonate Actual 26.3 H POC Total CO2 28 Base Excess -1 O2 Saturation 99 O2 % 50 ABG pCO2 60.3 H ABG pO2 147 H John Test POS Respiration Rate 12 O2 Delivery Device Vent Vent Mode A-C Tidal Volume 450 POC PEEP 5 POC Pressure Suppt Blood Gas Notified Whom ED MD Blood Gas Notified Time 1520 Sodium Potassium Chloride Carbon Dioxide Anion Gap BUN Creatinine Estim Creat Clear Calc Est GFR (MDRD) Af Amer Est GFR (MDRD) Non-Af BUN/Creatinine Ratio Glucose Hemoglobin A1c Lactic Acid 1.6 Calcium Iron TIBC Iron Saturation Ferritin Troponin I B-Natriuretic Peptide MRSA (PCR) POC Glucose 276 H Blood Type Antibody Screen Crossmatch 02/14/18 02/14/18 02/14/18 17:50 18:39 23:40 WBC RBC Hgb Hct MCV MCH MCHC RDW RDW Differential Plt Count MPV Immature Gran % (Auto) Neut % (Auto) Lymph % (Auto) Stewart % (Auto) Eos % (Auto) Baso % (Auto) Absolute Neuts (auto) Absolute Lymphs (auto) Total Counted PT INR APTT Specimen Type Sample Site pH Bicarbonate Actual POC Total CO2 Base Excess O2 Saturation O2 % ABG pCO2 ABG pO2 John Test Respiration Rate O2 Delivery Device Vent Mode Tidal Volume POC PEEP POC Pressure Suppt Blood Gas Notified Whom Blood Gas Notified Time Sodium Potassium Chloride Carbon Dioxide Anion Gap BUN Creatinine Estim Creat Clear Calc Est GFR (MDRD) Af Amer Est GFR (MDRD) Non-Af BUN/Creatinine Ratio Glucose Hemoglobin A1c Lactic Acid Calcium Iron TIBC Iron Saturation Ferritin Troponin I B-Natriuretic Peptide MRSA (PCR) Negative POC Glucose 154 H 114 H Blood Type Antibody Screen Crossmatch 02/15/18 02/15/18 02/15/18 05:15 05:15 05:15 WBC 8.4 RBC 2.44 L Hgb 6.9 L Hct 21.9 L MCV 89.8 MCH 28.3 MCHC 31.5 L RDW 14.4 RDW Differential 45.5 H Plt Count 257 MPV 8.6 Immature Gran % (Auto) Neut % (Auto) Lymph % (Auto) Stewart % (Auto) Eos % (Auto) Baso % (Auto) Absolute Neuts (auto) Absolute Lymphs (auto) Total Counted PT INR APTT Specimen Type Sample Site pH Bicarbonate Actual POC Total CO2 Base Excess O2 Saturation O2 % ABG pCO2 ABG pO2 John Test Respiration Rate O2 Delivery Device Vent Mode Tidal Volume POC PEEP POC Pressure Suppt Blood Gas Notified Whom Blood Gas Notified Time Sodium 138 Potassium 4.2 Chloride 100 Carbon Dioxide 30.0 Anion Gap 8 BUN 24 H Creatinine 1.09 H Estim Creat Clear Calc 37.32 Est GFR (MDRD) Af Amer 63 Est GFR (MDRD) Non-Af 52 L BUN/Creatinine Ratio 22.0 H Glucose 97 Hemoglobin A1c Lactic Acid Calcium 8.0 L Iron 21 L TIBC 217 L Iron Saturation 9.7 L Ferritin 45 Troponin I B-Natriuretic Peptide MRSA (PCR) POC Glucose Blood Type Antibody Screen Crossmatch 02/15/18 02/15/18 02/15/18 07:05 07:05 07:05 WBC RBC Hgb 7.8 L Hct 24.8 L MCV MCH MCHC RDW RDW Differential Plt Count MPV Immature Gran % (Auto) Neut % (Auto) Lymph % (Auto) Stewart % (Auto) Eos % (Auto) Baso % (Auto) Absolute Neuts (auto) Absolute Lymphs (auto) Total Counted PT INR APTT Specimen Type Sample Site pH Bicarbonate Actual POC Total CO2 Base Excess O2 Saturation O2 % ABG pCO2 ABG pO2 John Test Respiration Rate O2 Delivery Device Vent Mode Tidal Volume POC PEEP POC Pressure Suppt Blood Gas Notified Whom Blood Gas Notified Time Sodium Potassium Chloride Carbon Dioxide Anion Gap BUN Creatinine Estim Creat Clear Calc Est GFR (MDRD) Af Amer Est GFR (MDRD) Non-Af BUN/Creatinine Ratio Glucose Hemoglobin A1c Lactic Acid Calcium Iron TIBC Iron Saturation Ferritin Troponin I B-Natriuretic Peptide MRSA (PCR) POC Glucose Blood Type O POSITIVE Antibody Screen NEGATIVE Crossmatch See Detail 02/15/18 02/15/18 02/15/18 08:56 11:13 16:36 WBC RBC Hgb Hct MCV MCH MCHC RDW RDW Differential Plt Count MPV Immature Gran % (Auto) Neut % (Auto) Lymph % (Auto) Stewart % (Auto) Eos % (Auto) Baso % (Auto) Absolute Neuts (auto) Absolute Lymphs (auto) Total Counted PT INR APTT Specimen Type ART Sample Site R Radial pH 7.44 Bicarbonate Actual 26.8 H POC Total CO2 28 Base Excess 3 H O2 Saturation 96 O2 % 30 ABG pCO2 39.2 ABG pO2 81 John Test POS Respiration Rate O2 Delivery Device Vent Vent Mode CPAP PS Tidal Volume POC PEEP 5 POC Pressure Suppt 5 Blood Gas Notified Whom ICU MD Blood Gas Notified Time 855 Sodium Potassium Chloride Carbon Dioxide Anion Gap BUN Creatinine Estim Creat Clear Calc Est GFR (MDRD) Af Amer Est GFR (MDRD) Non-Af BUN/Creatinine Ratio Glucose Hemoglobin A1c Lactic Acid Calcium Iron TIBC Iron Saturation Ferritin Troponin I B-Natriuretic Peptide MRSA (PCR) POC Glucose 157 H 178 H Blood Type Antibody Screen Crossmatch 02/15/18 02/16/18 02/16/18 20:51 05:15 08:38 WBC 6.7 RBC 2.53 L Hgb 7.1 L Hct 22.8 L MCV 90.1 MCH 28.1 MCHC 31.1 L RDW 14.9 H RDW Differential 47.9 H Plt Count 262 MPV 9.0 Immature Gran % (Auto) 0.200 Neut % (Auto) 51.7 Lymph % (Auto) 33.6 Stewart % (Auto) 8.9 Eos % (Auto) 4.8 Baso % (Auto) 0.8 Absolute Neuts (auto) 3.5 Absolute Lymphs (auto) 2.24 Total Counted Not Reportable PT INR APTT Specimen Type Sample Site pH Bicarbonate Actual POC Total CO2 Base Excess O2 Saturation O2 % ABG pCO2 ABG pO2 John Test Respiration Rate O2 Delivery Device Vent Mode Tidal Volume POC PEEP POC Pressure Suppt Blood Gas Notified Whom Blood Gas Notified Time Sodium Potassium Chloride Carbon Dioxide Anion Gap BUN Creatinine Estim Creat Clear Calc Est GFR (MDRD) Af Amer Est GFR (MDRD) Non-Af BUN/Creatinine Ratio Glucose Hemoglobin A1c Lactic Acid Calcium Iron TIBC Iron Saturation Ferritin Troponin I B-Natriuretic Peptide MRSA (PCR) POC Glucose 148 H 120 H Blood Type Antibody Screen Crossmatch 02/16/18 02/16/18 02/16/18 11:40 13:50 17:11 WBC RBC Hgb 8.8 L Hct 27.9 L MCV MCH MCHC RDW RDW Differential Plt Count MPV Immature Gran % (Auto) Neut % (Auto) Lymph % (Auto) Stewart % (Auto) Eos % (Auto) Baso % (Auto) Absolute Neuts (auto) Absolute Lymphs (auto) Total Counted PT INR APTT Specimen Type Sample Site pH Bicarbonate Actual POC Total CO2 Base Excess O2 Saturation O2 % ABG pCO2 ABG pO2 John Test Respiration Rate O2 Delivery Device Vent Mode Tidal Volume POC PEEP POC Pressure Suppt Blood Gas Notified Whom Blood Gas Notified Time Sodium Potassium Chloride Carbon Dioxide Anion Gap BUN Creatinine Estim Creat Clear Calc Est GFR (MDRD) Af Amer Est GFR (MDRD) Non-Af BUN/Creatinine Ratio Glucose Hemoglobin A1c Lactic Acid Calcium Iron TIBC Iron Saturation Ferritin Troponin I B-Natriuretic Peptide MRSA (PCR) POC Glucose 191 H 109 Blood Type Antibody Screen Crossmatch 02/16/18 02/17/18 02/17/18 20:58 04:00 04:00 WBC 9.1 RBC 2.82 L Hgb 8.1 L Hct 25.2 L MCV 89.4 MCH 28.7 MCHC 32.1 RDW 14.6 RDW Differential 46.5 H Plt Count 265 MPV 8.7 Immature Gran % (Auto) 0.300 Neut % (Auto) 71.1 H Lymph % (Auto) 18.0 L Stewart % (Auto) 7.7 Eos % (Auto) 2.5 Baso % (Auto) 0.4 Absolute Neuts (auto) 6.4 Absolute Lymphs (auto) 1.63 Total Counted Not Reportable PT INR APTT Specimen Type Sample Site pH Bicarbonate Actual POC Total CO2 Base Excess O2 Saturation O2 % ABG pCO2 ABG pO2 John Test Respiration Rate O2 Delivery Device Vent Mode Tidal Volume POC PEEP POC Pressure Suppt Blood Gas Notified Whom Blood Gas Notified Time Sodium 135 L Potassium 4.5 Chloride 99 Carbon Dioxide 28.0 Anion Gap 8 BUN 26 H Creatinine 1.05 H Estim Creat Clear Calc 38.75 Est GFR (MDRD) Af Amer 65 Est GFR (MDRD) Non-Af 54 L BUN/Creatinine Ratio 24.8 H Glucose 107 H Hemoglobin A1c Lactic Acid Calcium 8.4 L Iron TIBC Iron Saturation Ferritin Troponin I B-Natriuretic Peptide MRSA (PCR) POC Glucose 114 H Blood Type Antibody Screen Crossmatch 02/17/18 02/17/18 02/17/18 06:45 07:50 11:03 WBC RBC Hgb Hct MCV MCH MCHC RDW RDW Differential Plt Count MPV Immature Gran % (Auto) Neut % (Auto) Lymph % (Auto) Stewart % (Auto) Eos % (Auto) Baso % (Auto) Absolute Neuts (auto) Absolute Lymphs (auto) Total Counted PT INR APTT Specimen Type Sample Site pH Bicarbonate Actual POC Total CO2 Base Excess O2 Saturation O2 % ABG pCO2 ABG pO2 John Test Respiration Rate O2 Delivery Device Vent Mode Tidal Volume POC PEEP POC Pressure Suppt Blood Gas Notified Whom Blood Gas Notified Time Sodium Potassium Chloride Carbon Dioxide Anion Gap BUN Creatinine Estim Creat Clear Calc Est GFR (MDRD) Af Amer Est GFR (MDRD) Non-Af BUN/Creatinine Ratio Glucose Hemoglobin A1c Lactic Acid Calcium Iron TIBC Iron Saturation Ferritin Troponin I B-Natriuretic Peptide MRSA (PCR) POC Glucose 106 106 170 H Blood Type Antibody Screen Crossmatch 02/17/18 02/17/18 02/17/18 12:50 16:07 21:54 WBC RBC Hgb 9.1 L Hct 28.6 L MCV MCH MCHC RDW RDW Differential Plt Count MPV Immature Gran % (Auto) Neut % (Auto) Lymph % (Auto) Stewart % (Auto) Eos % (Auto) Baso % (Auto) Absolute Neuts (auto) Absolute Lymphs (auto) Total Counted PT INR APTT Specimen Type Sample Site pH Bicarbonate Actual POC Total CO2 Base Excess O2 Saturation O2 % ABG pCO2 ABG pO2 John Test Respiration Rate O2 Delivery Device Vent Mode Tidal Volume POC PEEP POC Pressure Suppt Blood Gas Notified Whom Blood Gas Notified Time Sodium Potassium Chloride Carbon Dioxide Anion Gap BUN Creatinine Estim Creat Clear Calc Est GFR (MDRD) Af Amer Est GFR (MDRD) Non-Af BUN/Creatinine Ratio Glucose Hemoglobin A1c Lactic Acid Calcium Iron TIBC Iron Saturation Ferritin Troponin I B-Natriuretic Peptide MRSA (PCR) POC Glucose 72 122 H Blood Type Antibody Screen Crossmatch 02/18/18 02/18/18 02/18/18 06:49 07:44 11:03 WBC 8.8 RBC 3.20 L Hgb 9.1 L Hct 28.9 L MCV 90.3 MCH 28.4 MCHC 31.5 L RDW 14.9 H RDW Differential 47.7 H Plt Count 311 MPV 9.2 Immature Gran % (Auto) Neut % (Auto) Lymph % (Auto) Stewart % (Auto) Eos % (Auto) Baso % (Auto) Absolute Neuts (auto) Absolute Lymphs (auto) Total Counted PT INR APTT Specimen Type Sample Site pH Bicarbonate Actual POC Total CO2 Base Excess O2 Saturation O2 % ABG pCO2 ABG pO2 John Test Respiration Rate O2 Delivery Device Vent Mode Tidal Volume POC PEEP POC Pressure Suppt Blood Gas Notified Whom Blood Gas Notified Time Sodium Potassium Chloride Carbon Dioxide Anion Gap BUN Creatinine Estim Creat Clear Calc Est GFR (MDRD) Af Amer Est GFR (MDRD) Non-Af BUN/Creatinine Ratio Glucose Hemoglobin A1c Lactic Acid Calcium Iron TIBC Iron Saturation Ferritin Troponin I B-Natriuretic Peptide MRSA (PCR) POC Glucose 87 135 H Blood Type Antibody Screen Crossmatch 02/18/18 02/18/18 02/19/18 16:10 21:58 07:05 WBC RBC Hgb Hct MCV MCH MCHC RDW RDW Differential Plt Count MPV Immature Gran % (Auto) Neut % (Auto) Lymph % (Auto) Stewart % (Auto) Eos % (Auto) Baso % (Auto) Absolute Neuts (auto) Absolute Lymphs (auto) Total Counted PT INR APTT Specimen Type Sample Site pH Bicarbonate Actual POC Total CO2 Base Excess O2 Saturation O2 % ABG pCO2 ABG pO2 John Test Respiration Rate O2 Delivery Device Vent Mode Tidal Volume POC PEEP POC Pressure Suppt Blood Gas Notified Whom Blood Gas Notified Time Sodium Potassium Chloride Carbon Dioxide Anion Gap BUN Creatinine Estim Creat Clear Calc Est GFR (MDRD) Af Amer Est GFR (MDRD) Non-Af BUN/Creatinine Ratio Glucose Hemoglobin A1c Lactic Acid Calcium Iron TIBC Iron Saturation Ferritin Troponin I B-Natriuretic Peptide MRSA (PCR) POC Glucose 97 155 H 70 Blood Type Antibody Screen Crossmatch 02/19/18 02/19/18 02/19/18 10:15 10:15 10:49 WBC 7.0 RBC 2.90 L Hgb 8.1 L Hct 25.9 L MCV 89.3 MCH 27.9 MCHC 31.3 L RDW 15.2 H RDW Differential 49.5 H Plt Count 275 MPV 8.1 Immature Gran % (Auto) 0.000 Neut % (Auto) 70.9 H Lymph % (Auto) 18.8 L Stewart % (Auto) 6.9 Eos % (Auto) 3.0 Baso % (Auto) 0.4 Absolute Neuts (auto) 4.9 Absolute Lymphs (auto) 1.31 Total Counted Not Reportable PT INR APTT Specimen Type Sample Site pH Bicarbonate Actual POC Total CO2 Base Excess O2 Saturation O2 % ABG pCO2 ABG pO2 John Test Respiration Rate O2 Delivery Device Vent Mode Tidal Volume POC PEEP POC Pressure Suppt Blood Gas Notified Whom Blood Gas Notified Time Sodium 136 Potassium 4.3 Chloride 99 Carbon Dioxide 28.0 Anion Gap 9 BUN 21 H Creatinine 0.91 Estim Creat Clear Calc 44.71 Est GFR (MDRD) Af Amer 77 Est GFR (MDRD) Non-Af 63 BUN/Creatinine Ratio 23.0 H Glucose 96 Hemoglobin A1c Lactic Acid Calcium 8.6 Iron TIBC Iron Saturation Ferritin Troponin I B-Natriuretic Peptide MRSA (PCR) POC Glucose 93 Blood Type Antibody Screen Crossmatch 02/19/18 02/19/18 02/19/18 16:51 17:37 18:35 WBC RBC Hgb Hct MCV MCH MCHC RDW RDW Differential Plt Count MPV Immature Gran % (Auto) Neut % (Auto) Lymph % (Auto) Stewart % (Auto) Eos % (Auto) Baso % (Auto) Absolute Neuts (auto) Absolute Lymphs (auto) Total Counted PT INR APTT Specimen Type Sample Site pH Bicarbonate Actual POC Total CO2 Base Excess O2 Saturation O2 % ABG pCO2 ABG pO2 John Test Respiration Rate O2 Delivery Device Vent Mode Tidal Volume POC PEEP POC Pressure Suppt Blood Gas Notified Whom Blood Gas Notified Time Sodium Potassium Chloride Carbon Dioxide Anion Gap BUN Creatinine Estim Creat Clear Calc Est GFR (MDRD) Af Amer Est GFR (MDRD) Non-Af BUN/Creatinine Ratio Glucose Hemoglobin A1c Lactic Acid Calcium Iron TIBC Iron Saturation Ferritin Troponin I B-Natriuretic Peptide MRSA (PCR) POC Glucose 61 L 58 L 126 H Blood Type Antibody Screen Crossmatch 02/19/18 02/20/18 02/20/18 21:47 05:05 05:05 WBC 6.4 RBC 2.71 L Hgb 7.6 L Hct 24.1 L MCV 88.9 MCH 28.0 MCHC 31.5 L RDW 15.1 H RDW Differential 49.0 H Plt Count 259 MPV 8.2 Immature Gran % (Auto) 0.200 Neut % (Auto) 61.9 Lymph % (Auto) 25.4 Stewart % (Auto) 6.4 Eos % (Auto) 5.6 H Baso % (Auto) 0.5 Absolute Neuts (auto) 4.0 Absolute Lymphs (auto) 1.62 Total Counted Not Reportable PT INR APTT Specimen Type Sample Site pH Bicarbonate Actual POC Total CO2 Base Excess O2 Saturation O2 % ABG pCO2 ABG pO2 John Test Respiration Rate O2 Delivery Device Vent Mode Tidal Volume POC PEEP POC Pressure Suppt Blood Gas Notified Whom Blood Gas Notified Time Sodium 136 Potassium 4.2 Chloride 100 Carbon Dioxide 29.0 Anion Gap 7 BUN 17 Creatinine 0.80 Estim Creat Clear Calc 50.85 Est GFR (MDRD) Af Amer 90 Est GFR (MDRD) Non-Af 74 BUN/Creatinine Ratio 21.3 H Glucose 58 L Hemoglobin A1c Lactic Acid Calcium 8.5 Iron TIBC Iron Saturation Ferritin Troponin I B-Natriuretic Peptide MRSA (PCR) POC Glucose 71 Blood Type Antibody Screen Crossmatch 02/20/18 02/20/18 02/20/18 05:05 05:05 05:47 WBC RBC Hgb Hct MCV MCH MCHC RDW RDW Differential Plt Count MPV Immature Gran % (Auto) Neut % (Auto) Lymph % (Auto) Stewart % (Auto) Eos % (Auto) Baso % (Auto) Absolute Neuts (auto) Absolute Lymphs (auto) Total Counted PT 14.8 INR 1.2 APTT 30.9 Specimen Type Sample Site pH Bicarbonate Actual POC Total CO2 Base Excess O2 Saturation O2 % ABG pCO2 ABG pO2 John Test Respiration Rate O2 Delivery Device Vent Mode Tidal Volume POC PEEP POC Pressure Suppt Blood Gas Notified Whom Blood Gas Notified Time Sodium Potassium Chloride Carbon Dioxide Anion Gap BUN Creatinine Estim Creat Clear Calc Est GFR (MDRD) Af Amer Est GFR (MDRD) Non-Af BUN/Creatinine Ratio Glucose Hemoglobin A1c 6.6 H Lactic Acid Calcium Iron TIBC Iron Saturation Ferritin Troponin I B-Natriuretic Peptide MRSA (PCR) POC Glucose 61 L Blood Type Antibody Screen Crossmatch 02/20/18 02/20/18 02/20/18 06:27 08:16 13:27 WBC RBC Hgb Hct MCV MCH MCHC RDW RDW Differential Plt Count MPV Immature Gran % (Auto) Neut % (Auto) Lymph % (Auto) Stewart % (Auto) Eos % (Auto) Baso % (Auto) Absolute Neuts (auto) Absolute Lymphs (auto) Total Counted PT INR APTT Specimen Type Sample Site pH Bicarbonate Actual POC Total CO2 Base Excess O2 Saturation O2 % ABG pCO2 ABG pO2 John Test Respiration Rate O2 Delivery Device Vent Mode Tidal Volume POC PEEP POC Pressure Suppt Blood Gas Notified Whom Blood Gas Notified Time Sodium Potassium Chloride Carbon Dioxide Anion Gap BUN Creatinine Estim Creat Clear Calc Est GFR (MDRD) Af Amer Est GFR (MDRD) Non-Af BUN/Creatinine Ratio Glucose Hemoglobin A1c Lactic Acid Calcium Iron TIBC Iron Saturation Ferritin Troponin I B-Natriuretic Peptide MRSA (PCR) POC Glucose 94 63 L Blood Type O POSITIVE Antibody Screen NEGATIVE Crossmatch See Detail 02/20/18 02/20/18 13:50 14:12 WBC RBC Hgb Hct MCV MCH MCHC RDW RDW Differential Plt Count MPV Immature Gran % (Auto) Neut % (Auto) Lymph % (Auto) Stewart % (Auto) Eos % (Auto) Baso % (Auto) Absolute Neuts (auto) Absolute Lymphs (auto) Total Counted PT INR APTT Specimen Type Sample Site pH Bicarbonate Actual POC Total CO2 Base Excess O2 Saturation O2 % ABG pCO2 ABG pO2 John Test Respiration Rate O2 Delivery Device Vent Mode Tidal Volume POC PEEP POC Pressure Suppt Blood Gas Notified Whom Blood Gas Notified Time Sodium Potassium Chloride Carbon Dioxide Anion Gap BUN Creatinine Estim Creat Clear Calc Est GFR (MDRD) Af Amer Est GFR (MDRD) Non-Af BUN/Creatinine Ratio Glucose Hemoglobin A1c Lactic Acid Calcium Iron TIBC Iron Saturation Ferritin Troponin I B-Natriuretic Peptide MRSA (PCR) POC Glucose 55 L 119 H Blood Type Antibody Screen Crossmatch Operations: None Procedures: Central line placement, Colonoscopy, EGD Summary of Care Provided: The patient is a 77 year old F with a history of aortic stenosis, previous ischemic stroke without residual deficits, diabetes mellitus, hypertension and dyslipidemia. She was admitted by the ED on 02/14/2018 with a complaint of shortness of breath. Patient was apparently sitting on her porch we do not cause a 1 by when she started experiencing acute onset shortness of breath and had to stop it passerby called the squad for her. She was brought to the ED where she was put on nonrebreather mask was initially saturating at 100% but could not tolerate it and kept pulling off the mask. She was intubated and managed for acute respiratory failure, at that time cause was unknown. BNP was 278, lactic acid of 1.6 and sodium of 132 and chest x-ray done after intubation showed increased interstitial markings in the right lung which could possibly represent pneumonic infiltration, was also increased markings of the left lung base and mild cardiac enlargement. She was acidotic with pH of 7.25 and PCO2 of 60.3 as well as PO2 of 147; this was done after patient was intubated. Patient was admitted and managed for hypercapnic and hypoxic respiratory failure , likely due to CHF exacerbation and pneumonia. CT of the chest done was negative for any PE. Started on IV ceftriaxone and azithromycin. 2D echo done showed moderate concentric left ventricular hypertrophy with estimated EF of 65 % in stage II diastolic dysfunction. She had severe aortic stenosis with peak aortic valve gradient of 97 mmHg and mean aortic valve gradient of 49 mmHg. Calculated aortic valve area was 0.65 cm? with RVSP of 43 mmHg. Cardiology was consulted. Patient was also noted to be severely anemic with worsening anemia. Hemoglobin fell to 7.1 and iron panel showed iron deficiency anemia. General surgery was consulted for colonoscopy and EGD. Patient was transfused a total of 3 units of blood. EGD shows small hiatal hernia with gastritis in the gastric antrum which was biopsied. Colonoscopy showed 1-2 cm hard mass in the hepatic flexure with no sign of active bleeding from this mass. Multiple biopsies were taken from this area though the forceps to slight ability to hard consistency. Also had a cecal polyp which was removed. Patient remained stable. CT abdomen with pelvis with p.o. and IV contrast were done prior to discharge. Plan per discussion with general surgery and industrial tractor driver to discharge patient home today on all iron supplements. She is to follow-up with her PCP, her industrial tractor driver and general surgeon. [] Discharge Diet: 4000 mg Sodium Diet Discharge Activity: Return to Normal Activity Weight Bearing Status: Weight bearing as tolerated Call your doctor if you observe: Shortness of breath, Increased palpitations ( irregular heartbeat) Home Medications: Medications to take at Discharge Atorvastatin Calcium [Lipitor] 40 mg PO QHS 07/06/14 Ferrous Gluconate 325 mg PO BID 07/06/14 Lisinopril [Zestril] 10 mg PO DAILY 07/06/14 Acetaminophen [Tylenol Tablet] 650 mg PO Q6H PRN PRN #30 tablet 04/29/16 Amlodipine [Norvasc] 2.5 mg PO DAILY 02/15/18 Cholecalciferol (Vitamin D3) [Vitamin D3] 5,000 unit PO DAILY 02/15/18 Insulin Aspart [Novolog Flexpen] 5 units SC TIDCM 02/15/18 Metoprolol(XL)Succ [Toprol Xl (Beta Ryder)] 25 mg PO DAILY 02/15/18 Triamcinolone 0.1% Cream [Kenalog] 1 applic TOPICAL BID 02/15/18 Oxybutynin Chloride [Ditropan Xl] 5 mg PO DAILY 02/17/18 Insulin Degludec [Tresiba Flextouch U-100] 15 unit SQ DAILY #7 [email or web address] Following Prescrptions Were Given to Patient: Insulin Degludec [Tresiba Flextouch U-100] 15 unit SQ DAILY #7 [email or web address] Primary Care Physician: Yumi Diana MD [Primary Care Provider] - Please follow up with your Primary Care Physician in: one week Please Follow Up With: Warren Harmon MD When: 2-3 weeks Please Follow Up With: Vicky Hendricks MD When: 1-2 weeks Medical Necessity - Tobacco Use Smoking Status: Unknown if ever smoked Meaningful Use Info Meaningful Use Diagnoses (Choose all that apply): CHF - CHF EKEGAN/ARB ordered at discharge?: Yes Documented LVEF (%): 65 Code Visit Inpatient E&M: 67805 Disch Hosp
[2018-02-20 17:16] LABS: Bedside Glucose 94 mg/dL (70-110)
--- NOTE | 2018-02-21 16:11 | CASEMGMT ---
AMILCAR CAGE Discharge F/U Phone Call LACE: 12 Strata: 4 Discharge date: 02/20/18 Call date: 02/21/18 Call time: 1613 Attempted to reach pt without success at this time, unable to leave message. SStaten RN CM Admission dx: Resp failure
== END 2018-02-20 19:19 | disposition home or self-care (01) | DRG 208 ==
LOC: ED 15:40 → ICU 16:22 → PCU 02-17 09:23
PROVIDERS: Internal Medicine Critical Care Medicine; Surgery; Admitting Provider Student in an Organized Health Care Education/Training Program; Emergency Provider Emergency Medicine; Family Provider Internal Medicine; PCP Internal Medicine; Visit Provider Student in an Organized Health Care Education/Training Program
PROC: 0DJD8ZZ Inspection of Lower Intestinal Tract, Via Natural or Artificial Opening Endoscopic (ICD-10-PCS; CPT 45378; principal; 2018-02-20 11:25)
DX: J96.01 Acute respiratory failure with hypoxia (principal); J18.9 Pneumonia, unspecified organism; I50.30 Unspecified diastolic (congestive) heart failure; E87.1 Hypo-osmolality and hyponatremia; J96.02 Acute respiratory failure with hypercapnia; E78.5 Hyperlipidemia, unspecified; I11.0 Hypertensive heart disease with heart failure; E11.51 Type 2 diabetes mellitus with diabetic peripheral angiopathy without gangrene; I35.0 Nonrheumatic aortic (valve) stenosis; K29.50 Unspecified chronic gastritis without bleeding; K44.9 Diaphragmatic hernia without obstruction or gangrene; D50.9 Iron deficiency anemia, unspecified; R19.09 Other intra-abdominal and pelvic swelling, mass and lump; K63.5 Polyp of colon; I95.9 Hypotension, unspecified
CPT/HCPCS: 31500; 31720; 36415; 36556; 36600; 51702; 71045; 71275; 74177; 80048; 82274; 82728; 82803; 82962; 83036; 83540; 83550; 83605; 83880; 84484; 85014; 85018; 85025; 85027; 85610; 85730; 86644; 86850; 86900; 86920; 86922; 87040; 87070; 87205; 87449; 87641; 88305; 88341; 88342; 93005; 93306; 94002; 94003; 94640; 94660; 95831; 97110; 97116; 97162; 97165; 97530; 97535; 97802; 99251; 99285; P9016; P9040; Q9957; Q9967; A4216; C1751; G0463; J1940

== ENCOUNTER → 2018-03-23 08:14 | Outpatient (CLI) | payer MEDICARE, SELFPAY ==
[2018-03-23 09:11] LABS: Absolute Lymphocyte Count 1.55 X10^3/ul (0.83-4.51); Absolute Neutrophil Count 6.5 X10^3/uL (2.0-7.7); Basophil# 0.03 X10^3/uL; Basophil% 0.3 % (0-1); Eosinophils% 2.3 % (0-5); Hematocrit 24.1 % (37-47); Hemoglobin 7.5 g/dl (12.0-15.0); Lymphocyte # 1.55 X10^3/ul (4.0); Lymphocyte % 17.8 % (19-41); Mean Corp Hgb Conc 31.1 g/gl (32-36); Mean Corpuscular Hgb 28.7 pg (27.0-32.0); Mean Corpuscular Volume 92.3 fL (81-99); Mean Platelet Vol. 8.9 fl (6.2-12.0); Monocyte# 0.39 X10^3/uL; Monocyte% 4.5 % (0-10); Neutrophil % 74.8 % (47-70); Platelet Count 293 K/mm3 (150-450); RBC Distribution Width CV 15.8 % (11.6-14.6); RBC Distribution Width SD 51.5 fl (35.1-43.9); Red Blood Count 2.61 M/mm3 (4.2-5.4); White Blood Count 8.7 K/mm3 (4.4-11.0)
[2018-03-23 09:13] LABS: POSITIVE COUNT NO; POSITIVE DIFFERENTIAL NO; POSITIVE MORPHOLOGY NO
[2018-03-23 09:43] LABS: Anion Gap 11 (5-15); BUN 38 mg/dL (7-18); BUN/Creat Ratio 33.6 RATIO (10-20); Calcium,Total 8.8 mg/dL (8.5-10.1); Chloride 100 mmol/L (98-107); Creatinine, Serum 1.13 mg/dL (0.55-1.02); EST Glomerular Filtration Rate 50 mL/min (>60); Est Glom Filt Rate - Afr Amer 60 mL/min (>60); Glucose 166 mg/dL (74-106); Sodium Level 134 mmol/L (136-145)
== END ==
PROVIDERS: Family Provider Internal Medicine; PCP Internal Medicine; Visit Provider Nurse Practitioner Family
DX: I35.0 Nonrheumatic aortic (valve) stenosis (principal); D64.9 Anemia, unspecified; I10 Essential (primary) hypertension
CPT/HCPCS: 36415; 80048; 85025

== ENCOUNTER 2018-03-24 09:40 | Outpatient (CLI) | payer MEDICARE, SELFPAY ==
[2018-03-24 14:47] VITALS: BP 129/54; PULSE 79; RESP 18; TEMP 36.8; O2SAT 100
[2018-03-24 15:02] VITALS: BP 141/53; PULSE 78; RESP 18; TEMP 36.4; O2SAT 100
[2018-03-24 16:00] VITALS: BP 146/108; PULSE 93; RESP 28; TEMP 36.8; O2SAT 97
[2018-03-24 16:25] VITALS: PULSE 112; RESP 12; RESP 40; O2SAT 100
--- NOTE | 2018-03-24 17:09 | NURSING ---
NOTIFIED NEPHEW ISAEL PHILLIPS ([phone]) AND BROTHER IN LAW JANICE ARREDONDO ([phone]) OF PT TRANSFER TO ED.
--- NOTE | 2018-03-24 17:25 | NURSING ---
PT RECEIVED TO UNIT WITH O2 IN PLACE AT 4L/MIN VIA NC D/T SOB DURING WU- PER REPORT. LS-CTA. PT DENIES SOB AND SPO2 IN UPPER 90'S%. O2 DECREASED TO 2L NC. BLOOD TRANSFUSION STARTED- TOLERATED FIRST 15MIN AT 15ML/HR WELL. PT DENIES HX OF PROBLEM W/BLOOD TRANSFUSION AND HX OF CHF. TRANSFUSION RATE INCREASED TO 150ML/HR. UPON 1HR RECHECK PT NOTED TO BE SITTING ON SIDE OF BED C/O SOB, AUDIBLE WHEEZES NOTED, LS-DIMINISHED W/WHEEZES, RESP DISTRESS NOTED. JUNCTION MAKER CALLED. PT TRANSPORTED TO ED ON BIPAP.
[2018-03-24 17:40] LABS: Bedside Glucose 118 mg/dL (70-110)
--- NOTE | 2018-03-24 18:18 | NURSING ---
Addendum entered by Dalila Aggarwal 03/24/18 18:45: correction = ns bag was 500cc, not 1000cc. Original Note: late entry for 1330- RN from [facility] [employer] called unit and stated that patient would be on her way within next 30 minutes for clinical infusion of 2 units of PRBC. Notified that patient had been in stress lab for WU and then was transported to [facility] where she was waiting to be transferred to [facility] for infusion. Notified that hbg was 7.5 and that pt. did have some valvular issues. Patient arrived and ns was running and did not have pump or dial-a-flow. Half of 1000cc bag was empty. This was clamped upon arrival to unit and blood tubing was prepared and hung once blood arrived. Patient had 2 medical record number and this RN called Parviz in blood bank to notify him that on entered number nursing cannot see pt's orders for PRBC- notified to enter order to transfuse held blood products and then papers needed for consent and ordering from lab. Same completed. Due to PRBC not being originally ordered under same V number nursing could not document on TAR. Parviz called and notified of same- he used current V number and nursing could then use TAR. Blood verified with AMILCAR Goldsmith and this Obed Gonzalez called in and stated that he isn't sure how this process is suppose to work because he did not order the blood but patient is entered in system as if she was admitted by him. Notified that order for blood had Dr. Diana' signature on it and that 2 units were ordered and that patient would be sent home following completion of 2 unit infusion. Around 1600 AMILCAR Goldsmith called this RN into room and stated that patient was experiencing shortness of breath. This RN entered patient's room and heard audible wheezes. Rupal states that oxygen was turned up to 4L at this time and pt sats in low 90's. Patient working very hard to breath and respirations were 28. Obed Gonzalez was notified by AMILCAR Goldsmith- he states that he did not send patient for blood and therefore Adalgisa needed to be called. This RN called zipper machine operator and requesting to speak to Dr. Diana- notified that must be put through to office. This RN was on hold for >3 minutes. dannielle Akins RN MS3 notified of situation and came down to unit- rapid response was called due to staff being unable to contact a physician for orders. Dr. Richmond and Dr. Solomon answered page and came to patient's room. Breathing tx and IV lasix ordered and given. Patient became more SOB- bipap ordered and pt resisting placement. Soft restraints had to be used to prevent patient from removing bipap. Patient then transferred to ER. Blood packaged and returned to blood bank in case transfusion reaction would be suspected. Torri [address] gang supervisor notified of same.
[2018-03-26 08:49] LABS: Carcinoembryonic Antigen 3.5 ng/mL (0.0-4.7)
== END 2018-03-24 16:30 | disposition short-term general hospital (02) ==
LOC: CVS 13:59 → MS2 14:00
PROVIDERS: Family Provider Internal Medicine; PCP Internal Medicine; Visit Provider Nurse Practitioner Family
DX: I35.0 Nonrheumatic aortic (valve) stenosis (principal); D64.9 Anemia, unspecified; I10 Essential (primary) hypertension; C18.9 Malignant neoplasm of colon, unspecified
CPT/HCPCS: 36415; 82378; 82962; 86850; 86900; 86920; 86922; 93312; 93320; 93325; 94002; 94640; P9016; A4216

== ENCOUNTER → 2018-03-24 12:33 | Outpatient (CLI) | payer MEDICARE, SELFPAY | PROVIDERS: Family Provider Internal Medicine; PCP Internal Medicine; Visit Provider Internal Medicine | DX: D64.9 Anemia, unspecified (principal); C18.9 Malignant neoplasm of colon, unspecified | CPT/HCPCS: 86920; 86922 ==

== ENCOUNTER 2018-03-24 16:41 | Inpatient (IN) | payer MEDICARE, SELFPAY ==
[2018-03-24] VITALS (7 sets, daily range): BP systolic 117–173; BP diastolic 52–94; PULSE 67–102; RESP 12–40; TEMP 36; O2SAT 94–100; BMI 36.9
[2018-03-24 17:05] LABS: Base Excess -3 mmol/L (-2 to +2); Bicarbonate 24.1 mmol/L (22-26); Blood Gas Specimen Type ART; EPAP 6; FI02 90; IPAP 12; PO2 432 mmHG (75-100); RR 12; SITE R Radial; SO2 100 % (95-99); Time Given 1650; Total Carbon Dioxide 26 mmol/L; pCO2 55.7 mmHg (35-45); pH 7.24 (7.35-7.45)
--- NOTE | 2018-03-24 17:22 | EKG12_ITS ---
Test Reason : ALLERGIC REACTION Blood Pressure : / mmHG Vent. Rate : 091 BPM Atrial Rate : 091 BPM P-R Int : 140 ms QRS Dur : 130 ms QT Int : 384 ms P-R-T Axes : 057 -08 -03 degrees QTc Int : 472 ms Normal sinus rhythm Right bundle branch block Abnormal ECG Confirmed by VIRGIL BLAKELY ([id number]), legal editor BIRGIT EUBANKS ([id number] on 03/28/2018 2:22:28 PM Referred By: LEAH Confirmed By:VIRGIL BLAKELY
[2018-03-24] MEDS: Aspirin 81 MG TAB.CHEW 324 MG PO (17:29)
[2018-03-24] MEDS: DiphenhydrAMINE 50 MG/ML Syringe 25 MG IV (17:32)
[2018-03-24] MEDS: Acetaminophen 500 MG Tablet 1000 MG PO (17:32)
[2018-03-24 20:10] LABS: Anion Gap 9 (5-15); BUN 32 mg/dL (7-18); BUN/Creat Ratio 30.8 RATIO (10-20); Calcium,Total 8.6 mg/dL (8.5-10.1); Chloride 105 mmol/L (98-107); Creatinine, Serum 1.04 mg/dL (0.55-1.02); EST Glomerular Filtration Rate 55 mL/min (>60); Est Glom Filt Rate - Afr Amer 66 mL/min (>60); Estimated Creatinine Clearance 35.83 ml/min; Glucose 154 mg/dL (74-106); Potassium 5.8 mmol/L (3.5-5.1); Sodium Level 135 mmol/L (136-145)
[2018-03-24 20:53] LABS: Absolute Lymphocyte Count 0.87 X10^3/ul (0.83-4.51); Absolute Neutrophil Count 11.1 X10^3/uL (2.0-7.7); Basophil# 0.02 X10^3/uL; Basophil% 0.2 % (0-1); Eosinophil# 0.01 X10^3/uL; Eosinophils% 0.1 % (0-5); Hematocrit 24.4 % (37-47); Hemoglobin 7.7 g/dl (12.0-15.0); Lymphocyte # 0.87 X10^3/ul (4.0); Lymphocyte % 6.9 % (19-41); Mean Corp Hgb Conc 31.6 g/gl (32-36); Mean Corpuscular Hgb 28.9 pg (27.0-32.0); Mean Corpuscular Volume 91.7 fL (81-99); Mean Platelet Vol. 8.8 fl (6.2-12.0); Monocyte# 0.57 X10^3/uL; Monocyte% 4.5 % (0-10); Neutrophil # 11.09 X10^3/uL (2.7-7.7); Platelet Count 282 K/mm3 (150-450); RBC Distribution Width CV 16.2 % (11.6-14.6); RBC Distribution Width SD 52.2 fl (35.1-43.9); Red Blood Count 2.66 M/mm3 (4.2-5.4); White Blood Count 12.6 K/mm3 (4.4-11.0)
[2018-03-24 20:54] LABS: POSITIVE COUNT NO; POSITIVE DIFFERENTIAL NO; POSITIVE MORPHOLOGY NO
[2018-03-24 21:24] LABS: BNP,B-Type NATRIURETIC PEPTIDE 502.3 pg/mL (0-100)
--- NOTE | 2018-03-24 22:36 | PCM.HP.STD ---
Problem List (1) SOB (shortness of breath) Status: Acute (2) Anemia Status: Acute (3) Colon cancer Status: Acute (4) Aortic stenosis Status: Acute History of Present Illness Date of Admission: 03/24/18 Chief Complaint: SOB The patient is a 77 year old female w/ h/o 1-2 cm hard mass in the hepatic flexure, critical aortic stenosis, and anemia admitted for SOB. She has h/o SOB. She had WU today and was getting transfusion, when she developed sudden onset of SOB after 120ml of blood. She was given lasix and was taken down to the ED. ED took her off bipap after giving her Benadryl. Her SOB resolved after a few hours. No cough. No other symptoms. Past Medical History Past Medical History (Chronic Problems): Chronic Problems (Last Reviewed 03/25/18 @ 04:40 by Niels Arreaga MD) Aortic stenosis (Chronic) History of ischemic stroke without residual deficits (Chronic) Obesity (Chronic) Asthma (Chronic) Dyslipidemia (Chronic) Peripheral arterial occlusive disease (Chronic) Arterial atherosclerosis (Chronic) Diabetes mellitus (Chronic) Left carotid bruit (Chronic) Erythema of lower extremity (Chronic) Edema of left lower extremity (Chronic) Swelling of left lower extremity (Chronic) Scalp laceration (Chronic) Multiple falls (Chronic) HTN (hypertension) (Chronic) Medical History: Medical History (Last Reviewed 03/25/18 @ 04:40 by Niels Arreaga MD) Respiratory failure (Acute) J96.90 Respiratory failure requiring intubation (Acute) J96.90 Aortic stenosis (Chronic) I35.0 Severe anemia (Acute) D64.9 History of ischemic stroke without residual deficits (Chronic) Z86.73 Obesity (Chronic) E66.9 Asthma (Chronic) J45.909 Dyslipidemia (Chronic) E78.5 Peripheral arterial occlusive disease (Chronic) I77.9 Arterial atherosclerosis (Chronic) I70.8 Diabetes mellitus (Chronic) E11.9 Left carotid bruit (Chronic) R09.89 Ulcer of left lower leg (Resolved) L97.929 Erythema of lower extremity (Chronic) L53.9 Edema of left lower extremity (Chronic) R60.0 Swelling of left lower extremity (Chronic) M79.89 Cellulitis of left leg without foot (Resolved) L03.116 Acute electrocardiogram changes (Acute) R94.31 Syncope (Suspected) R55 Scalp laceration (Chronic) Multiple falls (Chronic) R29.6 HTN (hypertension) (Chronic) I10 Allergies banana [Banana] Allergy (Verified 03/07/18 10:07) Swelling metformin [From Glucophage] Adverse Reaction (Verified 03/07/18 10:07) Swelling of legs Home Medications: Ambulatory Orders Medication Instructions Recorded Acetaminophen [Tylenol Tablet] 650 mg PO Q6H PRN PRN #30 tab 04/29/16 Amlodipine [Norvasc] 2.5 mg PO DAILY 02/15/18 Cholecalciferol (Vitamin D3) 5,000 unit PO DAILY 02/15/18 [Vitamin D3] Insulin Aspart [Novolog Flexpen] 5 units SC TIDCM 02/15/18 Metoprolol(XL)Succ [Toprol Xl 25 mg PO DAILY 02/15/18 (Beta Ryder)] Triamcinolone 0.1% Cream [Kenalog] 1 applic TOPICAL DAILY 02/15/18 Oxybutynin Chloride [Ditropan Xl] 5 mg PO QHS 02/17/18 Insulin Degludec [Tresiba 15 unit SQ DAILY #7 insuln.pen 02/20/18 Flextouch U-100] Atorvastatin Calcium 20 mg PO QHS 03/24/18 Ferrous Gluconate 325 mg PO TID 03/24/18 Lisinopril [Zestril] 10 mg PO DAILY 03/24/18 aspirin 81 mg tablet,delayed 81 mg PO DAILY 03/24/18 release Surgical History: Surgical History (Last Reviewed 03/25/18 @ 04:40 by Niels Arreaga MD) History of carpal tunnel surgery of left wrist Z98.890 History of left knee replacement Z96.652 Surgical History: - - The patient has undergone left total knee replacement in 2005. Left carpal tunnel release was performed in 2005. The patient has had a distal left toe amputation. Smoking Status: Former smoker - *Family History Maternal Family History: Family History (Last Updated 03/07/18 @ 10:10 by Miracle Langford) Sister Cancer History Items: No pertinent history Paternal Family History: Family History (Last Updated 03/07/18 @ 10:10 by Miracle Langford) Sister Cancer History Items: No pertinent history - The patient's father at age of 85 with a history of heart disease. The patient's mother at age of 90 with a history of SALVAGE REPAIRER cancer. Review of Systems Constitutional: Denies: Chills, Fever, Weight Change HEENT: Denies: Head Aches, Sinus Congestion, Sinus Drainage Cardiovascular: Denies: Chest Pain, Palpitations Respiratory: Reports: Shortness of breath at rest. Denies: Cough, Sputum production Gastrointestinal: Denies: Abdominal Pain, Nausea, Vomiting Genitourinary: Denies: Dysuria Musculoskeletal: Denies: Joint Pain, Joint Tenderness Skin: Denies: Rash, Wounds Neurological: Denies: Numbness, Tingling, Focal weakness Psychiatric: Denies: Anxiety, Depression, Homicidal Ideations, Suicidal Ideations Hematologic/ Lymphatic: Denies: Easy Bruising, Easy Bleeding VTE Information - Inpt Only VTE Present on Admission: No VTE Mechan Device Prophylaxis: SCD's VTE Pharm Prophylaxis ordered?: Yes Patient Problems: Active and Suspected Problems (Last Reviewed 03/25/18 @ 04:40 by Niels Arreaga MD) SOB (shortness of breath) (Acute) Anemia (Acute) Colon cancer (Acute) Aortic stenosis (Acute) - Physical Exam General: Alert, Oriented x3, Cooperative HEENT: Atraumatic, PERRLA, EOMI, Normocephalic Neck: Supple, No JVD, Negative Carotid Bruits Lungs: Clear to auscultation, Normal air movement Cardiovascular: Regular rate, No murmurs Abdomen: Bowel Sounds Present, Soft, Non Tender Extremities: No edema, Capillary Refill Less than 3 Seconds Skin: No rashes, No breakdown Musculoskeletal: No Tenderness to Palpation of Joints or Extremities Neurological: Cranial nerves II-XII grossly intact Psych/Mental Status: Normal Affect, Appropriate Vital Signs Temp Pulse Resp BP Pulse Ox 96.8 F L 78 16 117/52 L 98 03/24/18 16:42 03/24/18 22:25 03/24/18 22:25 03/24/18 22:25 03/24/18 22:25 Oxygen Flow Rate (L/min) 3 Oxygen Delivery Method Room Air Weight: 91.6 kg Body Mass Index (BMI) 36.9 Finger Stick Blood Glucose 276 Laboratory Tests Past 24 Hrs 03/24/18 03/24/18 03/24/18 16:56 19:34 19:34 WBC Cancelled Corrected WBC Cancelled RBC Cancelled Hgb Cancelled Hct Cancelled MCV Cancelled MCH Cancelled MCHC Cancelled RDW Cancelled RDW Differential Cancelled Plt Count Cancelled MPV Cancelled Immature Gran % (Auto) Cancelled Neut % (Auto) Cancelled Lymph % (Auto) Cancelled [place] % (Auto) Cancelled Eos % (Auto) Cancelled Baso % (Auto) Cancelled Absolute Neuts (auto) Cancelled Absolute Lymphs (auto) Cancelled Total Counted Cancelled Neutrophils % (Manual) Cancelled Band Neutrophils % Cancelled Lymphocytes % (Manual) Cancelled Monocytes % (Manual) Cancelled Eosinophils % (Manual) Cancelled Basophils % (Manual) Cancelled Metamyelocytes % Cancelled Myelocytes % Cancelled Promyelocytes % Cancelled Blast Cells % Cancelled Plasma Cell % (Manual) Cancelled Other Cells % Cancelled Nucleated RBCs/100 WBC Cancelled Differential Comment Cancelled Diff Path Review Cancelled Hypersegmented Neuts Cancelled Atypical Lymphocytes Cancelled Reactive Lymphocytes Cancelled Smudge Cells Cancelled Toxic Granulation Cancelled Dohle Bodies Cancelled Noris Rods Cancelled Platelet Estimate Cancelled Plt Morphology Comment Cancelled RBC Morphology Cancelled Polychromasia Cancelled Hypochromasia Cancelled Poikilocytosis Cancelled Basophilic Stippling Cancelled Anisocytosis Cancelled Microcytosis Cancelled Macrocytosis Cancelled Spherocytes Cancelled Sickle Cells Cancelled Target Cells Cancelled Tear Drop Cells Cancelled Ovalocytes Cancelled Stomatocytes Cancelled [place] Bodies Cancelled Julian Cells Cancelled Bite Cells Cancelled Acanthocytes (Spur) Cancelled Rouleaux Cancelled Schistocytes Cancelled Specimen Type ART Sample Site R Radial pH 7.24 L Bicarbonate Actual 24.1 POC Total CO2 26 Base Excess -3 L O2 Saturation 100 H O2 % 90 ABG pCO2 55.7 H ABG pO2 432 H* John Test NA Respiration Rate 12 O2 Delivery Device Bi / C PAP EPAP 6 IPAP 12 Blood Gas Notified Whom ED Blood Gas Notified Time 1650 Sodium 135 L Potassium 5.8 H Chloride 105 Carbon Dioxide 21.0 Anion Gap 9 BUN 32 H Creatinine 1.04 H Estim Creat Clear Calc 35.83 Est GFR (MDRD) Af Amer 66 Est GFR (MDRD) Non-Af 55 L BUN/Creatinine Ratio 30.8 H Glucose 154 H Calcium 8.6 Troponin I 0.035 B-Natriuretic Peptide 03/24/18 03/24/18 03/24/18 19:34 20:25 20:25 WBC 12.6 H Corrected WBC RBC 2.66 L Hgb 7.7 L Hct 24.4 L MCV 91.7 MCH 28.9 MCHC 31.6 L RDW 16.2 H RDW Differential 52.2 H Plt Count 282 MPV 8.8 Immature Gran % (Auto) 0.300 Neut % (Auto) 88.0 H Lymph % (Auto) 6.9 L [place] % (Auto) 4.5 Eos % (Auto) 0.1 Baso % (Auto) 0.2 Absolute Neuts (auto) 11.1 H Absolute Lymphs (auto) 0.87 Total Counted Not Reportable Neutrophils % (Manual) Band Neutrophils % Lymphocytes % (Manual) Monocytes % (Manual) Eosinophils % (Manual) Basophils % (Manual) Metamyelocytes % Myelocytes % Promyelocytes % Blast Cells % Plasma Cell % (Manual) Other Cells % Nucleated RBCs/100 WBC Differential Comment Diff Path Review Hypersegmented Neuts Atypical Lymphocytes Reactive Lymphocytes Smudge Cells Toxic Granulation Dohle Bodies Noris Rods Platelet Estimate Plt Morphology Comment RBC Morphology Polychromasia Hypochromasia Poikilocytosis Basophilic Stippling Anisocytosis Microcytosis Macrocytosis Spherocytes Sickle Cells Target Cells Tear Drop Cells Ovalocytes Stomatocytes [place] Bodies Julian Cells Bite Cells Acanthocytes (Spur) Rouleaux Schistocytes Specimen Type Sample Site pH Bicarbonate Actual POC Total CO2 Base Excess O2 Saturation O2 % ABG pCO2 ABG pO2 John Test Respiration Rate O2 Delivery Device EPAP IPAP Blood Gas Notified Whom Blood Gas Notified Time Sodium Potassium Chloride Carbon Dioxide Anion Gap BUN Creatinine Estim Creat Clear Calc Est GFR (MDRD) Af Amer Est GFR (MDRD) Non-Af BUN/Creatinine Ratio Glucose Calcium Troponin I B-Natriuretic Peptide Cancelled 502.3 H Assessment/Plan All Active Problems (Last Reviewed 03/25/18 @ 04:40 by Niels Arreaga MD) SOB (shortness of breath) (Acute) Anemia (Acute) Colon cancer (Acute) Aortic stenosis (Acute) Respiratory failure (Acute) Respiratory failure requiring intubation (Acute) Severe anemia (Acute) Ulcer of left lower leg (Resolved) Cellulitis of left leg without foot (Resolved) Acute electrocardiogram changes (Acute) a 77 year old female w/ h/o 1-2 cm hard mass in the hepatic flexure, critical aortic stenosis, and anemia admitted for SOB. 1) SOB: Unclear if transfusion reaction vs anxiety. SOB resolved after several hours without any sequel. Workup in ED negative. Will get serum bilirubin, haptoglobin, and LDH levels. Cultures pending. 2) Critical : Will consult cards. Card plans for cath this Tuesday. Resume home meds. 3) Chronic normocytic anemia: Serial H and H. Transfusion per cards. 4) Dispo: Probably can be discharge if transfusion reaction workup negative.
--- NOTE | 2018-03-24 23:35 | ED.VISSUMM ---
- ER Visit Summary Date of Service: 03/24/18 Chief Complaint: Shortness of breath History of Present Illness: The patient is a [address] Faustino Diana. Patient had a transesophageal echocardiogram today and then was getting a blood transfusion. She got approximately 120 mL of blood when she became abruptly short of breath. Patient was given a dose of Lasix IV and brought to the emergency department for evaluation. Patient reports that her shortness of breath was severe at worst and it is mild currently. She denies any chest pain. No fever or chills. She reports that she has occasional cough. Physical Examination: Vitals: Stable. Afebrile. General: Well-nourished and well-developed. Head: Normocephalic atraumatic. Neck: Supple, no lymphadenopathy. No JVD. Nontender. Cardiovascular: Regular rate and rhythm. 3 out of 6 systolic murmur. Respiratory: Mild respiratory distress. Crackles at the bases bilaterally with decreased air movement. Abdominal: Soft, nontender, nondistended, normal bowel sounds. No guarding, rebound, or peritoneal signs. Back: Nontender. Extremities: Nontender, 2+ pitting edema over lower extremity bilaterally with chronic venous stasis changes. Skin: Normal color, no rash. Neurologic: Alert and oriented ?3. Cranial nerves II through XII are intact. Normal strength and sensation. Psych: Normal affect. Test Results: EKG is sinus at 91 with right bundle branch block. It is essentially unchanged from last month. Troponin 0 0.035. PT HADOOP JAVA DEVELOPER is 502.3. Chem-7 is more for sodium 135, potassium of 5.8 (moderately hemolyzed) BUN of 32, creatinine 1.04, glucose 154. CBC is more for white count of 12.6, H&H is 7.7 and 24.4, 7 neutrophils 80, lymphocytes 7. Chest x-ray shows mild pulmonary vascular congestion. ABG shows a pH of 7.244 with a CO2 of 55.7 and an O2 of 432. Emergency Department Course and Treatment: Patient had BiPAP on when she arrived in the emergency department. She was very anxious with this on. She was given a dose of Benadryl IV and Tylenol p.o. She was placed on a nasal cannula and has improved greatly. Her heart rate is down into the 70s. Her pulse ox is 97% on room air. Her respiratory rate is 16. Treatment Plan: The patient was discussed with Dr. Harmon and Dr. Arreaga. She will be admitted to the hospital. She will be transfused tomorrow with pretreatment with Benadryl, Tylenol and Lasix for volume. She will require a heart catheterization. Patient understands this plan. She feels much improved. Disposition: Admitted in improved condition. Impression: 1. Transfusion reaction. 2. Critical aortic stenosis. 3. Anemia. This note was generated with [employer] dictation software. It may contain incorrect words, spelling, and punctuation that were not noted in review of the chart prior to signing ED Disposition - Plan for ED Patient: Chief Complaint: Shortness of Breath
--- NOTE | 2018-03-24 23:39 | ED.DCSUM_ITS ---
- ER Visit Summary Date of Service: 03/24/18 Chief Complaint: Shortness of breath History of Present Illness: The patient is a [address] Faustino Diana. Patient had a transesophageal echocardiogram today and then was getting a blood transfusion. She got approximately 120 mL of blood when she became abruptly short of breath. Patient was given a dose of Lasix IV and brought to the emergency department for evaluation. Patient reports that her shortness of breath was severe at worst and it is mild currently. She denies any chest pain. No fever or chills. She reports that she has occasional cough. Physical Examination: Vitals: Stable. Afebrile. General: Well-nourished and well-developed. Head: Normocephalic atraumatic. Neck: Supple, no lymphadenopathy. No JVD. Nontender. Cardiovascular: Regular rate and rhythm. 3 out of 6 systolic murmur. Respiratory: Mild respiratory distress. Crackles at the bases bilaterally with decreased air movement. Abdominal: Soft, nontender, nondistended, normal bowel sounds. No guarding, rebound, or peritoneal signs. Back: Nontender. Extremities: Nontender, 2+ pitting edema over lower extremity bilaterally with chronic venous stasis changes. Skin: Normal color, no rash. Neurologic: Alert and oriented ?3. Cranial nerves II through XII are intact. Normal strength and sensation. Psych: Normal affect. Test Results: EKG is sinus at 91 with right bundle branch block. It is essentially unchanged from last month. Troponin 0 0.035. PT LEAD RECOVERER is 502.3. Chem -7 is more for sodium 135, potassium of 5.8 (moderately hemolyzed) BUN of 32, creatinine 1.04, glucose 154. CBC is more for white count of 12.6, H&H is 7.7 and 24.4, 7 neutrophils 80, lymphocytes 7. Chest x-ray shows mild pulmonary vascular congestion. ABG shows a pH of 7.244 with a CO2 of 55.7 and an O2 of 432. Emergency Department Course and Treatment: Patient had BiPAP on when she arrived in the emergency department. She was very anxious with this on. She was given a dose of Benadryl IV and Tylenol p.o. She was placed on a nasal cannula and has improved greatly. Her heart rate is down into the 70s. Her pulse ox is 97% on room air. Her respiratory rate is 16. Treatment Plan: The patient was discussed with Dr. Harmon and Dr. Arreaga. She will be admitted to the hospital. She will be transfused tomorrow with pretreatment with Benadryl, Tylenol and Lasix for volume. She will require a heart catheterization. Patient understands this plan. She feels much improved. Disposition: Admitted in improved condition. Impression: 1. Transfusion reaction. 2. Critical aortic stenosis. 3. Anemia. This note was generated with [employer] dictation software. It may contain incorrect words, spelling, and punctuation that were not noted in review of the chart prior to signing ED Disposition - Plan for ED Patient: Chief Complaint: Shortness of Breath
[2018-03-25] VITALS (21 sets, daily range): BP systolic 101–145; BP diastolic 45–67; PULSE 64–90; RESP 14–20; TEMP 36.3–37.2; O2SAT 94–100; BMI 35.5; BMI 36.9
[2018-03-25 01:07] LABS: Mucous, Urine 0 SEEN /hpf (<or=2+); Red Blood Cells-Urine 0 SEEN /hpf (0-5)
[2018-03-25 01:13] LABS: Color, Urine Straw (Yellow); Glucose, Dipstick Normal (Normal); Ketone-Dipstick Negative (Negative); Leukocyte Esterase-Dipstick 500 /ul (Negative); Nitrite-Dipstick Negative (Negative); Occult Blood-Urine 10 /ul (Negative); Protein-Dipstick 15 mg/dl (Negative); Specific Gravity, Urine 1.015 (1.002-1.030); Urine Bilirubin Dipstick Negative (Negative); Urine Clarity Sl. Cloudy (Clear); Urine Urobilinogen Normal (Normal)
[2018-03-25 01:28] LABS: Bacteria 1+ /hpf (None Seen); Squamous Epithelial Cells - UA 0-5 SEEN /hpf (5-10)
[2018-03-25 01:29] LABS: Hyaline Cast 0-5 SEEN /lpf (0-5); White Blood Cells 5-10 SEEN /hpf (0-5)
[2018-03-25 05:25] LABS: Hematocrit 23.4 % (37-47); Hemoglobin 7.3 g/dl (12.0-15.0); Mean Corp Hgb Conc 31.2 g/gl (32-36); Mean Corpuscular Hgb 27.9 pg (27.0-32.0); Mean Corpuscular Volume 89.3 fL (81-99); Mean Platelet Vol. 8.2 fl (6.2-12.0); Platelet Count 241 K/mm3 (150-450); RBC Distribution Width CV 16.6 % (11.6-14.6); RBC Distribution Width SD 54.1 fl (35.1-43.9); Red Blood Count 2.62 M/mm3 (4.2-5.4); White Blood Count 9.5 K/mm3 (4.4-11.0)
[2018-03-25 05:26] LABS: Scan Indicated on CBC? Y/N NO
[2018-03-25 05:36] LABS: International Normalized Ratio 1.1; Prothrombin Time (Protime)PT. 14.3 SECONDS (11.7-14.9)
[2018-03-25 05:44] LABS: AST(SGOT) 22 U/L (15-37); Alanine Aminotransfer ALT/SGPT 30 U/L (13-56); Albumin, Serum 3.2 g/dL (3.2-5.0); Alkaline Phosphatase 75 U/L (45-117); Anion Gap 10 (5-15); BUN 30 mg/dL (7-18); BUN/Creat Ratio 31.7 RATIO (10-20); Bilirubin, Direct 0.13 mg/dL (0.00-0.30); Calcium,Total 8.3 mg/dL (8.5-10.1); Chloride 105 mmol/L (98-107); Creatinine, Serum 0.94 mg/dL (0.55-1.02); EST Glomerular Filtration Rate 61 mL/min (>60); Est Glom Filt Rate - Afr Amer 74 mL/min (>60); Estimated Creatinine Clearance 39.64 ml/min; Globulin 3.7 g/dL (2.2-4.2); Glucose 65 mg/dL (74-106); LDH 189 U/L (84-246); Potassium 4.2 mmol/L (3.5-5.1); Protein, Total 6.9 g/dL (6.4-8.2); Sodium Level 141 mmol/L (136-145)
[2018-03-25 08:26] LABS: Bedside Glucose 68 mg/dL (70-110)
[2018-03-25] MEDS: Acetaminophen 325 MG Tablet 650 MG PO (08:52)
[2018-03-25] MEDS: DiphenhydrAMINE 50 MG/ML Syringe 25 MG IV (08:53)
[2018-03-25] MEDS: Furosemide 40 MG/4 ML Vial IV ×2 (08:57→13:25)
--- NOTE | 2018-03-25 09:27 | PCM.CONS.C ---
Problem List (1) Pulmonary hypertension Status: Acute (2) SOB (shortness of breath) Status: Acute (3) Anemia Status: Acute (4) Aortic stenosis Status: Acute (5) Dyslipidemia Status: Chronic (6) Arterial atherosclerosis Status: Chronic Reason for Consult Date of Consultation: 03/25/18 Reason for Consultation: Aortic stenosis, mitral regurgitation, pulmonary hypertension, severe anemia, colon cancer History of Present Illness: The patient is a 77 year old F with diabetes, hypertension, hypercholesterolemia, previous CVA approximately 4 years ago, peripheral vascular disease with right-sided bruit, previous catheterization on 07/08/14 at [facility]. At that time she was found to have normal LV size and function, severe mitral annular calcification, and nonobstructive disease of her coronary arteries. The patient was admitted on 02/15/18 when she had acute onset shortness of breath while sitting in a chair. CT scan of her chest was negative for pulmonary embolism and she was found to have severe anemia receiving at least 1 unit of PRBCs. She was emergently intubated at that time and then subsequently extubated. An echocardiogram showed normal LV function with what appeared to be severe aortic stenosis with respect to previous echocardiogram in 2016. It was felt that her change in peak and mean gradients were most likely result of her hemoglobin of 7.1. To confirm this as an outpatient she underwent a transesophageal echocardiogram by myself yesterday which demonstrated critical aortic stenosis with a planimetry area of 0.6 cm?, severe mitral regurgitation, severe aortic stenosis with a mean gradient about 50, and possibly significant and severe pulmonary hypertension with an estimated RVSP of 70 mmHg. The patient was asymptomatic and was to undergo an elective blood transfusion after RT yesterday. After receiving about 130 cc of blood, the patient developed severe shortness of breath, was combative, and required IV diuresis, IV Benadryl, and Tylenol as well as BiPAP therapy. Once her diuresis was complete her BiPAP was weaned off and she was admitted for observation. Chest x-ray yesterday showed bilateral pulmonary cephalization, and fluid in the midline fissure. No pleural effusions noted. Overnight she done fairly well, denies any chest pain or angina. Her hemoglobin this morning is 7.3. Another attempted blood transfusion will take place with medical preparation including Tylenol, Benadryl, and IV Lasix. [] Past Medical History Allergies/Adverse Reactions: Allergies banana [Banana] Allergy (Verified 03/07/18 10:07) Swelling metformin [From Glucophage] Adverse Reaction (Verified 03/07/18 10:07) Swelling of legs Home Medications: Ambulatory Orders Medication Instructions Recorded Acetaminophen [Tylenol Tablet] 650 mg PO Q6H PRN PRN #30 tab 04/29/16 Amlodipine [Norvasc] 2.5 mg PO DAILY 02/15/18 Cholecalciferol (Vitamin D3) 5,000 unit PO DAILY 02/15/18 [Vitamin D3] Insulin Aspart [Novolog Flexpen] 5 units SC TIDCM 02/15/18 Metoprolol(XL)Succ [Toprol Xl 25 mg PO DAILY 02/15/18 (Beta Ryder)] Triamcinolone 0.1% Cream [Kenalog] 1 applic TOPICAL DAILY 02/15/18 Oxybutynin Chloride [Ditropan Xl] 5 mg PO QHS 02/17/18 Insulin Degludec [Tresiba 15 unit SQ DAILY #7 insuln.pen 02/20/18 Flextouch U-100] Atorvastatin Calcium 20 mg PO QHS 03/24/18 Ferrous Gluconate 325 mg PO TID 03/24/18 Lisinopril [Zestril] 10 mg PO DAILY 03/24/18 aspirin 81 mg tablet,delayed 81 mg PO DAILY 03/24/18 release Past Medical History (Chronic Problems): Chronic Problems (Last Reviewed 03/25/18 @ 04:40 by Niels Arreaga MD) Aortic stenosis (Chronic) History of ischemic stroke without residual deficits (Chronic) Obesity (Chronic) Asthma (Chronic) Dyslipidemia (Chronic) Peripheral arterial occlusive disease (Chronic) Arterial atherosclerosis (Chronic) Diabetes mellitus (Chronic) Left carotid bruit (Chronic) Erythema of lower extremity (Chronic) Edema of left lower extremity (Chronic) Swelling of left lower extremity (Chronic) Scalp laceration (Chronic) Multiple falls (Chronic) HTN (hypertension) (Chronic) Surgical History: - - The patient has undergone left total knee replacement in 2005. Left carpal tunnel release was performed in 2005. The patient has had a distal left toe amputation. - *Family History Maternal Family History: Family History (Last Updated 03/07/18 @ 10:10 by Miracle Langford) Sister Cancer History Items: No pertinent history Paternal Family History: Family History (Last Updated 03/07/18 @ 10:10 by Miracle Langford) Sister Cancer History Items: No pertinent history - The patient's father at age of 85 with a history of heart disease. The patient's mother at age of 90 with a history of [employer] cancer. Smoking Status: Former smoker Review of Systems - Review of Systems General: Denies: Fever, Night Sweats, Fatigue Cardiovascular: Reports: Shortness of Breath. Denies: Chest Discomfort, Orthopnea, PND, Peripheral Edema, Palpitations, Lightheadedness, Dizziness, Near Syncope, Syncope Respiratory: Denies: Cough, Sputum Production, Hemoptysis Gastrointestinal: Denies: Hematemesis, Hematochezia, Melena Genitourinary: Denies: Dysuria, Hematuria Skin: Denies: Rash Subjectve: Patient sitting up in bed, no acute distress. Unable to lay down flat due to orthopnea. Objective: Vital Signs Temp Pulse Resp BP Pulse Ox 98.4 F 85 16 139/61 H 97 03/25/18 09:15 03/25/18 09:15 03/25/18 09:15 03/25/18 09:15 03/25/18 09:15 Oxygen Flow Rate (L/min) 3 Oxygen Delivery Method Room Air Weight: 194 lb 3.636 oz Body Mass Index (BMI) 35.5 Intake and Output for Last 24 Hours 03/23/18 03/24/18 03/25/18 23:59 23:59 23:59 Intake Total 0 / 0 Balance 0 / 0 General: Awake, Alert, Oriented x 3 HEENT: PERRL, EOMI, Sclera Non Icteric Neck: Supple, Good ROM, No Lymph Node Enlargement Lungs: Diminished Jared Bases, Rales - Jared Bases Cardiovascular: Regular Rhythm, Normal S2, No Murmurs, No Rubs, No Gallops Murmur Murmur: Grade 4/6, Crescendo-Decrescendo Vascular: R Carotid Artery Bruits, Normal Femoral Pulses, Normal Radial Pulses, Normal Dorsalis Pedal Pulse, Normal Posterior Tibial Pulses Abdomen: Bowel Sounds Present, Soft, Non Tender, No HSM, No Organomegaly Extremities: No Cyanosis, No Clubbing, No edema Neurological: No Focal Motor or Sensory Deficit 03/25/18 01:01: Urine Color Straw, Urine Clarity Sl. Cloudy, Urine pH 5.0, Ur Specific [place] 1.015, Urine Protein 15 H, Urine Glucose (UA) Normal, Urine Ketones Negative, Urine Occult Blood 10 H, Urine Nitrite Negative, Urine Bilirubin Negative, Urine Urobilinogen Normal, Ur Leukocyte Esterase 500 H, Urine RBC 0 SEEN, Urine WBC 5-10 SEEN 03/25/18 05:14: Sodium 141, Potassium 4.2, Chloride 105, Carbon Dioxide 26.0, Anion Gap 10, BUN 30 H, Creatinine 0.94, Est GFR (MDRD) Af Amer 74, Est GFR (MDRD) Non-Af 61, BUN/Creatinine Ratio 31.7 H, Glucose 65 L, Calcium 8.3 L, Total Bilirubin 0.50, Direct Bilirubin 0.13 03/25/18 05:14: WBC 9.5, RBC 2.62 L, Hgb 7.3 L, Hct 23.4 L, MCV 89.3, MCH 27.9, MCHC 31.2 L, RDW 16.6 H, RDW Differential 54.1 H, Plt Count 241, MPV 8.2 03/25/18 05:14: PT 14.3, INR 1.1 Rhythm: EKG: Normal sinus rhythm, old right bundle branch block, possible old inferior wall myocardial infarction, no acute changes. ECHO: As above Stress Test: Cardiac Cath: Pending PCI: CT Surgery: Holter monitor: EPS: PPM: CXR: Chest CT Scan: Assessment/Plan 1. Aortic stenosis: Patient has what appears to be critical aortic stenosis with an estimated aortic valve area of 0.6 cm? by planimetry, as well as severe peak and mean gradients which are artificially elevated due to her anemia, but most likely represent significant aortic stenosis given the anatomy of her severely calcified and immobile aortic valve. In tandem with this the patient has severe mitral regurgitation superimposed on severe mitral annular calcification. Her mitral regurgitation is most likely result of her severe aortic stenosis. In addition appears she has severe pulmonary hypertension by transesophageal echocardiogram with an estimated pulmonary pressure of around 70 mmHg. This would coincide with her clinical picture yesterday of shortness of breath with blood transfusion. It is also possible the patient may have had a blood transfusion reaction, and to that end I recommended she received IV Lasix 40 mg ?1, Benadryl 25 mg IV ?1, and Tylenol 650 mg p.o. ?1 prior to 1 unit PRBC transfusion to keep her hemoglobin above 8. I recommended her hemoglobin remain above 8, and that her transfusion take place over at least 4 hours. At this point the patient is a high risk candidate for right hemicolectomy for her colon cancer detected by colonoscopy by Dr. Hugo 3 weeks ago. Patient needs to have aortic valve addressed prior to any colon surgery. This could be either a temporary balloon valvuloplasty to allow more LV unloading and perfusion until she can get her colon removed. To better assess whether she has metastatic colon cancer and determine how aggressive her cardiac correction will be she is undergoing a CEA evaluation followed by a PET scan to assess for metastases. If the patient has significant metastases, then we may want to consider balloon valvuloplasty only if she is a candidate for that. Patient has significant calcification of the noncoronary cusp making balloon valvuloplasty somewhat problematic. Another option might be a T AVR procedure in order to allow her to undergo her hemicolectomy safely. In order to help assess that she will require a left and right heart catheterization which we will attempt to do this upcoming Tuesday to further risk stratify her from a cardiac standpoint. If she does not require any coronary bypass surgery, I would strongly leaning towards urgent T AVR, probably at the [facility]. If the patient is found to have metastases, she most likely will require chemotherapy and would not recommend open heart surgery. 2. Pulmonary hypertension: We will make an attempt to gently IV diuresis the patient to assist with pulmonary hypertension reduction and to facilitate her laying flat for right and left her catheterization this upcoming Tuesday. Would recommend holding the patient in the hospital until this is been completed. 3. Hyperlipidemia: Continue atorvastatin. 4. Anemia: The patient most likely has anemia as a result of her colon cancer. Patient had an EGD as well which did not appear to show any significant erosions although some gastritis was noted. Recommend discontinuation of Lovenox and using SCD for DVT prophylaxis. 5. Thank you very much for the opportunity to participate in the cardiac care of your patient. Consultation time took place between 830 and 9 AM. Code Visit Inpatient E&M: 29336 Init Hosp L2
[2018-03-25] MEDS: Aspirin E.C. 81 MG Tablet PO (12:05)
[2018-03-25] MEDS: Ferrous Gluconate 325 MG Tablet PO ×2 (12:05→16:38)
[2018-03-25] MEDS: Metoprolol(XL)Succ 25 MG Tablet PO (12:06)
[2018-03-25] MEDS: Famotidine 20 MG Tablet PO ×2 (12:06→22:05)
[2018-03-25] MEDS: amLODIPine 2.5 MG Tablet PO (12:06)
[2018-03-25] MEDS: Lisinopril 10 MG Tablet PO (12:07)
[2018-03-25] MEDS: Insulin Lispro 100 UNIT/ML INSULN.PEN SC (12:12)
--- NOTE | 2018-03-25 12:46 | PCM.PN.HOSP ---
Patient Problems: Active and Suspected Problems (Last Reviewed 03/25/18 @ 04:40 by Niels Arreaga MD) SOB (shortness of breath) (Acute) Anemia (Acute) Colon cancer (Acute) Aortic stenosis (Acute) Pulmonary hypertension (Acute) Subjective: Receiving transfusion. No shortness of breath. Vitals/I&O's: Vital Signs Temp Pulse Resp BP Pulse Ox 37.0 C 83 16 101/45 L 95 03/25/18 11:31 03/25/18 12:06 03/25/18 11:31 03/25/18 12:06 03/25/18 11:31 Oxygen Flow Rate (L/min) 3 Oxygen Delivery Method Room Air Weight: 88.1 kg Body Mass Index (BMI) 35.5 Intake and Output for Last 24 Hours 03/23/18 03/24/18 03/25/18 23:59 23:59 23:59 Intake Total 733 / 733 Output Total 300 / 300 Balance 433 / 433 General: Alert, No apparent distress HEENT: Atraumatic, Normocephalic Oral: Moist Mucosa, No Gingival or Mucosal Lesions/ Ulcerations Neck: No Nodes, Thyroid Normal Size and Texture Lungs: Normal air movement, - - RLL crackles. Cardiovascular: Regular rate, Regular Rhythm, Normal S1, Normal S2 Abdomen: Bowel Sounds Present, Soft, Non Tender, Non-Distended, No Hepato-splenomegaly Extremities: No edema, No Calf Tenderness Skin: No rashes, No breakdown Psych/Mental Status: Normal Affect, Appropriate Laboratory Results 03/25/18 01:01: Urine Color Straw, Urine Clarity Sl. Cloudy, Urine pH 5.0, Ur Specific [place] 1.015, Urine Protein 15 H, Urine Glucose (UA) Normal, Urine Ketones Negative, Urine Occult Blood 10 H, Urine Nitrite Negative, Urine Bilirubin Negative, Urine Urobilinogen Normal, Ur Leukocyte Esterase 500 H, Urine RBC 0 SEEN, Urine WBC 5-10 SEEN, Ur Squamous Epith Cells 0-5 SEEN, Urine Bacteria 1+, Hyaline Casts 0-5 SEEN, Urine Mucus 0 SEEN 03/25/18 05:14: Sodium 141, Potassium 4.2, Chloride 105, Carbon Dioxide 26.0, Anion Gap 10, BUN 30 H, Creatinine 0.94, Estim Creat Clear Calc 39.64, Est GFR (MDRD) Af Amer 74, Est GFR (MDRD) Non-Af 61, BUN/Creatinine Ratio 31.7 H, Glucose 65 L, Calcium 8.3 L, Total Bilirubin 0.50, Direct Bilirubin 0.13, AST 22, ALT 30, Alkaline Phosphatase 75, Lactate Dehydrogenase 189, Total Protein 6.9, Albumin 3.2, Globulin 3.7 03/25/18 05:14: Direct Antiglob Test NEG w/POLYSPECIFIC 03/25/18 05:14: Haptoglobin Pending 03/25/18 05:14: WBC 9.5, RBC 2.62 L, Hgb 7.3 L, Hct 23.4 L, MCV 89.3, MCH 27.9, MCHC 31.2 L, RDW 16.6 H, RDW Differential 54.1 H, Plt Count 241, MPV 8.2 03/25/18 05:14: PT 14.3, INR 1.1 03/25/18 08:19: POC Glucose 68 L Current Medications Acetaminophen (Tylenol) 650 mg PO Q6H PRN PRN PRN Reason: Mild Pain (scale 0-3)/T>100.7 Last Admin: 03/25/18 08:52 Dose: 650 mg Amlodipine Besylate (Norvasc) 2.5 mg PO DAILY [facility] Last Admin: 03/25/18 12:06 Dose: 2.5 mg [facility] Last Admin: 03/25/18 12:05 Dose: 81 mg Atorvastatin Calcium (Lipitor) 20 mg PO QHS [facility] Cholecalciferol (Vitamin D) 5,000 unit PO DAILY [facility] Last Admin: 03/25/18 12:07 Dose: 5,000 unit Famotidine (Pepcid) 20 mg PO BID [facility] Last Admin: 03/25/18 12:06 Dose: 20 mg Ferrous Gluconate (Ferrous Gluconate) 325 mg PO TIDCM [facility] Last Admin: 03/25/18 12:14 Dose: Not Given Insulin Glargine (Lantus (Bk)) [facility] Last Admin: 03/25/18 12:04 Dose: 15 u Insulin Human Lispro (Humalog Kwikpen ([facility])) 5 unit SC TIDCM [facility] Last Admin: 03/25/18 12:12 Dose: 5 u Lisinopril (Zestril) 10 mg PO DAILY [facility] Last Admin: 03/25/18 12:07 Dose: 10 mg Magnesium Hydroxide (Milk Of Magnesia) 30 ml PO DAILY PRN PRN Reason: Constipation Metoprolol Succinate (Toprol Xl (Beta Ryder)) 25 mg PO DAILY [facility] Last Admin: 03/25/18 12:06 Dose: 25 mg Sodium Chloride () 5 - 30 ml IV UD PRN PRN Reason: SALINE FLUSH Tolterodine Tartrate (Detrol La) 2 mg PO QHS [facility] Medical Necessity - Tobacco Use Smoking Status: Former smoker Assessment/Plan All Active Problems (Last Reviewed 03/25/18 @ 04:40 by Niels Arreaga MD) SOB (shortness of breath) (Acute) Anemia (Acute) Colon cancer (Acute) Aortic stenosis (Acute) Pulmonary hypertension (Acute) Respiratory failure (Acute) Respiratory failure requiring intubation (Acute) Severe anemia (Acute) Ulcer of left lower leg (Resolved) Cellulitis of left leg without foot (Resolved) Acute electrocardiogram changes (Acute) 1. Symptomatic anemia currently receiving 1 unit PRBCs goal Hg is 8 2. Severe plan for LHC and RHC on 03/27 subsequent mgmt will be determined afterwards 3. HFpEF EF 65% from [facility] on 03/24 complicated by severe pulm HTN received 40mg IV lasix today on lisinopril and Toprol XL DC amlodipine given LE edema schedule oral lasix 4. Severe pulmonary HTN group 2 treat the underlying cause complicates care 5. DM2 MBS of 68 today continue current mgmt, but may need to adjust if hypoglycemia persists. 6. DVT proph: SCDs Code Visit Inpatient E&M: 32473 Subs Hosp L2
[2018-03-25] MEDS: Furosemide 40 MG Tablet PO (16:36)
[2018-03-25 17:01] LABS: Bedside Glucose 176 mg/dL (70-110)
[2018-03-25 21:31] LABS: Bedside Glucose 43 mg/dL (70-110)
[2018-03-25] MEDS: Tolterodine Tartrate 2 MG CAP.SA PO (22:05)
[2018-03-25] MEDS: Atorvastatin Calcium 20 MG Tablet PO (22:05)
[2018-03-26] VITALS (12 sets, daily range): BP systolic 122–138; BP diastolic 56–80; PULSE 65–80; RESP 16–20; TEMP 36.5–37.1; O2SAT 94–99
[2018-03-26 01:00] LABS: Bedside Glucose 224 mg/dL (70-110)
[2018-03-26 05:32] LABS: Absolute Lymphocyte Count 1.62 X10^3/ul (0.83-4.51); Basophil# 0.03 X10^3/uL; Basophil% 0.5 % (0-1); Eosinophil# 0.28 X10^3/uL; Eosinophils% 4.3 % (0-5); Hematocrit 27.7 % (37-47); Hemoglobin 8.8 g/dl (12.0-15.0); Lymphocyte # 1.62 X10^3/ul (4.0); Lymphocyte % 24.8 % (19-41); Mean Corp Hgb Conc 31.8 g/gl (32-36); Mean Corpuscular Hgb 28.5 pg (27.0-32.0); Mean Corpuscular Volume 89.6 fL (81-99); Mean Platelet Vol. 8.6 fl (6.2-12.0); Monocyte# 0.54 X10^3/uL; Monocyte% 8.3 % (0-10); Neutrophil # 4.04 X10^3/uL (2.7-7.7); Neutrophil % 61.9 % (47-70); Platelet Count 268 K/mm3 (150-450); RBC Distribution Width CV 16.2 % (11.6-14.6); RBC Distribution Width SD 52.2 fl (35.1-43.9); Red Blood Count 3.09 M/mm3 (4.2-5.4); White Blood Count 6.5 K/mm3 (4.4-11.0)
[2018-03-26 05:37] LABS: POSITIVE COUNT NO; POSITIVE DIFFERENTIAL NO; POSITIVE MORPHOLOGY NO
[2018-03-26 05:53] LABS: Anion Gap 8 (5-15); BUN 32 mg/dL (7-18); BUN/Creat Ratio 31.7 RATIO (10-20); Calcium,Total 8.7 mg/dL (8.5-10.1); Chloride 103 mmol/L (98-107); Creatinine, Serum 1.01 mg/dL (0.55-1.02); EST Glomerular Filtration Rate 56 mL/min (>60); Est Glom Filt Rate - Afr Amer 68 mL/min (>60); Estimated Creatinine Clearance 36.89 ml/min; Glucose 72 mg/dL (74-106); Potassium 3.8 mmol/L (3.5-5.1); Sodium Level 140 mmol/L (136-145)
[2018-03-26 06:55] LABS: Bedside Glucose 73 mg/dL (70-110)
[2018-03-26 08:49] LABS: Haptoglobin 67 mg/dL (34-200)
[2018-03-26] MEDS: Famotidine 20 MG Tablet PO ×2 (09:36→20:58)
[2018-03-26] MEDS: Lisinopril 10 MG Tablet PO (09:36)
[2018-03-26] MEDS: Aspirin E.C. 81 MG Tablet PO (09:37)
[2018-03-26] MEDS: Furosemide 40 MG Tablet PO ×2 (09:37→17:44)
[2018-03-26] MEDS: Insulin Lispro 100 UNIT/ML INSULN.PEN SC ×2 (09:38→13:04)
[2018-03-26] MEDS: Metoprolol(XL)Succ 25 MG Tablet PO (09:38)
[2018-03-26] MEDS: Ferrous Gluconate 325 MG Tablet PO ×3 (09:38→17:44)
--- NOTE | 2018-03-26 10:45 | PCM.PN.CARD ---
Subjectve: Patient received transfusion yesterday without incident. Feels much better. Appears to have better color. No chest pain or angina. Ambulating without difficulty. No shortness of breath. Objective: Vital Signs Temp Pulse Resp BP Pulse Ox 97.7 F L 79 16 138/66 H 95 03/26/18 09:21 03/26/18 09:38 03/26/18 09:21 03/26/18 09:38 03/26/18 09:21 Oxygen Flow Rate (L/min) 3 Oxygen Delivery Method Room Air Weight: 194 lb 3.636 oz Body Mass Index (BMI) 35.5 Intake and Output for Last 24 Hours 03/24/18 03/25/18 03/26/18 23:59 23:59 23:59 Intake Total 1633 / 1633 40 / 40 Output Total 300 / 300 Balance 1333 / 1333 40 / 40 General: Awake, Alert, Oriented x 3 HEENT: PERRL, EOMI, Sclera Non Icteric Neck: Supple, Good ROM, No Lymph Node Enlargement Lungs: Clear to auscultation Cardiovascular: Regular Rhythm, Normal S1, Normal S2, No Rubs, No Gallops Murmur Murmur: Grade 4/6, Crescendo-Decrescendo Vascular: Radiation of Murmur to Carotid Arteries Abdomen: Bowel Sounds Present, Soft, Non Tender, No HSM, No Organomegaly 03/26/18 05:00: WBC 6.5, RBC 3.09 L, Hgb 8.8 L, Hct 27.7 L, MCV 89.6, MCH 28.5, MCHC 31.8 L, RDW 16.2 H, RDW Differential 52.2 H, Plt Count 268, MPV 8.6, Immature Gran % (Auto) 0.200, Neut % (Auto) 61.9, Lymph % (Auto) 24.8, [place] % (Auto) 8.3, Eos % (Auto) 4.3, Baso % (Auto) 0.5, Absolute Neuts (auto) 4.0, Total Counted Not Reportable 03/26/18 05:00: Sodium 140, Potassium 3.8, Chloride 103, Carbon Dioxide 29.0, Anion Gap 8, BUN 32 H, Creatinine 1.01, Est GFR (MDRD) Af Amer 68, Est GFR (MDRD) Non-Af 56 L, BUN/Creatinine Ratio 31.7 H, Glucose 72 L, Calcium 8.7 Rhythm: EKG: ECHO: Stress Test: Cardiac Cath: PCI: CT Surgery: Holter monitor: EPS: PPM: CXR: Chest CT Scan: Medical Necessity - Tobacco Use Smoking Status: Former smoker Assessment/Plan 1. Aortic stenosis: Patient has what appears to be critical aortic stenosis with an estimated aortic valve area of 0.6 cm? by planimetry, as well as severe peak and mean gradients which are artificially elevated due to her anemia, but most likely represent significant aortic stenosis given the anatomy of her severely calcified and immobile aortic valve. In tandem with this the patient has severe mitral regurgitation superimposed on severe mitral annular calcification. Her mitral regurgitation is most likely result of her severe aortic stenosis. In addition it appears she has severe pulmonary hypertension by transesophageal echocardiogram with an estimated pulmonary pressure of around 70 mmHg. This would coincide with her clinical picture yesterday of shortness of breath with blood transfusion. It is also possible the patient may have had a blood transfusion reaction. She underwent successful single unit blood transfusion without incident with preparation with Benadryl, Tylenol, and IV Lasix. I recommended her hemoglobin remain above 8, and that any future transfusion take place over at least 4 hours. At this point the patient is a high risk candidate for hemicolectomy for her colon cancer detected by colonoscopy by Dr. Hugo 3 weeks ago. Patient needs to have aortic valve addressed prior to any colon surgery. This could be either a temporary balloon valvuloplasty to allow more LV unloading and perfusion until she can get her colon removed, or a T AVR if she is deemed to be a candidate. To better assess whether she has metastatic colon cancer and determine how aggressive her cardiac correction will be she is undergoing a CEA evaluation followed by a PET scan to assess for metastases. If the patient has significant metastases, then we may want to consider balloon valvuloplasty only if she is a candidate for that. Patient has significant calcification of the noncoronary cusp making balloon valvuloplasty somewhat problematic. Another option might be a T AVR procedure in order to allow her to undergo her hemicolectomy safely. Although this would not correct her mitral regurgitation, and may assist with unloading her LV in order to facilitate hemicolectomy surgery. In order to help assess that she will require a left and right heart catheterization which we will attempt to do this upcoming Tuesday to further risk stratify her from a cardiac standpoint. If she does not require any coronary bypass surgery, I would strongly leaning towards urgent T AVR, probably at the [facility]. If the patient is found to have metastases, she most likely will require chemotherapy and would not recommend open heart surgery. Another option would be to perform the hemicolectomy with an intra-aortic balloon pump in place in order to facilitate afterload reduction and coronary perfusion at least to get her through the surgery. This would allow for correction of her colon cancer, time to heal, followed by aortic and mitral valvular surgery later on. 2. Pulmonary hypertension: We will make an attempt to gently IV diuresis the patient to assist with pulmonary hypertension reduction and to facilitate her laying flat for right and left her catheterization this upcoming Tuesday. Would recommend holding the patient in the hospital until this is been completed. If the patient's pulmonary pressures are normal, as discovered by right heart catheterization tomorrow, that I would strongly lean towards aortic valvuloplasty or TAVR, leaving her mitral regurgitation for another time. 3. Hyperlipidemia: Continue atorvastatin. 4. Anemia: The patient most likely has anemia as a result of her colon cancer. Patient had an EGD as well which did not appear to show any significant erosions although some gastritis was noted. Recommend discontinuation of Lovenox and using SCD for DVT prophylaxis. 5. Thank you very much for the opportunity to participate in the cardiac care of your patient. I had a long and thorough discussion with the patient regarding her clinical situation, and she is agreed to left and right heart catheterization tomorrow morning. Code Visit Inpatient E&M: 30456 Rust Hosp L2
--- NOTE | 2018-03-26 10:54 | PCM.PN.HOSP ---
Patient Problems: Active and Suspected Problems (Last Reviewed 03/25/18 @ 04:40 by Niels Arreaga MD) SOB (shortness of breath) (Acute) Anemia (Acute) Colon cancer (Acute) Aortic stenosis (Acute) Pulmonary hypertension (Acute) Subjective: No new events. Vitals/I&O's: Vital Signs Temp Pulse Resp BP Pulse Ox 36.5 C L 79 16 138/66 H 95 03/26/18 09:21 03/26/18 09:38 03/26/18 09:21 03/26/18 09:38 03/26/18 09:21 Oxygen Flow Rate (L/min) 3 Oxygen Delivery Method Room Air Weight: 88.1 kg Body Mass Index (BMI) 35.5 Intake and Output for Last 24 Hours 03/24/18 03/25/18 03/26/18 23:59 23:59 23:59 Intake Total 1633 / 1633 40 / 40 Output Total 300 / 300 Balance 1333 / 1333 40 / 40 General: Alert, No apparent distress HEENT: Atraumatic, Normocephalic Oral: Moist Mucosa, No Gingival or Mucosal Lesions/ Ulcerations Neck: No Nodes, Thyroid Normal Size and Texture Lungs: Clear to auscultation, Normal air movement, No rhonchi, No wheeze Cardiovascular: Regular rate, Regular Rhythm, Normal S1, Normal S2, No murmurs Abdomen: Bowel Sounds Present, Soft, Non Tender, Non-Distended Extremities: No edema, No Calf Tenderness Skin: No rashes, No breakdown Psych/Mental Status: Normal Affect, Appropriate Laboratory Results 03/25/18 05:14: Haptoglobin 67 03/25/18 11:34: POC Glucose 176 H 03/25/18 16:31: POC Glucose 43 L* 03/25/18 22:04: POC Glucose 224 H 03/26/18 05:00: WBC 6.5, RBC 3.09 L, Hgb 8.8 L, Hct 27.7 L, MCV 89.6, MCH 28.5, MCHC 31.8 L, RDW 16.2 H, RDW Differential 52.2 H, Plt Count 268, MPV 8.6, Immature Gran % (Auto) 0.200, Neut % (Auto) 61.9, Lymph % (Auto) 24.8, [place] % (Auto) 8.3, Eos % (Auto) 4.3, Baso % (Auto) 0.5, Absolute Neuts (auto) 4.0, Absolute Lymphs (auto) 1.62, Total Counted Not Reportable 03/26/18 05:00: Sodium 140, Potassium 3.8, Chloride 103, Carbon Dioxide 29.0, Anion Gap 8, BUN 32 H, Creatinine 1.01, Estim Creat Clear Calc 36.89, Est GFR (MDRD) Af Amer 68, Est GFR (MDRD) Non-Af 56 L, BUN/Creatinine Ratio 31.7 H, Glucose 72 L, Calcium 8.7 03/26/18 06:49: POC Glucose 73 Current Medications Acetaminophen (Tylenol) 650 mg PO Q6H PRN PRN PRN Reason: Mild Pain (scale 0-3)/T>100.7 Last Admin: 03/25/18 08:52 Dose: 650 mg [facility]) [facility] Last Admin: 03/26/18 09:37 Dose: 81 mg Atorvastatin Calcium (Lipitor) 20 mg PO QHS [facility] Last Admin: 03/25/18 22:05 Dose: 20 mg Cholecalciferol (Vitamin D) 5,000 unit PO DAILY [facility] Last Admin: 03/26/18 09:36 Dose: 5,000 unit Diphenhydramine HCl (Benadryl) 50 mg PO X1 ONE Stop: 03/26/18 10:47 Famotidine (Pepcid) 20 mg PO BID [facility] Last Admin: 03/26/18 09:36 Dose: 20 mg Ferrous Gluconate (Ferrous Gluconate) 325 mg PO TIDCM [facility] Last Admin: 03/26/18 09:38 Dose: 325 mg Furosemide (Lasix) 40 mg PO BID@1000,1800 [facility] Last Admin: 03/26/18 09:37 Dose: 40 mg Sodium Chloride () 1,000 mls @ 0 mls/hr IV .Q0M [facility] PRN Reason: KVO Insulin Glargine (Lantus (Bkc)) [facility] Last Admin: 03/26/18 09:37 Dose: 15 u Insulin Human Lispro (Humalog Kwikpen (Bkc)) 5 unit SC TIDCM [facility] Last Admin: 03/26/18 09:38 Dose: 5 u Lisinopril (Zestril) 10 mg PO DAILY [facility] Last Admin: 03/26/18 09:36 Dose: 10 mg Magnesium Hydroxide (Milk Of Magnesia) 30 ml PO DAILY PRN PRN Reason: Constipation Metoprolol Succinate (Toprol Xl (Beta Ryder)) 25 mg PO DAILY [facility] Last Admin: 03/26/18 09:38 Dose: 25 mg Sodium Chloride () 5 - 30 ml IV UD PRN PRN Reason: SALINE FLUSH Tolterodine Tartrate (Detrol La) 2 mg PO QHS [facility] Last Admin: 03/25/18 22:05 Dose: 2 mg Medical Necessity - Tobacco Use Smoking Status: Former smoker Assessment/Plan All Active Problems (Last Reviewed 03/25/18 @ 04:40 by Niels Arreaga MD) SOB (shortness of breath) (Acute) Anemia (Acute) Colon cancer (Acute) Aortic stenosis (Acute) Pulmonary hypertension (Acute) Respiratory failure (Acute) Respiratory failure requiring intubation (Acute) Severe anemia (Acute) Ulcer of left lower leg (Resolved) Cellulitis of left leg without foot (Resolved) Acute electrocardiogram changes (Acute) 1. Symptomatic anemia improved now 8.8 monitor no further transfusions at this time. 2. Severe plan for LHC and RHC on 03/27 subsequent mgmt will be determined afterwards (TAVR, v open +/- CABG, etc.) 3. HFpEF EF 65% from [facility] on 03/24 complicated by severe pulm HTN received 40mg IV lasix today on lisinopril and Toprol XL DC amlodipine given LE edema schedule oral lasix 4. Severe pulmonary HTN group 2 treat the underlying cause (HF, ) complicates care 5. DM2 MBS of 43 yesterday decrease lantus from 15 to 10 monitor. 6. DVT proph: SCDs Code Visit Inpatient E&M: 70116 Subs Hosp L2
[2018-03-26 11:25] LABS: Bedside Glucose 154 mg/dL (70-110)
[2018-03-26 17:21] LABS: Bedside Glucose 87 mg/dL (70-110)
[2018-03-26] MEDS: Tolterodine Tartrate 2 MG CAP.SA PO (20:58)
[2018-03-26] MEDS: 0.9% NaCl Peripheral Flush Adult/Peds IV (20:58)
[2018-03-26] MEDS: Atorvastatin Calcium 20 MG Tablet PO (20:58)
[2018-03-26 22:26] LABS: Bedside Glucose 135 mg/dL (70-110)
[2018-03-27] VITALS (25 sets, daily range): BP systolic 107–156; BP diastolic 32–73; PULSE 70–89; RESP 16–21; TEMP 36.6–37.1; O2SAT 94–98
--- NOTE | 2018-03-27 05:55 | EKG12_ITS ---
Test Reason : AM EKG Blood Pressure : / mmHG Vent. Rate : 070 BPM Atrial Rate : 070 BPM P-R Int : 154 ms QRS Dur : 132 ms QT Int : 436 ms P-R-T Axes : 049 -21 -01 degrees QTc Int : 470 ms Normal sinus rhythm Right bundle branch block Abnormal ECG When compared with ECG of 24-MAR-2018 17:32, MANUAL COMPARISON REQUIRED, DATA IS UNCONFIRMED Confirmed by ADRIEL YAÑEZ, LICHA ([id number]), supervising editor news reel BIRGIT EUBANKS ([id number]) on 03/29/2018 1:58:25 PM Referred By: LAVELLE Confirmed By:LICHA MOREL MD
[2018-03-27] MEDS: Lisinopril 10 MG Tablet PO (06:00)
[2018-03-27] MEDS: Aspirin E.C. 81 MG Tablet PO (06:00)
[2018-03-27] MEDS: Metoprolol(XL)Succ 25 MG Tablet PO (06:00)
[2018-03-27] MEDS: 0.9% Normal Saline 1,000 ML 15 ML IV (06:01)
[2018-03-27 06:11] LABS: Bedside Glucose 105 mg/dL (70-110)
[2018-03-27 06:30] LABS: Absolute Lymphocyte Count 1.46 X10^3/ul (0.83-4.51); Absolute Neutrophil Count 5.1 X10^3/uL (2.0-7.7); Basophil# 0.03 X10^3/uL; Basophil% 0.4 % (0-1); Eosinophils% 4.1 % (0-5); Hematocrit 29.1 % (37-47); Hemoglobin 9.1 g/dl (12.0-15.0); Lymphocyte # 1.46 X10^3/ul (4.0); Lymphocyte % 19.7 % (19-41); Mean Corp Hgb Conc 31.3 g/gl (32-36); Mean Corpuscular Hgb 28.3 pg (27.0-32.0); Mean Corpuscular Volume 90.4 fL (81-99); Mean Platelet Vol. 8.4 fl (6.2-12.0); Monocyte# 0.51 X10^3/uL; Monocyte% 6.9 % (0-10); Neutrophil # 5.09 X10^3/uL (2.7-7.7); Neutrophil % 68.8 % (47-70); Platelet Count 292 K/mm3 (150-450); RBC Distribution Width CV 16.1 % (11.6-14.6); RBC Distribution Width SD 52.5 fl (35.1-43.9); Red Blood Count 3.22 M/mm3 (4.2-5.4); White Blood Count 7.4 K/mm3 (4.4-11.0)
[2018-03-27 06:31] LABS: POSITIVE COUNT NO; POSITIVE DIFFERENTIAL NO; POSITIVE MORPHOLOGY NO
[2018-03-27 06:36] LABS: Anion Gap 10 (5-15); BUN 28 mg/dL (7-18); BUN/Creat Ratio 27.5 RATIO (10-20); Calcium,Total 8.8 mg/dL (8.5-10.1); Chloride 101 mmol/L (98-107); Creatinine, Serum 1.02 mg/dL (0.55-1.02); EST Glomerular Filtration Rate 56 mL/min (>60); Est Glom Filt Rate - Afr Amer 68 mL/min (>60); Estimated Creatinine Clearance 36.53 ml/min; Glucose 97 mg/dL (74-106); Potassium 3.6 mmol/L (3.5-5.1); Sodium Level 140 mmol/L (136-145)
[2018-03-27 06:43] LABS: International Normalized Ratio 1.1; Partial Thromboplast Time 25.4 Seconds (24.1-36.2); Prothrombin Time (Protime)PT. 14.5 SECONDS (11.7-14.9)
[2018-03-27] MEDS: Acetaminophen 325 MG Tablet 650 MG PO (08:14)
[2018-03-27] MEDS: DiphenhydrAMINE 25 MG Capsule 50 MG PO (08:15)
[2018-03-27] MEDS: 0.9% NaCl Peripheral Flush Adult/Peds IV (08:17)
--- NOTE | 2018-03-27 08:46 | CASEMGMT ---
According to [employer] website, the following are in-network tertiary facilities: [facility], [place], [facility], [facility], [facility], and . Mynor FITZGERALD CM
[2018-03-27 10:10] LABS: Blood Gas Specimen Type VEN; VBG BASE EXCESS 7 mmol/L (-1.0-3.5); VBG Bicarbonate 31 mmol/L (22-26); VBG Oxygen Content 32 mmol/L (23-33); VBG PO2 38 mmHg (25-40); VBG SO2 75 % (50-70); VBG pCO2 43.2 mmHg (41-51); VBG pH 7.46 (7.32-7.42)
[2018-03-27 10:10] LABS: Base Excess 5 mmol/L (-2 to +2); Bicarbonate 29.2 mmol/L (22-26); Blood Gas Specimen Type ART; PO2 65 mmHG (75-100); SO2 93 % (95-99); Total Carbon Dioxide 30 mmol/L; pCO2 42.2 mmHg (35-45); pH 7.45 (7.35-7.45)
[2018-03-27 10:10] LABS: Blood Gas Specimen Type VEN; VBG BASE EXCESS 6 mmol/L (-1.0-3.5); VBG Bicarbonate 30 mmol/L (22-26); VBG Oxygen Content 32 mmol/L (23-33); VBG PO2 33 mmHg (25-40); VBG SO2 64 % (50-70); VBG pCO2 45.8 mmHg (41-51); VBG pH 7.43 (7.32-7.42)
--- NOTE | 2018-03-27 10:18 | CASEMGMT ---
This RN CM to room to complete CM assessment and pt is out of the dept for heart cath at this time. Will attempt again later. SStsam FITZGERALD CM
[2018-03-27 11:05] LABS: Bedside Glucose 109 mg/dL (70-110)
--- NOTE | 2018-03-27 11:56 | NURSING ---
wound photo: bilateral lower leg (cat scratches)
--- NOTE | 2018-03-27 11:57 | NURSING ---
wound photo: right lateral lower leg
[2018-03-27] MEDS: Insulin Lispro 100 UNIT/ML INSULN.PEN SC ×2 (12:09→17:53)
[2018-03-27] MEDS: Famotidine 20 MG Tablet PO ×2 (12:09→21:39)
[2018-03-27] MEDS: Ferrous Gluconate 325 MG Tablet PO ×2 (12:09→16:51)
--- NOTE | 2018-03-27 12:39 | CASEMGMT ---
AMILCAR CM assessment complete, see link. PT recommended further skilled therapy. Pt is declining any further therapy, home health. States she is ambulatory @ home. Per nurse, pt ambulated well this am with cane. Can revisit if pt activity declines or she reconsiders therapy on dc. Jarad ORTIZN RN ACM
--- NOTE | 2018-03-27 13:44 | PCM.PN.HOSP ---
Patient Problems: Active and Suspected Problems (Last Reviewed 03/25/18 @ 04:40 by Niels Arreaga MD) SOB (shortness of breath) (Acute) Anemia (Acute) Colon cancer (Acute) Aortic stenosis (Acute) Pulmonary hypertension (Acute) Subjective: Patient seen and examined. She had no complaints and felt well. She denied any fever chills, cough or chest pain, shortness of breath, abdominal pain, diarrhea vomiting. 12 point review of systems otherwise negative. She had a cardiac cath today which showed nonobstructive coronary arteries with a normal left ventricular size, wall motion and systolic function and severe aortic stenosis. She also had severe pulmonary hypertension. Recommendations were for him on consult as she may need PET scan to assess for metastases prior to AVR procedure. She will need valve replacement surgery and options are T AVR versus operative section to assist with hemicolectomy for colon cancer. Vitals/I&O's: Vital Signs Temp Pulse Resp BP Pulse Ox 98.4 F 82 18 107/49 L 96 03/27/18 13:36 03/27/18 13:36 03/27/18 13:36 03/27/18 13:36 03/27/18 13:36 Oxygen Flow Rate (L/min) 3 Oxygen Delivery Method Room Air Weight: 194 lb 3.636 oz Body Mass Index (BMI) 35.5 Intake and Output for Last 24 Hours 03/25/18 03/26/18 03/27/18 23:59 23:59 23:59 Intake Total 1633 / 1633 1440 / 1440 410 / 410 Output Total 300 / 300 Balance 1333 / 1333 1440 / 1440 410 / 410 General: Alert, Oriented x3, Cooperative, No apparent distress HEENT: Atraumatic, PERRLA, EOMI, Normocephalic Oral: Moist Mucosa Neck: Supple, No JVD, Negative Carotid Bruits Lungs: Clear to auscultation, Normal air movement, No rhonchi, No wheeze, No rales Cardiovascular: Regular rate, Regular Rhythm, Normal S1, Normal S2, - - grade 3-4 systolic murmur in aortic and pulmonary regions. Abdomen: Bowel Sounds Present, Soft, Non Tender, Non-Distended, No Hepato-splenomegaly Extremities: No clubbing, No cyanosis, No edema, Capillary Refill Less than 3 Seconds Skin: No rashes, - - RLE bandaged around ankle, due to abrasion from cat bite Musculoskeletal: No Tenderness to Palpation of Joints or Extremities Lymphatic: No Cervical, Supraclavicular, or Inguinal Adenopathy Neurological: Cranial nerves II-XII grossly intact, Motor Exam 5/5 strength throughout Psych/Mental Status: Normal Affect, Appropriate, Alert and oriented to time, place, person, mood and affect Laboratory Results 03/26/18 17:06: POC Glucose 87 03/26/18 22:17: POC Glucose 135 H 03/27/18 05:58: POC Glucose 105 03/27/18 06:00: WBC 7.4, RBC 3.22 L, Hgb 9.1 L, Hct 29.1 L, MCV 90.4, MCH 28.3, MCHC 31.3 L, RDW 16.1 H, RDW Differential 52.5 H, Plt Count 292, MPV 8.4, Immature Gran % (Auto) 0.100, Neut % (Auto) 68.8, Lymph % (Auto) 19.7, [place] % (Auto) 6.9, Eos % (Auto) 4.1, Baso % (Auto) 0.4, Absolute Neuts (auto) 5.1, Absolute Lymphs (auto) 1.46, Total Counted Not Reportable 03/27/18 06:00: PT 14.5, INR 1.1, APTT 25.4 03/27/18 06:00: Sodium 140, Potassium 3.6, Chloride 101, Carbon Dioxide 29.0, Anion Gap 10, BUN 28 H, Creatinine 1.02, Estim Creat Clear Calc 36.53, Est GFR (MDRD) Af Amer 68, Est GFR (MDRD) Non-Af 56 L, BUN/Creatinine Ratio 27.5 H, Glucose 97, Calcium 8.8 03/27/18 09:48: Specimen Type MATTIE, VBG pH 7.43 H, VBG pO2 33, VBG O2 Sat (Calc) 64, VBG O2 Content 32, VBG Base Excess 6 H, POC Mix VBG pCO2 Pt Tmp 45.8 03/27/18 09:51: Specimen Type MATTIE, VBG pH 7.46 H, VBG pO2 38, VBG O2 Sat (Calc) 75 H, VBG O2 Content 32, VBG Base Excess 7 H, POC Mix VBG pCO2 Pt Tmp 43.2 03/27/18 10:01: Specimen Type ART, pH 7.45, Bicarbonate Actual 29.2 H, POC Total CO2 30, Base Excess 5 H, O2 Saturation 93 L, ABG pCO2 42.2, ABG pO2 65 L 03/27/18 10:58: POC Glucose 109 Current Medications Acetaminophen (Tylenol) 650 mg PO Q6H PRN PRN PRN Reason: Mild Pain (scale 0-3)/T>100.7 Last Admin: 03/27/18 08:14 Dose: 650 mg [facility] Last Admin: 03/27/18 06:00 Dose: 81 mg Atorvastatin Calcium (Lipitor) 20 mg PO QHS [facility] Last Admin: 03/26/18 20:58 Dose: 20 mg Cholecalciferol (Vitamin D) 5,000 unit PO DAILY [facility] Last Admin: 03/27/18 12:09 Dose: 5,000 unit Dextrose (D50w Syringe) 0 gm IV X1 PRN; Protocol PRN Reason: Hypoglycemia Famotidine (Pepcid) 20 mg PO BID [facility] Last Admin: 03/27/18 12:09 Dose: 20 mg Ferrous Gluconate (Ferrous Gluconate) 325 mg PO TIDCM [facility] Last Admin: 03/27/18 12:09 Dose: 325 mg Furosemide (Lasix) 40 mg PO BID@1000,1800 [facility] Last Admin: 03/26/18 17:44 Dose: 40 mg Glucagon () 1 mg IM .X1 PRN PRN Reason: Hypoglycemia Heparin Sodium (Beef Lung) (Heparin 500 Unit/5 Ml (100/Ml)) 500 unit IV UD PRN PRN Reason: HEPARIN FLUSH Sodium Chloride () 1,000 mls @ 15 mls/hr IV .Q48H [facility] PRN Reason: KVO Last Admin: 03/27/18 06:01 Dose: 15 mls/hr Insulin Glargine ([facility]antus (Bkc)) [facility] Last Admin: 03/27/18 12:09 Dose: 10 units Insulin Human Lispro (Humalog Kwikpen (Bkc)) 5 unit SC TIDCM [facility] Last Admin: 03/27/18 12:09 Dose: 5 u Labetalol HCl (Trandate) 5 mg IV X1 PRN PRN Reason: SBP > 160 prior to sheath pull Stop: 03/29/18 10:05 Lisinopril (Zestril) 10 mg PO DAILY [facility] Last Admin: 03/27/18 06:00 Dose: 10 mg Magnesium Hydroxide (Milk Of Magnesia) 30 ml PO DAILY PRN PRN Reason: Constipation Metoprolol Succinate (Toprol Xl (Beta Ryder)) 25 mg PO DAILY [facility] Last Admin: 03/27/18 06:00 Dose: 25 mg Sodium Chloride () 5 - 30 ml IV UD PRN PRN Reason: SALINE FLUSH Last Admin: 03/27/18 08:17 Dose: 10 ml Tolterodine Tartrate (Detrol La) 2 mg PO QHS [facility] Last Admin: 03/26/18 20:58 Dose: 2 mg Medical Necessity - Tobacco Use Smoking Status: Former smoker Assessment/Plan All Active Problems (Last Reviewed 03/25/18 @ 04:40 by Niels Arreaga MD) SOB (shortness of breath) (Acute) Anemia (Acute) Colon cancer (Acute) Aortic stenosis (Acute) Pulmonary hypertension (Acute) Respiratory failure (Acute) Respiratory failure requiring intubation (Acute) Severe anemia (Acute) Ulcer of left lower leg (Resolved) Cellulitis of left leg without foot (Resolved) Acute electrocardiogram changes (Acute) 1. Severe aortic stenosis admitted with SOB due to servere aortic stenosis and anemia cardiac cath today: severe aortic stenosis and severe pulmonary hypertension. aortic valve area of 0.67cm2 currently not SOB options now are for TAVR vs balloon valvuloplasty oncology consult placed to assess for metastatic colon cancer 2. Severe anemia due to colon cancer and severe aortic stenosis s/p transfusion of 1 unit of PRBC Hb today is 9.1 will monitor. Plan is to maintain Hb>8 3. colon cancer diagnosed per colonoscopy a few weeks ago oncology consulted. To get CEA and PET to assess for metastases if she does have metastasis, she will need chemotherapy and so no benefit from open heart surgery. This will determine further management of aortic stenosis. will await oncology rec's 4. HFpEF EF 65% per [facility] on 03/24 cath today: intact coronaries, severe pulmonary hypertension on PO lasix 40mg bid, lisinopril and toprol. WIll decrease PO lasix to 40mg daily o/a of severe . will mo nitor 5. Severe pulmonary hypertension likely due to underlying heart disease 6. Hyperlipidemia: on statin 7. Diabetes mellitus type 2 duran was decreased to 10IU from 15 yesterday due to hypoglycemia fasting sugar today was 97 DVT prophylaxis: SCDs COde status: full code This note was generated with [employer] software. It may contain incorrect words, spelling, and punctuation that were not noted in checking the note before signing. Code Visit Inpatient E&M: 96979 Subs Hosp L3
--- NOTE | 2018-03-27 13:59 | PN_ITS ---
Patient Problems: Active and Suspected Problems (Last Reviewed 03/25/18 @ 04:40 by Niels Arreaga MD) SOB (shortness of breath) (Acute) Anemia (Acute) Colon cancer (Acute) Aortic stenosis (Acute) Pulmonary hypertension (Acute) Subjective: Patient seen and examined. She had no complaints and felt well. She denied any fever chills, cough or chest pain, shortness of breath, abdominal pain, diarrhea vomiting. 12 point review of systems otherwise negative. She had a cardiac cath today which showed nonobstructive coronary arteries with a normal left ventricular size, wall motion and systolic function and severe aortic stenosis. She also had severe pulmonary hypertension. Recommendations were for him on consult as she may need PET scan to assess for metastases prior to AVR procedure. She will need valve replacement surgery and options are T AVR versus operative section to assist with hemicolectomy for colon cancer. Vitals/I&O's: Vital Signs Temp Pulse Resp BP Pulse Ox 98.4 F 82 18 107/49 L 96 03/27/18 13:36 03/27/18 13:36 03/27/18 13:36 03/27/18 13:36 03/27/18 13:36 Oxygen Flow Rate (L/min) 3 Oxygen Delivery Method Room Air Weight: 194 lb 3.636 oz Body Mass Index (BMI) 35.5 Intake and Output for Last 24 Hours 03/25/18 03/26/18 03/27/18 23:59 23:59 23:59 Intake Total 1633 / 1633 1440 / 1440 410 / 410 Output Total 300 / 300 Balance 1333 / 1333 1440 / 1440 410 / 410 General: Alert, Oriented x3, Cooperative, No apparent distress HEENT: Atraumatic, PERRLA, EOMI, Normocephalic Oral: Moist Mucosa Neck: Supple, No JVD, Negative Carotid Bruits Lungs: Clear to auscultation, Normal air movement, No rhonchi, No wheeze, No rales Cardiovascular: Regular rate, Regular Rhythm, Normal S1, Normal S2, - - grade 3- 4 systolic murmur in aortic and pulmonary regions. Abdomen: Bowel Sounds Present, Soft, Non Tender, Non-Distended, No Hepato- splenomegaly Extremities: No clubbing, No cyanosis, No edema, Capillary Refill Less than 3 Seconds Skin: No rashes, - - RLE bandaged around ankle, due to abrasion from cat bite Musculoskeletal: No Tenderness to Palpation of Joints or Extremities Lymphatic: No Cervical, Supraclavicular, or Inguinal Adenopathy Neurological: Cranial nerves II-XII grossly intact, Motor Exam 5/5 strength throughout Psych/Mental Status: Normal Affect, Appropriate, Alert and oriented to time, place, person, mood and affect Laboratory Results 03/26/18 17:06: POC Glucose 87 03/26/18 22:17: POC Glucose 135 H 03/27/18 05:58: POC Glucose 105 03/27/18 06:00: WBC 7.4, RBC 3.22 L, Hgb 9.1 L, Hct 29.1 L, MCV 90.4, MCH 28.3, MCHC 31.3 L, RDW 16.1 H, RDW Differential 52.5 H, Plt Count 292, MPV 8.4, Immature Gran % (Auto) 0.100, Neut % (Auto) 68.8, Lymph % (Auto) 19.7, [place] % ( Auto) 6.9, Eos % (Auto) 4.1, Baso % (Auto) 0.4, Absolute Neuts (auto) 5.1, Absolute Lymphs (auto) 1.46, Total Counted Not Reportable 03/27/18 06:00: PT 14.5, INR 1.1, APTT 25.4 03/27/18 06:00: Sodium 140, Potassium 3.6, Chloride 101, Carbon Dioxide 29.0, Anion Gap 10, BUN 28 H, Creatinine 1.02, Estim Creat Clear Calc 36.53, Est GFR ( MDRD) Af Amer 68, Est GFR (MDRD) Non-Af 56 L, BUN/Creatinine Ratio 27.5 H, Glucose 97, Calcium 8.8 03/27/18 09:48: Specimen Type MATTIE, VBG pH 7.43 H, VBG pO2 33, VBG O2 Sat (Calc) 64, VBG O2 Content 32, VBG Base Excess 6 H, POC Mix VBG pCO2 Pt Tmp 45.8 03/27/18 09:51: Specimen Type MATTIE, VBG pH 7.46 H, VBG pO2 38, VBG O2 Sat (Calc) 75 H, VBG O2 Content 32, VBG Base Excess 7 H, POC Mix VBG pCO2 Pt Tmp 43.2 03/27/18 10:01: Specimen Type ART, pH 7.45, Bicarbonate Actual 29.2 H, POC Total CO2 30, Base Excess 5 H, O2 Saturation 93 L, ABG pCO2 42.2, ABG pO2 65 L 03/27/18 10:58: POC Glucose 109 Current Medications Acetaminophen (Tylenol) 650 mg PO Q6H PRN PRN PRN Reason: Mild Pain (scale 0-3)/T>100.7 Last Admin: 03/27/18 08:14 Dose: 650 mg [facility]) [facility] Last Admin: 03/27/18 06:00 Dose: 81 mg Atorvastatin Calcium (Lipitor) 20 mg PO QHS [facility] Last Admin: 03/26/18 20:58 Dose: 20 mg Cholecalciferol (Vitamin D) 5,000 unit PO DAILY [facility] Last Admin: 03/27/18 12:09 Dose: 5,000 unit Dextrose (D50w Syringe) 0 gm IV X1 PRN; Protocol PRN Reason: Hypoglycemia Famotidine (Pepcid) 20 mg PO BID [facility] Last Admin: 03/27/18 12:09 Dose: 20 mg Ferrous Gluconate (Ferrous Gluconate) 325 mg PO TIDCM [facility] Last Admin: 03/27/18 12:09 Dose: 325 mg Furosemide (Lasix) 40 mg PO BID@1000,1800 [facility] Last Admin: 03/26/18 17:44 Dose: 40 mg Glucagon () 1 mg IM .X1 PRN PRN Reason: Hypoglycemia Heparin Sodium (Beef Lung) (Heparin 500 Unit/5 Ml (100/Ml)) 500 unit IV UD PRN PRN Reason: HEPARIN FLUSH Sodium Chloride () 1,000 mls @ 15 mls/hr IV .Q48H [facility] PRN Reason: KVO Last Admin: 03/27/18 06:01 Dose: 15 mls/hr Insulin Glargine ([facility]us (Bkc)) [facility] Last Admin: 03/27/18 12:09 Dose: 10 units Insulin Human Lispro (Humalog Kwikpen (Bkc)) 5 unit SC TIDCM [facility] Last Admin: 03/27/18 12:09 Dose: 5 u Labetalol HCl (Trandate) 5 mg IV X1 PRN PRN Reason: SBP > 160 prior to sheath pull Stop: 03/29/18 10:05 Lisinopril (Zestril) 10 mg PO DAILY [facility] Last Admin: 03/27/18 06:00 Dose: 10 mg Magnesium Hydroxide (Milk Of Magnesia) 30 ml PO DAILY PRN PRN Reason: Constipation Metoprolol Succinate (Toprol Xl (Beta Ryder)) 25 mg PO DAILY [facility] Last Admin: 03/27/18 06:00 Dose: 25 mg Sodium Chloride () 5 - 30 ml IV UD PRN PRN Reason: SALINE FLUSH Last Admin: 03/27/18 08:17 Dose: 10 ml Tolterodine Tartrate (Detrol La) 2 mg PO QHS [facility] Last Admin: 03/26/18 20:58 Dose: 2 mg Medical Necessity - Tobacco Use Smoking Status: Former smoker Assessment/Plan All Active Problems (Last Reviewed 03/25/18 @ 04:40 by Niels Arreaga MD) SOB (shortness of breath) (Acute) Anemia (Acute) Colon cancer (Acute) Aortic stenosis (Acute) Pulmonary hypertension (Acute) Respiratory failure (Acute) Respiratory failure requiring intubation (Acute) Severe anemia (Acute) Ulcer of left lower leg (Resolved) Cellulitis of left leg without foot (Resolved) Acute electrocardiogram changes (Acute) 1. Severe aortic stenosis * admitted with SOB due to servere aortic stenosis and anemia * cardiac cath today: severe aortic stenosis and severe pulmonary hypertension. aortic valve area of 0.67cm2 * currently not SOB * options now are for TAVR vs balloon valvuloplasty * oncology consult placed to assess for metastatic colon cancer * 2. Severe anemia due to colon cancer and severe aortic stenosis * s/p transfusion of 1 unit of PRBC * Hb today is 9.1 * will monitor. Plan is to maintain Hb>8 * 3. colon cancer * diagnosed per colonoscopy a few weeks ago * oncology consulted. To get CEA and PET to assess for metastases * if she does have metastasis, she will need chemotherapy and so no benefit from open heart surgery. This will determine further management of aortic stenosis. * will await oncology rec's * 4. HFpEF * EF 65% per [facility] on 03/24 * cath today: intact coronaries, severe pulmonary hypertension * on PO lasix 40mg bid, lisinopril and toprol. WIll decrease PO lasix to 40mg daily o/a of severe . * will mo nitor * 5. Severe pulmonary hypertension * likely due to underlying heart disease * 6. Hyperlipidemia: on statin 7. Diabetes mellitus type 2 * lantus was decreased to 10IU from 15 yesterday due to hypoglycemia * fasting sugar today was 97 * DVT prophylaxis: SCDs COde status: full code This note was generated with [employer] software. It may contain incorrect words, spelling, and punctuation that were not noted in checking the note before signing. Code Visit Inpatient E&M: 49943 Subs Hosp L3
[2018-03-27] MEDS: Furosemide 40 MG Tablet PO ×2 (14:55→18:53)
--- NOTE | 2018-03-27 15:40 | ONC.CONS.INP ---
Subjective Date of Service:: 03/27/18 Chief Complaint: Adenocarcinoma of the colon History of Present Illness: The patient is a 77 year old F with diabetes, hypertension, hypercholesterolemia, previous CVA and recently diagnosed colon ca. She underwent EGD and colonoscopy 02/20/18 under the care of Dr. Henrdicks for work up of anemia. 1-2 cm mass was identified at the hepatic flexure, pathology of which returned positive for invasive adenocarcinoma, microsatellite stable. Her care is complicated by severe aortic stenosis and pulmonary hypertension questioning her surgical candidacy for hemicolectomy. Underwent WU 03/24/18 under the care of Dr. Harmon which demonstrated critical aortic stenosis, severe mitral regurg and severe pulmonary hypertension. She was admitted 03/24/18 subsequent to experiencing acute onset SOB during PRBC transfusion. Aparently after receiving about 130 cc of blood, the patient developed severe shortness of breath, was combative, and required IV diuresis, IV Benadryl, and Tylenol as well as BiPAP therapy. Once her diuresis was complete her BiPAP was weaned off and she was admitted for observation. Was able to receive 1 unit PRBCs on 03/25/18 and reports improvement of SOB and weakness. Underwent cardiac cath earlier today per Dr. Harmon. Upon interview, patient is lying comfortably in bed with sandbag on right groin. Denies weight loss and cough. Past Medical History: Chronic Problems (Last Reviewed 03/25/18 @ 04:40 by Niels Arreaga MD) Aortic stenosis (Chronic) History of ischemic stroke without residual deficits (Chronic) Obesity (Chronic) Asthma (Chronic) Dyslipidemia (Chronic) Peripheral arterial occlusive disease (Chronic) Arterial atherosclerosis (Chronic) Diabetes mellitus (Chronic) Left carotid bruit (Chronic) Erythema of lower extremity (Chronic) Edema of left lower extremity (Chronic) Swelling of left lower extremity (Chronic) Scalp laceration (Chronic) Multiple falls (Chronic) HTN (hypertension) (Chronic) Past Medical/Surgical History: Past Medical History - Most Recent Inpatient Visit Past Medical History Start: 03/25/18 00:21 Text: Status: Complete Freq: ONCE Protocol: Document 03/25/18 00:27 [facility] (Rec: 03/25/18 00:35 [facility] [id number]) BMI Required to complete PMH What is Patient's BMI 36.9 Past Medical History Unable History Recalled Yes Query Text:Pt Unable/Family Not Present Neurologic Medical History Hx Stroke/TIA Yes: 2013 Hx Dementia/Alzheimer's No Hx Parkinson's Disease No Hx Seizures No Hx Multiple Sclerosis No Hx Migraines No Cardiac Medical History VTE Present on Admission No Hx of Deep Vein Thrombosis/VTE/PE No Hx Hypertension Yes: TAKES MEDICATION Hx Chest Pain/Angina No Hx Heart Attack No Hx Cardiac Surgery/Stents/Etc. No Hx Heart Failure No Hx Pacemaker/AICD No Hx Irregular Heartbeat and/or Afib No Hx Anticoagulant Therapy Yes: aspirin 81mg Query Text:(Coumadin, Aspirin, Plavix, Xarelto, etc.) Hx Pain in Legs when Walking/Leg Cramps No Respiratory Medical History Hx COPD No: asthma Hx Emphysema No Hx Smoking Yes: quit as a teenager Smoking Status Former smoker Hx Smoking Cessation Counseling No Hx Smoking Exposure Yes Hx Tobacco Use in last 12 months No Hx of Pipe Smoking No Hx Sleep Apnea No CPAP No BIPAP No Do you snore loudly (louder than talking No or can be heard through closed doors)? Do you often feel tired/ fatigued/ No sleepy during daytime? Has anyone observed you stop breathing No during sleep? STOP Results Negative GI Medical History Hx Ulcer No Hx Hepatitis No Hx Cirrhosis No Hx GI Bleed No Hx Unplanned Weight Loss No Genitourinary Medical History Indwelling Catheter in Place on Arrival/ No Admission Hx Renal Disease No Hx Dialysis No Musculoskeletal History Hx Arthritis Yes Hx Rheumatoid Arthritis No Endocrine Medical History Hx Diabetes Yes Hx Thyroid Disease No Hematologic Medical History Hx of Blood Transfusion Yes Hx of Transfusion in last 3 Months Yes Date of Last Transfusion (if within last 03/24/2018 3 months) Ever experience any problems with No transfusion(s)? Hx of Preganancy in last 3 Months No Nurse Filling Out Transfusion & [facility] Questions: Date: 03/25/18 Time: 00:34 Psycho/Social Medical History Hx Depression No Hx Anxiety No Hx Behavior Disorder No Hx Alcohol Use No Hx Substance Use No Other Medical History Hx Blood Disorders No Hx Anemia No Hx Cancer No Hx Drug Resistant Organism No Wound/Pressure Injury Present on Arrival No /Admission Query Text:If yes, chart assessment in Shift/Clinical Findings Central Line/PICC/VAD Present on Arrival No /Admission Antibiotics within last 7 days? No Risk for Readmission Number of Risk Factors 3 At Risk for Readmission Patient is At Risk For Readmission Patient is eligible for Call Back Y Past Medical History (Last Reviewed 03/25/18 @ 04:40 by Niels Arreaga MD) Respiratory failure (Acute) Respiratory failure requiring intubation (Acute) Aortic stenosis (Chronic) Severe anemia (Acute) History of ischemic stroke without residual deficits (Chronic) Obesity (Chronic) Asthma (Chronic) Dyslipidemia (Chronic) Peripheral arterial occlusive disease (Chronic) Arterial atherosclerosis (Chronic) Diabetes mellitus (Chronic) Left carotid bruit (Chronic) Ulcer of left lower leg (Resolved) Erythema of lower extremity (Chronic) Edema of left lower extremity (Chronic) Swelling of left lower extremity (Chronic) Cellulitis of left leg without foot (Resolved) Acute electrocardiogram changes (Acute) Syncope (Suspected) Scalp laceration (Chronic) Multiple falls (Chronic) HTN (hypertension) (Chronic) Past Surgical History (Last Reviewed 03/25/18 @ 04:40 by Niels Arreaga MD) History of carpal tunnel surgery of left wrist (Resolved) History of left knee replacement (Resolved) Maternal Family History: Family History (Last Updated 03/07/18 @ 10:10 by Miracle Langford) Sister Cancer Family History: No pertinent history Paternal Family History: Family History (Last Updated 03/07/18 @ 10:10 by Miracle Langford) Sister Cancer Family History: No pertinent history - The patient's father at age of 85 with a history of heart disease. The patient's mother at age of 90 with a history of T[employer]ATOR cancer. - Social History Smoking Status: Former smoker Allergies/Adverse Reactions: Allergy/AdvReac Type Severity Reaction Status Date / Time banana [Banana] Allergy Swelling Verified 03/07/18 10:07 metformin [From Glucophage] AdvReac Swelling Verified 03/07/18 10:07 of legs Review of Systems Constitutional:: Reports: Weakness, Fatigue. Denies: Fever, Sweats, Weight loss, Appetite change, Chills Cardiovascular:: Reports: Dyspnea on exertion. Denies: Chest pain, Palpitations, Orthopnea, PND, Shortness of breath Respiratory: Denies: Cough, Hemoptysis, Wheezing Gastrointestinal:: Denies: Abdominal pain, Nausea, Vomiting, Diarrhea, Constipation, Hematochezia Genitourinary: Denies: Dysuria, Hematuria, Urinary frequency, Flank pain Musculoskeletal:: Denies: Back pain, Myalgia, Arthralgia Skin: Denies: Rash, Skin Changes, Wounds Neurological:: Denies: Headache, Dizziness, Numbness, Tingling, Visual changes, Tinnitus, Hearing loss Psychiatric: Denies: Anxiety, Depression, Homicidal Ideations, Suicidal Ideations Vital Signs Height 5 ft 2 in Weight: 194 lb 3.636 oz Weight in Pounds 194.2 lbs Pulse Ox 96 Temperature 98.7 F Pulse Rate 78 Respiratory Rate 16 Blood Pressure [2nd BP] 145/67 Blood Pressure 108/47 Blood Pressure Position [2nd Semi-Fowlers BP] Blood Pressure Position Semi-Fowlers - Physical Exam General: Alert, Oriented x3, No apparent distress HEENT: Atraumatic, Normocephalic Oropharynx:: Negative for: Dry mucosa, Ulcerated lesions Neck:: Supple, Trachea midline. Negative for: JVD, bilateral Cardiac:: Regular rate, Regular rhythm, Normal S1, Normal S2, Murmur Lungs: Clear to auscultation, Excusion symmetrical. Negative for: Rhonchi, Wheezes Abdomen:: Bowel sounds x 4, Soft, Non-tender, Non-distended. Negative for: Hepatosplenomegaly Extremities:: - - Sandbag RLE. Negative for: Cyanosis, Edema Neurological: Neuro grossly intact Skin:: Lesions - RLE gauze around ankle. Negative for: Rash, Petechiae, Ecchymosis Psychiatric:: Appropriate affect, Euthymic Lymphatics:: Negative for: Cervical lymphadenopathy, Supraclavicular lymphadenopathy, Axillary lymphadenopathy, Inguinal lymphadenopathy - only examined on left Laboratory Data: Laboratory Tests 03/27/18 03/27/18 03/27/18 Range/Units 10:58 10:01 09:51 WBC (4.4-11.0) K/mm3 RBC (4.2-5.4) M/mm3 Hgb (12.0-15.0) g/dl Hct (37-47) % MCV (81-99) fL MCH (27.0-32.0) pg MCHC (32-36) g/gl RDW (11.6-14.6) % RDW Differential (35.1-43.9) fl Plt Count (150-450) K/mm3 MPV (6.2-12.0) fl Immature Gran % (Auto) (0.0-0.9) % Neut % (Auto) (47-70) % Lymph % (Auto) (19-41) % [place] % (Auto) (0-10) % Eos % (Auto) (0-5) % Baso % (Auto) (0-1) % Absolute Neuts (auto) (2.0-7.7) X10^3/uL Absolute Lymphs (auto) (0.83-4.51) X10^3/ul Total Counted PT (11.7-14.9) SECONDS INR APTT (24.1-36.2) Seconds Specimen Type ART MATTIE pH 7.45 (7.35-7.45) Bicarbonate Actual 29.2 H (22-26) mmol/L POC Total CO2 30 mmol/L Base Excess 5 H (-2 to +2) mmol/L O2 Saturation 93 L (95-99) % ABG pCO2 42.2 (35-45) mmHg ABG pO2 65 L (75-100) mmHG VBG pH 7.46 H (7.32-7.42) VBG pO2 38 (25-40) mmHg VBG O2 Sat (Calc) 75 H (50-70) % VBG O2 Content 32 (23-33) mmol/L VBG Base Excess 7 H (-1.0-3.5) mmol/L POC Mix VBG pCO2 Pt Tmp 43.2 (41-51) mmHg Sodium (136-145) mmol/L Potassium (3.5-5.1) mmol/L Chloride (98-107) mmol/L Carbon Dioxide (21.0-32.0) mmol/L Anion Gap (5-15) BUN (7-18) mg/dL Creatinine (0.55-1.02) mg/dL Estim Creat Clear Calc ml/min Est GFR (MDRD) Af Amer (>60) mL/min Est GFR (MDRD) Non-Af (>60) mL/min BUN/Creatinine Ratio (10-20) RATIO Glucose (74-106) mg/dL Calcium (8.5-10.1) mg/dL POC Glucose 109 (70-110) mg/dL 03/27/18 03/27/18 03/27/18 Range/Units 09:48 06:00 06:00 WBC (4.4-11.0) K/mm3 RBC (4.2-5.4) M/mm3 Hgb (12.0-15.0) g/dl Hct (37-47) % MCV (81-99) fL MCH (27.0-32.0) pg MCHC (32-36) g/gl RDW (11.6-14.6) % RDW Differential (35.1-43.9) fl Plt Count (150-450) K/mm3 MPV (6.2-12.0) fl Immature Gran % (Auto) (0.0-0.9) % Neut % (Auto) (47-70) % Lymph % (Auto) (19-41) % [place] % (Auto) (0-10) % Eos % (Auto) (0-5) % Baso % (Auto) (0-1) % Absolute Neuts (auto) (2.0-7.7) X10^3/uL Absolute Lymphs (auto) (0.83-4.51) X10^3/ul Total Counted PT 14.5 (11.7-14.9) SECONDS INR 1.1 APTT 25.4 (24.1-36.2) Seconds Specimen Type MATTIE pH (7.35-7.45) Bicarbonate Actual (22-26) mmol/L POC Total CO2 mmol/L Base Excess (-2 to +2) mmol/L O2 Saturation (95-99) % ABG pCO2 (35-45) mmHg ABG pO2 (75-100) mmHG VBG pH 7.43 H (7.32-7.42) VBG pO2 33 (25-40) mmHg VBG O2 Sat (Calc) 64 (50-70) % VBG O2 Content 32 (23-33) mmol/L VBG Base Excess 6 H (-1.0-3.5) mmol/L POC Mix VBG pCO2 Pt Tmp 45.8 (41-51) mmHg Sodium 140 (136-145) mmol/L Potassium 3.6 (3.5-5.1) mmol/L Chloride 101 (98-107) mmol/L Carbon Dioxide 29.0 (21.0-32.0) mmol/L Anion Gap 10 (5-15) BUN 28 H (7-18) mg/dL Creatinine 1.02 (0.55-1.02) mg/dL Estim Creat Clear Calc 36.53 ml/min Est GFR (MDRD) Af Amer 68 (>60) mL/min Est GFR (MDRD) Non-Af 56 L (>60) mL/min BUN/Creatinine Ratio 27.5 H (10-20) RATIO Glucose 97 (74-106) mg/dL Calcium 8.8 (8.5-10.1) mg/dL POC Glucose (70-110) mg/dL 03/27/18 03/27/18 03/26/18 Range/Units 06:00 05:58 22:17 WBC 7.4 (4.4-11.0) K/mm3 RBC 3.22 L (4.2-5.4) M/mm3 Hgb 9.1 L (12.0-15.0) g/dl Hct 29.1 L (37-47) % MCV 90.4 (81-99) fL MCH 28.3 (27.0-32.0) pg MCHC 31.3 L (32-36) g/gl RDW 16.1 H (11.6-14.6) % RDW Differential 52.5 H (35.1-43.9) fl Plt Count 292 (150-450) K/mm3 MPV 8.4 (6.2-12.0) fl Immature Gran % (Auto) 0.100 (0.0-0.9) % Neut % (Auto) 68.8 (47-70) % Lymph % (Auto) 19.7 (19-41) % [place] % (Auto) 6.9 (0-10) % Eos % (Auto) 4.1 (0-5) % Baso % (Auto) 0.4 (0-1) % Absolute Neuts (auto) 5.1 (2.0-7.7) X10^3/uL Absolute Lymphs (auto) 1.46 (0.83-4.51) X10^3/ul Total Counted Not Reportable PT (11.7-14.9) SECONDS INR APTT (24.1-36.2) Seconds Specimen Type pH (7.35-7.45) Bicarbonate Actual (22-26) mmol/L POC Total CO2 mmol/L Base Excess (-2 to +2) mmol/L O2 Saturation (95-99) % ABG pCO2 (35-45) mmHg ABG pO2 (75-100) mmHG VBG pH (7.32-7.42) VBG pO2 (25-40) mmHg VBG O2 Sat (Calc) (50-70) % VBG O2 Content (23-33) mmol/L VBG Base Excess (-1.0-3.5) mmol/L POC Mix VBG pCO2 Pt Tmp (41-51) mmHg Sodium (136-145) mmol/L Potassium (3.5-5.1) mmol/L Chloride (98-107) mmol/L Carbon Dioxide (21.0-32.0) mmol/L Anion Gap (5-15) BUN (7-18) mg/dL Creatinine (0.55-1.02) mg/dL Estim Creat Clear Calc ml/min Est GFR (MDRD) Af Amer (>60) mL/min Est GFR (MDRD) Non-Af (>60) mL/min BUN/Creatinine Ratio (10-20) RATIO Glucose (74-106) mg/dL Calcium (8.5-10.1) mg/dL POC Glucose 105 135 H (70-110) mg/dL 03/26/18 Range/Units 17:06 WBC (4.4-11.0) K/mm3 RBC (4.2-5.4) M/mm3 Hgb (12.0-15.0) g/dl Hct (37-47) % MCV (81-99) fL MCH (27.0-32.0) pg MCHC (32-36) g/gl RDW (11.6-14.6) % RDW Differential (35.1-43.9) fl Plt Count (150-450) K/mm3 MPV (6.2-12.0) fl Immature Gran % (Auto) (0.0-0.9) % Neut % (Auto) (47-70) % Lymph % (Auto) (19-41) % [place] % (Auto) (0-10) % Eos % (Auto) (0-5) % Baso % (Auto) (0-1) % Absolute Neuts (auto) (2.0-7.7) X10^3/uL Absolute Lymphs (auto) (0.83-4.51) X10^3/ul Total Counted PT (11.7-14.9) SECONDS INR APTT (24.1-36.2) Seconds Specimen Type pH (7.35-7.45) Bicarbonate Actual (22-26) mmol/L POC Total CO2 mmol/L Base Excess (-2 to +2) mmol/L O2 Saturation (95-99) % ABG pCO2 (35-45) mmHg ABG pO2 (75-100) mmHG VBG pH (7.32-7.42) VBG pO2 (25-40) mmHg VBG O2 Sat (Calc) (50-70) % VBG O2 Content (23-33) mmol/L VBG Base Excess (-1.0-3.5) mmol/L POC Mix VBG pCO2 Pt Tmp (41-51) mmHg Sodium (136-145) mmol/L Potassium (3.5-5.1) mmol/L Chloride (98-107) mmol/L Carbon Dioxide (21.0-32.0) mmol/L Anion Gap (5-15) BUN (7-18) mg/dL Creatinine (0.55-1.02) mg/dL Estim Creat Clear Calc ml/min Est GFR (MDRD) Af Amer (>60) mL/min Est GFR (MDRD) Non-Af (>60) mL/min BUN/Creatinine Ratio (10-20) RATIO Glucose (74-106) mg/dL Calcium (8.5-10.1) mg/dL POC Glucose 87 (70-110) mg/dL Diagnostic Data: Diagnostic Data Chest X-Ray 03/24/18 17:30 IMPRESSION: Mild pulmonary vascular congestion. Electronically Signed: Raman Lauren, at 17:45 EDT Tel , Service support , Assessment and Plan 1. 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 Diagnosed 02/20/18. Would require hemicolectomy however, her care is complicated by severe aortic stenosis and severe pulmonary hypertension. CT abd/pelvis obtained 02/20/18 revealed no evidence of intrahepatic or colonic mass or acute intra-abdominal or pelvic abnormality. To complete staging, orders placed for CT chest with contrast. In the absence of metastatic disease, interventions to address severe aortic stenosis welcomed as hemicolectomy would be best course of management. 2. Severe anemia d/t colon ca and severe aortic stenosis- Hgb 9.1 today. Although experienced transfusion reaction with initial unit, was able to receive 1 unit PRBCs on 03/25/18 with supportive medications (Tylenol, Benadryl and Lasix). Goal Hgb >8. Case discussed with Dr. Coffey who was in agreement with the aforementioned plan. Pippa Wilkerson, MSN, [employer]DESIGNER-[employer], AOCNP Medications: Prescriptions This Visit Medication Instructions Recorded Atorvastatin Calcium 20 mg PO QHS 03/24/18 Lisinopril [Zestril] 10 mg PO DAILY 03/24/18 Medications Added to Medication List This Visit Category Date Time Status 0.9% Normal Saline 1,000 ml Med 03/27/18 07:00 Active IV KVO Heparin Sodium,Porcine/Pf [Heparin 500 Unit/5 ml (100/ Med 03/27/18 10:05 Active ml)] 500 unit IV UD PRN Labetalol [Trandate] Med 03/27/18 10:05 Active 5 mg IV X1 PRN Primary Care Provider: Yumi Diana Referring Provider: - Problem List (1) Colon cancer Status: Acute Qualifiers: Colon location: hepatic flexure Qualified Code(s): C18.3 - Malignant neoplasm of hepatic flexure (2) Anemia Status: Acute Qualifiers: Anemia type: other cause
--- NOTE | 2018-03-27 15:57 | CON.PCM_ITS ---
Subjective Date of Service:: 03/27/18 Chief Complaint: Adenocarcinoma of the colon History of Present Illness: The patient is a 77 year old F with diabetes, hypertension, hypercholesterolemia , previous CVA and recently diagnosed colon ca. She underwent EGD and colonoscopy 02/20/18 under the care of Dr. Hendricks for work up of anemia. 1-2 cm mass was identified at the hepatic flexure, pathology of which returned positive for invasive adenocarcinoma, microsatellite stable. Her care is complicated by severe aortic stenosis and pulmonary hypertension questioning her surgical candidacy for hemicolectomy. Underwent WU 03/24/18 under the care of Dr. Harmon which demonstrated critical aortic stenosis, severe mitral regurg and severe pulmonary hypertension. She was admitted 03/24/18 subsequent to experiencing acute onset SOB during PRBC transfusion. Aparently after receiving about 130 cc of blood, the patient developed severe shortness of breath, was combative, and required IV diuresis, IV Benadryl, and Tylenol as well as BiPAP therapy. Once her diuresis was complete her BiPAP was weaned off and she was admitted for observation. Was able to receive 1 unit PRBCs on and reports improvement of SOB and weakness. Underwent cardiac cath earlier today per Dr. Harmon. Upon interview, patient is lying comfortably in bed with sandbag on right groin. Denies weight loss and cough. Past Medical History: Chronic Problems (Last Reviewed 03/25/18 @ 04:40 by Niels Arreaga MD) Aortic stenosis (Chronic) History of ischemic stroke without residual deficits (Chronic) Obesity (Chronic) Asthma (Chronic) Dyslipidemia (Chronic) Peripheral arterial occlusive disease (Chronic) Arterial atherosclerosis (Chronic) Diabetes mellitus (Chronic) Left carotid bruit (Chronic) Erythema of lower extremity (Chronic) Edema of left lower extremity (Chronic) Swelling of left lower extremity (Chronic) Scalp laceration (Chronic) Multiple falls (Chronic) HTN (hypertension) (Chronic) Past Medical/Surgical History: Past Medical History - Most Recent Inpatient Visit Past Medical History Start: 03/25/18 00: 21 Text: Status: Complete Freq: ONCE Protocol: Document 03/25/18 00:27 [facility] (Rec: 03/25/18 00:35 [facility] [id number]) BMI Required to complete PMH What is Patient's BMI 36.9 Past Medical History Unable History Recalled Yes Query Text:Pt Unable/Family Not Present Neurologic Medical History Hx Stroke/TIA Yes: 2013 Hx Dementia/Alzheimer's No Hx Parkinson's Disease No Hx Seizures No Hx Multiple Sclerosis No Hx Migraines No Cardiac Medical History VTE Present on Admission No Hx of Deep Vein Thrombosis/VTE/PE No Hx Hypertension Yes: TAKES MEDICATION Hx Chest Pain/Angina No Hx Heart Attack No Hx Cardiac Surgery/Stents/Etc. No Hx Heart Failure No Hx Pacemaker/AICD No Hx Irregular Heartbeat and/or Afib No Hx Anticoagulant Therapy Yes: aspirin 81mg Query Text:(Coumadin, Aspirin, Plavix, Xarelto, etc.) Hx Pain in Legs when Walking/Leg Cramps No Respiratory Medical History Hx COPD No: asthma Hx Emphysema No Hx Smoking Yes: quit as a teenager Smoking Status Former smoker Hx Smoking Cessation Counseling No Hx Smoking Exposure Yes Hx Tobacco Use in last 12 months No Hx of Pipe Smoking No Hx Sleep Apnea No CPAP No BIPAP No Do you snore loudly (louder than talking No or can be heard through closed doors)? Do you often feel tired/ fatigued/ No sleepy during daytime? Has anyone observed you stop breathing No during sleep? STOP Results Negative GI Medical History Hx Ulcer No Hx Hepatitis No Hx Cirrhosis No Hx GI Bleed No Hx Unplanned Weight Loss No Genitourinary Medical History Indwelling Catheter in Place on Arrival/ No Admission Hx Renal Disease No Hx Dialysis No Musculoskeletal History Hx Arthritis Yes Hx Rheumatoid Arthritis No Endocrine Medical History Hx Diabetes Yes Hx Thyroid Disease No Hematologic Medical History Hx of Blood Transfusion Yes Hx of Transfusion in last 3 Months Yes Date of Last Transfusion (if within last 03/24/2018 3 months) Ever experience any problems with No transfusion(s)? Hx of Preganancy in last 3 Months No Nurse Filling Out Transfusion & OHALE Questions: Date: 03/25/18 Time: 00:34 Psycho/Social Medical History Hx Depression No Hx Anxiety No Hx Behavior Disorder No Hx Alcohol Use No Hx Substance Use No Other Medical History Hx Blood Disorders No Hx Anemia No Hx Cancer No Hx Drug Resistant Organism No Wound/Pressure Injury Present on Arrival No /Admission Query Text:If yes, chart assessment in Shift/Clinical Findings Central Line/PICC/VAD Present on Arrival No /Admission Antibiotics within last 7 days? No Risk for Readmission Number of Risk Factors 3 At Risk for Readmission Patient is At Risk For Readmission Patient is eligible for Call Back Y Past Medical History (Last Reviewed 03/25/18 @ 04:40 by Niels Arreaga MD) Respiratory failure (Acute) Respiratory failure requiring intubation (Acute) Aortic stenosis (Chronic) Severe anemia (Acute) History of ischemic stroke without residual deficits (Chronic) Obesity (Chronic) Asthma (Chronic) Dyslipidemia (Chronic) Peripheral arterial occlusive disease (Chronic) Arterial atherosclerosis (Chronic) Diabetes mellitus (Chronic) Left carotid bruit (Chronic) Ulcer of left lower leg (Resolved) Erythema of lower extremity (Chronic) Edema of left lower extremity (Chronic) Swelling of left lower extremity (Chronic) Cellulitis of left leg without foot (Resolved) Acute electrocardiogram changes (Acute) Syncope (Suspected) Scalp laceration (Chronic) Multiple falls (Chronic) HTN (hypertension) (Chronic) Past Surgical History (Last Reviewed 03/25/18 @ 04:40 by Niels Arreaga MD) History of carpal tunnel surgery of left wrist (Resolved) History of left knee replacement (Resolved) Maternal Family History: Family History (Last Updated 03/07/18 @ 10:10 by Miracle Langford) Sister Cancer Family History: No pertinent history Paternal Family History: Family History (Last Updated 03/07/18 @ 10:10 by Miracle Langford) Sister Cancer Family History: No pertinent history - The patient's father at age of 85 with a history of heart disease. The patient's mother at age of 90 with a history of CIRCULAR SAW FILER cancer. - Social History Smoking Status: Former smoker Allergies/Adverse Reactions: Allergy/AdvReac Type Severity Reaction Status Date / Time banana [Banana] Allergy Swelling Verified 03/07/18 10:07 metformin [From Glucophage] AdvReac Swelling Verified 03/07/18 10:07 of legs Review of Systems Constitutional:: Reports: Weakness, Fatigue. Denies: Fever, Sweats, Weight loss , Appetite change, Chills Cardiovascular:: Reports: Dyspnea on exertion. Denies: Chest pain, Palpitations , Orthopnea, PND, Shortness of breath Respiratory: Denies: Cough, Hemoptysis, Wheezing Gastrointestinal:: Denies: Abdominal pain, Nausea, Vomiting, Diarrhea, Constipation, Hematochezia Genitourinary: Denies: Dysuria, Hematuria, Urinary frequency, Flank pain Musculoskeletal:: Denies: Back pain, Myalgia, Arthralgia Skin: Denies: Rash, Skin Changes, Wounds Neurological:: Denies: Headache, Dizziness, Numbness, Tingling, Visual changes, Tinnitus, Hearing loss Psychiatric: Denies: Anxiety, Depression, Homicidal Ideations, Suicidal Ideations Vital Signs Height 5 ft 2 in Weight: 194 lb 3.636 oz Weight in Pounds 194.2 lbs Pulse Ox 96 Temperature 98.7 F Pulse Rate 78 Respiratory Rate 16 Blood Pressure [2nd BP] 145/67 Blood Pressure 108/47 Blood Pressure Position [2nd Semi-Fowlers BP] Blood Pressure Position Semi-Fowlers - Physical Exam General: Alert, Oriented x3, No apparent distress HEENT: Atraumatic, Normocephalic Oropharynx:: Negative for: Dry mucosa, Ulcerated lesions Neck:: Supple, Trachea midline. Negative for: JVD, bilateral Cardiac:: Regular rate, Regular rhythm, Normal S1, Normal S2, Murmur Lungs: Clear to auscultation, Excusion symmetrical. Negative for: Rhonchi, Wheezes Abdomen:: Bowel sounds x 4, Soft, Non-tender, Non-distended. Negative for: Hepatosplenomegaly Extremities:: - - Sandbag RLE. Negative for: Cyanosis, Edema Neurological: Neuro grossly intact Skin:: Lesions - RLE gauze around ankle. Negative for: Rash, Petechiae, Ecchymosis Psychiatric:: Appropriate affect, Euthymic Lymphatics:: Negative for: Cervical lymphadenopathy, Supraclavicular lymphadenopathy, Axillary lymphadenopathy, Inguinal lymphadenopathy - only examined on left Laboratory Data: Laboratory Tests 3 03/27/18 03/27/18 03/27/18 Range/Units 10:58 10:01 09:51 WBC (4.4-11.0) K/mm3 RBC (4.2-5.4) M/mm3 Hgb (12.0-15.0) g/dl Hct (37-47) % MCV (81-99) fL MCH (27.0-32.0) pg MCHC (32-36) g/gl RDW (11.6-14.6) % RDW Differential (35.1-43.9) fl Plt Count (150-450) K/mm3 MPV (6.2-12.0) fl Immature Gran % (Auto) (0.0-0.9) % Neut % (Auto) (47-70) % Lymph % (Auto) (19-41) % [place] % (Auto) (0-10) % Eos % (Auto) (0-5) % Baso % (Auto) (0-1) % Absolute Neuts (auto) (2.0-7.7) X10^3/uL Absolute Lymphs (auto) (0.83-4.51) X10^3/ul Total Counted PT (11.7-14.9) SECONDS INR APTT (24.1-36.2) Seconds Specimen Type ART MATTIE pH 7.45 (7.35-7.45) Bicarbonate Actual 29.2 H (22-26) mmol/L POC Total CO2 30 mmol/L Base Excess 5 H (-2 to +2) mmol/L O2 Saturation 93 L (95-99) % ABG pCO2 42.2 (35-45) mmHg ABG pO2 65 L (75-100) mmHG VBG pH 7.46 H (7.32-7.42) VBG pO2 38 (25-40) mmHg VBG O2 Sat (Calc) 75 H (50-70) % VBG O2 Content 32 (23-33) mmol/L VBG Base Excess 7 H (-1.0-3.5) mmol/L POC Mix VBG pCO2 Pt Tmp 43.2 (41-51) mmHg Sodium (136-145) mmol/L Potassium (3.5-5.1) mmol/L Chloride (98-107) mmol/L Carbon Dioxide (21.0-32.0) mmol/L Anion Gap (5-15) BUN (7-18) mg/dL Creatinine (0.55-1.02) mg/dL Estim Creat Clear Calc ml/min Est GFR (MDRD) Af Amer (>60) mL/min Est GFR (MDRD) Non-Af (>60) mL/min BUN/Creatinine Ratio (10-20) RATIO Glucose (74-106) mg/dL Calcium (8.5-10.1) mg/dL POC Glucose 109 (70-110) mg/dL 3 03/27/18 03/27/18 03/27/18 Range/Units 09:48 06:00 06:00 WBC (4.4-11.0) K/mm3 RBC (4.2-5.4) M/mm3 Hgb (12.0-15.0) g/dl Hct (37-47) % MCV (81-99) fL MCH (27.0-32.0) pg MCHC (32-36) g/gl RDW (11.6-14.6) % RDW Differential (35.1-43.9) fl Plt Count (150-450) K/mm3 MPV (6.2-12.0) fl Immature Gran % (Auto) (0.0-0.9) % Neut % (Auto) (47-70) % Lymph % (Auto) (19-41) % [place] % (Auto) (0-10) % Eos % (Auto) (0-5) % Baso % (Auto) (0-1) % Absolute Neuts (auto) (2.0-7.7) X10^3/uL Absolute Lymphs (auto) (0.83-4.51) X10^3/ul Total Counted PT 14.5 (11.7-14.9) SECONDS INR 1.1 APTT 25.4 (24.1-36.2) Seconds Specimen Type MATTIE pH (7.35-7.45) Bicarbonate Actual (22-26) mmol/L POC Total CO2 mmol/L Base Excess (-2 to +2) mmol/L O2 Saturation (95-99) % ABG pCO2 (35-45) mmHg ABG pO2 (75-100) mmHG VBG pH 7.43 H (7.32-7.42) VBG pO2 33 (25-40) mmHg VBG O2 Sat (Calc) 64 (50-70) % VBG O2 Content 32 (23-33) mmol/L VBG Base Excess 6 H (-1.0-3.5) mmol/L POC Mix VBG pCO2 Pt Tmp 45.8 (41-51) mmHg Sodium 140 (136-145) mmol/L Potassium 3.6 (3.5-5.1) mmol/L Chloride 101 (98-107) mmol/L Carbon Dioxide 29.0 (21.0-32.0) mmol/L Anion Gap 10 (5-15) BUN 28 H (7-18) mg/dL Creatinine 1.02 (0.55-1.02) mg/dL Estim Creat Clear Calc 36.53 ml/min Est GFR (MDRD) Af Amer 68 (>60) mL/min Est GFR (MDRD) Non-Af 56 L (>60) mL/min BUN/Creatinine Ratio 27.5 H (10-20) RATIO Glucose 97 (74-106) mg/dL Calcium 8.8 (8.5-10.1) mg/dL POC Glucose (70-110) mg/dL 3 03/27/18 03/27/18 03/26/18 Range/Units 06:00 05:58 22:17 WBC 7.4 (4.4-11.0) K/mm3 RBC 3.22 L (4.2-5.4) M/mm3 Hgb 9.1 L (12.0-15.0) g/dl Hct 29.1 L (37-47) % MCV 90.4 (81-99) fL MCH 28.3 (27.0-32.0) pg MCHC 31.3 L (32-36) g/gl RDW 16.1 H (11.6-14.6) % RDW Differential 52.5 H (35.1-43.9) fl Plt Count 292 (150-450) K/mm3 MPV 8.4 (6.2-12.0) fl Immature Gran % (Auto) 0.100 (0.0-0.9) % Neut % (Auto) 68.8 (47-70) % Lymph % (Auto) 19.7 (19-41) % [place] % (Auto) 6.9 (0-10) % Eos % (Auto) 4.1 (0-5) % Baso % (Auto) 0.4 (0-1) % Absolute Neuts (auto) 5.1 (2.0-7.7) X10^3/uL Absolute Lymphs (auto) 1.46 (0.83-4.51) X10^3/ul Total Counted Not Reportable PT (11.7-14.9) SECONDS INR APTT (24.1-36.2) Seconds Specimen Type pH (7.35-7.45) Bicarbonate Actual (22-26) mmol/L POC Total CO2 mmol/L Base Excess (-2 to +2) mmol/L O2 Saturation (95-99) % ABG pCO2 (35-45) mmHg ABG pO2 (75-100) mmHG VBG pH (7.32-7.42) VBG pO2 (25-40) mmHg VBG O2 Sat (Calc) (50-70) % VBG O2 Content (23-33) mmol/L VBG Base Excess (-1.0-3.5) mmol/L POC Mix VBG pCO2 Pt Tmp (41-51) mmHg Sodium (136-145) mmol/L Potassium (3.5-5.1) mmol/L Chloride (98-107) mmol/L Carbon Dioxide (21.0-32.0) mmol/L Anion Gap (5-15) BUN (7-18) mg/dL Creatinine (0.55-1.02) mg/dL Estim Creat Clear Calc ml/min Est GFR (MDRD) Af Amer (>60) mL/min Est GFR (MDRD) Non-Af (>60) mL/min BUN/Creatinine Ratio (10-20) RATIO Glucose (74-106) mg/dL Calcium (8.5-10.1) mg/dL POC Glucose 105 135 H (70-110) mg/dL 3 03/26/18 Range/Units 17:06 WBC (4.4-11.0) K/mm3 RBC (4.2-5.4) M/mm3 Hgb (12.0-15.0) g/dl Hct (37-47) % MCV (81-99) fL MCH (27.0-32.0) pg MCHC (32-36) g/gl RDW (11.6-14.6) % RDW Differential (35.1-43.9) fl Plt Count (150-450) K/mm3 MPV (6.2-12.0) fl Immature Gran % (Auto) (0.0-0.9) % Neut % (Auto) (47-70) % Lymph % (Auto) (19-41) % [place] % (Auto) (0-10) % Eos % (Auto) (0-5) % Baso % (Auto) (0-1) % Absolute Neuts (auto) (2.0-7.7) X10^3/uL Absolute Lymphs (auto) (0.83-4.51) X10^3/ul Total Counted PT (11.7-14.9) SECONDS INR APTT (24.1-36.2) Seconds Specimen Type pH (7.35-7.45) Bicarbonate Actual (22-26) mmol/L POC Total CO2 mmol/L Base Excess (-2 to +2) mmol/L O2 Saturation (95-99) % ABG pCO2 (35-45) mmHg ABG pO2 (75-100) mmHG VBG pH (7.32-7.42) VBG pO2 (25-40) mmHg VBG O2 Sat (Calc) (50-70) % VBG O2 Content (23-33) mmol/L VBG Base Excess (-1.0-3.5) mmol/L POC Mix VBG pCO2 Pt Tmp (41-51) mmHg Sodium (136-145) mmol/L Potassium (3.5-5.1) mmol/L Chloride (98-107) mmol/L Carbon Dioxide (21.0-32.0) mmol/L Anion Gap (5-15) BUN (7-18) mg/dL Creatinine (0.55-1.02) mg/dL Estim Creat Clear Calc ml/min Est GFR (MDRD) Af Amer (>60) mL/min Est GFR (MDRD) Non-Af (>60) mL/min BUN/Creatinine Ratio (10-20) RATIO Glucose (74-106) mg/dL Calcium (8.5-10.1) mg/dL POC Glucose 87 (70-110) mg/dL Diagnostic Data: Diagnostic Data Chest X-Ray 03/24/18 17:30 IMPRESSION: Mild pulmonary vascular congestion. Electronically Signed: Raman Aguilar, at 17:45 EDT Tel , Service support , Assessment and Plan 1. 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 Diagnosed . Would require hemicolectomy however, her care is complicated by severe aortic stenosis and severe pulmonary hypertension. CT abd/pelvis obtained revealed no evidence of intrahepatic or colonic mass or acute intra- abdominal or pelvic abnormality. To complete staging, orders placed for CT chest with contrast. In the absence of metastatic disease, interventions to address severe aortic stenosis welcomed as hemicolectomy would be best course of management. 2. Severe anemia d/t colon ca and severe aortic stenosis- Hgb 9.1 today. Although experienced transfusion reaction with initial unit, was able to receive 1 unit PRBCs on 03/25/18 with supportive medications (Tylenol, Benadryl and Lasix). Goal Hgb >8. Case discussed with Dr. Coffey who was in agreement with the aforementioned plan. Pippa Wilkerson, MSN, [employer], AOCNP Medications: Prescriptions This Visit Medication Instructions Recorded Atorvastatin Calcium 20 mg PO QHS 03/24/18 Lisinopril [Zestril] 10 mg PO DAILY 03/24/18 Medications Added to Medication List This Visit Category Date Time Status 0.9% Normal Saline 1,000 ml Med 03/27/18 07:00 Active IV KVO Heparin Sodium,Porcine/Pf [Heparin 500 Unit/5 ml (100/ Med 03/27/18 10:05 Active ml)] 500 unit IV UD PRN Labetalol [Trandate] Med 03/27/18 10:05 Active 5 mg IV X1 PRN Primary Care Provider: Yumi Diana Referring Provider: - Problem List (1) Colon cancer Status: Acute Qualifiers: Colon location: hepatic flexure Qualified Code(s): C18.3 - Malignant neoplasm of hepatic flexure (2) Anemia Status: Acute Qualifiers: Anemia type: other cause
--- NOTE | 2018-03-27 16:22 | CT_ITS ---
STUDY: CT CHEST WITH CONTRAST REASON FOR EXAM: Female, 77 years old. Shortness of breath, aortic stenosis RADIATION DOSAGE (If Supplied By Facility): CTDIvol = ( 16.19 ) mGy, DLP = ( 617.17 ) mGycm TECHNIQUE: Transaxial imaging was performed following intravenous administration of 100mL ml of Isovue 300 contrast material. Individualized dose optimization techniques were used for this CT. COMPARISON: February 14, 2018 FINDINGS: The lungs are expanded. There are patchy small areas of interstitial prominence of the right lung. 2 mm pleural-based nodule along the minor fissure. 1 mm pleural-based nodule of the left upper lobe laterally. Normal heart and pericardium. Normal mediastinum. Normal hilar regions. Normal enhanced pulmonary arteries. Calcified aorta arch and descending thoracic aorta. Degenerative vertebral changes. There is no demonstrated abnormality of the visualized upper abdomen. CT/Chest WITH Contrast IMPRESSION: Small patchy areas of interstitial densities in the right lung. Nonspecific pleural-based nodules bilaterally. Electronically Signed: Phill Acosta DO at 22:39 EDT Tel [phone], Service support ,
[2018-03-27 16:56] LABS: Bedside Glucose 106 mg/dL (70-110)
[2018-03-27] MEDS: Atorvastatin Calcium 20 MG Tablet PO (21:39)
[2018-03-27] MEDS: Tolterodine Tartrate 2 MG CAP.SA PO (21:39)
[2018-03-27 22:00] LABS: Bedside Glucose 131 mg/dL (70-110)
[2018-03-28] VITALS (10 sets, daily range): BP systolic 84–134; BP diastolic 38–74; PULSE 75–107; RESP 16–23; TEMP 36.7–37.3; O2SAT 92–98
[2018-03-28 06:48] LABS: Anion Gap 10 (5-15); BUN 32 mg/dL (7-18); Chloride 98 mmol/L (98-107); Creatinine, Serum 1.39 mg/dL (0.55-1.02); EST Glomerular Filtration Rate 39 mL/min (>60); Est Glom Filt Rate - Afr Amer 47 mL/min (>60); Estimated Creatinine Clearance 26.81 ml/min; Glucose 113 mg/dL (74-106); Potassium 3.8 mmol/L (3.5-5.1); Sodium Level 137 mmol/L (136-145)
[2018-03-28 06:55] LABS: Bedside Glucose 113 mg/dL (70-110)
[2018-03-28 07:04] LABS: Absolute Lymphocyte Count 0.99 X10^3/ul (0.83-4.51); Absolute Neutrophil Count 6.2 X10^3/uL (2.0-7.7); Basophil# 0.02 X10^3/uL; Basophil% 0.3 % (0-1); Eosinophil# 0.22 X10^3/uL; Eosinophils% 2.8 % (0-5); Hematocrit 32.4 % (37-47); Hemoglobin 10.1 g/dl (12.0-15.0); Lymphocyte # 0.99 X10^3/ul (4.0); Lymphocyte % 12.5 % (19-41); Mean Corp Hgb Conc 31.2 g/gl (32-36); Mean Corpuscular Hgb 28.5 pg (27.0-32.0); Mean Corpuscular Volume 91.3 fL (81-99); Mean Platelet Vol. 8.5 fl (6.2-12.0); Monocyte# 0.52 X10^3/uL; Monocyte% 6.6 % (0-10); Neutrophil # 6.15 X10^3/uL (2.7-7.7); Neutrophil % 77.8 % (47-70); Platelet Count 310 K/mm3 (150-450); RBC Distribution Width CV 16.4 % (11.6-14.6); RBC Distribution Width SD 54.1 fl (35.1-43.9); Red Blood Count 3.55 M/mm3 (4.2-5.4); White Blood Count 7.9 K/mm3 (4.4-11.0)
[2018-03-28 07:06] LABS: POSITIVE COUNT NO; POSITIVE DIFFERENTIAL NO; POSITIVE MORPHOLOGY NO
[2018-03-28] MEDS: Acetaminophen 325 MG Tablet 650 MG PO (07:33)
[2018-03-28] MEDS: Insulin Lispro 100 UNIT/ML INSULN.PEN SC ×3 (08:26→16:25)
[2018-03-28] MEDS: Ferrous Gluconate 325 MG Tablet PO ×3 (08:28→16:26)
[2018-03-28] MEDS: Aspirin E.C. 81 MG Tablet PO (08:28)
--- NOTE | 2018-03-28 09:57 | CASEMGMT ---
According to [facility] website, [facility] in [place] is also an in-network tertiary facility. Mynor FITZGERALD CM
[2018-03-28] MEDS: Metoprolol(XL)Succ 25 MG Tablet PO (10:04)
[2018-03-28] MEDS: Furosemide 40 MG Tablet PO (10:04)
--- NOTE | 2018-03-28 10:04 | PCM.PN.CARD ---
Subjectve: Patient doing rather well this morning. Somewhat hypotensive, lisinopril held. Hemoglobin stable. No chest pain or angina. Right groin is clean/dry/intact. CEA is negative. CT scan of her chest shows no overt masses or lymph nodes. Objective: Vital Signs Temp Pulse Resp BP Pulse Ox 99.1 F 107 H 23 H 125/59 H 92 03/28/18 03:34 03/28/18 07:08 03/28/18 03:34 03/28/18 03:34 03/28/18 07:37 Oxygen Flow Rate (L/min) 3 Oxygen Delivery Method Room Air Weight: 194 lb 3.636 oz Body Mass Index (BMI) 35.5 Intake and Output for Last 24 Hours 03/26/18 03/27/18 03/28/18 23:59 23:59 23:59 Intake Total 1440 / 1440 1130 / 1130 130 / 130 Balance 1440 / 1440 1130 / 1130 130 / 130 General: Awake, Alert, Oriented x 3 HEENT: PERRL, EOMI, Sclera Non Icteric Neck: Supple, Good ROM, No Lymph Node Enlargement Lungs: Clear to auscultation Cardiovascular: Regular Rhythm, Normal S1, Normal S2, No Rubs, No Gallops Murmur Murmur: Grade 4/6, Crescendo-Decrescendo Vascular: No Carotid Bruits, Normal Femoral Pulses, Normal Radial Pulses, Normal Dorsalis Pedal Pulse, Normal Posterior Tibial Pulses Abdomen: Bowel Sounds Present, Soft, Non Tender, No HSM, No Organomegaly Extremities: No Cyanosis, No Clubbing, No edema Neurological: No Focal Motor or Sensory Deficit 03/27/18 09:48: VBG pH 7.43 H, VBG pO2 33, VBG O2 Sat (Calc) 64, VBG O2 Content 32, VBG Base Excess 6 H 03/27/18 09:51: VBG pH 7.46 H, VBG pO2 38, VBG O2 Sat (Calc) 75 H, VBG O2 Content 32, VBG Base Excess 7 H 03/27/18 10:01: pH 7.45, Bicarbonate Actual 29.2 H, POC Total CO2 30, Base Excess 5 H, O2 Saturation 93 L, ABG pCO2 42.2, ABG pO2 65 L 03/28/18 06:10: WBC 7.9, RBC 3.55 L, Hgb 10.1 L, Hct 32.4 L, MCV 91.3, MCH 28.5, MCHC 31.2 L, RDW 16.4 H, RDW Differential 54.1 H, Plt Count 310, MPV 8.5, Immature Gran % (Auto) 0.000, Neut % (Auto) 77.8 H, Lymph % (Auto) 12.5 L, Ward % (Auto) 6.6, Eos % (Auto) 2.8, Baso % (Auto) 0.3, Absolute Neuts (auto) 6.2, Total Counted Not Reportable 03/28/18 06:10: Sodium 137, Potassium 3.8, Chloride 98, Carbon Dioxide 29.0, Anion Gap 10, BUN 32 H, Creatinine 1.39 H, Est GFR (MDRD) Af Amer 47 L, Est GFR (MDRD) Non-Af 39 L, BUN/Creatinine Ratio 23.0 H, Glucose 113 H, Calcium 9.0 Rhythm: EKG: ECHO: Stress Test: Cardiac Cath: PCI: CT Surgery: Holter monitor: EPS: PPM: CXR: Chest CT Scan: Medical Necessity - Tobacco Use Smoking Status: Former smoker Assessment/Plan 1. Aortic stenosis: Patient has what appears to be critical aortic stenosis with an estimated aortic valve area of 0.6 cm? by planimetry, as well as severe peak and mean gradients which are artificially elevated due to her anemia, but most likely represent significant aortic stenosis given the anatomy of her severely calcified and immobile aortic valve. In tandem with this the patient has severe mitral regurgitation superimposed on severe mitral annular calcification. Her mitral regurgitation is most likely result of her severe aortic stenosis. In addition it appears she has severe pulmonary hypertension by transesophageal echocardiogram with an estimated pulmonary pressure of around 70 mmHg. This would coincide with her clinical picture on her day of admission when she had shortness of breath with blood transfusion. It is also possible the patient may have had a blood transfusion reaction. She underwent successful single unit blood transfusion without incident with preparation with Benadryl, Tylenol, and IV Lasix. I recommended her hemoglobin remain above 8, and that any future transfusion take place over at least 4 hours. At this point the patient is a high risk candidate for hemicolectomy for her colon cancer detected by colonoscopy by Dr. Hendricks 3 weeks ago. Patient needs to have aortic valve addressed prior to any colon surgery. This could be either a temporary balloon valvuloplasty to allow more LV unloading and perfusion until she can get her colon removed, or a TAVR if she is deemed to be a candidate. Patient's CEA is negative, and CT scan of her chest shows no overt masses except for some minor 2 mm nodules in the right midline fissure. After speaking with hematology/oncology they do not appear to require a PET scan or biopsy at this time. They recommend going forward with hemicolectomy at earliest possible convenience. In order to help assess that she underwent a left and right heart catheterization on 03/27/18 which demonstrated moderate to severe pulmonary hypertension with an RVSP of 66 mmHg, significant V-wave on her wedge tracing suggesting mitral regurgitation, however no significant mitral regurgitation was noted on LV gram. Her coronary arteries had minor nonobstructive disease and did not require intervention at this time. Her right groin is clean/dry/intact without evidence of thrills, bruits or hematoma. At this point I believe the patient would benefit from evaluation for T AVR at the [facility] in an attempt to maximize LV outflow and to expedite hemicolectomy. We will make copies of her catheterization films, catheterization hemodynamic report, transesophageal echocardiogram and surface echocardiogram and include this in her chart. In addition we will occlude her records with respect to her colonoscopy and pathology report to give guidance to a colorectal surgeon at the [facility] for hemicolectomy as well. Would recommend that if she is a candidate for TAVR that this procee at the [facility] followed by hemicolectomy without discharge home. Given the patient's age, comorbidities, and need for hemicolectomy, I would use as a last resort open aortic valve replacement and mitral valve repair given her severe mitral annular calcification and lack of overt mitral regurgitation seen on LV gram. There was a significant mitral regurgitant jet seen on her transesophageal echocardiogram, but this may markedly improved after unloading the LV with aortic valve replacement. 2. Pulmonary hypertension: Patient had moderate to severe pulmonary hypertension by right heart catheterization yesterday with PA pressures in the mid 60s. She was able to lay down flat without difficulty. Recommend continuing Lasix, Toprol. We will hold her lisinopril today given her relative hypotension and aortic stenosis to avoid orthostatic symptoms or syncope. 3. Hyperlipidemia: Continue atorvastatin. 4. Anemia: The patient most likely has anemia as a result of her colon cancer. Patient had an EGD as well which did not appear to show any significant erosions although some gastritis was noted. Recommend discontinuation of Lovenox and using SCD for DVT prophylaxis. Recent blood transfusion has improved her hemoglobin and she feels better. Recommend keeping her hemoglobin above 8.0. 5. Thank you very much for the opportunity to participate in the cardiac care of your patient. We will attempt to contact the [facility] and arrange for transfer for aortic valve replacement followed by hemicolectomy. Code Visit Inpatient E&M: 82297 Subs Hosp L2
[2018-03-28] MEDS: Famotidine 20 MG Tablet PO (10:05)
--- NOTE | 2018-03-28 10:11 | PN.CARD_ITS ---
Subjectve: Patient doing rather well this morning. Somewhat hypotensive, lisinopril held. Hemoglobin stable. No chest pain or angina. Right groin is clean/dry/ intact. CEA is negative. CT scan of her chest shows no overt masses or lymph nodes. Objective: Vital Signs Temp Pulse Resp BP Pulse Ox 99.1 F 107 H 23 H 125/59 H 92 03/28/18 03:34 03/28/18 07:08 03/28/18 03:34 03/28/18 03:34 03/28/18 07:37 Oxygen Flow Rate (L/min) 3 Oxygen Delivery Method Room Air Weight: 194 lb 3.636 oz Body Mass Index (BMI) 35.5 Intake and Output for Last 24 Hours 03/26/18 03/27/18 03/28/18 23:59 23:59 23:59 Intake Total 1440 / 1440 1130 / 1130 130 / 130 Balance 1440 / 1440 1130 / 1130 130 / 130 General: Awake, Alert, Oriented x 3 HEENT: PERRL, EOMI, Sclera Non Icteric Neck: Supple, Good ROM, No Lymph Node Enlargement Lungs: Clear to auscultation Cardiovascular: Regular Rhythm, Normal S1, Normal S2, No Rubs, No Gallops Murmur Murmur: Grade 4/6, Crescendo-Decrescendo Vascular: No Carotid Bruits, Normal Femoral Pulses, Normal Radial Pulses, Normal Dorsalis Pedal Pulse, Normal Posterior Tibial Pulses Abdomen: Bowel Sounds Present, Soft, Non Tender, No HSM, No Organomegaly Extremities: No Cyanosis, No Clubbing, No edema Neurological: No Focal Motor or Sensory Deficit 03/27/18 09:48: VBG pH 7.43 H, VBG pO2 33, VBG O2 Sat (Calc) 64, VBG O2 Content 32, VBG Base Excess 6 H 03/27/18 09:51: VBG pH 7.46 H, VBG pO2 38, VBG O2 Sat (Calc) 75 H, VBG O2 Content 32, VBG Base Excess 7 H 03/27/18 10:01: pH 7.45, Bicarbonate Actual 29.2 H, POC Total CO2 30, Base Excess 5 H, O2 Saturation 93 L, ABG pCO2 42.2, ABG pO2 65 L 03/28/18 06:10: WBC 7.9, RBC 3.55 L, Hgb 10.1 L, Hct 32.4 L, MCV 91.3, MCH 28.5 , MCHC 31.2 L, RDW 16.4 H, RDW Differential 54.1 H, Plt Count 310, MPV 8.5, Immature Gran % (Auto) 0.000, Neut % (Auto) 77.8 H, Lymph % (Auto) 12.5 L, [place] % (Auto) 6.6, Eos % (Auto) 2.8, Baso % (Auto) 0.3, Absolute Neuts (auto) 6.2, Total Counted Not Reportable 03/28/18 06:10: Sodium 137, Potassium 3.8, Chloride 98, Carbon Dioxide 29.0, Anion Gap 10, BUN 32 H, Creatinine 1.39 H, Est GFR (MDRD) Af Amer 47 L, Est GFR (MDRD) Non-Af 39 L, BUN/Creatinine Ratio 23.0 H, Glucose 113 H, Calcium 9.0 Rhythm: EKG: ECHO: Stress Test: Cardiac Cath: PCI: CT Surgery: Holter monitor: EPS: PPM: CXR: Chest CT Scan: Medical Necessity - Tobacco Use Smoking Status: Former smoker Assessment/Plan 1. Aortic stenosis: Patient has what appears to be critical aortic stenosis with an estimated aortic valve area of 0.6 cm? by planimetry, as well as severe peak and mean gradients which are artificially elevated due to her anemia, but most likely represent significant aortic stenosis given the anatomy of her severely calcified and immobile aortic valve. In tandem with this the patient has severe mitral regurgitation superimposed on severe mitral annular calcification. Her mitral regurgitation is most likely result of her severe aortic stenosis. In addition it appears she has severe pulmonary hypertension by transesophageal echocardiogram with an estimated pulmonary pressure of around 70 mmHg. This would coincide with her clinical picture on her day of admission when she had shortness of breath with blood transfusion. It is also possible the patient may have had a blood transfusion reaction. She underwent successful single unit blood transfusion without incident with preparation with Benadryl, Tylenol , and IV Lasix. I recommended her hemoglobin remain above 8, and that any future transfusion take place over at least 4 hours. At this point the patient is a high risk candidate for hemicolectomy for her colon cancer detected by colonoscopy by Dr. Hendricks 3 weeks ago. Patient needs to have aortic valve addressed prior to any colon surgery. This could be either a temporary balloon valvuloplasty to allow more LV unloading and perfusion until she can get her colon removed, or a TAVR if she is deemed to be a candidate. Patient's CEA is negative, and CT scan of her chest shows no overt masses except for some minor 2 mm nodules in the right midline fissure. After speaking with hematology/oncology they do not appear to require a PET scan or biopsy at this time. They recommend going forward with hemicolectomy at earliest possible convenience. In order to help assess that she underwent a left and right heart catheterization on 03/27/18 which demonstrated moderate to severe pulmonary hypertension with an RVSP of 66 mmHg, significant V-wave on her wedge tracing suggesting mitral regurgitation, however no significant mitral regurgitation was noted on LV gram. Her coronary arteries had minor nonobstructive disease and did not require intervention at this time. Her right groin is clean/dry/ intact without evidence of thrills, bruits or hematoma. At this point I believe the patient would benefit from evaluation for T AVR at the [facility] in an attempt to maximize LV outflow and to expedite hemicolectomy. We will make copies of her catheterization films , catheterization hemodynamic report, transesophageal echocardiogram and surface echocardiogram and include this in her chart. In addition we will occlude her records with respect to her colonoscopy and pathology report to give guidance to a colorectal surgeon at the [facility] for hemicolectomy as well. Would recommend that if she is a candidate for TAVR that this procee at the [facility] followed by hemicolectomy without discharge home. Given the patient's age, comorbidities, and need for hemicolectomy, I would use as a last resort open aortic valve replacement and mitral valve repair given her severe mitral annular calcification and lack of overt mitral regurgitation seen on LV gram. There was a significant mitral regurgitant jet seen on her transesophageal echocardiogram, but this may markedly improved after unloading the LV with aortic valve replacement. 2. Pulmonary hypertension: Patient had moderate to severe pulmonary hypertension by right heart catheterization yesterday with PA pressures in the mid 60s. She was able to lay down flat without difficulty. Recommend continuing Lasix, Toprol. We will hold her lisinopril today given her relative hypotension and aortic stenosis to avoid orthostatic symptoms or syncope. 3. Hyperlipidemia: Continue atorvastatin. 4. Anemia: The patient most likely has anemia as a result of her colon cancer. Patient had an EGD as well which did not appear to show any significant erosions although some gastritis was noted. Recommend discontinuation of Lovenox and using SCD for DVT prophylaxis. Recent blood transfusion has improved her hemoglobin and she feels better. Recommend keeping her hemoglobin above 8.0. 5. Thank you very much for the opportunity to participate in the cardiac care of your patient. We will attempt to contact the [facility] and arrange for transfer for aortic valve replacement followed by hemicolectomy. Code Visit Inpatient E&M: 47233 Subs Hosp L2
[2018-03-28 11:46] LABS: Bedside Glucose 147 mg/dL (70-110)
--- NOTE | 2018-03-28 12:33 | PCM.PN.HOSP ---
Patient Problems: Active and Suspected Problems (Last Reviewed 03/25/18 @ 04:40 by Niels Arreaga MD) SOB (shortness of breath) (Acute) Anemia (Acute) Colon cancer (Acute) Aortic stenosis (Acute) Pulmonary hypertension (Acute) Subjective: Patient seen and examined. She was sitting comfortably in a chair and had no complaints. She denied any shortness of breath and complained that she had had a headache earlier in the morning which had resolved with initiation of pain medication. She denied any fever or chills, any cough, any chest pain, any abdominal pain, any diarrhea vomiting. 12 point review of systems otherwise negative. Labs and vitals reviewed. Vitals/I&O's: Vital Signs Temp Pulse Resp BP Pulse Ox 98.3 F 78 18 98/39 L 98 03/28/18 11:30 03/28/18 11:30 03/28/18 11:30 03/28/18 11:30 03/28/18 11:30 Oxygen Flow Rate (L/min) 3 Oxygen Delivery Method Room Air Weight: 194 lb 3.636 oz Body Mass Index (BMI) 35.5 Intake and Output for Last 24 Hours 03/26/18 03/27/18 03/28/18 23:59 23:59 23:59 Intake Total 1440 / 1440 1130 / 1130 430 / 430 Balance 1440 / 1440 1130 / 1130 430 / 430 General: Alert, Oriented x3, Cooperative, No apparent distress HEENT: Atraumatic, PERRLA, EOMI, Normocephalic Oral: Moist Mucosa Neck: Supple Lungs: Clear to auscultation, Normal air movement, No rhonchi, No wheeze, No rales Cardiovascular: Normal S1, Normal S2, - - grade 3-4 systolic murmur in aortic and pulmonary valve areas Abdomen: Bowel Sounds Present, Soft, Non Tender Extremities: No clubbing, No cyanosis, No edema, Capillary Refill Less than 3 Seconds Skin: No rashes, No breakdown Musculoskeletal: No Tenderness to Palpation of Joints or Extremities Lymphatic: No Cervical, Supraclavicular, or Inguinal Adenopathy Neurological: Cranial nerves II-XII grossly intact, Neuro grossly intact, Motor Exam 5/5 strength throughout Psych/Mental Status: Normal Affect, Appropriate, Alert and oriented to time, place, person, mood and affect Laboratory Results 03/27/18 16:26: POC Glucose 106 03/27/18 21:57: POC Glucose 131 H 03/28/18 06:10: WBC 7.9, RBC 3.55 L, Hgb 10.1 L, Hct 32.4 L, MCV 91.3, MCH 28.5, MCHC 31.2 L, RDW 16.4 H, RDW Differential 54.1 H, Plt Count 310, MPV 8.5, Immature Gran % (Auto) 0.000, Neut % (Auto) 77.8 H, Lymph % (Auto) 12.5 L, Payne % (Auto) 6.6, Eos % (Auto) 2.8, Baso % (Auto) 0.3, Absolute Neuts (auto) 6.2, Absolute Lymphs (auto) 0.99, Total Counted Not Reportable 03/28/18 06:10: Sodium 137, Potassium 3.8, Chloride 98, Carbon Dioxide 29.0, Anion Gap 10, BUN 32 H, Creatinine 1.39 H, Estim Creat Clear Calc 26.81, Est GFR (MDRD) Af Amer 47 L, Est GFR (MDRD) Non-Af 39 L, BUN/Creatinine Ratio 23.0 H, Glucose 113 H, Calcium 9.0 03/28/18 06:46: POC Glucose 113 H 03/28/18 11:38: POC Glucose 147 H Current Medications Acetaminophen (Tylenol) 650 mg PO Q6H PRN PRN PRN Reason: Mild Pain (scale 0-3)/T>100.7 Last Admin: 03/28/18 07:33 Dose: 650 mg [facility] Last Admin: 03/28/18 08:28 Dose: 81 mg Atorvastatin Calcium (Lipitor) 20 mg PO QHS [facility] Last Admin: 03/27/18 21:39 Dose: 20 mg Cholecalciferol (Vitamin D) 5,000 unit PO DAILY [facility] Last Admin: 03/28/18 10:04 Dose: 5,000 unit Dextrose (D50w Syringe) 0 gm IV X1 PRN; Protocol PRN Reason: Hypoglycemia Famotidine (Pepcid) 20 mg PO BID [facility] Last Admin: 03/28/18 10:05 Dose: 20 mg Ferrous Gluconate (Ferrous Gluconate) 325 mg PO TIDCM [facility] Last Admin: 03/28/18 08:28 Dose: 325 mg Furosemide (Lasix) 40 mg PO BID@1000,1800 [facility] Last Admin: 03/28/18 10:04 Dose: 40 mg Glucagon () 1 mg IM .X1 PRN PRN Reason: Hypoglycemia Heparin Sodium (Beef Lung) (Heparin 500 Unit/5 Ml (100/Ml)) 500 unit IV UD PRN PRN Reason: HEPARIN FLUSH Sodium Chloride () 1,000 mls @ 15 mls/hr IV .Q48H [facility] PRN Reason: KVO Last Admin: 03/27/18 06:01 Dose: 15 mls/hr Insulin Glargine (Lantus ([facility])) 10 units SC DAILYCM [facility] Last Admin: 03/28/18 08:27 Dose: 10 units Insulin Human Lispro (Humalog Kwikpen ([facility])) 5 unit SC TIDCM [facility] Last Admin: 03/28/18 08:26 Dose: 5 u Labetalol HCl (Trandate) 5 mg IV X1 PRN PRN Reason: SBP > 160 prior to sheath pull Stop: 03/29/18 10:05 Lisinopril (Zestril) 10 mg PO DAILY [facility] Last Admin: 03/28/18 10:00 Dose: Not Given Magnesium Hydroxide (Milk Of Magnesia) 30 ml PO DAILY PRN PRN Reason: Constipation Metoprolol Succinate (Toprol Xl (Beta [employer]der)) 25 mg PO DAILY [facility] Last Admin: 03/28/18 10:04 Dose: 25 mg Sodium Chloride () 5 - 30 ml IV UD PRN PRN Reason: SALINE FLUSH Last Admin: 03/27/18 08:17 Dose: 10 ml Tolterodine Tartrate (Detrol La) 2 mg PO QHS [facility] Last Admin: 03/27/18 21:39 Dose: 2 mg Medical Necessity - Tobacco Use Smoking Status: Former smoker Assessment/Plan All Active Problems (Last Reviewed 03/25/18 @ 04:40 by Niels Arreaga MD) SOB (shortness of breath) (Acute) Anemia (Acute) Colon cancer (Acute) Aortic stenosis (Acute) Pulmonary hypertension (Acute) Respiratory failure (Acute) Respiratory failure requiring intubation (Acute) Severe anemia (Acute) Ulcer of left lower leg (Resolved) Cellulitis of left leg without foot (Resolved) Acute electrocardiogram changes (Acute) 1. Severe aortic stenosis cardiac cath: severe aortic stenosis and severe pulmonary hypertension. aortic valve area of 0.67cm2 SOB is better. options now are for TAVR vs balloon valvuloplasty oncology on board; recommended CT chest to assess for metastases: CT chest showed small patchy areas of interstitial densities in the right lung, with nonspecific pleural-based nodules bilaterally. plan is for referral to [facility] for management of severe aortic stenosis 2. Severe anemia due to colon cancer s/p transfusion of 1 unit of PRBC Hb today is 10.1 will monitor. Plan is to maintain Hb>8 3. colon cancer diagnosed per colonoscopy a few weeks ago oncology consulted. CT chest as documented above in 1. oncology on board. 4. HFpEF EF 65% per [facility] on 03/24 cardiac cath: intact coronaries, severe pulmonary hypertension on PO lasix 40mg bid, lisinopril and toprol.will hold BP meds o/a of hypotension. Hold lasix also. will mo nitor 5. Severe pulmonary hypertension likely due to underlying heart disease 6. Hyperlipidemia: on statin 7. Hypertension: BP has been running low, in the 80s and 90s this morning. hold BP meds o/a of hypotension. 8. Diabetes mellitus type 2 lantus was decreased to 10IU from 15 due to hypoglycemia fasting sugar today was 97 9. Elevated Cr: Cr is 1.39. Likely due to hypotension. WIll hold BP meds and lasix and monitor. DVT prophylaxis: SCDs COde status: full code Disposition: for transfer to [facility]. This note was generated with [employer] dictation software. It may contain incorrect words, spelling, and punctuation that were not noted in checking the note before signing. Code Visit Inpatient E&M: 66443 Subs Hosp L3
--- NOTE | 2018-03-28 12:43 | PN_ITS ---
Patient Problems: Active and Suspected Problems (Last Reviewed 03/25/18 @ 04:40 by Niels Arreaga MD) SOB (shortness of breath) (Acute) Anemia (Acute) Colon cancer (Acute) Aortic stenosis (Acute) Pulmonary hypertension (Acute) Subjective: Patient seen and examined. She was sitting comfortably in a chair and had no complaints. She denied any shortness of breath and complained that she had had a headache earlier in the morning which had resolved with initiation of pain medication. She denied any fever or chills, any cough, any chest pain, any abdominal pain, any diarrhea vomiting. 12 point review of systems otherwise negative. Labs and vitals reviewed. Vitals/I&O's: Vital Signs Temp Pulse Resp BP Pulse Ox 98.3 F 78 18 98/39 L 98 03/28/18 11:30 03/28/18 11:30 03/28/18 11:30 03/28/18 11:30 03/28/18 11:30 Oxygen Flow Rate (L/min) 3 Oxygen Delivery Method Room Air Weight: 194 lb 3.636 oz Body Mass Index (BMI) 35.5 Intake and Output for Last 24 Hours 03/26/18 03/27/18 03/28/18 23:59 23:59 23:59 Intake Total 1440 / 1440 1130 / 1130 430 / 430 Balance 1440 / 1440 1130 / 1130 430 / 430 General: Alert, Oriented x3, Cooperative, No apparent distress HEENT: Atraumatic, PERRLA, EOMI, Normocephalic Oral: Moist Mucosa Neck: Supple Lungs: Clear to auscultation, Normal air movement, No rhonchi, No wheeze, No rales Cardiovascular: Normal S1, Normal S2, - - grade 3-4 systolic murmur in aortic and pulmonary valve areas Abdomen: Bowel Sounds Present, Soft, Non Tender Extremities: No clubbing, No cyanosis, No edema, Capillary Refill Less than 3 Seconds Skin: No rashes, No breakdown Musculoskeletal: No Tenderness to Palpation of Joints or Extremities Lymphatic: No Cervical, Supraclavicular, or Inguinal Adenopathy Neurological: Cranial nerves II-XII grossly intact, Neuro grossly intact, Motor Exam 5/5 strength throughout Psych/Mental Status: Normal Affect, Appropriate, Alert and oriented to time, place, person, mood and affect Laboratory Results 03/27/18 16:26: POC Glucose 106 03/27/18 21:57: POC Glucose 131 H 03/28/18 06:10: WBC 7.9, RBC 3.55 L, Hgb 10.1 L, Hct 32.4 L, MCV 91.3, MCH 28.5 , MCHC 31.2 L, RDW 16.4 H, RDW Differential 54.1 H, Plt Count 310, MPV 8.5, Immature Gran % (Auto) 0.000, Neut % (Auto) 77.8 H, Lymph % (Auto) 12.5 L, [place] % (Auto) 6.6, Eos % (Auto) 2.8, Baso % (Auto) 0.3, Absolute Neuts (auto) 6.2, Absolute Lymphs (auto) 0.99, Total Counted Not Reportable 03/28/18 06:10: Sodium 137, Potassium 3.8, Chloride 98, Carbon Dioxide 29.0, Anion Gap 10, BUN 32 H, Creatinine 1.39 H, Estim Creat Clear Calc 26.81, Est GFR (MDRD) Af Amer 47 L, Est GFR (MDRD) Non-Af 39 L, BUN/Creatinine Ratio 23.0 H , Glucose 113 H, Calcium 9.0 03/28/18 06:46: POC Glucose 113 H 03/28/18 11:38: POC Glucose 147 H Current Medications Acetaminophen (Tylenol) 650 mg PO Q6H PRN PRN PRN Reason: Mild Pain (scale 0-3)/T>100.7 Last Admin: 03/28/18 07:33 Dose: 650 mg [facility]ir[facility] ([facility]cot[facility]) [facility] Last Admin: 03/28/18 08:28 Dose: 81 mg Atorvastatin Calcium (Lipitor) 20 mg PO QHS [facility] Last Admin: 03/27/18 21:39 Dose: 20 mg Cholecalciferol (Vitamin D) 5,000 unit PO DAILY [facility] Last Admin: 03/28/18 10:04 Dose: 5,000 unit Dextrose (D50w Syringe) 0 gm IV X1 PRN; Protocol PRN Reason: Hypoglycemia Famotidine (Pepcid) 20 mg PO BID [facility] Last Admin: 03/28/18 10:05 Dose: 20 mg Ferrous Gluconate (Ferrous Gluconate) 325 mg PO TIDCM [facility] Last Admin: 03/28/18 08:28 Dose: 325 mg Furosemide (Lasix) 40 mg PO BID@1000,1800 [facility] Last Admin: 03/28/18 10:04 Dose: 40 mg Glucagon () 1 mg IM .X1 PRN PRN Reason: Hypoglycemia Heparin Sodium (Beef Lung) (Heparin 500 Unit/5 Ml (100/Ml)) 500 unit IV UD PRN PRN Reason: HEPARIN FLUSH Sodium Chloride () 1,000 mls @ 15 mls/hr IV .Q48H [facility] PRN Reason: KVO Last Admin: 03/27/18 06:01 Dose: 15 mls/hr Insulin Glargine (Lantus ([facility])) 10 units SC DAILYCM [facility] Last Admin: 03/28/18 08:27 Dose: 10 units Insulin Human Lispro (Humalog Kwikpen ([facility])) 5 unit SC TIDCM [facility] Last Admin: 03/28/18 08:26 Dose: 5 u Labetalol HCl (Trandate) 5 mg IV X1 PRN PRN Reason: SBP > 160 prior to sheath pull Stop: 03/29/18 10:05 Lisinopril (Zestril) 10 mg PO DAILY [facility] Last Admin: 03/28/18 10:00 Dose: Not Given Magnesium Hydroxide (Milk Of Magnesia) 30 ml PO DAILY PRN PRN Reason: Constipation Metoprolol Succinate (Toprol Xl (Beta Ryder)) 25 mg PO DAILY [facility] Last Admin: 03/28/18 10:04 Dose: 25 mg Sodium Chloride () 5 - 30 ml IV UD PRN PRN Reason: SALINE FLUSH Last Admin: 03/27/18 08:17 Dose: 10 ml Tolterodine Tartrate (Detrol La) 2 mg PO QHS [facility] Last Admin: 03/27/18 21:39 Dose: 2 mg Medical Necessity - Tobacco Use Smoking Status: Former smoker Assessment/Plan All Active Problems (Last Reviewed 03/25/18 @ 04:40 by Niels Arreaga MD) SOB (shortness of breath) (Acute) Anemia (Acute) Colon cancer (Acute) Aortic stenosis (Acute) Pulmonary hypertension (Acute) Respiratory failure (Acute) Respiratory failure requiring intubation (Acute) Severe anemia (Acute) Ulcer of left lower leg (Resolved) Cellulitis of left leg without foot (Resolved) Acute electrocardiogram changes (Acute) 1. Severe aortic stenosis * cardiac cath: severe aortic stenosis and severe pulmonary hypertension. aortic valve area of 0.67cm2 * SOB is better. * options now are for TAVR vs balloon valvuloplasty * oncology on board; recommended CT chest to assess for metastases: CT chest showed small patchy areas of interstitial densities in the right lung, with nonspecific pleural-based nodules bilaterally. * plan is for referral to [facility] for management of severe aortic stenosis * 2. Severe anemia due to colon cancer * s/p transfusion of 1 unit of PRBC * Hb today is 10.1 * will monitor. Plan is to maintain Hb>8 * 3. colon cancer * diagnosed per colonoscopy a few weeks ago * oncology consulted. CT chest as documented above in 1. * oncology on board. * 4. HFpEF * EF 65% per [facility]U on 03/24 * cardiac cath: intact coronaries, severe pulmonary hypertension * on PO lasix 40mg bid, lisinopril and toprol.will hold BP meds o/a of hypotension. Hold lasix also. * will mo nitor * 5. Severe pulmonary hypertension * likely due to underlying heart disease * 6. Hyperlipidemia: on statin 7. Hypertension: * BP has been running low, in the 80s and 90s this morning. * hold BP meds o/a of hypotension. 8. Diabetes mellitus type 2 * lantus was decreased to 10IU from 15 due to hypoglycemia * fasting sugar today was 97 * 9. Elevated Cr: Cr is 1.39. Likely due to hypotension. WIll hold BP meds and lasix and monitor. DVT prophylaxis: SCDs COde status: full code Disposition: for transfer to [facility]. This note was generated with [employer] dictation software. It may contain incorrect words, spelling, and punctuation that were not noted in checking the note before signing. Code Visit Inpatient E&M: 80553 Subs Hosp L3
--- NOTE | 2018-03-28 13:05 | ONC.PN.INPT ---
- Problem List (1) Colon cancer Status: Acute Qualifiers: Colon location: hepatic flexure Qualified Code(s): C18.3 - Malignant neoplasm of hepatic flexure (2) Anemia Status: Acute Qualifiers: Anemia type: other cause Subjective Date of Service:: 03/28/18 Adenocarcinoma of the colon The patient is a 77 year old F with diabetes, hypertension, hypercholesterolemia, previous CVA and recently diagnosed colon ca. She underwent EGD and colonoscopy 02/20/18 under the care of Dr. Hendricks for work up of anemia. 1-2 cm mass was identified at the hepatic flexure, pathology of which returned positive for invasive adenocarcinoma, microsatellite stable. Her care is complicated by severe aortic stenosis and pulmonary hypertension questioning her surgical candidacy for hemicolectomy. Underwent WU 03/24/18 under the care of Dr. Harmon which demonstrated critical aortic stenosis, severe mitral regurg and severe pulmonary hypertension. She was admitted 03/24/18 subsequent to experiencing acute onset SOB during PRBC transfusion. Aparently after receiving about 130 cc of blood, the patient developed severe shortness of breath, was combative, and required IV diuresis, IV Benadryl, and Tylenol as well as BiPAP therapy. Once her diuresis was complete her BiPAP was weaned off and she was admitted for observation. Was able to receive 1 unit PRBCs on 03/25/18 and reports improvement of SOB and weakness. Underwent cardiac cath 03/27/[address] Harmon. Orders placed for staging CT chest 03/27/18 Upon entering the room, patient sitting up comfortably in chair talking with Dr. Harmon and nephew. Denies any outstanding complaints since she was evaluated yesterday. Past Medical History: Chronic Problems (Last Reviewed 03/25/18 @ 04:40 by Niels Arreaga MD) Aortic stenosis (Chronic) History of ischemic stroke without residual deficits (Chronic) Obesity (Chronic) Asthma (Chronic) Dyslipidemia (Chronic) Peripheral arterial occlusive disease (Chronic) Arterial atherosclerosis (Chronic) Diabetes mellitus (Chronic) Left carotid bruit (Chronic) Erythema of lower extremity (Chronic) Edema of left lower extremity (Chronic) Swelling of left lower extremity (Chronic) Scalp laceration (Chronic) Multiple falls (Chronic) HTN (hypertension) (Chronic) Past Medical History - Most Recent Inpatient Visit Past Medical History Start: 03/25/18 00:21 Text: Status: Complete Freq: ONCE Protocol: Document 03/25/18 00:27 [facility] (Rec: 03/25/18 00:35 [facility] [id number]) BMI Required to complete PMH What is Patient's BMI 36.9 Past Medical History Unable History Recalled Yes Query Text:Pt Unable/Family Not Present Neurologic Medical History Hx Stroke/TIA Yes: 2013 Hx Dementia/Alzheimer's No Hx Parkinson's Disease No Hx Seizures No Hx Multiple Sclerosis No Hx Migraines No Cardiac Medical History VTE Present on Admission No Hx of Deep Vein Thrombosis/VTE/PE No Hx Hypertension Yes: TAKES MEDICATION Hx Chest Pain/Angina No Hx Heart Attack No Hx Cardiac Surgery/Stents/Etc. No Hx Heart Failure No Hx Pacemaker/AICD No Hx Irregular Heartbeat and/or Afib No Hx Anticoagulant Therapy Yes: aspirin 81mg Query Text:(Coumadin, Aspirin, Plavix, Xarelto, etc.) Hx Pain in Legs when Walking/Leg Cramps No Respiratory Medical History Hx COPD No: asthma Hx Emphysema No Hx Smoking Yes: quit as a teenager Smoking Status Former smoker Hx Smoking Cessation Counseling No Hx Smoking Exposure Yes Hx Tobacco Use in last 12 months No Hx of Pipe Smoking No Hx Sleep Apnea No CPAP No BIPAP No Do you snore loudly (louder than talking No or can be heard through closed doors)? Do you often feel tired/ fatigued/ No sleepy during daytime? Has anyone observed you stop breathing No during sleep? STOP Results Negative GI Medical History Hx Ulcer No Hx Hepatitis No Hx Cirrhosis No Hx GI Bleed No Hx Unplanned Weight Loss No Genitourinary Medical History Indwelling Catheter in Place on Arrival/ No Admission Hx Renal Disease No Hx Dialysis No Musculoskeletal History Hx Arthritis Yes Hx Rheumatoid Arthritis No Endocrine Medical History Hx Diabetes Yes Hx Thyroid Disease No Hematologic Medical History Hx of Blood Transfusion Yes Hx of Transfusion in last 3 Months Yes Date of Last Transfusion (if within last 03/24/2018 3 months) Ever experience any problems with No transfusion(s)? Hx of Preganancy in last 3 Months No Nurse Filling Out Transfusion & OHALE Questions: Date: 03/25/18 Time: 00:34 Psycho/Social Medical History Hx Depression No Hx Anxiety No Hx Behavior Disorder No Hx Alcohol Use No Hx Substance Use No Other Medical History Hx Blood Disorders No Hx Anemia No Hx Cancer No Hx Drug Resistant Organism No Wound/Pressure Injury Present on Arrival No /Admission Query Text:If yes, chart assessment in Shift/Clinical Findings Central Line/PICC/VAD Present on Arrival No /Admission Antibiotics within last 7 days? No Risk for Readmission Number of Risk Factors 3 At Risk for Readmission Patient is At Risk For Readmission Patient is eligible for Call Back Y Past Medical History (Last Reviewed 03/25/18 @ 04:40 by Niels Arreaga MD) Respiratory failure (Acute) Respiratory failure requiring intubation (Acute) Aortic stenosis (Chronic) Severe anemia (Acute) History of ischemic stroke without residual deficits (Chronic) Obesity (Chronic) Asthma (Chronic) Dyslipidemia (Chronic) Peripheral arterial occlusive disease (Chronic) Arterial atherosclerosis (Chronic) Diabetes mellitus (Chronic) Left carotid bruit (Chronic) Ulcer of left lower leg (Resolved) Erythema of lower extremity (Chronic) Edema of left lower extremity (Chronic) Swelling of left lower extremity (Chronic) Cellulitis of left leg without foot (Resolved) Acute electrocardiogram changes (Acute) Syncope (Suspected) Scalp laceration (Chronic) Multiple falls (Chronic) HTN (hypertension) (Chronic) Past Surgical History (Last Reviewed 03/25/18 @ 04:40 by Niels Arreaga MD) History of carpal tunnel surgery of left wrist (Resolved) History of left knee replacement (Resolved) Maternal Family History: Family History (Last Updated 03/07/18 @ 10:10 by Miracle Langford) Sister Cancer Family History: No pertinent history Paternal Family History: Family History (Last Updated 03/07/18 @ 10:10 by Miracle Langford) Sister Cancer Family History: No pertinent history - The patient's father at age of 85 with a history of heart disease. The patient's mother at age of 90 with a history of [employer] cancer. - Social History Smoking Status: Former smoker Review of Systems Constitutional:: Reports: Fatigue. Denies: Fever, Sweats, Weight loss, Appetite change, Chills Cardiovascular:: Reports: Dyspnea on exertion. Denies: Chest pain, Palpitations, Orthopnea, PND, Shortness of breath Respiratory: Reports: Cough. Denies: Hemoptysis, Wheezing Gastrointestinal:: Denies: Abdominal pain, Nausea, Vomiting, Diarrhea, Constipation, Hematochezia Genitourinary: Denies: Dysuria, Hematuria, Urinary frequency, Flank pain Musculoskeletal:: Denies: Back pain, Myalgia, Arthralgia Skin: Denies: Rash, Skin Changes, Wounds Neurological:: Denies: Headache, Dizziness, Visual changes, Tinnitus, Hearing loss Psychiatric: Denies: Anxiety, Depression, Homicidal Ideations, Suicidal Ideations Vital Signs Height 5 ft 2 in Weight: 194 lb 3.636 oz Weight in Pounds 194.2 lbs Pulse Ox 98 Temperature 98.3 F Pulse Rate 78 Respiratory Rate 18 Blood Pressure [2nd BP] 145/67 Blood Pressure 98/39 Blood Pressure Position [2nd Semi-Fowlers BP] Blood Pressure Position Sitting - Physical Exam General: Alert, Oriented x3, No apparent distress HEENT: Atraumatic, Normocephalic Oropharynx:: Negative for: Dry mucosa, Ulcerated lesions Psychiatric:: Appropriate affect, Euthymic Laboratory Data: Laboratory Tests 03/28/18 03/28/18 03/28/18 Range/Units 11:38 06:46 06:10 WBC (4.4-11.0) K/mm3 RBC (4.2-5.4) M/mm3 Hgb (12.0-15.0) g/dl Hct (37-47) % MCV (81-99) fL MCH (27.0-32.0) pg MCHC (32-36) g/gl RDW (11.6-14.6) % RDW Differential (35.1-43.9) fl Plt Count (150-450) K/mm3 MPV (6.2-12.0) fl Immature Gran % (Auto) (0.0-0.9) % Neut % (Auto) (47-70) % Lymph % (Auto) (19-41) % [place] % (Auto) (0-10) % Eos % (Auto) (0-5) % Baso % (Auto) (0-1) % Absolute Neuts (auto) (2.0-7.7) X10^3/uL Absolute Lymphs (auto) (0.83-4.51) X10^3/ul Total Counted Sodium 137 (136-145) mmol/L Potassium 3.8 (3.5-5.1) mmol/L Chloride 98 (98-107) mmol/L Carbon Dioxide 29.0 (21.0-32.0) mmol/L Anion Gap 10 (5-15) BUN 32 H (7-18) mg/dL Creatinine 1.39 H (0.55-1.02) mg/dL Estim Creat Clear Calc 26.81 ml/min Est GFR (MDRD) Af Amer 47 L (>60) mL/min Est GFR (MDRD) Non-Af 39 L (>60) mL/min BUN/Creatinine Ratio 23.0 H (10-20) RATIO Glucose 113 H (74-106) mg/dL Calcium 9.0 (8.5-10.1) mg/dL POC Glucose 147 H 113 H (70-110) mg/dL 03/28/18 03/27/18 03/27/18 Range/Units 06:10 21:57 16:26 WBC 7.9 (4.4-11.0) K/mm3 RBC 3.55 L (4.2-5.4) M/mm3 Hgb 10.1 L (12.0-15.0) g/dl Hct 32.4 L (37-47) % MCV 91.3 (81-99) fL MCH 28.5 (27.0-32.0) pg MCHC 31.2 L (32-36) g/gl RDW 16.4 H (11.6-14.6) % RDW Differential 54.1 H (35.1-43.9) fl Plt Count 310 (150-450) K/mm3 MPV 8.5 (6.2-12.0) fl Immature Gran % (Auto) 0.000 (0.0-0.9) % Neut % (Auto) 77.8 H (47-70) % Lymph % (Auto) 12.5 L (19-41) % [place] % (Auto) 6.6 (0-10) % Eos % (Auto) 2.8 (0-5) % Baso % (Auto) 0.3 (0-1) % Absolute Neuts (auto) 6.2 (2.0-7.7) X10^3/uL Absolute Lymphs (auto) 0.99 (0.83-4.51) X10^3/ul Total Counted Not Reportable Sodium (136-145) mmol/L Potassium (3.5-5.1) mmol/L Chloride (98-107) mmol/L Carbon Dioxide (21.0-32.0) mmol/L Anion Gap (5-15) BUN (7-18) mg/dL Creatinine (0.55-1.02) mg/dL Estim Creat Clear Calc ml/min Est GFR (MDRD) Af Amer (>60) mL/min Est GFR (MDRD) Non-Af (>60) mL/min BUN/Creatinine Ratio (10-20) RATIO Glucose (74-106) mg/dL Calcium (8.5-10.1) mg/dL POC Glucose 131 H 106 (70-110) mg/dL Diagnostic Data: Diagnostic Data Chest X-Ray 03/24/18 17:30 IMPRESSION: Mild pulmonary vascular congestion. Electronically Signed: Raman Aguilar, at 17:45 EDT Tel , Service support , Chest CT 03/27/18 16:22 IMPRESSION: Small patchy areas of interstitial densities in the right lung. Nonspecific pleural-based nodules bilaterally. Electronically Signed: Phill Acosta DO at 22:39 EDT Tel [phone], Service support , Assessment and Plan 1. 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 Diagnosed 02/20/18. Would require hemicolectomy however, her care is complicated by severe aortic stenosis and severe pulmonary hypertension. CT abd/pelvis obtained 02/20/18 revealed no evidence of intrahepatic or colonic mass or acute intra-abdominal or pelvic abnormality. To complete staging, orders placed for CT chest with contrast 03/27/18. Imaging revealed 2 mm pleural-based nodule, right and 1 mm pleural-based nodule of the left upper lobe. These are nonspecific, too small to characterize and not overtly concerning for metastatic disease but should be followed especially in light of + h/o tobacco use. PET nor bx is indicated at this time. In the absence of metastatic disease, interventions to address severe aortic stenosis welcomed as hemicolectomy would be best course of management. 2. Severe anemia d/t colon ca and severe aortic stenosis- Hgb 10.1 today. Although experienced transfusion reaction with initial unit, was able to receive 1 unit PRBCs on 03/25/18 with supportive medications (Tylenol, Benadryl and Lasix). Goal Hgb >8. Case discussed with Dr. Coffey who was in agreement with the aforementioned plan. Case also discussed with Dr. Harmon. Pippa Wilkerson, MSN, MOVER-C, AOCNP Medications: Prescriptions This Visit Medication Instructions Recorded Atorvastatin Calcium 20 mg PO QHS 03/24/18 Lisinopril [Zestril] 10 mg PO DAILY 03/24/18 Medications Added to Medication List This Visit Category Date Time Status Furosemide [Lasix] Med 03/29/18 10:00 Active 40 mg PO DAILY Primary Care Provider: Yumi Diana Referring Provider:
--- NOTE | 2018-03-28 13:10 | PN_ITS ---
- Problem List (1) Colon cancer Status: Acute Qualifiers: Colon location: hepatic flexure Qualified Code(s): C18.3 - Malignant neoplasm of hepatic flexure (2) Anemia Status: Acute Qualifiers: Anemia type: other cause Subjective Date of Service:: 03/28/18 Adenocarcinoma of the colon The patient is a 77 year old F with diabetes, hypertension, hypercholesterolemia , previous CVA and recently diagnosed colon ca. She underwent EGD and colonoscopy 02/20/18 under the care of Dr. Hendricks for work up of anemia. 1-2 cm mass was identified at the hepatic flexure, pathology of which returned positive for invasive adenocarcinoma, microsatellite stable. Her care is complicated by severe aortic stenosis and pulmonary hypertension questioning her surgical candidacy for hemicolectomy. Underwent WU 03/24/18 under the care of Dr. Harmon which demonstrated critical aortic stenosis, severe mitral regurg and severe pulmonary hypertension. She was admitted 03/24/18 subsequent to experiencing acute onset SOB during PRBC transfusion. Aparently after receiving about 130 cc of blood, the patient developed severe shortness of breath, was combative, and required IV diuresis, IV Benadryl, and Tylenol as well as BiPAP therapy. Once her diuresis was complete her BiPAP was weaned off and she was admitted for observation. Was able to receive 1 unit PRBCs on and reports improvement of SOB and weakness. Underwent cardiac cath 03/27/[address] Harmon. Orders placed for staging CT chest 03/27/18 Upon entering the room, patient sitting up comfortably in chair talking with Dr. Harmon and nephew. Denies any outstanding complaints since she was evaluated yesterday. Past Medical History: Chronic Problems (Last Reviewed 03/25/18 @ 04:40 by Niels Arreaga MD) Aortic stenosis (Chronic) History of ischemic stroke without residual deficits (Chronic) Obesity (Chronic) Asthma (Chronic) Dyslipidemia (Chronic) Peripheral arterial occlusive disease (Chronic) Arterial atherosclerosis (Chronic) Diabetes mellitus (Chronic) Left carotid bruit (Chronic) Erythema of lower extremity (Chronic) Edema of left lower extremity (Chronic) Swelling of left lower extremity (Chronic) Scalp laceration (Chronic) Multiple falls (Chronic) HTN (hypertension) (Chronic) Past Medical History - Most Recent Inpatient Visit Past Medical History Start: 03/25/18 00: 21 Text: Status: Complete Freq: ONCE Protocol: Document 03/25/18 00:27 [facility] (Rec: 03/25/18 00:35 [facility] [id number]) BMI Required to complete PMH What is Patient's BMI 36.9 Past Medical History Unable History Recalled Yes Query Text:Pt Unable/Family Not Present Neurologic Medical History Hx Stroke/TIA Yes: 2013 Hx Dementia/Alzheimer's No Hx Parkinson's Disease No Hx Seizures No Hx Multiple Sclerosis No Hx Migraines No Cardiac Medical History VTE Present on Admission No Hx of Deep Vein Thrombosis/VTE/PE No Hx Hypertension Yes: TAKES MEDICATION Hx Chest Pain/Angina No Hx Heart Attack No Hx Cardiac Surgery/Stents/Etc. No Hx Heart Failure No Hx Pacemaker/AICD No Hx Irregular Heartbeat and/or Afib No Hx Anticoagulant Therapy Yes: aspirin 81mg Query Text:(Coumadin, Aspirin, Plavix, Xarelto, etc.) Hx Pain in Legs when Walking/Leg Cramps No Respiratory Medical History Hx COPD No: asthma Hx Emphysema No Hx Smoking Yes: quit as a teenager Smoking Status Former smoker Hx Smoking Cessation Counseling No Hx Smoking Exposure Yes Hx Tobacco Use in last 12 months No Hx of Pipe Smoking No Hx Sleep Apnea No CPAP No BIPAP No Do you snore loudly (louder than talking No or can be heard through closed doors)? Do you often feel tired/ fatigued/ No sleepy during daytime? Has anyone observed you stop breathing No during sleep? STOP Results Negative GI Medical History Hx Ulcer No Hx Hepatitis No Hx Cirrhosis No Hx GI Bleed No Hx Unplanned Weight Loss No Genitourinary Medical History Indwelling Catheter in Place on Arrival/ No Admission Hx Renal Disease No Hx Dialysis No Musculoskeletal History Hx Arthritis Yes Hx Rheumatoid Arthritis No Endocrine Medical History Hx Diabetes Yes Hx Thyroid Disease No Hematologic Medical History Hx of Blood Transfusion Yes Hx of Transfusion in last 3 Months Yes Date of Last Transfusion (if within last 03/24/2018 3 months) Ever experience any problems with No transfusion(s)? Hx of Preganancy in last 3 Months No Nurse Filling Out Transfusion & OHALE Questions: Date: 03/25/18 Time: 00:34 Psycho/Social Medical History Hx Depression No Hx Anxiety No Hx Behavior Disorder No Hx Alcohol Use No Hx Substance Use No Other Medical History Hx Blood Disorders No Hx Anemia No Hx Cancer No Hx Drug Resistant Organism No Wound/Pressure Injury Present on Arrival No /Admission Query Text:If yes, chart assessment in Shift/Clinical Findings Central Line/PICC/VAD Present on Arrival No /Admission Antibiotics within last 7 days? No Risk for Readmission Number of Risk Factors 3 At Risk for Readmission Patient is At Risk For Readmission Patient is eligible for Call Back Y Past Medical History (Last Reviewed 03/25/18 @ 04:40 by Niels Arreaga MD) Respiratory failure (Acute) Respiratory failure requiring intubation (Acute) Aortic stenosis (Chronic) Severe anemia (Acute) History of ischemic stroke without residual deficits (Chronic) Obesity (Chronic) Asthma (Chronic) Dyslipidemia (Chronic) Peripheral arterial occlusive disease (Chronic) Arterial atherosclerosis (Chronic) Diabetes mellitus (Chronic) Left carotid bruit (Chronic) Ulcer of left lower leg (Resolved) Erythema of lower extremity (Chronic) Edema of left lower extremity (Chronic) Swelling of left lower extremity (Chronic) Cellulitis of left leg without foot (Resolved) Acute electrocardiogram changes (Acute) Syncope (Suspected) Scalp laceration (Chronic) Multiple falls (Chronic) HTN (hypertension) (Chronic) Past Surgical History (Last Reviewed 03/25/18 @ 04:40 by Niels Arreaga MD) History of carpal tunnel surgery of left wrist (Resolved) History of left knee replacement (Resolved) Maternal Family History: Family History (Last Updated 03/07/18 @ 10:10 by Miracle Langford) Sister Cancer Family History: No pertinent history Paternal Family History: Family History (Last Updated 03/07/18 @ 10:10 by Miracle Langford) Sister Cancer Family History: No pertinent history - The patient's father at age of 85 with a history of heart disease. The patient's mother at age of 90 with a history of CAR WHACKER cancer. - Social History Smoking Status: Former smoker Review of Systems Constitutional:: Reports: Fatigue. Denies: Fever, Sweats, Weight loss, Appetite change, Chills Cardiovascular:: Reports: Dyspnea on exertion. Denies: Chest pain, Palpitations , Orthopnea, PND, Shortness of breath Respiratory: Reports: Cough. Denies: Hemoptysis, Wheezing Gastrointestinal:: Denies: Abdominal pain, Nausea, Vomiting, Diarrhea, Constipation, Hematochezia Genitourinary: Denies: Dysuria, Hematuria, Urinary frequency, Flank pain Musculoskeletal:: Denies: Back pain, Myalgia, Arthralgia Skin: Denies: Rash, Skin Changes, Wounds Neurological:: Denies: Headache, Dizziness, Visual changes, Tinnitus, Hearing loss Psychiatric: Denies: Anxiety, Depression, Homicidal Ideations, Suicidal Ideations Vital Signs Height 5 ft 2 in Weight: 194 lb 3.636 oz Weight in Pounds 194.2 lbs Pulse Ox 98 Temperature 98.3 F Pulse Rate 78 Respiratory Rate 18 Blood Pressure [2nd BP] 145/67 Blood Pressure 98/39 Blood Pressure Position [2nd Semi-Fowlers BP] Blood Pressure Position Sitting - Physical Exam General: Alert, Oriented x3, No apparent distress HEENT: Atraumatic, Normocephalic Oropharynx:: Negative for: Dry mucosa, Ulcerated lesions Psychiatric:: Appropriate affect, Euthymic Laboratory Data: Laboratory Tests 3 03/28/18 03/28/18 03/28/18 Range/Units 11:38 06:46 06:10 WBC (4.4-11.0) K/mm3 RBC (4.2-5.4) M/mm3 Hgb (12.0-15.0) g/dl Hct (37-47) % MCV (81-99) fL MCH (27.0-32.0) pg MCHC (32-36) g/gl RDW (11.6-14.6) % RDW Differential (35.1-43.9) fl Plt Count (150-450) K/mm3 MPV (6.2-12.0) fl Immature Gran % (Auto) (0.0-0.9) % Neut % (Auto) (47-70) % Lymph % (Auto) (19-41) % Roane % (Auto) (0-10) % Eos % (Auto) (0-5) % Baso % (Auto) (0-1) % Absolute Neuts (auto) (2.0-7.7) X10^3/uL Absolute Lymphs (auto) (0.83-4.51) X10^3/ul Total Counted Sodium 137 (136-145) mmol/L Potassium 3.8 (3.5-5.1) mmol/L Chloride 98 (98-107) mmol/L Carbon Dioxide 29.0 (21.0-32.0) mmol/L Anion Gap 10 (5-15) BUN 32 H (7-18) mg/dL Creatinine 1.39 H (0.55-1.02) mg/dL Estim Creat Clear Calc 26.81 ml/min Est GFR (MDRD) Af Amer 47 L (>60) mL/min Est GFR (MDRD) Non-Af 39 L (>60) mL/min BUN/Creatinine Ratio 23.0 H (10-20) RATIO Glucose 113 H (74-106) mg/dL Calcium 9.0 (8.5-10.1) mg/dL POC Glucose 147 H 113 H (70-110) mg/dL 3 03/28/18 03/27/18 03/27/18 Range/Units 06:10 21:57 16:26 WBC 7.9 (4.4-11.0) K/mm3 RBC 3.55 L (4.2-5.4) M/mm3 Hgb 10.1 L (12.0-15.0) g/dl Hct 32.4 L (37-47) % MCV 91.3 (81-99) fL MCH 28.5 (27.0-32.0) pg MCHC 31.2 L (32-36) g/gl RDW 16.4 H (11.6-14.6) % RDW Differential 54.1 H (35.1-43.9) fl Plt Count 310 (150-450) K/mm3 MPV 8.5 (6.2-12.0) fl Immature Gran % (Auto) 0.000 (0.0-0.9) % Neut % (Auto) 77.8 H (47-70) % Lymph % (Auto) 12.5 L (19-41) % Roane % (Auto) 6.6 (0-10) % Eos % (Auto) 2.8 (0-5) % Baso % (Auto) 0.3 (0-1) % Absolute Neuts (auto) 6.2 (2.0-7.7) X10^3/uL Absolute Lymphs (auto) 0.99 (0.83-4.51) X10^3/ul Total Counted Not Reportable Sodium (136-145) mmol/L Potassium (3.5-5.1) mmol/L Chloride (98-107) mmol/L Carbon Dioxide (21.0-32.0) mmol/L Anion Gap (5-15) BUN (7-18) mg/dL Creatinine (0.55-1.02) mg/dL Estim Creat Clear Calc ml/min Est GFR (MDRD) Af Amer (>60) mL/min Est GFR (MDRD) Non-Af (>60) mL/min BUN/Creatinine Ratio (10-20) RATIO Glucose (74-106) mg/dL Calcium (8.5-10.1) mg/dL POC Glucose 131 H 106 (70-110) mg/dL Diagnostic Data: Diagnostic Data Chest X-Ray 03/24/18 17:30 IMPRESSION: Mild pulmonary vascular congestion. Electronically Signed: Raman Aguilar, at 17:45 EDT Tel , Service support , Chest CT 03/27/18 16:22 IMPRESSION: Small patchy areas of interstitial densities in the right lung. Nonspecific pleural-based nodules bilaterally. Electronically Signed: Phill Acosta DO at 22:39 EDT Tel [phone], Service support , Assessment and Plan 1. 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 Diagnosed . Would require hemicolectomy however, her care is complicated by severe aortic stenosis and severe pulmonary hypertension. CT abd/pelvis obtained revealed no evidence of intrahepatic or colonic mass or acute intra- abdominal or pelvic abnormality. To complete staging, orders placed for CT chest with contrast 03/27/18. Imaging revealed 2 mm pleural-based nodule, right and 1 mm pleural-based nodule of the left upper lobe. These are nonspecific, too small to characterize and not overtly concerning for metastatic disease but should be followed especially in light of + h/o tobacco use. PET nor bx is indicated at this time. In the absence of metastatic disease, interventions to address severe aortic stenosis welcomed as hemicolectomy would be best course of management. 2. Severe anemia d/t colon ca and severe aortic stenosis- Hgb 10.1 today. Although experienced transfusion reaction with initial unit, was able to receive 1 unit PRBCs on 03/25/18 with supportive medications (Tylenol, Benadryl and Lasix). Goal Hgb >8. Case discussed with Dr. Coffey who was in agreement with the aforementioned plan. Case also discussed with Dr. Harmon. Pippa Wilkerson, MSN, [employer], AOCNP Medications: Prescriptions This Visit Medication Instructions Recorded Atorvastatin Calcium 20 mg PO QHS 03/24/18 Lisinopril [Zestril] 10 mg PO DAILY 03/24/18 Medications Added to Medication List This Visit Category Date Time Status Furosemide [Lasix] Med 03/29/18 10:00 Active 40 mg PO DAILY Primary Care Provider: Yumi Diana Referring Provider:
[2018-03-28 16:31] LABS: Bedside Glucose 216 mg/dL (70-110)
--- NOTE | 2018-03-28 20:00 | NURSING ---
Report called to [facility] to Nick FITZGERALD at 2000
--- NOTE | 2018-03-29 11:22 | PCM.DC.SUM ---
Discharge Date and Diagnosis Date of Admission: 03/24/18 Date of Discharge: 03/28/18 - Primary Discharge Diagnosis shortness of breath - Secondary Discharge Diagnosis Chronic Problems (Last Reviewed 03/25/18 @ 04:40 by Niels Arreaga MD) Aortic stenosis (Chronic) History of ischemic stroke without residual deficits (Chronic) Obesity (Chronic) Asthma (Chronic) Dyslipidemia (Chronic) Peripheral arterial occlusive disease (Chronic) Arterial atherosclerosis (Chronic) Diabetes mellitus (Chronic) Left carotid bruit (Chronic) Erythema of lower extremity (Chronic) Edema of left lower extremity (Chronic) Swelling of left lower extremity (Chronic) Scalp laceration (Chronic) Multiple falls (Chronic) HTN (hypertension) (Chronic) Hospital Course and Treatment Imaging Results: Diagnostic Data Chest X-Ray 03/24/18 17:30 IMPRESSION: Mild pulmonary vascular congestion. Electronically Signed: Raman Aguilar, at 17:45 EDT Tel , Service support , Chest CT 03/27/18 16:22 IMPRESSION: Small patchy areas of interstitial densities in the right lung. Nonspecific pleural-based nodules bilaterally. Electronically Signed: Phill Acosta DO at 22:39 EDT Tel [phone], Service support , Laboratory Tests 03/24/18 03/24/18 03/24/18 12:36 16:56 19:34 WBC Cancelled Corrected WBC Cancelled RBC Cancelled Hgb Cancelled Hct Cancelled MCV Cancelled MCH Cancelled MCHC Cancelled RDW Cancelled RDW Differential Cancelled Plt Count Cancelled MPV Cancelled Immature Gran % (Auto) Cancelled Neut % (Auto) Cancelled Lymph % (Auto) Cancelled [place] % (Auto) Cancelled Eos % (Auto) Cancelled Baso % (Auto) Cancelled Absolute Neuts (auto) Cancelled Absolute Lymphs (auto) Cancelled Total Counted Cancelled Neutrophils % (Manual) Cancelled Band Neutrophils % Cancelled Lymphocytes % (Manual) Cancelled Monocytes % (Manual) Cancelled Eosinophils % (Manual) Cancelled Basophils % (Manual) Cancelled Metamyelocytes % Cancelled Myelocytes % Cancelled Promyelocytes % Cancelled Blast Cells % Cancelled Plasma Cell % (Manual) Cancelled Other Cells % Cancelled Nucleated RBCs/100 WBC Cancelled Differential Comment Cancelled Diff Path Review Cancelled Hypersegmented Neuts Cancelled Atypical Lymphocytes Cancelled Reactive Lymphocytes Cancelled Smudge Cells Cancelled Toxic Granulation Cancelled Dohle Bodies Cancelled Noris Rods Cancelled Platelet Estimate Cancelled Plt Morphology Comment Cancelled RBC Morphology Cancelled Polychromasia Cancelled Hypochromasia Cancelled Poikilocytosis Cancelled Basophilic Stippling Cancelled Anisocytosis Cancelled Microcytosis Cancelled Macrocytosis Cancelled Spherocytes Cancelled Sickle Cells Cancelled Target Cells Cancelled Tear Drop Cells Cancelled Ovalocytes Cancelled Stomatocytes Cancelled [place] Bodies Cancelled Julian Cells Cancelled Bite Cells Cancelled Acanthocytes (Spur) Cancelled Rouleaux Cancelled Schistocytes Cancelled Haptoglobin PT INR APTT Specimen Type ART Sample Site R Radial pH 7.24 L Bicarbonate Actual 24.1 POC Total CO2 26 Base Excess -3 L O2 Saturation 100 H O2 % 90 ABG pCO2 55.7 H ABG pO2 432 H* John Test NA VBG pH VBG pO2 VBG O2 Sat (Calc) VBG O2 Content VBG Base Excess POC Mix VBG pCO2 Pt Tmp Respiration Rate 12 O2 Delivery Device Bi / C PAP EPAP 6 IPAP 12 Blood Gas Notified Whom ED Blood Gas Notified Time 1650 Sodium Potassium Chloride Carbon Dioxide Anion Gap BUN Creatinine Estim Creat Clear Calc Est GFR (MDRD) Af Amer Est GFR (MDRD) Non-Af BUN/Creatinine Ratio Glucose Calcium Total Bilirubin Direct Bilirubin AST ALT Alkaline Phosphatase Lactate Dehydrogenase Troponin I B-Natriuretic Peptide Total Protein Albumin Globulin Urine Color Urine Clarity Urine pH Ur Specific [place] Urine Protein Urine Glucose (UA) Urine Ketones Urine Occult Blood Urine Nitrite Urine Bilirubin Urine Urobilinogen Ur Leukocyte Esterase Urine RBC Urine WBC Ur Squamous Epith Cells Urine Bacteria Hyaline Casts Urine Mucus POC Glucose Blood Type O POSITIVE Antibody Screen NEGATIVE Direct Antiglob Test Crossmatch See Detail 03/24/18 03/24/18 03/24/18 19:34 19:34 20:25 WBC 12.6 H Corrected WBC RBC 2.66 L Hgb 7.7 L Hct 24.4 L MCV 91.7 MCH 28.9 MCHC 31.6 L RDW 16.2 H RDW Differential 52.2 H Plt Count 282 MPV 8.8 Immature Gran % (Auto) 0.300 Neut % (Auto) 88.0 H Lymph % (Auto) 6.9 L [place] % (Auto) 4.5 Eos % (Auto) 0.1 Baso % (Auto) 0.2 Absolute Neuts (auto) 11.1 H Absolute Lymphs (auto) 0.87 Total Counted Not Reportable Neutrophils % (Manual) Band Neutrophils % Lymphocytes % (Manual) Monocytes % (Manual) Eosinophils % (Manual) Basophils % (Manual) Metamyelocytes % Myelocytes % Promyelocytes % Blast Cells % Plasma Cell % (Manual) Other Cells % Nucleated RBCs/100 WBC Differential Comment Diff Path Review Hypersegmented Neuts Atypical Lymphocytes Reactive Lymphocytes Smudge Cells Toxic Granulation Dohle Bodies Noris Rods Platelet Estimate Plt Morphology Comment RBC Morphology Polychromasia Hypochromasia Poikilocytosis Basophilic Stippling Anisocytosis Microcytosis Macrocytosis Spherocytes Sickle Cells Target Cells Tear Drop Cells Ovalocytes Stomatocytes [place] Bodies Julian Cells Bite Cells Acanthocytes (Spur) Rouleaux Schistocytes Haptoglobin PT INR APTT Specimen Type Sample Site pH Bicarbonate Actual POC Total CO2 Base Excess O2 Saturation O2 % ABG pCO2 ABG pO2 John Test VBG pH VBG pO2 VBG O2 Sat (Calc) VBG O2 Content VBG Base Excess POC Mix VBG pCO2 Pt Tmp Respiration Rate O2 Delivery Device EPAP IPAP Blood Gas Notified Whom Blood Gas Notified Time Sodium 135 L Potassium 5.8 H Chloride 105 Carbon Dioxide 21.0 Anion Gap 9 BUN 32 H Creatinine 1.04 H Estim Creat Clear Calc 35.83 Est GFR (MDRD) Af Amer 66 Est GFR (MDRD) Non-Af 55 L BUN/Creatinine Ratio 30.8 H Glucose 154 H Calcium 8.6 Total Bilirubin Direct Bilirubin AST ALT Alkaline Phosphatase Lactate Dehydrogenase Troponin I 0.035 B-Natriuretic Peptide Cancelled Total Protein Albumin Globulin Urine Color Urine Clarity Urine pH Ur Specific [place] Urine Protein Urine Glucose (UA) Urine Ketones Urine Occult Blood Urine Nitrite Urine Bilirubin Urine Urobilinogen Ur Leukocyte Esterase Urine RBC Urine WBC Ur Squamous Epith Cells Urine Bacteria Hyaline Casts Urine Mucus POC Glucose Blood Type Antibody Screen Direct Antiglob Test Crossmatch 03/24/18 03/25/18 03/25/18 20:25 01:01 05:14 WBC Corrected WBC RBC Hgb Hct MCV MCH MCHC RDW RDW Differential Plt Count MPV Immature Gran % (Auto) Neut % (Auto) Lymph % (Auto) [place] % (Auto) Eos % (Auto) Baso % (Auto) Absolute Neuts (auto) Absolute Lymphs (auto) Total Counted Neutrophils % (Manual) Band Neutrophils % Lymphocytes % (Manual) Monocytes % (Manual) Eosinophils % (Manual) Basophils % (Manual) Metamyelocytes % Myelocytes % Promyelocytes % Blast Cells % Plasma Cell % (Manual) Other Cells % Nucleated RBCs/100 WBC Differential Comment Diff Path Review Hypersegmented Neuts Atypical Lymphocytes Reactive Lymphocytes Smudge Cells Toxic Granulation Dohle Bodies Noris Rods Platelet Estimate Plt Morphology Comment RBC Morphology Polychromasia Hypochromasia Poikilocytosis Basophilic Stippling Anisocytosis Microcytosis Macrocytosis Spherocytes Sickle Cells Target Cells Tear Drop Cells Ovalocytes Stomatocytes [place] Bodies Julian Cells Bite Cells Acanthocytes (Spur) Rouleaux Schistocytes Haptoglobin PT INR APTT Specimen Type Sample Site pH Bicarbonate Actual POC Total CO2 Base Excess O2 Saturation O2 % ABG pCO2 ABG pO2 John Test VBG pH VBG pO2 VBG O2 Sat (Calc) VBG O2 Content VBG Base Excess POC Mix VBG pCO2 Pt Tmp Respiration Rate O2 Delivery Device EPAP IPAP Blood Gas Notified Whom Blood Gas Notified Time Sodium 141 Potassium 4.2 Chloride 105 Carbon Dioxide 26.0 Anion Gap 10 BUN 30 H Creatinine 0.94 Estim Creat Clear Calc 39.64 Est GFR (MDRD) Af Amer 74 Est GFR (MDRD) Non-Af 61 BUN/Creatinine Ratio 31.7 H Glucose 65 L Calcium 8.3 L Total Bilirubin 0.50 Direct Bilirubin 0.13 AST 22 ALT 30 Alkaline Phosphatase 75 Lactate Dehydrogenase 189 Troponin I B-Natriuretic Peptide 502.3 H Total Protein 6.9 Albumin 3.2 Globulin 3.7 Urine Color Straw Urine Clarity Sl. Cloudy Urine pH 5.0 Ur Specific [place] 1.015 Urine Protein 15 H Urine Glucose (UA) Normal Urine Ketones Negative Urine Occult Blood 10 H Urine Nitrite Negative Urine Bilirubin Negative Urine Urobilinogen Normal Ur Leukocyte Esterase 500 H Urine RBC 0 SEEN Urine WBC 5-10 SEEN Ur Squamous Epith Cells 0-5 SEEN Urine Bacteria 1+ Hyaline Casts 0-5 SEEN Urine Mucus 0 SEEN POC Glucose Blood Type Antibody Screen Direct Antiglob Test Crossmatch 03/25/18 03/25/18 03/25/18 05:14 05:14 05:14 WBC 9.5 Corrected WBC RBC 2.62 L Hgb 7.3 L Hct 23.4 L MCV 89.3 MCH 27.9 MCHC 31.2 L RDW 16.6 H RDW Differential 54.1 H Plt Count 241 MPV 8.2 Immature Gran % (Auto) Neut % (Auto) Lymph % (Auto) [place] % (Auto) Eos % (Auto) Baso % (Auto) Absolute Neuts (auto) Absolute Lymphs (auto) Total Counted Neutrophils % (Manual) Band Neutrophils % Lymphocytes % (Manual) Monocytes % (Manual) Eosinophils % (Manual) Basophils % (Manual) Metamyelocytes % Myelocytes % Promyelocytes % Blast Cells % Plasma Cell % (Manual) Other Cells % Nucleated RBCs/100 WBC Differential Comment Diff Path Review Hypersegmented Neuts Atypical Lymphocytes Reactive Lymphocytes Smudge Cells Toxic Granulation Dohle Bodies Noris Rods Platelet Estimate Plt Morphology Comment RBC Morphology Polychromasia Hypochromasia Poikilocytosis Basophilic Stippling Anisocytosis Microcytosis Macrocytosis Spherocytes Sickle Cells Target Cells Tear Drop Cells Ovalocytes Stomatocytes [place] Bodies [place] Cells Bite Cells Acanthocytes (Spur) Rouleaux Schistocytes Haptoglobin 67 PT INR APTT Specimen Type Sample Site pH Bicarbonate Actual POC Total CO2 Base Excess O2 Saturation O2 % ABG pCO2 ABG pO2 John Test VBG pH VBG pO2 VBG O2 Sat (Calc) VBG O2 Content VBG Base Excess POC Mix VBG pCO2 Pt Tmp Respiration Rate O2 Delivery Device EPAP IPAP Blood Gas Notified Whom Blood Gas Notified Time Sodium Potassium Chloride Carbon Dioxide Anion Gap BUN Creatinine Estim Creat Clear Calc Est GFR (MDRD) Af Amer Est GFR (MDRD) Non-Af BUN/Creatinine Ratio Glucose Calcium Total Bilirubin Direct Bilirubin AST ALT Alkaline Phosphatase Lactate Dehydrogenase Troponin I B-Natriuretic Peptide Total Protein Albumin Globulin Urine Color Urine Clarity Urine pH Ur Specific [place] Urine Protein Urine Glucose (UA) Urine Ketones Urine Occult Blood Urine Nitrite Urine Bilirubin Urine Urobilinogen Ur Leukocyte Esterase Urine RBC Urine WBC Ur Squamous Epith Cells Urine Bacteria Hyaline Casts Urine Mucus POC Glucose Blood Type Antibody Screen Direct Antiglob Test NEG w/POLYSPECIFIC Crossmatch 03/25/18 03/25/18 03/25/18 05:14 08:19 11:34 WBC Corrected WBC RBC Hgb Hct MCV MCH MCHC RDW RDW Differential Plt Count MPV Immature Gran % (Auto) Neut % (Auto) Lymph % (Auto) [place] % (Auto) Eos % (Auto) Baso % (Auto) Absolute Neuts (auto) Absolute Lymphs (auto) Total Counted Neutrophils % (Manual) Band Neutrophils % Lymphocytes % (Manual) Monocytes % (Manual) Eosinophils % (Manual) Basophils % (Manual) Metamyelocytes % Myelocytes % Promyelocytes % Blast Cells % Plasma Cell % (Manual) Other Cells % Nucleated RBCs/100 WBC Differential Comment Diff Path Review Hypersegmented Neuts Atypical Lymphocytes Reactive Lymphocytes Smudge Cells Toxic Granulation Dohle Bodies Noris Rods Platelet Estimate Plt Morphology Comment RBC Morphology Polychromasia Hypochromasia Poikilocytosis Basophilic Stippling Anisocytosis Microcytosis Macrocytosis Spherocytes Sickle Cells Target Cells Tear Drop Cells Ovalocytes Stomatocytes [place] Bodies Julian Cells Bite Cells Acanthocytes (Spur) Rouleaux Schistocytes Haptoglobin PT 14.3 INR 1.1 APTT Specimen Type Sample Site pH Bicarbonate Actual POC Total CO2 Base Excess O2 Saturation O2 % ABG pCO2 ABG pO2 John Test VBG pH VBG pO2 VBG O2 Sat (Calc) VBG O2 Content VBG Base Excess POC Mix VBG pCO2 Pt Tmp Respiration Rate O2 Delivery Device EPAP IPAP Blood Gas Notified Whom Blood Gas Notified Time Sodium Potassium Chloride Carbon Dioxide Anion Gap BUN Creatinine Estim Creat Clear Calc Est GFR (MDRD) Af Amer Est GFR (MDRD) Non-Af BUN/Creatinine Ratio Glucose Calcium Total Bilirubin Direct Bilirubin AST ALT Alkaline Phosphatase Lactate Dehydrogenase Troponin I B-Natriuretic Peptide Total Protein Albumin Globulin Urine Color Urine Clarity Urine pH Ur Specific [place] Urine Protein Urine Glucose (UA) Urine Ketones Urine Occult Blood Urine Nitrite Urine Bilirubin Urine Urobilinogen Ur Leukocyte Esterase Urine RBC Urine WBC Ur Squamous Epith Cells Urine Bacteria Hyaline Casts Urine Mucus POC Glucose 68 L 176 H Blood Type Antibody Screen Direct Antiglob Test Crossmatch 03/25/18 03/25/18 03/26/18 16:31 22:04 05:00 WBC 6.5 Corrected WBC RBC 3.09 L Hgb 8.8 L Hct 27.7 L MCV 89.6 MCH 28.5 MCHC 31.8 L RDW 16.2 H RDW Differential 52.2 H Plt Count 268 MPV 8.6 Immature Gran % (Auto) 0.200 Neut % (Auto) 61.9 Lymph % (Auto) 24.8 [place] % (Auto) 8.3 Eos % (Auto) 4.3 Baso % (Auto) 0.5 Absolute Neuts (auto) 4.0 Absolute Lymphs (auto) 1.62 Total Counted Not Reportable Neutrophils % (Manual) Band Neutrophils % Lymphocytes % (Manual) Monocytes % (Manual) Eosinophils % (Manual) Basophils % (Manual) Metamyelocytes % Myelocytes % Promyelocytes % Blast Cells % Plasma Cell % (Manual) Other Cells % Nucleated RBCs/100 WBC Differential Comment Diff Path Review Hypersegmented Neuts Atypical Lymphocytes Reactive Lymphocytes Smudge Cells Toxic Granulation Dohle Bodies Noris Rods Platelet Estimate Plt Morphology Comment RBC Morphology Polychromasia Hypochromasia Poikilocytosis Basophilic Stippling Anisocytosis Microcytosis Macrocytosis Spherocytes Sickle Cells Target Cells Tear Drop Cells Ovalocytes Stomatocytes [place] Bodies [place] Cells Bite Cells Acanthocytes (Spur) Rouleaux Schistocytes Haptoglobin PT INR APTT Specimen Type Sample Site pH Bicarbonate Actual POC Total CO2 Base Excess O2 Saturation O2 % ABG pCO2 ABG pO2 John Test VBG pH VBG pO2 VBG O2 Sat (Calc) VBG O2 Content VBG Base Excess POC Mix VBG pCO2 Pt Tmp Respiration Rate O2 Delivery Device EPAP IPAP Blood Gas Notified Whom Blood Gas Notified Time Sodium Potassium Chloride Carbon Dioxide Anion Gap BUN Creatinine Estim Creat Clear Calc Est GFR (MDRD) Af Amer Est GFR (MDRD) Non-Af BUN/Creatinine Ratio Glucose Calcium Total Bilirubin Direct Bilirubin AST ALT Alkaline Phosphatase Lactate Dehydrogenase Troponin I B-Natriuretic Peptide Total Protein Albumin Globulin Urine Color Urine Clarity Urine pH Ur Specific [place] Urine Protein Urine Glucose (UA) Urine Ketones Urine Occult Blood Urine Nitrite Urine Bilirubin Urine Urobilinogen Ur Leukocyte Esterase Urine RBC Urine WBC Ur Squamous Epith Cells Urine Bacteria Hyaline Casts Urine Mucus POC Glucose 43 L* 224 H Blood Type Antibody Screen Direct Antiglob Test Crossmatch 03/26/18 03/26/18 03/26/18 05:00 06:49 11:15 WBC Corrected WBC RBC Hgb Hct MCV MCH MCHC RDW RDW Differential Plt Count MPV Immature Gran % (Auto) Neut % (Auto) Lymph % (Auto) [place] % (Auto) Eos % (Auto) Baso % (Auto) Absolute Neuts (auto) Absolute Lymphs (auto) Total Counted Neutrophils % (Manual) Band Neutrophils % Lymphocytes % (Manual) Monocytes % (Manual) Eosinophils % (Manual) Basophils % (Manual) Metamyelocytes % Myelocytes % Promyelocytes % Blast Cells % Plasma Cell % (Manual) Other Cells % Nucleated RBCs/100 WBC Differential Comment Diff Path Review Hypersegmented Neuts Atypical Lymphocytes Reactive Lymphocytes Smudge Cells Toxic Granulation Dohle Bodies Noris Rods Platelet Estimate Plt Morphology Comment RBC Morphology Polychromasia Hypochromasia Poikilocytosis Basophilic Stippling Anisocytosis Microcytosis Macrocytosis Spherocytes Sickle Cells Target Cells Tear Drop Cells Ovalocytes Stomatocytes [place] Bodies Julian Cells Bite Cells Acanthocytes (Spur) Rouleaux Schistocytes Haptoglobin PT INR APTT Specimen Type Sample Site pH Bicarbonate Actual POC Total CO2 Base Excess O2 Saturation O2 % ABG pCO2 ABG pO2 John Test VBG pH VBG pO2 VBG O2 Sat (Calc) VBG O2 Content VBG Base Excess POC Mix VBG pCO2 Pt Tmp Respiration Rate O2 Delivery Device EPAP IPAP Blood Gas Notified Whom Blood Gas Notified Time Sodium 140 Potassium 3.8 Chloride 103 Carbon Dioxide 29.0 Anion Gap 8 BUN 32 H Creatinine 1.01 Estim Creat Clear Calc 36.89 Est GFR (MDRD) Af Amer 68 Est GFR (MDRD) Non-Af 56 L BUN/Creatinine Ratio 31.7 H Glucose 72 L Calcium 8.7 Total Bilirubin Direct Bilirubin AST ALT Alkaline Phosphatase Lactate Dehydrogenase Troponin I B-Natriuretic Peptide Total Protein Albumin Globulin Urine Color Urine Clarity Urine pH Ur Specific [place] Urine Protein Urine Glucose (UA) Urine Ketones Urine Occult Blood Urine Nitrite Urine Bilirubin Urine Urobilinogen Ur Leukocyte Esterase Urine RBC Urine WBC Ur Squamous Epith Cells Urine Bacteria Hyaline Casts Urine Mucus POC Glucose 73 154 H Blood Type Antibody Screen Direct Antiglob Test Crossmatch 03/26/18 03/26/18 03/27/18 17:06 22:17 05:58 WBC Corrected WBC RBC Hgb Hct MCV MCH MCHC RDW RDW Differential Plt Count MPV Immature Gran % (Auto) Neut % (Auto) Lymph % (Auto) [place] % (Auto) Eos % (Auto) Baso % (Auto) Absolute Neuts (auto) Absolute Lymphs (auto) Total Counted Neutrophils % (Manual) Band Neutrophils % Lymphocytes % (Manual) Monocytes % (Manual) Eosinophils % (Manual) Basophils % (Manual) Metamyelocytes % Myelocytes % Promyelocytes % Blast Cells % Plasma Cell % (Manual) Other Cells % Nucleated RBCs/100 WBC Differential Comment Diff Path Review Hypersegmented Neuts Atypical Lymphocytes Reactive Lymphocytes Smudge Cells Toxic Granulation Dohle Bodies Noris Rods Platelet Estimate Plt Morphology Comment RBC Morphology Polychromasia Hypochromasia Poikilocytosis Basophilic Stippling Anisocytosis Microcytosis Macrocytosis Spherocytes Sickle Cells Target Cells Tear Drop Cells Ovalocytes Stomatocytes [place] Bodies Julian Cells Bite Cells Acanthocytes (Spur) Rouleaux Schistocytes Haptoglobin PT INR APTT Specimen Type Sample Site pH Bicarbonate Actual POC Total CO2 Base Excess O2 Saturation O2 % ABG pCO2 ABG pO2 John Test VBG pH VBG pO2 VBG O2 Sat (Calc) VBG O2 Content VBG Base Excess POC Mix VBG pCO2 Pt Tmp Respiration Rate O2 Delivery Device EPAP IPAP Blood Gas Notified Whom Blood Gas Notified Time Sodium Potassium Chloride Carbon Dioxide Anion Gap BUN Creatinine Estim Creat Clear Calc Est GFR (MDRD) Af Amer Est GFR (MDRD) Non-Af BUN/Creatinine Ratio Glucose Calcium Total Bilirubin Direct Bilirubin AST ALT Alkaline Phosphatase Lactate Dehydrogenase Troponin I B-Natriuretic Peptide Total Protein Albumin Globulin Urine Color Urine Clarity Urine pH Ur Specific [place] Urine Protein Urine Glucose (UA) Urine Ketones Urine Occult Blood Urine Nitrite Urine Bilirubin Urine Urobilinogen Ur Leukocyte Esterase Urine RBC Urine WBC Ur Squamous Epith Cells Urine Bacteria Hyaline Casts Urine Mucus POC Glucose 87 135 H 105 Blood Type Antibody Screen Direct Antiglob Test Crossmatch 03/27/18 03/27/18 03/27/18 06:00 06:00 06:00 WBC 7.4 Corrected WBC RBC 3.22 L Hgb 9.1 L Hct 29.1 L MCV 90.4 MCH 28.3 MCHC 31.3 L RDW 16.1 H RDW Differential 52.5 H Plt Count 292 MPV 8.4 Immature Gran % (Auto) 0.100 Neut % (Auto) 68.8 Lymph % (Auto) 19.7 [place] % (Auto) 6.9 Eos % (Auto) 4.1 Baso % (Auto) 0.4 Absolute Neuts (auto) 5.1 Absolute Lymphs (auto) 1.46 Total Counted Not Reportable Neutrophils % (Manual) Band Neutrophils % Lymphocytes % (Manual) Monocytes % (Manual) Eosinophils % (Manual) Basophils % (Manual) Metamyelocytes % Myelocytes % Promyelocytes % Blast Cells % Plasma Cell % (Manual) Other Cells % Nucleated RBCs/100 WBC Differential Comment Diff Path Review Hypersegmented Neuts Atypical Lymphocytes Reactive Lymphocytes Smudge Cells Toxic Granulation Dohle Bodies Noris Rods Platelet Estimate Plt Morphology Comment RBC Morphology Polychromasia Hypochromasia Poikilocytosis Basophilic Stippling Anisocytosis Microcytosis Macrocytosis Spherocytes Sickle Cells Target Cells Tear Drop Cells Ovalocytes Stomatocytes [place] Bodies [place] Cells Bite Cells Acanthocytes (Spur) Rouleaux Schistocytes Haptoglobin PT 14.5 INR 1.1 APTT 25.4 Specimen Type Sample Site pH Bicarbonate Actual POC Total CO2 Base Excess O2 Saturation O2 % ABG pCO2 ABG pO2 John Test VBG pH VBG pO2 VBG O2 Sat (Calc) VBG O2 Content VBG Base Excess POC Mix VBG pCO2 Pt Tmp Respiration Rate O2 Delivery Device EPAP IPAP Blood Gas Notified Whom Blood Gas Notified Time Sodium 140 Potassium 3.6 Chloride 101 Carbon Dioxide 29.0 Anion Gap 10 BUN 28 H Creatinine 1.02 Estim Creat Clear Calc 36.53 Est GFR (MDRD) Af Amer 68 Est GFR (MDRD) Non-Af 56 L BUN/Creatinine Ratio 27.5 H Glucose 97 Calcium 8.8 Total Bilirubin Direct Bilirubin AST ALT Alkaline Phosphatase Lactate Dehydrogenase Troponin I B-Natriuretic Peptide Total Protein Albumin Globulin Urine Color Urine Clarity Urine pH Ur Specific [place] Urine Protein Urine Glucose (UA) Urine Ketones Urine Occult Blood Urine Nitrite Urine Bilirubin Urine Urobilinogen Ur Leukocyte Esterase Urine RBC Urine WBC Ur Squamous Epith Cells Urine Bacteria Hyaline Casts Urine Mucus POC Glucose Blood Type Antibody Screen Direct Antiglob Test Crossmatch 03/27/18 03/27/18 03/27/18 09:48 09:51 10:01 WBC Corrected WBC RBC Hgb Hct MCV MCH MCHC RDW RDW Differential Plt Count MPV Immature Gran % (Auto) Neut % (Auto) Lymph % (Auto) [place] % (Auto) Eos % (Auto) Baso % (Auto) Absolute Neuts (auto) Absolute Lymphs (auto) Total Counted Neutrophils % (Manual) Band Neutrophils % Lymphocytes % (Manual) Monocytes % (Manual) Eosinophils % (Manual) Basophils % (Manual) Metamyelocytes % Myelocytes % Promyelocytes % Blast Cells % Plasma Cell % (Manual) Other Cells % Nucleated RBCs/100 WBC Differential Comment Diff Path Review Hypersegmented Neuts Atypical Lymphocytes Reactive Lymphocytes Smudge Cells Toxic Granulation Dohle Bodies Noris Rods Platelet Estimate Plt Morphology Comment RBC Morphology Polychromasia Hypochromasia Poikilocytosis Basophilic Stippling Anisocytosis Microcytosis Macrocytosis Spherocytes Sickle Cells Target Cells Tear Drop Cells Ovalocytes Stomatocytes [place] Bodies [place] Cells Bite Cells Acanthocytes (Spur) Rouleaux Schistocytes Haptoglobin PT INR APTT Specimen Type MATTIE MATTIE ART Sample Site pH 7.45 Bicarbonate Actual 29.2 H POC Total CO2 30 Base Excess 5 H O2 Saturation 93 L O2 % ABG pCO2 42.2 ABG pO2 65 L John Test VBG pH 7.43 H 7.46 H VBG pO2 33 38 VBG O2 Sat (Calc) 64 75 H VBG O2 Content 32 32 VBG Base Excess 6 H 7 H POC Mix VBG pCO2 Pt Tmp 45.8 43.2 Respiration Rate O2 Delivery Device EPAP IPAP Blood Gas Notified Whom Blood Gas Notified Time Sodium Potassium Chloride Carbon Dioxide Anion Gap BUN Creatinine Estim Creat Clear Calc Est GFR (MDRD) Af Amer Est GFR (MDRD) Non-Af BUN/Creatinine Ratio Glucose Calcium Total Bilirubin Direct Bilirubin AST ALT Alkaline Phosphatase Lactate Dehydrogenase Troponin I B-Natriuretic Peptide Total Protein Albumin Globulin Urine Color Urine Clarity Urine pH Ur Specific [place] Urine Protein Urine Glucose (UA) Urine Ketones Urine Occult Blood Urine Nitrite Urine Bilirubin Urine Urobilinogen Ur Leukocyte Esterase Urine RBC Urine WBC Ur Squamous Epith Cells Urine Bacteria Hyaline Casts Urine Mucus POC Glucose Blood Type Antibody Screen Direct Antiglob Test Crossmatch 03/27/18 03/27/18 03/27/18 10:58 16:26 21:57 WBC Corrected WBC RBC Hgb Hct MCV MCH MCHC RDW RDW Differential Plt Count MPV Immature Gran % (Auto) Neut % (Auto) Lymph % (Auto) [place] % (Auto) Eos % (Auto) Baso % (Auto) Absolute Neuts (auto) Absolute Lymphs (auto) Total Counted Neutrophils % (Manual) Band Neutrophils % Lymphocytes % (Manual) Monocytes % (Manual) Eosinophils % (Manual) Basophils % (Manual) Metamyelocytes % Myelocytes % Promyelocytes % Blast Cells % Plasma Cell % (Manual) Other Cells % Nucleated RBCs/100 WBC Differential Comment Diff Path Review Hypersegmented Neuts Atypical Lymphocytes Reactive Lymphocytes Smudge Cells Toxic Granulation Dohle Bodies Noris Rods Platelet Estimate Plt Morphology Comment RBC Morphology Polychromasia Hypochromasia Poikilocytosis Basophilic Stippling Anisocytosis Microcytosis Macrocytosis Spherocytes Sickle Cells Target Cells Tear Drop Cells Ovalocytes Stomatocytes [place] Branch Bodies [place] Cells Bite Cells Acanthocytes (Spur) Rouleaux Schistocytes Haptoglobin PT INR APTT Specimen Type Sample Site pH Bicarbonate Actual POC Total CO2 Base Excess O2 Saturation O2 % ABG pCO2 ABG pO2 John Test VBG pH VBG pO2 VBG O2 Sat (Calc) VBG O2 Content VBG Base Excess POC Mix VBG pCO2 Pt Tmp Respiration Rate O2 Delivery Device EPAP IPAP Blood Gas Notified Whom Blood Gas Notified Time Sodium Potassium Chloride Carbon Dioxide Anion Gap BUN Creatinine Estim Creat Clear Calc Est GFR (MDRD) Af Amer Est GFR (MDRD) Non-Af BUN/Creatinine Ratio Glucose Calcium Total Bilirubin Direct Bilirubin AST ALT Alkaline Phosphatase Lactate Dehydrogenase Troponin I B-Natriuretic Peptide Total Protein Albumin Globulin Urine Color Urine Clarity Urine pH Ur Specific Blanco Urine Protein Urine Glucose (UA) Urine Ketones Urine Occult Blood Urine Nitrite Urine Bilirubin Urine Urobilinogen Ur Leukocyte Esterase Urine RBC Urine WBC Ur Squamous Epith Cells Urine Bacteria Hyaline Casts Urine Mucus POC Glucose 109 106 131 H Blood Type Antibody Screen Direct Antiglob Test Crossmatch 03/28/18 03/28/18 03/28/18 06:10 06:10 06:46 WBC 7.9 Corrected WBC RBC 3.55 L Hgb 10.1 L Hct 32.4 L MCV 91.3 MCH 28.5 MCHC 31.2 L RDW 16.4 H RDW Differential 54.1 H Plt Count 310 MPV 8.5 Immature Gran % (Auto) 0.000 Neut % (Auto) 77.8 H Lymph % (Auto) 12.5 L [place] % (Auto) 6.6 Eos % (Auto) 2.8 Baso % (Auto) 0.3 Absolute Neuts (auto) 6.2 Absolute Lymphs (auto) 0.99 Total Counted Not Reportable Neutrophils % (Manual) Band Neutrophils % Lymphocytes % (Manual) Monocytes % (Manual) Eosinophils % (Manual) Basophils % (Manual) Metamyelocytes % Myelocytes % Promyelocytes % Blast Cells % Plasma Cell % (Manual) Other Cells % Nucleated RBCs/100 WBC Differential Comment Diff Path Review Hypersegmented Neuts Atypical Lymphocytes Reactive Lymphocytes Smudge Cells Toxic Granulation Dohle Bodies Noris Rods Platelet Estimate Plt Morphology Comment RBC Morphology Polychromasia Hypochromasia Poikilocytosis Basophilic Stippling Anisocytosis Microcytosis Macrocytosis Spherocytes Sickle Cells Target Cells Tear Drop Cells Ovalocytes Stomatocytes [place] Branch Bodies [place] Cells Bite Cells Acanthocytes (Spur) Rouleaux Schistocytes Haptoglobin PT INR APTT Specimen Type Sample Site pH Bicarbonate Actual POC Total CO2 Base Excess O2 Saturation O2 % ABG pCO2 ABG pO2 John Test VBG pH VBG pO2 VBG O2 Sat (Calc) VBG O2 Content VBG Base Excess POC Mix VBG pCO2 Pt Tmp Respiration Rate O2 Delivery Device EPAP IPAP Blood Gas Notified Whom Blood Gas Notified Time Sodium 137 Potassium 3.8 Chloride 98 Carbon Dioxide 29.0 Anion Gap 10 BUN 32 H Creatinine 1.39 H Estim Creat Clear Calc 26.81 Est GFR (MDRD) Af Amer 47 L Est GFR (MDRD) Non-Af 39 L BUN/Creatinine Ratio 23.0 H Glucose 113 H Calcium 9.0 Total Bilirubin Direct Bilirubin AST ALT Alkaline Phosphatase Lactate Dehydrogenase Troponin I B-Natriuretic Peptide Total Protein Albumin Globulin Urine Color Urine Clarity Urine pH Ur Specific Blanco Urine Protein Urine Glucose (UA) Urine Ketones Urine Occult Blood Urine Nitrite Urine Bilirubin Urine Urobilinogen Ur Leukocyte Esterase Urine RBC Urine WBC Ur Squamous Epith Cells Urine Bacteria Hyaline Casts Urine Mucus POC Glucose 113 H Blood Type Antibody Screen Direct Antiglob Test Crossmatch 03/28/18 03/28/18 11:38 16:24 WBC Corrected WBC RBC Hgb Hct MCV MCH MCHC RDW RDW Differential Plt Count MPV Immature Gran % (Auto) Neut % (Auto) Lymph % (Auto) [place] % (Auto) Eos % (Auto) Baso % (Auto) Absolute Neuts (auto) Absolute Lymphs (auto) Total Counted Neutrophils % (Manual) Band Neutrophils % Lymphocytes % (Manual) Monocytes % (Manual) Eosinophils % (Manual) Basophils % (Manual) Metamyelocytes % Myelocytes % Promyelocytes % Blast Cells % Plasma Cell % (Manual) Other Cells % Nucleated RBCs/100 WBC Differential Comment Diff Path Review Hypersegmented Neuts Atypical Lymphocytes Reactive Lymphocytes Smudge Cells Toxic Granulation Dohle Bodies Noris Rods Platelet Estimate Plt Morphology Comment RBC Morphology Polychromasia Hypochromasia Poikilocytosis Basophilic Stippling Anisocytosis Microcytosis Macrocytosis Spherocytes Sickle Cells Target Cells Tear Drop Cells Ovalocytes Stomatocytes [place] Branch Bodies [place] Cells Bite Cells Acanthocytes (Spur) Rouleaux Schistocytes Haptoglobin PT INR APTT Specimen Type Sample Site pH Bicarbonate Actual POC Total CO2 Base Excess O2 Saturation O2 % ABG pCO2 ABG pO2 John Test VBG pH VBG pO2 VBG O2 Sat (Calc) VBG O2 Content VBG Base Excess POC Mix VBG pCO2 Pt Tmp Respiration Rate O2 Delivery Device EPAP IPAP Blood Gas Notified Whom Blood Gas Notified Time Sodium Potassium Chloride Carbon Dioxide Anion Gap BUN Creatinine Estim Creat Clear Calc Est GFR (MDRD) Af Amer Est GFR (MDRD) Non-Af BUN/Creatinine Ratio Glucose Calcium Total Bilirubin Direct Bilirubin AST ALT Alkaline Phosphatase Lactate Dehydrogenase Troponin I B-Natriuretic Peptide Total Protein Albumin Globulin Urine Color Urine Clarity Urine pH Ur Specific [place] Urine Protein Urine Glucose (UA) Urine Ketones Urine Occult Blood Urine Nitrite Urine Bilirubin Urine Urobilinogen Ur Leukocyte Esterase Urine RBC Urine WBC Ur Squamous Epith Cells Urine Bacteria Hyaline Casts Urine Mucus POC Glucose 147 H 216 H Blood Type Antibody Screen Direct Antiglob Test Crossmatch Consultations 03/26/18 05:59 Consult: Onc/Wound/case investigator Routine Comment: Operations: None Procedures: Cardiac catheterization Summary of Care Provided: The patient is a 77 year old F with recently diagnosed colon cancer, clinically on 6 stenosis and anemia. She was admitted on 9 with complaint of shortness of breath. She had had WU on day of admission and was getting a blood transfusion when she suddenly developed shortness of breath. She was given IV Lasix and sent down to the ED from when she was admitted. Shortness of breath resolved after a few hours of being on BiPAP. She was admitted and managed for symptomatic anemia and severe aortic stenosis. She had a cardiac cath which showed nonobstructive coronary arteries, normal left ventricular size, wall motion and systolic function and severe aortic stenosis with preserved cardiac output and severe pulmonary hypertension. Recommendation was valve replacement surgery with T AVR versus open resection to assist with hemicolectomy for colon cancer. Oncology was consulted to assess for metastasis prior to aortic valve replacement procedure. CT of the chest ordered as per oncology to assess for metastasis shows small patchy areas of interstitial densities in the right lung with nonspecific pleural-based nodules bilaterally. Decision was made to transfer patient to tertiary care center for aortic valve replacement in light of comorbidities of severe anemia and colon cancer. Patient was transferred to [facility] on 03/28/18. [] Discharge Diet: Low fat/ Low Cholesterol Discharge Activity: Return to Normal Activity Weight Bearing Status: Weight bearing as tolerated Call your doctor if you observe: Shortness of breath, Dizziness Home Medications: Medications to take at Discharge Acetaminophen [Tylenol Tablet] 650 mg PO Q6H PRN PRN #30 tab 04/29/16 Amlodipine [Norvasc] 2.5 mg PO DAILY 02/15/18 Cholecalciferol (Vitamin D3) [Vitamin D3] 5,000 unit PO DAILY 02/15/18 Insulin Aspart [Novolog Flexpen] 5 units SC TIDCM 02/15/18 Metoprolol(XL)Succ [Toprol Xl (Beta Ryder)] 25 mg PO DAILY 02/15/18 Triamcinolone 0.1% Cream [Kenalog] 1 applic TOPICAL DAILY 02/15/18 Oxybutynin Chloride [Ditropan Xl] 5 mg PO QHS 02/17/18 Insulin Degludec [Tresiba Flextouch U-100] 15 unit SQ DAILY #7 insuln.pen 02/20/18 Atorvastatin Calcium 20 mg PO QHS 03/24/18 Ferrous Gluconate 325 mg PO TID 03/24/18 Lisinopril [Zestril] 10 mg PO DAILY 03/24/18 aspirin 81 mg tablet,delayed release 81 mg PO DAILY 03/24/18 Primary Care Physician: Yumi Diana MD [Primary Care Provider] - Please follow up with your Primary Care Physician in: 1-2 weeks Patient Instructions: Cardiac Catheterization Disposition: [facility] Minutes spent on discharge:: 35 Patient Condition:: Stable Medical Necessity - Tobacco Use Smoking Status: Former smoker Meaningful Use Info Meaningful Use Diagnoses (Choose all that apply): None applicable Code Visit Inpatient E&M: 26051 Disch Hosp
== END 2018-03-28 20:15 | disposition short-term general hospital (02) | DRG 287 ==
LOC: ED 17:23 → PCU 03-25 01:23
PROVIDERS: Internal Medicine Cardiovascular Disease; Admitting Provider Internal Medicine; Emergency Provider Emergency Medicine; Family Provider Internal Medicine; PCP Internal Medicine; Visit Provider Student in an Organized Health Care Education/Training Program
DX: I35.0 Nonrheumatic aortic (valve) stenosis (principal); C18.3 Malignant neoplasm of hepatic flexure; I50.30 Unspecified diastolic (congestive) heart failure; E78.5 Hyperlipidemia, unspecified; E66.9 Obesity, unspecified; Z68.35 Body mass index [BMI] 35.0-35.9, adult; Z86.73 Personal history of transient ischemic attack (TIA), and cerebral infarction without residual deficits; I27.20 Pulmonary hypertension, unspecified; E11.9 Type 2 diabetes mellitus without complications; Z87.891 Personal history of nicotine dependence; D63.0 Anemia in neoplastic disease; I11.0 Hypertensive heart disease with heart failure; Z79.4 Long term (current) use of insulin
CPT/HCPCS: 36415; 36600; 71045; 71260; 80048; 80076; 81001; 82378; 82803; 82962; 83010; 83615; 83880; 84484; 85025; 85027; 85610; 85730; 86850; 86880; 86900; 86920; 86922; 93005; 93312; 93320; 93325; 93460; 94002; 94640; 97110; 97116; 97162; 97802; 99282; J7030; J7040; P9016; Q9967; A4216; C1751; C1769; C1894; J1940